=== PATIENT | male | born 1960 | race Asian ===

== ENCOUNTER 2024-03-01 19:02 | Inpatient (IN) | payer MEDICAID, SELFPAY ==
[2024-03-01] VITALS (10 sets, daily range): BP systolic 155–224; BP diastolic 81–106; PULSE 59–74; RESP 14–19; TEMP 37.1; O2SAT 95–99; BMI 27.6
--- NOTE | 2024-03-01 19:03 | PD.EDNEURO ---
Neuro Symptoms Deficit-RME/HPI General Chief Complaint: Neuro Symptoms/Deficit Stated Complaint: STROKE ALERT Time Seen by Provider: 03/01/24 19:04 Arrival date/time: 03/01/24 19:02 Limitations: language barrier (speaks [place]) RME / HPI RME / HPI Narrative: Dr. Davis?s Main ED Evaluation: 63yo male with a history of HTN, HLD BIBA from home presents to the ED for neurological symptoms since Saturday. Per EMS, family endorsed the patient has been confused since Saturday. Patient does not have any medical complaints, but EMS noted the patient having slurred speech. Patient denies any dizziness, lightheadedness, nausea, vomiting or any other associated symptoms. NKDA. Related Data Home Medications ?Medication ?Instructions ?Recorded ?Confirmed bupropion HCl 75 mg tablet 75 mg PO TID 04/12/22 03/01/24 hydrochlorothiazide 50 mg tablet 50 mg PO QDAY 04/12/22 03/01/24 amlodipine 5 mg tablet 5 mg PO DAILY 03/01/24 03/01/24 atorvastatin 40 mg tablet 40 mg PO DAILY 03/01/24 03/01/24 benazepril 40 mg tablet 40 mg PO DAILY 03/01/24 03/01/24 diphenhydramine HCl 25 mg capsule 25 mg PO HS 03/01/24 03/01/24 (Banophen) metoprolol succinate 100 mg 100 mg PO HS 03/01/24 03/01/24 tablet,extended release 24 hr tamsulosin 0.4 mg capsule 4 mg PO DAILY 03/01/24 03/01/24 vortioxetine 20 mg tablet 20 mg PO DAILY 03/01/24 03/01/24 (Trintellix) Allergies Allergy/AdvReac Type Severity Reaction Status Date / Time No Known Drug Allergies Allergy Unknown Verified 02/05/23 13:28 Review of Systems Review of Systems Systems Reviewed: All systems reviewed, normal except as documented Past Medical History Past Medical History CARDIAC: Positive Hypertension ENT: Negative Glaucoma ED Exam Narrative Physical exam: GENERAL APPEARANCE: alert and oriented x person and place, well-developed, well-nourished, no acute distress VITALS: All vitals were reviewed and the pulse ox is 97% on room air, which is normal according to my interpretation. HEENT: Normocephalic, atraumatic; pupils equal, round, reactive to light; EOMI, no nystagmus; mucous membranes pink, moist; oropharynx clear NECK: Supple LUNGS: CTABL; no wheezes, no rales, no rhonchi HEART: Regular rate, regular rhythm; normal S1, S2; no murmurs ABDOMEN: non distended; normal BS; soft, no tenderness, no guarding, no rebound; no masses, no organomegaly, no hernia BACK: no CVA tenderness EXTREMITIES: atraumatic; no edema; has 5/5 strength to all four extremities NEUROLOGIC: awake; alert and oriented to person and place; has a minimal right facial droop; no sensory deficits; no intention tremor, staccato speech, dysmetria or dysdiadochokinesia PSYCHIATRIC: appropriate mood and affect SKIN: warm, dry, normal color; no rashes General Limitations: Present language barrier (speaks [place]) Course Quality Measures Suspected type of Stroke: Acute Ischemic Tenecteplase given: Reason(s) TPA not given: Outside the time window not given stroke Orders Category Date Time Status Bedside Blood Glucose NOW Care 03/01/24 19:11 Completed Service Attendant Cafeteria NOW Care 03/01/24 19:11 Completed Continuous Pulse Oximetry NOW Care 03/01/24 19:11 Completed EKG (ED ONLY) *Do not use* NOW Care 03/01/24 19:11 Completed Fingerstick [Bedside Blood Glucose] NOW Care 03/01/24 19:12 Completed In and Out Catheter NEEDED Care 03/01/24 19:11 Completed Insert IV NOW Care 03/01/24 19:11 Completed Miscellaneous Nursing Order NOW Care 03/01/24 20:02 Completed NIH Stroke Scale now Care 03/01/24 19:11 Completed NPO NOW Care 03/01/24 19:11 Completed Neuro Check Q30MIN Care 03/01/24 19:12 Completed Nurse Swallow Screen x1 Care 03/01/24 19:11 Completed Consult to Neurology / Tele-Neurology Routine Cons 03/01/24 19:[address] angio stroke protocol Stat Exams 03/01/24 19:[address] head/brain wo con Stat Exams 03/01/24 19:11 Completed EKG (ED Only) Stat Exams 03/01/24 19:11 Draft Alcohol, Blood Medical Stat Lab 03/01/24 19:06 Completed Ammonia Stat Lab 03/01/24 20:20 Completed CBC Stat Lab 03/01/24 19:06 Completed Comprehensive Metabolic Panel Stat Lab 03/01/24 19:06 Completed Drug Screen,Urine Stat Lab 03/01/24 20:00 Completed Magnesium Stat Lab 03/01/24 19:06 Completed Partial Thromboplastin Time Stat Lab 03/01/24 19:06 Completed Prothrombin Time with INR Stat Lab 03/01/24 19:06 Completed Troponin I Stat Lab 03/01/24 19:06 Completed Urinalysis Stat Lab 03/01/24 20:00 Completed Urine Culture Stat Lab 03/01/24 20:00 Received Aspirin Med 03/01/24 20:03 Discontinued 325 mg PO X1 ONE Labetalol IV [Trandate IV] Med 03/01/24 20:03 Discontinued 10 mg IVP X1 ONE Oxygen Delivery NOW RT 03/01/24 19:11 Completed Vital Signs Vital signs: Vital Signs Pulse Rate 68 03/01/24 19:19 Neuro Symptoms / Deficit MDM Narrative MDM Narrative:: Scribe Attestation: 03/01/24 Julia Dickson am scribing for and in the presence of Dr. Davis. Patient data External records reviewed:: [facility] previous records (Per chart review, patient has no previous ED visits or admissions to this facility.) Clinical information provided by:: patient and EMS Social determinants that could affect healthcare access:: alcohol use (history of) Patient has the following chronic illnesses:: HTN, HLD How is presenting disease/condition affected by chronic disease/condition?: exacerbated by Evaluation data The following diagnostics were reviewed and interpreted by me:: lab results, radiology exam(s) and EKG tracing(s) Lab and/or radiology exams considered but not ordered:: none Interpretation Summary: WBC count is slightly elevated at 10.8, AST and ALT are slightly elevated, troponin is normal, PT and INR are normal, PTT is normal, UA is unremarkable, UDS is negative, Blood alcohol is negative, according to my interpretation. EKG done at 1935, NSR, rate of 72, left axis deviation, no ectopy, no acute ischemia, according to my interpretation. ------- [facility] Report Signed Patient: GABBY STEWART. Record#: [id number] Birthdate: 1960 Age/Sex: 63 / M Location: [facility] Attending Dr: Ordering Physician: Girish Davis MD Date of Service: 03/01/24 Procedure(s): CT head/brain wo con Accession Number(s): [id number] cc: Rickey Vasquez MD; Girish Davis MD~ Examination: CT brain head without contrast. 2-D sagittal coronal reconstructions Date and time of exam:March 01, 2024 1912 hrs. Indications: Stroke alert, onset right-sided body weakness today CTDI: vol (mGy):48 DLP: (mGycm):951 Technique: Multiple CT axial sections of the brain have been obtained, 5 mm slice thickness. Contrast has not been administered. 2-D sagittal, coronal reconstructions have been obtained Low dose protocols were performed. One or more of the following dose reduction techniques were used; automated exposure control, adjustment of the mA and/or KV according to patient size, use of iterative reconstruction technique. Findings: No significant ventricular enlargement. Intra-axial or extra-axial hemorrhage density is not seen. No mass effect or midline shift Basal cisterns are not remarkable. Fourth ventricle is midline. Cranial vault intact. Impression: Negative for acute hemorrhage, mass effect or midline shift Dictated By: Rickey Vasquez MD Signed By: <Electronically signed by Rickey Vasquez MD in > 03/01/241922 [facility] Report Signed Patient: GABBY STEWART Record#: [id number] Birthdate: 1960 Age/Sex: 63 / M Location: [facility] Attending Dr: Ordering Physician: Girish Davis MD Date of Service: 03/01/24 Procedure(s): CT angio stroke protocol Accession Number(s): [id number] cc: Rickey Vasquez MD; Girish Davis MD; Lana Little PA-C~ Examination: CTA carotids with intravenous contrast CTA brain, head with intravenous contrast. 2-D sagittal, coronal reconstructions. 3-D reconstructions. Exam date and time: March 01, 2024 1912 hrs. Indications: Stroke alert, onset focal neurologic deficit today CTDI: vol (mGy) 10.8 DLP: (mGycm) 414 Technique: Multiple CTA axial brain, head carotid images post intravenous contrast injection 75 cc [id number] 2-D sagittal coronal reconstructions 3-D reconstructions 3-D post processing including vascular maximum intensity projection images No dose protocols Adjustment automated exposure control, adjustment MA KV according to patient size Findings: No significant common carotid carotid bifurcation or internal carotid artery stenoses Codominant vertebral arteries with no critical stenoses 50% stenosis midportion right M1 segment middle cerebral artery Multiple significant stenoses proximal right middle cerebral artery trifurcation vessels Moderate irregularity M1 segment left middle cerebral artery and posterior cerebral branches No thrombus or large vessel occlusion Impression: No significant neck arterial stenoses 50% stenosis midportion M1 segment right middle cerebral artery Multiple significant stenoses origins right middle cerebral artery trifurcation vessels No thrombus or large vessel occlusions Dictated By: Rickey Vasquez MD Signed By: <Electronically signed by Rickey Vasquez MD in [facility]> 03/01/241955 Medications / Prescriptions Medications or Prescriptions considered but not ordered:: none Medication administrations:: Medication Administration History Discontinued Medications Acetaminophen (Acetaminophen 325 Mg Tablet) 650 mg PO Q6H PRN PRN Reason: Pain 1-3 and/or Fever >100.1 Stop: 03/31/24 23:33 Aspirin (Aspirin 325 Mg Tablet) 325 mg PO X1 ONE Stop: 03/01/24 20:04 Last Admin: 03/01/24 20:09 Dose: 325 mg Documented By: CVL Aspirin (Aspirin Ec 81 Mg Tabec) 81 mg PO QDAY ON LICENSE OF [facility] Stop: 04/01/24 08:59 Last Admin: 03/03/24 09:11 Dose: 81 mg Documented By: Admin: 03/02/24 08:33 Dose: 81 mg Documented By: VL Atorvastatin Calcium (Atorvastatin Calcium 20 Mg Tablet) 40 mg PO HS ON LICENSE OF [facility] Stop: 04/01/24 20:59 Last Admin: 03/03/24 20:10 Dose: 40 mg Documented By: Admin: 03/02/24 20:29 Dose: 40 mg Documented By: SS Clopidogrel Bisulfate (Clopidogrel Bisulfate 75 Mg Tablet) 75 mg PO X1 ONE Stop: 03/03/24 16:48 Last Admin: 03/03/24 16:58 Dose: 75 mg Documented By: MGD Clopidogrel Bisulfate (Clopidogrel Bisulfate 75 Mg Tablet) 75 mg PO QDAY ON LICENSE OF [facility] Stop: 04/03/24 08:59 Folic Acid (Folic Acid 1 Mg Tablet) 1 mg PO BID RAFAEL Stop: 03/07/24 08:59 Last Admin: 03/03/24 20:10 Dose: 1 mg Documented By: Admin: 03/03/24 09:12 Dose: 1 mg Documented By: Admin: 03/02/24 20:29 Dose: 1 mg Documented By: Admin: 03/02/24 08:33 Dose: 1 mg Documented By: VL Hydralazine HCl (Hydralazine Inj 20 Mg/Ml Vial) 10 mg IV X1 ONE Stop: 03/03/24 16:29 Last Admin: 03/03/24 16:36 Dose: 10 mg Documented By: MGD Labetalol HCl (Labetalol Inj 5 Mg/Ml Vial 20 Ml) 10 mg IVP X1 ONE Stop: 03/01/24 20:04 Last Admin: 03/01/24 20:09 Dose: 10 mg Documented By: CVL Labetalol HCl (Labetalol Inj 5 Mg/Ml Vial 20 Ml) 10 mg IVP X1 ONE Stop: 03/03/24 16:28 Lorazepam (Lorazepam 0.5 Mg Tablet) 0.5 mg PO Q4HR PRN PRN Reason: CIWA Score 2-6 Stop: 03/06/24 23:37 Lorazepam (Lorazepam 0.5 Mg Tablet) 1 mg PO Q4HR PRN PRN Reason: CIWA SCORE 7-11 Stop: 03/06/24 23:37 Lorazepam (Lorazepam 0.5 Mg Tablet) 2 mg PO Q4HR PRN PRN Reason: CIWA SCORE 12-15 Stop: 03/06/24 23:37 Lorazepam (Lorazepam 2 Mg/Ml Vial) 1 mg IV Q2HR PRN PRN Reason: CIWA SCORE 16-19 Stop: 03/06/24 23:37 Lorazepam (Lorazepam 2 Mg/Ml Vial) 2 mg IV Q2HR PRN PRN Reason: CIWA SCORE 20-25 Stop: 03/06/24 23:37 Lorazepam (Lorazepam 2 Mg/Ml Vial) 1 mg IV Q2HR PRN PRN Reason: CIWA SCORE 16-19 Stop: 03/06/24 23:37 Nicotine (Nicotine Patch 14 Mg/24 Hr Patch.Td24) 14 mg TOP X1 PRN PRN Reason: Tobacco Withdrawal Stop: 03/31/24 23:39 Ondansetron HCl (Ondansetron Inj 2 Mg/Ml Inj 2 Ml) 4 mg IV Q6H PRN; Protocol PRN Reason: NAUSEA OR VOMITING Stop: 03/31/24 23:33 Pantoprazole Sodium (Pantoprazole Inj 40 Mg Vial) 40 mg IVP QDAY ON LICENSE OF [facility] Stop: 04/01/24 08:59 Last Admin: 03/03/24 09:11 Dose: 40 mg Documented By: Admin: 03/02/24 08:39 Dose: 40 mg Documented By: JIMMY Sennosides (Senna Tablet) 1 tab PO QDAY RAFAEL; Protocol Stop: 04/01/24 08:59 Last Admin: 03/03/24 09:11 Dose: 1 tab Documented By: Admin: 03/02/24 08:33 Dose: 1 tab Documented By: JIMMY Thiamine HCl (Thiamine 100 Mg Tablet) 100 mg PO BID RAFAEL Stop: 03/07/24 08:59 Last Admin: 03/03/24 20:10 Dose: 100 mg Documented By: Admin: 03/03/24 09:11 Dose: 100 mg Documented By: Admin: 03/02/24 20:30 Dose: 100 mg Documented By: Admin: 03/02/24 08:33 Dose: 100 mg Documented By: JIMMY see above Consultations Consultation(s) initiated? (list below): Yes Consultation #1 (Physician, Specialty, Details): Discussed case with [Dr. Lassiter] from [teleneurology] regarding [consultation]. Discussed patients ED course, exam findings, labs, and radiology results. States the patient is not a tPA candidate due to the patient's symptoms starting on Saturday. She states the patient has mild aphasia and dysarthria, but there is no evidence of LVO at this time. Recommends to lower the patient's blood pressure by no more than 25%, getting a MRI in the morning, giving aspirin if he passes his swallow study, and admitting the patient for further stroke work-up. Consultation #2 (Physician, Specialty, Details): Discussed case with [the resident physician, attending Dr. Reddy] from Hospitalist service regarding admission. Discussed patients ED course, exam findings, labs, and radiology results. The Hospitalist [agrees] to accept the patient for admission. Time: 23:01 Diagnosis Neuro Differential Diagnosis: other (hypertensive urgency vs emergency, encephalopathy, CVA, TIA) Most likely diagnosis given after review of the tests above:: see below Admission Indicated Admission indicated?: indicated Admission Request Was there a request for admission?: Yes Admission Attestation Admission request attestation: Discussed case with [] from Hospitalist service regarding admission. Discussed patients ED course, exam findings, labs, and radiology results. The Hospitalist [agrees,declines] to accept the patient for admission. Disposition Plan Disposition Plan: Admit Critical Care Time Critical Care Time Critical Care Time: Yes Total Critical Care Time (min.): 45 Attestation: The high probability of sudden, clinically significant deterioration in the patient?s condition required the highest level of my preparedness to intervene urgently. The services I provided to this patient were to treat and/or prevent clinically significant deterioration. Services included the following: chart data review, reviewing nursing notes and/or old charts, documentation time, csm consultant collaboration regarding findings and treatment options, medication orders and management, direct patient care, vital sign assessments and ordering, interpreting and reviewing diagnostic studies and lab tests. Aggregate critical care time includes only time during which I was engaged in work directly related to the patient?s care, as described above, whether at bedside or elsewhere in the Emergency Department. It did not include time spent performing other reported procedures or the services of residents, students, nurses or physician assistants. Discharge Plan Plan Patient Disposition: Admit Acute Care w/in Hospital Disposition Comment: [facility] Patient condition on transfer: Stable Problem List Clinical Impression: Hypertensive encephalopathy Patient/Caregiver Discharge Instructions Discharge Activity: as per physical therapy
--- NOTE | 2024-03-01 19:04 | PC.NURSE ---
stroke consult Case # [id number]
--- NOTE | 2024-03-01 19:11 | XR_ITS ---
Examination: CTA carotids with intravenous contrast CTA brain, head with intravenous contrast. 2-D sagittal, coronal reconstructions. 3-D reconstructions. Exam date and time: March 01, 2024 1912 hrs. Indications: Stroke alert, onset focal neurologic deficit today CTDI: vol (mGy) 10.8 DLP: (mGycm) 414 Technique: Multiple CTA axial brain, head carotid images post intravenous contrast injection 75 cc [id number] 2-D sagittal coronal reconstructions 3-D reconstructions 3-D post processing including vascular maximum intensity projection images No dose protocols Adjustment automated exposure control, adjustment MA KV according to patient size Findings: No significant common carotid carotid bifurcation or internal carotid artery stenoses Codominant vertebral arteries with no critical stenoses 50% stenosis midportion right M1 segment middle cerebral artery Multiple significant stenoses proximal right middle cerebral artery trifurcation vessels Moderate irregularity M1 segment left middle cerebral artery and posterior cerebral branches No thrombus or large vessel occlusion Impression: No significant neck arterial stenoses 50% stenosis midportion M1 segment right middle cerebral artery Multiple significant stenoses origins right middle cerebral artery trifurcation vessels No thrombus or large vessel occlusions
--- NOTE | 2024-03-01 19:11 | XR_ITS ---
Examination: CT brain head without contrast. 2-D sagittal coronal reconstructions Date and time of exam:March 01, 2024 1912 hrs. Indications: Stroke alert, onset right-sided body weakness today CTDI: vol (mGy):48 DLP: (mGycm):951 Technique: Multiple CT axial sections of the brain have been obtained, 5 mm slice thickness. Contrast has not been administered. 2-D sagittal, coronal reconstructions have been obtained Low dose protocols were performed. One or more of the following dose reduction techniques were used; automated exposure control, adjustment of the mA and/or KV according to patient size, use of iterative reconstruction technique. Findings: No significant ventricular enlargement. Intra-axial or extra-axial hemorrhage density is not seen. No mass effect or midline shift Basal cisterns are not remarkable. Fourth ventricle is midline. Cranial vault intact. Impression: Negative for acute hemorrhage, mass effect or midline shift
--- NOTE | 2024-03-01 19:11 | EKG_ITS ---
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
[2024-03-01 19:20] LABS: Basophils # (Auto) 0.1 Thou/mm3 (0.0-0.2); Basophils % (Auto) 1 % (0-2.5); Eosinophils # (Auto) 0.2 Thou/mm3 (0.0-0.5); Eosinophils % (Auto) 2 % (0-10); Hematocrit 43.2 % (41.0-53.0); Hemoglobin 14.6 g/dL (13.5-16.0); Immature Granulocytes % (Auto) 0 % (0-0); Immature Granulocytes Auto 0.03 Thou/mm3 (0.00-0.00); Lymphocytes # (Auto) 4.7 Thou/mm3 (1.0-4.8); Lymphocytes % (Auto) 44 % (10-50); Mean Corpuscular HGB Conc 33.8 g/dl (31.0-37.0); Mean Corpuscular Volume 83 fL (80-100); Monocytes # (Auto) 0.6 Thou/mm3 (0.0-0.8); Monocytes % (Auto) 6 % (0-12); Neutrophils # (Auto) 5.1 Thou/mm3 (1.8-7.7); Neutrophils % (Auto) 47 % (37-80); Nucleated Red Blood Cell % 0 /100 WBC (0); Platelet Count 239 Thou/mm3 (140-440); RDW Standard Deviation 41.1 fL (35.1-43.9); Red Blood Count 5.21 Miln/mm3 (4.50-5.90); White Blood Count 10.8 Thou/mm3 (3.8-10.6)
--- NOTE | 2024-03-01 19:20 | PC.NURSE ---
Pt biba with c/o stroke like-symptoms with a lask known well of saturday02/28/2024 evening, when family noted some confusion. Per ems today family called ems when they noted slurred speech and a right facial droop on pt, 1 hr prior to arrival to the er. pt taken to ct upon arrival with RN via isaac poole. Teleneuro taken. MD assessed pt in ambulance bay. stroke alert called. pt care ongoing
[2024-03-01 19:44] LABS: Partial Thromboplastin Time 22.2 Seconds (22.0-36.0); Prothrombin Time 10.8 Seconds (9.0-12.2)
--- NOTE | 2024-03-01 19:56 | ESCONSULT_ITS ---
Tele Neuro Consultation Consultation Date 03/01/24 Most Recent Vital Signs Last Vital Signs Pulse 74 03/01/24 19:32 Resp 14 03/01/24 19:32 BP 224/106 H 03/01/24 19:32 Pulse Ox 98 03/01/24 19:37 O2 Del Method Room Air 03/01/24 19:32 Laboratory-Coagulation Panel PT 10.8 Seconds (9.0-12.2) 03/01/24 19:06 INR 1.0 (0.9-1.3) 03/01/24 19:06 APTT 22.2 Seconds (22.0-36.0) 03/01/24 19:06 Consultation Narrative [facility] Tele[facility]urology Consult Services Patient Name:???cecilia craig Date of :???1960 Identification Number:??? Date of Service:???03/01/2024 19:03:48 Diagnosis:?R47.01 - Aphasia Impression: ?63M with PMHx HTN, HLD, kidney stones, speaks Malay only, brought in for confusion since Saturday and slurred speech today. Reportedly family told EMS patient has been confused since Saturday. Patient states he feels completely normal. Patient knows e is in hospital but not oriented to date or current president. Denies spinning sensation to ER doc. No nystagmus for ER doc. Patient denies that he has any symptoms. No family at bedside. ?On exam best I can ascertain, patient is aphasic. Difficulty following commands with dinkey dispatcher, and when asked to name items he makes words she cannot interpret. Concerning for acute ischemic stroke vs hypertensive urgency. Our recommendations are outlined below. Recommendations: ? Stroke/Telemetry Floor ? Neuro Checks ? Bedside Swallow Eval ? DVT Prophylaxis ? IV Fluids, Normal Saline ? Head of Bed 30 Degrees ? Euglycemia and Avoid Hyperthermia (PRN Acetaminophen) ?ASA 325 mg PO after passing bedside swallow study; if does not pass then ASA 300mg HI; ?Reduce BP by 25% in first 24 hours. ?MR brain w/o; ?ST, PT, OT Sign Out: ? Discussed with Emergency Department Provider Advanced Imaging:CTA Head and Neck Completed. LVO:No Patient in not a candidate for JIMMY Metrics: Last Known Well: Unknown Dispatch Time: 03/01/2024 19:03:48 Arrival Time: 03/01/2024 19:02:00 Initial Response Time: 03/01/2024 19:23:06Symptoms: confusion, slurred speech . Initial patient interaction: 03/01/2024 19:42:13 NIHSS Assessment Completed: 03/01/2024 19:49:52Patient is not a candidate for Thrombolytic. Thrombolytic Medical Decision: 03/01/2024 19:49:55Patient was not deemed candidate for Thrombolytic because of following reasons: LKW outside 4.[address] head showed no acute hemorrhage or acute core infarct. Primary Provider Notified of Diagnostic Impression and Management Plan on: 03/01/2024 19:51:30 History of Present Illness:Patient is a 63 year old Male. Patient was brought by EMS for symptoms of confusion, slurred speech . 63M with PMHx HTN, HLD, kidney stones, speaks Malay only, brought in for confusion since Saturday and slurred speech today. Reportedly family told EMS patient has been confused since Saturday. Patient states he feels completely normal. Patient knows e is in hospital but not oriented to date or current president. Denies spinning sensation to ER doc. No nystagmus for ER doc. Patient denies that he has any symptoms. No family at bedside. ? Past Medical History: ?Hypertension ?Hyperlipidemia Other PMH:? hypothyroid ?BPH Medications: No Anticoagulant use? No Antiplatelet use Reviewed EMR for current medications Allergies:? Reviewed Social History: Unable To Obtain Due To Patient Status :?Patient Cannot Speak Family History: There is no family history of premature cerebrovascular disease pertinent to this consultation ROS : 14 Points Review of Systems was performed and was negative except mentioned in HPI. Past Surgical History: There Is No Surgical History Contributory To Today?s Visit ? Examination: BP(224/106),?Pulse(61),?Blood Glucose(106) 1A: Level of Consciousness - Alert; keenly responsive?+ 0 1B: Ask Month and Age - Both Questions Right?+ 0 1C: Blink Eyes & Squeeze Hands - Performs Both Tasks?+ 0 2: Test Horizontal Extraocular Movements - Normal?+ 0 3: Test Visual Hammonds - No Visual Loss?+ 0 4: Test Facial Palsy (Use Grimace if Obtunded) - Normal symmetry?+ 0 5A: Test Left Arm Motor Drift - No Drift for 10 Seconds?+ 0 5B: Test Right Arm Motor Drift - No Drift for 10 Seconds?+ 0 6A: Test Left Leg Motor Drift - No Drift for 5 Seconds?+ 0 6B: Test Right Leg Motor Drift - No Drift for 5 Seconds?+ 0 7: Test Limb Ataxia (FNF/Heel-Dalton) - No Ataxia?+ 0 8: Test Sensation - Normal; No sensory loss?+ 0 9: Test Language/Aphasia - Normal; No aphasia?+ 0 10: Test Dysarthria - Mild-Moderate Dysarthria: Slurring but can be understood?+ 1 11: Test Extinction/Inattention - No abnormality?+ 0 NIHSS Score:?1 Pre-Morbid Modified Roberta Scale:Unable to assess Spoke with :?ED physician over camera This consult was conducted in real time using interactive audio and video technology. Patient was informed of the technology being used for this visit and agreed to proceed. Patient located in hospital and provider located at home/office setting. Patient is being evaluated for possible acute neurologic impairment and high probability of imminent or life-threatening deterioration. I spent total of 35 minutes providing care to this patient, including time for face to face visit via telemedicine, review of medical records, imaging studies and discussion of findings with providers, the patient and/or family. Dr Rebeka Lassiter [facility] For Inpatient follow-up with [facility] physician please call [facility] at . As we are not an outpatient service for any post hospital discharge needs please contact the hospital for assistance. If you have any questions for the [facility] physicians or need to reconsult for clinical or diagnostic changes please contact us via [facility] at .
[2024-03-01 20:04] LABS: Alanine Aminotransferase 52 U/L (10-49); Albumin, Serum 4.6 gm/dL (3.4-4.8); Albumin/Globulin Ratio 1.7 (1.2-2.2); Alcohol, Blood Medical < 3.0 mg/dL (0-10.0); Alkaline Phosphatase 110 U/L (46-116); Anion Gap 7 (7-16); Aspartate Amino Transferase 40 U/L (0-34); BUN/Creatinine Ratio 15 Ratio (12-20); Bilirubin,Total 0.5 mg/dL (0.3-1.2); Blood Urea Nitrogen 18 mg/dL (9-23); Calcium 10.5 mg/dL (8.3-10.6); Calcium (Corrected) 10.5 mg/dL (8.5-10.1); Carbon Dioxide 28.8 mMol/L (20.0-31.0); Chloride 107 mMol/L (98-107); Creatinine (Component) 1.2 mg/dL (0.6-1.3); Estimated Creatinine Clearance 43.2 mL/min (>60); Globulin 2.7 gm/dL (2.3-3.5); Glucose 91 mg/dL (74-106); Osmolality,Calculated 286 (275-295); Potassium 3.8 mMol/L (3.4-5.1); Sodium 143 mMol/L (136-145); Total Protein 7.3 gm/dL (5.7-8.2); Troponin I 0.021 ng/mL (0.0-0.045); eGFR > 60 See Note
[2024-03-01] MEDS: Aspirin 325 MG TABLET PO (20:09)
[2024-03-01] MEDS: LABETALOL INJ 5 MG/ML VIAL 20 ML 10 MG IVP (20:09)
[2024-03-01 20:14] LABS: Collection Type, Urine Catheter; Squamous Epithelial Cell,Urine 0 /hpf (0-5)
[2024-03-01 20:18] LABS: Bilirubin,Urine Negative (Negative); Blood,Urine Negative (Negative); Clarity,Urine Clear (Clear/Hazy); Color,Urine Colorless (Lt Yel-Yel); Glucose, Urine Negative (Negative); Ketones,Urine Negative (Negative); Leukocyte Esterase,Urine Negative (Negative); Nitrite,Urine Negative (Negative); PH,Urine 6.5 (5.0-7.0); Protein,Urine Negative (Neg - Trace); RBC,Urine 1 /hpf (0-3); Specific Gravity,Urine 1.032 (1.001-1.035); Urobilinogen,Urine Negative mg/dL (0.0-1.0); WBC,Urine 1 /hpf (0-5)
[2024-03-01 20:25] LABS: Amphetamine/Methamp Scrn,U Negative (Negative); Barbiturate Screen,Urine Negative (Negative); Benzodiazepines Screen,Urine Negative (Negative); Benzoylecgonine Screen, Ur Negative (Negative); Fentanyl Screen,Urine Negative (Negative); Opiate Screen,Urine Negative (Negative); THC Screen,Urine Negative (Negative)
[2024-03-01 20:53] LABS: Ammonia < 10 uMol/L (11-32)
--- NOTE | 2024-03-01 23:36 | ECHO_ITS ---
Transthoracic Echo Report Ht (in): 57 Wt (lb): 128 Exam Location: Portable Status: Emergency Cabbage Salter: Tierra Torres Indications: Procedure Performed: BP: 142 / 80 HR: 71 Rhythm: Sinus Technical Quality: Fair Contrast: Agitated Saline Total Dose (mL): MEASUREMENTS (Male / Female) Normal Values 2D ECHO LV Diastolic Diameter PLAX 4.4 cm 4.2 - 5.9 / 3.9 - 5.3 cm LV Systolic Diameter PLAX 3.2 cm IVS Diastolic Thickness 0.9 cm 0.6 - 1.0 / 0.6 - 0.9 cm LVPW Diastolic Thickness 1.0 cm 0.6 - 1.0 / 0.6 - 0.9 cm LV Relative Wall Thickness 0.4 LVOT Diameter 1.7 cm LA Volume Index 21.5 cm?/m? 16 - 28 cm?/m? Ascending Aorta Diameter 3.1 cm M-MODE Aortic Root Diameter MM 2.8 cm LA Systolic Diameter MM 3.3 cm LA Ao Ratio MM 1.2 AV Cusp Separation MM 1.9 cm DOPPLER AV Peak Velocity 164.0 cm/s AV Peak Gradient 10.8 mmHg AV Mean Gradient 5.0 mmHg AV Velocity Time Integral 33.5 cm AI Peak Velocity 495.3 cm/s AI Peak Gradient 98.1 mmHg AI Pressure Half Time 563.3 ms LVOT Peak Velocity 115.0 cm/s LVOT Peak Gradient 5.3 mmHg LVOT Velocity Time Integral 24.4 cm LVOT Cardiac Index 2538.3 cm?/min?m? AV Area Cont Eq vti 1.7 cm? AV Area Cont Eq pk 1.6 cm? MV Peak Velocity 109.0 cm/s MV Peak Gradient 4.8 mmHg MV Mean Velocity 57.5 cm/s MV Mean Gradient 2.0 mmHg MV Area PHT 3.5 cm? Mitral E Point Velocity 85.4 cm/s Mitral A Point Velocity 109.0 cm/s Mitral E to A Ratio 0.8 LV E' Lateral Velocity 9.7 cm/s Mitral E to LV E' Lateral Ratio 8.8 LV E' Septal Velocity 6.5 cm/s Mitral E to LV E' Septal Ratio 13.1 TR Peak Velocity 192.5 cm/s TR Peak Gradient 14.8 mmHg FINDINGS Left Ventricle Normal left ventricular size, wall thickness, systolic function with no obvious regional wall motion abnormalities. The ejection fraction is visually estimated at 55%. Right Ventricle The right ventricle is normal in size and systolic function. The estimated right ventricular systoli c pressure, 26mmHg. RAP 5. Left Atrium The left atrium is normal by two-dimensional, color flow and Doppler imaging with no structural abnormalities, no thrombus formation present. Right Atrium The right atrium is normal by two-dimensional imaging, color flow and Doppler imaging with no struct ural abnormalities, no thrombus formation present. Atrial Septum The interatrial septum appears normal with no evidence of a shunt. Aorta The aorta is normal by two-dimensional, color flow and Doppler interrogation. Mitral Valve The mitral valve is normal by two-dimensional, color flow and Doppler interrogation. There is trace mitral valve regurgitation. Aortic Valve The aortic valve is trileaflet. Mild sclerosis without stenosis. There is mild to moderate aortic v alve regurgitation. Tricuspid Valve The tricuspid valve is normal by two-dimensional, color flow and Doppler interrogation. There is mil d tricuspid valve regurgitation. Pulmonic Valve There is no significant pulmonic valve regurgitation. Vessels The pulmonary artery appears normal. The inferior vena cava pulmonary and hepatic veins appear suzie l. Pericardium The pericardium is normal by two-dimensional imaging. There is no significant pericardial effusion. CONCLUSIONS Negative bubble study. No evidence of PFO or ASD. Normal LV size and function. Estimated EF 60% Normal RV size and function. Moderate 2+aotic regurgitation Mild TR. Mild AV sclerosis without stenosis. Whit Wang (Electronically Signed) Final Date: 03 March 2024 15:05
--- NOTE | 2024-03-01 23:41 | PD.RESHP ---
Documentation for date of: 03/01/24 HPI History of Present Illness Chief complaint: Acute encephalopathy History of present illness: 63-year-old male with past medical history of hypertension, hyperlipidemia, nephrolithiasis/staghorn calculi, BPH on tamsulosin, active tobacco smoker, history of alcohol use disorder presented to the ED on 03/01 with change in mental status along with slurring speech. History taken mostly from ED physician along with family. Per family, the patient has been having confusion since Saturday night and has progressively become more confused throughout the weekend; moreover, on the afternoon of 03/01 he started slurring his speech which is not normal for him. Patient was brought into the ambulance confused with elevated systolic blood pressure in the 220s; however, patient states that he has been taking his medications as prescribed on a daily basis. Per family, this has never happened to the patient before and he apparently follows with a PCP on a regular basis. Patient denies having any concerning symptoms such as headache, dizziness, chest pain/tightness, palpitations or shortness of breath. Per family, the patient has not had any sick contacts or any recent travels out of the [facility]. Remaining history was attempted to take with the batter depositor (Evaristo); however, the patient focus/mentation waxes and wanes and he does not follow commands when doing physical exam. Medical history: As stated above Surgical history: Denies any surgeries at this time Allergies: NKDA Medications: Amlodipine, atorvastatin, benazepril, bupropion, Banophen, hydrochlorothiazide, metoprolol succinate, tamsulosin, vortioxetine Family history: Noncontributory Social history: Patient is an active smoker unsure exactly how much as the patient is not providing great history (at least [id number]), alcohol use disorder (unsure how much at this time), denies alcohol use, patient lives with his and son ROS: All 12 systems assessed and the patient denies unless otherwise stated in HPI in the ED, patient presented Hypertensive systolic 208/91, heart rate 68, respiratory 18, afebrile satting 96 on room air. Pertinent lab findings included WBC of 10.8, BUN 18, creatinine 1.2, corrected calcium 10.5, magnesium 2.0, troponin 0.021. Urinalysis did not show any signs of urinary tract infection and U tox is negative. Stroke protocol was initiated, teleneurologist was consulted and their assessment resulted NIHSS score of 1. Head CT and head and neck CTA were negative for any acute process and EKG showed normal sinus rhythm. In the ED, patient was given x 1 order of 10 mg labetalol IV due to systolic blood pressure going up to 220s; however, after some time blood pressure did drop to around 110 systolic. Patient will be admitted for acute encephalopathy likely secondary to hypertensive emergency versus possible left-sided stroke. Exam Vital Signs Temp Pulse Resp BP Pulse Ox O2 Del Method 98.8 F 59 L 16 155/81 H 97 Room Air 03/01/24 20:23 03/01/24 22:30 03/01/24 22:30 03/01/24 22:30 03/01/24 22:30 03/01/24 22:30 Narrative Exam Physical Exam: GENERAL: Awake, answering questions but waxes/wanes in mentation, appears stated age HEENT: NC/AT. Moist mucosa. PERRLA/EOMI. CARDIO: Heart RRR, no obvious murmurs, no JVD. PULM: No coughing or visible SOB. Lungs CTA B/L. GI: Abdomen soft, NT/ND, +BS. SKIN/MSK/EXT: No wounds/discoloration/rashes/edema/amputations. +Pedal pulses present B/L. NEURO: Oriented x2 (person, place, not purpose), CN 3,4,6 EOMI, CN 2,5,7-12 unable to assess as patient does not follow commands, Moves extremities x4, unable to ascertain if patient responds to stimuli for sensation assessment. Modified pronator drift test negative. Results: Labs 03/01/24 19:06 03/01/24 19:06 Labs: Short CBC 03/01/24 Range/Units 19:06 WBC 10.8 H (3.8-10.6) Thou/mm3 Hgb 14.6 (13.5-16.0) g/dL Hct 43.2 (41.0-53.0) % Plt Count 239 (140-440) Thou/mm3 BMP 03/01/24 19:06 Sodium 143 Potassium 3.8 Chloride 107 Carbon Dioxide 28.8 BUN 18 Creatinine 1.2 Glucose 91 Calcium 10.5 Cardiac Enzymes 03/01/24 Range/Units 19:06 Troponin I 0.021 (0.0-0.045) ng/mL Liver Function 03/01/24 Range/Units 19:06 Total Bilirubin 0.5 (0.3-1.2) mg/dL AST 40 H (0-34) U/L ALT 52 H (10-49) U/L Alkaline Phosphatase 110 (46-116) U/L Albumin 4.6 (3.4-4.8) gm/dL Urine 03/01/24 Range/Units 20:00 Urine Color Colorless A (Lt Yel-Yel) Urine Clarity Clear (Clear/Hazy) Urine pH 6.5 (5.0-7.0) Ur Specific Ketchum 1.032 (1.001-1.035) Urine Protein Negative (Neg - Trace) Urine Glucose (UA) Negative (Negative) Quality Measures Quality Measures stroke Suspected type of Stroke: Unknown at this time Tenecteplase given: Reason(s) Tenecteplase not given: Outside the time window not given Rehab services: PT evaluation ordered VTE Prophylaxis: mechanical Antithrombotic by day 2:: ordered Statin ordered: <75 y/o high intensity dose Anticoagulation ordered for A-fib or flutter (current or hx): not indicated Medications Home Medications and Allergies Home Medications ?Medication ?Instructions ?Recorded ?Confirmed ?Type bupropion HCl 75 mg tablet 75 mg PO TID 04/12/22 03/01/24 History hydrochlorothiazide 50 mg tablet 50 mg PO QDAY 04/12/22 03/01/24 History amlodipine 5 mg tablet 5 mg PO DAILY 03/01/24 03/01/24 History atorvastatin 40 mg tablet 40 mg PO DAILY 03/01/24 03/01/24 History benazepril 40 mg tablet 40 mg PO DAILY 03/01/24 03/01/24 History diphenhydramine HCl 25 mg capsule 25 mg PO HS 03/01/24 03/01/24 History (Banophen) metoprolol succinate 100 mg 100 mg PO HS 03/01/24 03/01/24 History tablet,extended release 24 hr tamsulosin 0.4 mg capsule 4 mg PO DAILY 03/01/24 03/01/24 History vortioxetine 20 mg tablet 20 mg PO DAILY 03/01/24 03/01/24 History (Trintellix) Allergies Allergy/AdvReac Type Severity Reaction Status Date / Time No Known Drug Allergies Allergy Unknown Verified 02/05/23 13:28 Visit Medications Acetaminophen (Acetaminophen 325 Mg Tablet) 650 mg PO Q6H PRN PRN Reason: Pain 1-3 and/or Fever >100.1 Stop: 03/31/24 23:33 Aspirin (Aspirin Ec 81 Mg Tabec) 81 mg PO QDAY [facility] Stop: 04/01/24 08:59 Folic Acid (Folic Acid 1 Mg Tablet) 1 mg PO BID [facility] Stop: 03/07/24 08:59 Lorazepam (Lorazepam 0.5 Mg Tablet) 0.5 mg PO Q4HR PRN PRN Reason: CIWA Score 2-6 Stop: 03/06/24 23:37 Lorazepam (Lorazepam 0.5 Mg Tablet) 1 mg PO Q4HR PRN PRN Reason: CIWA SCORE 7-11 Stop: 03/06/24 23:37 Lorazepam (Lorazepam 0.5 Mg Tablet) 2 mg PO Q4HR PRN PRN Reason: CIWA SCORE 12-15 Stop: 03/06/24 23:37 Lorazepam (Lorazepam 2 Mg/Ml Vial) 1 mg IV Q2HR PRN PRN Reason: CIWA SCORE 16-19 Stop: 03/06/24 23:37 Lorazepam (Lorazepam 2 Mg/Ml Vial) 2 mg IV Q2HR PRN PRN Reason: CIWA SCORE 20-25 Stop: 03/06/24 23:37 Ondansetron HCl (Ondansetron Inj 2 Mg/Ml Inj 2 Ml) 4 mg IV Q6H PRN; Protocol PRN Reason: NAUSEA OR VOMITING Stop: 03/31/24 23:33 Pantoprazole Sodium (Pantoprazole Inj 40 Mg Vial) 40 mg IVP QDAY [facility] Stop: 04/01/24 08:59 Sennosides (Senna Tablet) 1 tab PO QDAY [facility]; Protocol Stop: 04/01/24 08:59 Thiamine HCl (Thiamine 100 Mg Tablet) 100 mg PO BID [facility] Stop: 03/07/24 08:59 Discontinued Medications Aspirin (Aspirin 325 Mg Tablet) 325 mg PO X1 ONE Stop: 03/01/24 20:04 Last Admin: 03/01/24 20:09 Dose: 325 mg Labetalol HCl (Labetalol Inj 5 Mg/Ml Vial 20 Ml) 10 mg IVP X1 ONE Stop: 03/01/24 20:04 Last Admin: 03/01/24 20:09 Dose: 10 mg Assessment & Plan Plan 63-year-old male with past medical history of hypertension, hyperlipidemia, nephrolithiasis/staghorn calculi, BPH on tamsulosin, active tobacco smoker, history of alcohol use disorder presented with change in mental status along with slurring speech will be admitted for acute encephalopathy likely secondary to hypertensive emergency versus possible left-sided stroke. #Acute encephalopathy #CVA #Hypertensive emergency #Leukocytosis Patient presenting from home with change in mental status since Tuesday 02/27 Per family, the patient started having some confusion along with slurring of speech which progressively worsened on 03/01 Patient did present to the ED with hypertensive emergency with systolic blood pressure in the 220s In the ED, differentials for acute encephalopathy such as infectious/metabolic were analyzed: UA was negative, ammonia within normal limits Stroke alert was initiated and teleneurology was consulted; and states the score was 1 CT head and neck along with CT head were negative for any acute process CT of the neck did show 50% stenosis midportion M1 segment right middle cerebral artery and multiple significant stenoses origins right middle cerebral artery trifurcation vessels In the ED, patient was given aspirin 325 and labetalol 10 mg IV x 1 - patient's blood pressure did drop from 220s to 110 while in the ED Plan: MR stroke protocol TTE with bubble study Aspirin 81 daily Euglycemic Head of bed above 30 degrees Temperature control High-intensity statin N.p.o., speech and physical therapy evaluation Avoid anti-hypertensives at this time, permissive hypertension Neurochecks every 4 hours Lipid panel, A1c and TSH ordered Teleneurology consulted, appreciate recommendations #Tobacco dependence Patient is an active tobacco smoker, unsure exactly how much she smoked secondary to mental status Patient has been smoking since a very young age; at least 70-nfov-stng history Plan: As needed nicotine #Hypertension Patient has extensive history of hypertension controlled with benazepril, metoprolol succinate, hydrochlorothiazide and amlodipine Plan: Will hold all antihypertensives secondary to permissive hypertension due to possible stroke #Alcohol use disorder #Elevated liver enzymes Unsure exactly how much alcohol the patient drinks at this time secondary to change in mental status Patient presenting with elevated liver enzymes, AST 40, ALT 52 T. bili 0.5 and alk phos 110 Likely secondary to atorvastatin, NAFLD, alcohol induced liver injury Plan: Monitor with morning labs Outpatient follow-up Alcohol cessation CIWA protocol Folate and thiamine supplementation #Hypercalcemia Patient presenting with elevated calcium, 10.5 Likely secondary to dehydration versus PTH dependent/independent process Plan: Followed outpatient #Hyperlipidemia #BPH #History of nephrolithiasis Chronic medical conditions Lipid panel ordered Patient follows Dr. Baer outpatient for history of nephrolithiasis Plan: Restart tamsulosin, atorvastatin when appropriate Follow-up outpatient for nephrolithiasis, nonobstructing Hospital Management: Lines: PIV Diet: N.p.o., pending swallow eval Bowel: Senna as needed GI prophylaxis: Protonix DVT prophylaxis: SCDs Dispo: MRI stroke workup pending, teleneurology is consulted appreciate recommendations Code: Full Patient seen and assessed with attending Dr. James and senior resident Dr. Vijay Camp, PGY-1 Attending Provider Attestation/Addendum 63-year-old male patient was brought in to the ER because of altered mentation and elevated blood pressure. Past medical history significant for hypertension, hyperlipidemia, nephrolithiasis, cigarette and alcohol use. Patient has normal white count, normal BUN and creatinine. He has elevated transaminases. CT of the brain without contrast showed no stroke no infarct, no bleed. No midline shift no mass. Calcium is slightly elevated. Ammonia level is low. Patient was admitted for further workup. Discussed with housestaff
[2024-03-02] VITALS (12 sets, daily range): BP systolic 154–168; BP diastolic 82–91; PULSE 52–84; RESP 14–98; TEMP 36.1–37.1; O2SAT 95–98; BMI 27.0
--- NOTE | 2024-03-02 | XR_ITS ---
Examinations: MRI Brain without intravenous contrast. MRA brain without intravenous contrast. MRA carotids without intravenous contrast 3-D vascular reconstructions Date and time of exam: March 02, 2024 at 1618 hrs. Indications: Stroke alert March 01, 2024, onset focal neurologic deficit, right-sided body weakness, slurred speech Technique: Multiple axial and sagittal images of the brain have been obtained MRA brain carotid images without contrast obtained, including 3-D postprocessing, vascular maximum intensity projection images Findings: Sellaturcica is not enlarged. The optic chiasm and infundibular stalk are not remarkable. Prepontine and interpeduncular cisterns are not enlarged. No localized enlargement of the medulla or mt. Fourth ventricle and cerebellar tonsils normal in position. Subacute hemorrhage is not seen. Fourth ventricle is midline. Mass in the cerebellopontine angle region is not evident. 7th and 8th nerve complexes exhibits symmetry. Globes are symmetrical with no retro-orbital mass. Increased white matter signal prominent Diffusion-weighted images demonstrate numerous embolic type foci restricted diffusion up to to 15 mm in the left temporal lobe, frontal lobe, left basal ganglia, left parietal lobe Mass-effect upon the ventricular system is not identified. MRA carotid images no gross stenoses. 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
--- NOTE | 2024-03-02 00:51 | PC.NURSE ---
REPORT GIVEN TO OMER PICHARDO AT TELE.
[2024-03-02 05:44] LABS: Basophils # (Auto) 0.1 Thou/mm3 (0.0-0.2); Basophils % (Auto) 1 % (0-2.5); Eosinophils # (Auto) 0.2 Thou/mm3 (0.0-0.5); Eosinophils % (Auto) 2 % (0-10); Hematocrit 43.4 % (41.0-53.0); Hemoglobin 14.4 g/dL (13.5-16.0); Immature Granulocytes % (Auto) 0 % (0-0); Immature Granulocytes Auto 0.03 Thou/mm3 (0.00-0.00); Lymphocytes # (Auto) 3.8 Thou/mm3 (1.0-4.8); Lymphocytes % (Auto) 38 % (10-50); Mean Corpuscular HGB Conc 33.2 g/dl (31.0-37.0); Mean Corpuscular Volume 84 fL (80-100); Monocytes # (Auto) 0.6 Thou/mm3 (0.0-0.8); Monocytes % (Auto) 6 % (0-12); Neutrophils # (Auto) 5.3 Thou/mm3 (1.8-7.7); Neutrophils % (Auto) 53 % (37-80); Nucleated Red Blood Cell % 0 /100 WBC (0); Platelet Count 216 Thou/mm3 (140-440); Red Blood Count 5.15 Miln/mm3 (4.50-5.90)
[2024-03-02 06:12] LABS: Prothrombin Time 11.1 Seconds (9.0-12.2)
[2024-03-02 06:17] LABS: Alanine Aminotransferase 51 U/L (10-49); Albumin, Serum 4.7 gm/dL (3.4-4.8); Albumin/Globulin Ratio 1.7 (1.2-2.2); Alkaline Phosphatase 101 U/L (46-116); Anion Gap 9 (7-16); Aspartate Amino Transferase 22 U/L (0-34); BUN/Creatinine Ratio 16 Ratio (12-20); Bilirubin,Total 0.8 mg/dL (0.3-1.2); Blood Urea Nitrogen 16 mg/dL (9-23); Calcium 9.9 mg/dL (8.3-10.6); Calcium (Corrected) 9.9 mg/dL (8.5-10.1); Carbon Dioxide 27.6 mMol/L (20.0-31.0); Cardiac Risk Estimate 3.7 RATIO (4.0-6.7); Chloride 106 mMol/L (98-107); Cholesterol 202 mg/dL (132-200); Estimated Creatinine Clearance 51.2 mL/min (>60); Globulin 2.7 gm/dL (2.3-3.5); Glucose 97 mg/dL (74-106); HDL Cholesterol 54 mg/dL (40-60); LDL Cholesterol,Calculated 120 mg/dL (0-130); Magnesium 2.1 mg/dL (1.6-2.6); Osmolality,Calculated 286 (275-295); Phosphorous 3.8 mg/dL (2.4-5.1); Potassium 3.4 mMol/L (3.4-5.1); Sodium 143 mMol/L (136-145); Thyroid Stimulating Hormone 2.45 uIU/mL (0.55-4.78); Total Protein 7.4 gm/dL (5.7-8.2); Triglycerides 141 mg/dL (30-150); eGFR > 60 See Note
[2024-03-02 06:42] LABS: Glucose Estimated Average 100 mg/dL (80-131); Hemoglobin A1C 5.1 % Hgb (4.8-6.0)
--- NOTE | 2024-03-02 07:31 | ESPR_ITS ---
Documentation for date of: 03/02/24 Subjective Subjective Interval history: History of present illness: 63-year-old male with past medical history of hypertension, hyperlipidemia, nephrolithiasis/staghorn calculi, BPH on tamsulosin, active tobacco smoker, history of alcohol use disorder presented to the ED on 03/01 with change in mental status along with slurring speech. History taken mostly from ED physician along with family. Per family, the patient has been having confusion since Saturday night and has progressively become more confused throughout the weekend; moreover, on the afternoon of 03/01 he started slurring his speech which is not normal for him. Patient was brought into the ambulance confused with elevated systolic blood pressure in the 220s; however, patient states that he has been taking his medications as prescribed on a daily basis. Per family, this has never happened to the patient before and he apparently follows with a PCP on a regular basis. Patient denies having any concerning symptoms such as headache, dizziness, chest pain/tightness, palpitations or shortness of breath. Per family, the patient has not had any sick contacts or any recent travels out of the [facility]. Remaining history was attempted to take with the service desk specialist (Evaristo); however, the patient focus/mentation waxes and wanes and he does not follow commands when doing physical exam. Hypertensive systolic 208/91, heart rate 68, respiratory 18, afebrile satting 96 on room air. Pertinent lab findings included WBC of 10.8, BUN 18, creatinine 1.2, corrected calcium 10.5, magnesium 2.0, troponin 0.021. Urinalysis did not show any signs of urinary tract infection and U tox is negative. Stroke protocol was initiated, teleneurologist was consulted and their assessment resulted NIHSS score of 1. Head CT and head and neck CTA were negative for any acute process and EKG showed normal sinus rhythm. In the ED, patient was given x 1 order of 10 mg labetalol IV due to systolic blood pressure going up to 220s; however, after some time blood pressure did drop to around 110 systolic. Patient will be admitted for acute encephalopathy likely secondary to hypertensive emergency versus possible left-sided stroke. 03/02/24: Patient interviewed and examined at bedside this a.m. no overnight events reported as per the patient's nurse. Patient's labs vitals and chart thoroughly reviewed prior to evaluation. Patient's stroke workup thus far has been negative. Although CTA did show 50% stenosis of the right MCA trifurcation vessels. Patient on exam noted to have right-sided facial droop of the angle of the mouth. Although both upper and lower extremity strength intact. Patient pending MRI. Patient also evaluated by speech therapy who recommended dysphagia 3 diet. Exam Vital Signs Temp Pulse Resp BP Pulse Ox O2 Del Method 97.8 F 76 20 156/84 H 98 Room Air 03/02/24 04:00 03/02/24 07:08 03/02/24 07:08 03/02/24 04:00 03/02/24 04:00 03/02/24 04:00 Narrative Exam General: Not in any visible or apparent acute distress, well appearing, alert, pleasant and interactive HEENT: NC/AT, PERRL, EOMI, good conjugate gaze, moist mucous membranes, tongue midline on protrusion, right angle of the mouth drooping noted CVS: S1S2 Regular rate and rhythm, No murmurs, rubs or gallops Lungs: Normal respiratory effort, no wheezing rhonchi or rales, CTAB Abd: Soft, no tenderness to palpation, no guarding, Ext: No edema, warm well perfused, normal tone and ROM, strength and sensation equal in all 4 extremities, although poor effort Skin: Intact, no rashes, no lesions, no erythema Neuro: AOx3 no gross focal neurological deficits noted besides Psych: Appropriate mood and affect Objective Labs 03/02/24 05:13 03/02/24 05:13 Labs: Laboratory Results - last 24 hr 03/01/24 03/01/24 03/01/24 19:06 20:00 20:20 WBC 10.8 H RBC 5.21 Hgb 14.6 Hct 43.2 MCV 83 MCH 28.0 MCHC 33.8 RDW Std Deviation 41.1 Plt Count 239 Neut % (Auto) 47 Lymph % (Auto) 44 [place] % (Auto) 6 Eos % (Auto) 2 Baso % (Auto) 1 Neut # (Auto) 5.1 Lymph # (Auto) 4.7 [place] # (Auto) 0.6 Eos # (Auto) 0.2 Baso # (Auto) 0.1 Immature Gran # (Auto) 0.03 H Absolute Nucleated RBC 0.00 Immature Gran % 0 Nucleated RBC % 0 PT 10.8 INR 1.0 APTT 22.2 Sodium 143 Potassium 3.8 Chloride 107 Carbon Dioxide 28.8 Anion Gap 7 BUN 18 Creatinine 1.2 Estim Creat Clear Calc 43.2 L eGFR > 60 BUN/Creatinine Ratio [address] Glu mg/dL Hemoglobin A1c Calculated Osmolality 286 Calcium 10.5 Corrected Calcium 10.5 H Phosphorus Magnesium 2.0 Total Bilirubin 0.5 AST 40 H ALT 52 H Alkaline Phosphatase 110 Ammonia < 10 L Troponin I 0.021 Total Protein 7.3 Albumin 4.6 Globulin 2.7 Albumin/Globulin Ratio 1.7 Triglycerides Cholesterol LDL Cholesterol, Calc HDL Cholesterol Cholesterol/HDL Ratio TSH Ur Collection Type Catheter Urine Color Colorless A Urine Clarity Clear Urine pH 6.5 Ur Specific [place] 1.032 Urine Protein Negative Urine Glucose (UA) Negative Urine Ketones Negative Urine Blood Negative Urine Nitrite Negative Urine Bilirubin Negative Urine Urobilinogen (Auto) Negative Ur Leukocyte Esterase Negative Urine RBC 1 Urine WBC 1 Ur Squamous Epith Cells 0 Urine Bacteria None Urine Opiates Screen Negative Urine Fentanyl Screen Negative Ur Barbiturates Screen Negative U Amphetamin/Meth Scrn Negative U Benzodiazepines Scrn Negative U Cocaine Metab Screen Negative U Marijuana (THC) Screen Negative Ethyl Alcohol < 3.0 03/02/24 05:13 WBC 10.0 RBC 5.15 Hgb 14.4 Hct 43.4 MCV 84 MCH 28.0 MCHC 33.2 RDW Std Deviation 42.0 Plt Count 216 Neut % (Auto) 53 Lymph % (Auto) 38 [place] % (Auto) 6 Eos % (Auto) 2 Baso % (Auto) 1 Neut # (Auto) 5.3 Lymph # (Auto) 3.8 [place] # (Auto) 0.6 Eos # (Auto) 0.2 Baso # (Auto) 0.1 Immature Gran # (Auto) 0.03 H Absolute Nucleated RBC 0.00 Immature Gran % 0 Nucleated RBC % 0 PT 11.1 INR 1.0 APTT Sodium 143 Potassium 3.4 Chloride 106 Carbon Dioxide 27.6 Anion Gap 9 BUN 16 Creatinine 1.0 Estim Creat Clear Calc 51.2 L eGFR > 60 BUN/Creatinine Ratio [address] Glu mg/dL 100 Hemoglobin A1c 5.1 Calculated Osmolality 286 Calcium 9.9 Corrected Calcium 9.9 Phosphorus 3.8 Magnesium 2.1 Total Bilirubin 0.8 AST 22 ALT 51 H Alkaline Phosphatase 101 Ammonia Troponin I Total Protein 7.4 Albumin 4.7 Globulin 2.7 Albumin/Globulin Ratio 1.7 Triglycerides 141 Cholesterol 202 H LDL Cholesterol, Calc 120 HDL Cholesterol 54 Cholesterol/HDL Ratio 3.7 L TSH 2.45 Ur Collection Type Urine Color Urine Clarity Urine pH Ur Specific [place] Urine Protein Urine Glucose (UA) Urine Ketones Urine Blood Urine Nitrite Urine Bilirubin Urine Urobilinogen (Auto) Ur Leukocyte Esterase Urine RBC Urine WBC Ur Squamous Epith Cells Urine Bacteria Urine Opiates Screen Urine Fentanyl Screen Ur Barbiturates Screen U Amphetamin/Meth Scrn U Benzodiazepines Scrn U Cocaine Metab Screen U Marijuana (THC) Screen Ethyl Alcohol Quality Measures Quality Measures stroke Suspected type of Stroke: Unknown at this time Tenecteplase given: Reason(s) Tenecteplase not given: Outside the time window not given Rehab services: PT evaluation ordered and Speech Language Pathology eval ordered VTE Prophylaxis: pharmaceutical Antithrombotic by day 2:: contraindicated (describe) Statin ordered: >75 y/o moderate or high intensity dose Anticoagulation ordered for A-fib or flutter (current or hx): not indicated Assessment & Plan Assessment Current Active Medications: Generic Name Dose Route Start Last Admin Trade Name Freq PRN Reason Stop Dose Admin Acetaminophen 650 mg 03/01/24 23:34 Acetaminophen 325 Mg Tablet PO 03/31/24 23:33 Q6H PRN Pain 1-3 and/or Fever >100.1 Aspirin 81 mg 03/02/24 09:00 Aspirin Ec 81 Mg Tabec PO 04/01/24 08:59 QDAY RAFAEL Atorvastatin Calcium 40 mg 03/02/24 21:00 Atorvastatin Calcium 20 Mg Tablet PO 04/01/24 20:59 HS RAFAEL Folic Acid 1 mg 03/02/24 09:00 Folic Acid 1 Mg Tablet PO 03/07/24 08:59 BID RAFAEL Lorazepam 0.5 mg 03/01/24 23:38 Lorazepam 0.5 Mg Tablet PO 03/06/24 23:37 Q4HR PRN CIWA Score 2-6 Lorazepam 1 mg 03/01/24 23:38 Lorazepam 0.5 Mg Tablet PO 03/06/24 23:37 Q4HR PRN CIWA SCORE 7-11 Lorazepam 2 mg 03/01/24 23:38 Lorazepam 0.5 Mg Tablet PO 03/06/24 23:37 Q4HR PRN CIWA SCORE 12-15 Lorazepam 1 mg 03/01/24 23:38 Lorazepam 2 Mg/Ml Vial IV 03/06/24 23:37 Q2HR PRN CIWA SCORE 16-19 Lorazepam 2 mg 03/01/24 23:38 Lorazepam 2 Mg/Ml Vial IV 03/06/24 23:37 Q2HR PRN CIWA SCORE 20-25 Nicotine 14 mg 03/01/24 23:40 Nicotine Patch 14 Mg/24 Hr Patch.Td24 TOP 03/31/24 23:39 X1 PRN Tobacco Withdrawal Ondansetron HCl 4 mg 03/01/24 23:34 Ondansetron Inj 2 Mg/Ml Inj 2 Ml IV 03/31/24 23:33 Q6H PRN NAUSEA OR VOMITING Protocol Pantoprazole Sodium 40 mg 03/02/24 09:00 Pantoprazole Inj 40 Mg Vial IVP 04/01/24 08:59 QDAY RAFAEL Sennosides 1 tab 03/02/24 09:00 Senna Tablet PO 04/01/24 08:59 QDAY RAFAEL Protocol Thiamine HCl 100 mg 03/02/24 09:00 Thiamine 100 Mg Tablet PO 03/07/24 08:59 BID RAFAEL Plan Assessment: 63-year-old male with past medical history of hypertension, hyperlipidemia, nephrolithiasis/staghorn calculi, BPH on tamsulosin, active tobacco smoker, history of alcohol use disorder presented with change in mental status along with slurring speech will be admitted for acute encephalopathy likely secondary to hypertensive emergency versus possible left-sided stroke. #Acute encephalopathy #Left sided weakness #Rule out stroke #Hypertensive emergency Patient presenting from home with change in mental status since Tuesday 02/27. Per family, the patient started having some confusion along with slurring of speech which progressively worsened on 03/01. Patient did present to the ED with hypertensive emergency with systolic blood pressure in the 220's. Patient has physical exam findings of decreased sensation and decreased strength on Left face and left arm respectively. Lower extremity strength was intact. Stroke alert was initiated and teleneurology was consulted; and states the score was 1. Patient not within time constraints for thrombolytic therapy. Head CT: Negative for acute hemorrhage, mass-effect or midline shift Head/neck CTA: 50% stenosis midportion M1 segment right middle cerebral artery and multiple significant stenoses origins right middle cerebral artery trifurcation vessels In the ED, patient was given aspirin 325 and labetalol 10 mg IV x 1 - patient's blood pressure did drop from 220s to 110 while in the ED Plan: Admission to telemetry MRI stroke protocol: PENDING TTE with bubble study: Pending Aspirin 81 daily Euglycemic Head of bed above 30 degrees Temperature control High-intensity statin N.p.o., speech and physical therapy evaluation Avoid anti-hypertensives at this time, permissive hypertension Neurochecks every 4 hours Teleneurology consulted, appreciate recommendations Q4hr neurochecks Speech therapy/physical therapy: Dysphagia 3 diet #Tobacco dependence Patient is an active tobacco smoker, unsure exactly how much she smoked secondary to mental status Patient has been smoking since a very young age; at least 30-[id number]-[id number] history Plan: As needed nicotine #Hypertension Patient has extensive history of hypertension controlled with benazepril, metoprolol succinate, hydrochlorothiazide and amlodipine Plan: Will hold all antihypertensives secondary to permissive hypertension due to possible stroke #Alcohol use disorder #Elevated liver enzymes Unsure exactly how much alcohol the patient drinks at this time secondary to change in mental status Patient presenting with elevated liver enzymes, AST 40, ALT 52 T. bili 0.5 and alk phos 110 Likely secondary to atorvastatin, NAFLD, alcohol induced liver injury Plan: Monitor with morning labs Outpatient follow-up Alcohol cessation CIWA protocol Folate and thiamine supplementation #Hypercalcemia Patient presenting with elevated calcium, 10.5 Likely secondary to dehydration versus PTH dependent/independent process Plan: Followed outpatient #Hyperlipidemia #BPH #History of nephrolithiasis Chronic medical conditions Lipid panel ordered Patient follows Dr. Baer outpatient for history of nephrolithiasis Plan: Restart tamsulosin, atorvastatin when appropriate Follow-up outpatient for nephrolithiasis, nonobstructing Hospital Management: Lines: PIV Diet: Dysphagia 3 diet Bowel: Senna as needed GI prophylaxis: Protonix DVT prophylaxis: SCDs Dispo: MRI stroke workup pending, teleneurology is consulted appreciate recommendations Code: Full LPatient's case was discussed with supervising attending physician Dr. Walter Ibarra M.D. Internal Medicine PGY-3 Attending Provider Attestation/Addendum I have discussed and was present for the essential components of the history, physical examination, diagnosis, and treatment plan with the resident. I agree with the patient's care as documented by the resident and amended herein by me. Torito Watson DO. Although this document has been carefully reviewed, there may still be some phonetic and other typographical errors. These errors are purely grammatical due to imperfections in the software program and should not be construed in any way to compromise the substance of the patient's medical care during this visit.
[2024-03-02] MEDS: FOLIC ACID 1 MG TABLET PO ×2 (08:33→20:29)
[2024-03-02] MEDS: SENNA TABLET 1 TAB PO (08:33)
[2024-03-02] MEDS: THIAMINE 100 MG TABLET PO ×2 (08:33→20:30)
[2024-03-02] MEDS: ASPIRIN EC 81 MG TABEC PO (08:33)
[2024-03-02] MEDS: PANTOPRAZOLE INJ 40 MG VIAL IVP (08:39)
--- NOTE | 2024-03-02 09:46 | PCS.ST ---
Swallow Evaluation completed. See report for details. Recommend Dysphagia 3/Reg liquids. Speech/Language Eval pending with s/s of aphasia.
--- NOTE | 2024-03-02 10:59 | PC.SS ---
Patient is alert/oriented. Patient's daughter, Gail, was at bedside and provided a brief background on patient. Patient resides with and son. Independent with ADL's. Patient was altered upon admission. Patient plans on returning home with family. Patient drives and does not use any DME. MRI pending. Patient pcp: [facility] and last visit was 30 days ago. Patient's alt medical decision maker: daughterOllie, D/c plan: return home with family. transportation: family
[2024-03-02] MEDS: ATORVASTATIN CALCIUM 20 MG TABLET 40 MG PO (20:29)
[2024-03-03] VITALS (9 sets, daily range): BP systolic 127–183; BP diastolic 73–88; PULSE 56–82; RESP 12–20; TEMP 36.1–36.2; O2SAT 94–96; BMI 27.0
--- NOTE | 2024-03-03 | XR_ITS ---
Examinations: MRI Brain without intravenous contrast. MRA brain without intravenous contrast. MRA carotids without intravenous contrast 3-D vascular reconstructions Date and time of exam: March 03, 2024 1401 hrs. 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 The optic chiasm and infundibular stalk are not remarkable. Prepontine and interpeduncular cisterns are not enlarged. No localized enlargement of the medulla or mt. Fourth ventricle and cerebellar tonsils normal in position. Subacute hemorrhage is not seen. Fourth ventricle is midline. Mass in the cerebellopontine angle region is not evident. 7th and 8th nerve complexes exhibits symmetry. Globes are symmetrical with no retro-orbital mass. Increased white matter signal prominent Diffusion-weighted images demonstrate again with no significant change in multiple embolic infarcts in the left cerebral hemisphere Mass-effect upon the ventricular system is not identified. 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
[2024-03-03 05:40] LABS: Basophils # (Auto) 0.1 Thou/mm3 (0.0-0.2); Basophils % (Auto) 1 % (0-2.5); Eosinophils # (Auto) 0.2 Thou/mm3 (0.0-0.5); Eosinophils % (Auto) 2 % (0-10); Hematocrit 41.4 % (41.0-53.0); Hemoglobin 13.8 g/dL (13.5-16.0); Immature Granulocytes % (Auto) 0 % (0-0); Immature Granulocytes Auto 0.01 Thou/mm3 (0.00-0.00); Lymphocytes # (Auto) 2.7 Thou/mm3 (1.0-4.8); Lymphocytes % (Auto) 32 % (10-50); Mean Corpuscular HGB Conc 33.3 g/dl (31.0-37.0); Mean Corpuscular Volume 84 fL (80-100); Monocytes # (Auto) 0.5 Thou/mm3 (0.0-0.8); Monocytes % (Auto) 6 % (0-12); Neutrophils # (Auto) 4.8 Thou/mm3 (1.8-7.7); Neutrophils % (Auto) 58 % (37-80); Nucleated Red Blood Cell % 0 /100 WBC (0); Platelet Count 226 Thou/mm3 (140-440); RDW Standard Deviation 42.2 fL (35.1-43.9); Red Blood Count 4.93 Miln/mm3 (4.50-5.90); White Blood Count 8.2 Thou/mm3 (3.8-10.6)
[2024-03-03 06:38] LABS: Alanine Aminotransferase 41 U/L (10-49); Albumin, Serum 4.4 gm/dL (3.4-4.8); Albumin/Globulin Ratio 1.6 (1.2-2.2); Alkaline Phosphatase 95 U/L (46-116); Anion Gap 7 (7-16); Aspartate Amino Transferase 28 U/L (0-34); BUN/Creatinine Ratio 16 Ratio (12-20); Blood Urea Nitrogen 14 mg/dL (9-23); Calcium 9.6 mg/dL (8.3-10.6); Calcium (Corrected) 9.6 mg/dL (8.5-10.1); Carbon Dioxide 26.5 mMol/L (20.0-31.0); Chloride 107 mMol/L (98-107); Creatinine (Component) 0.9 mg/dL (0.6-1.3); Estimated Creatinine Clearance 56.9 mL/min (>60); Globulin 2.7 gm/dL (2.3-3.5); Glucose 109 mg/dL (74-106); Osmolality,Calculated 280 (275-295); Potassium 3.7 mMol/L (3.4-5.1); Sodium 140 mMol/L (136-145); Total Protein 7.1 gm/dL (5.7-8.2); eGFR > 60 See Note
[2024-03-03] MEDS: SENNA TABLET 1 TAB PO (09:11)
[2024-03-03] MEDS: THIAMINE 100 MG TABLET PO ×2 (09:11→20:10)
[2024-03-03] MEDS: PANTOPRAZOLE INJ 40 MG VIAL IVP (09:11)
[2024-03-03] MEDS: ASPIRIN EC 81 MG TABEC PO (09:11)
[2024-03-03] MEDS: FOLIC ACID 1 MG TABLET PO ×2 (09:12→20:10)
--- NOTE | 2024-03-03 10:24 | PCS.ST ---
Speech and Language Evaluation completed. See report for details. Pt needs extensive speech therapy at time of d/c. ST will see for communication skills until d/c.
--- NOTE | 2024-03-03 11:16 | PD.RESPRO ---
Documentation for date of: 03/03/24 Subjective Subjective Interval history: History of present illness: 63-year-old male with past medical history of hypertension, hyperlipidemia, nephrolithiasis/staghorn calculi, BPH on tamsulosin, active tobacco smoker, history of alcohol use disorder presented to the ED on 03/01 with change in mental status along with slurring speech. History taken mostly from ED physician along with family. Per family, the patient has been having confusion since Saturday night and has progressively become more confused throughout the weekend; moreover, on the afternoon of 03/01 he started slurring his speech which is not normal for him. Patient was brought into the ambulance confused with elevated systolic blood pressure in the 220s; however, patient states that he has been taking his medications as prescribed on a daily basis. Per family, this has never happened to the patient before and he apparently follows with a PCP on a regular basis. Patient denies having any concerning symptoms such as headache, dizziness, chest pain/tightness, palpitations or shortness of breath. Per family, the patient has not had any sick contacts or any recent travels out of the [facility]. Remaining history was attempted to take with the customer service attendant (Evaristo); however, the patient focus/mentation waxes and wanes and he does not follow commands when doing physical exam. Hypertensive systolic 208/91, heart rate 68, respiratory 18, afebrile satting 96 on room air. Pertinent lab findings included WBC of 10.8, BUN 18, creatinine 1.2, corrected calcium 10.5, magnesium 2.0, troponin 0.021. Urinalysis did not show any signs of urinary tract infection and U tox is negative. Stroke protocol was initiated, teleneurologist was consulted and their assessment resulted NIHSS score of 1. Head CT and head and neck CTA were negative for any acute process and EKG showed normal sinus rhythm. In the ED, patient was given x 1 order of 10 mg labetalol IV due to systolic blood pressure going up to 220s; however, after some time blood pressure did drop to around 110 systolic. Patient will be admitted for acute encephalopathy likely secondary to hypertensive emergency versus possible left-sided stroke. 03/02/24: Patient interviewed and examined at bedside this a.m. no overnight events reported as per the patient's nurse. Patient's labs vitals and chart thoroughly reviewed prior to evaluation. Patient's stroke workup thus far has been negative. Although CTA did show 50% stenosis of the right MCA trifurcation vessels. Patient on exam noted to have right-sided facial droop of the angle of the mouth. Although both upper and lower extremity strength intact. Patient pending MRI. Patient also evaluated by speech therapy who recommended dysphagia 3 diet. 03/03/2024: Patient interviewed and examined at bedside this a.m. accompanied by his family members including his , daughter and son. Patient underwent an MRI of the brain stroke protocol which was positive for multiple embolic type infarcts in the left cerebellar region including the parietal lobe, temporal lobe, frontal lobe and basal ganglia consistent with the patient's finding of right sided facial droop and aphasia. During the day patient was working with PT and it was noted that the patient had increased right-sided weakness. On previous evaluation on 03/02 patient had no right upper or right lower extremity weakness however on evaluation today the patient was noted to have considerable worse right-sided Alessandro paresis and worsening aphasia. Due to these findings, a stroke alert was initiated due to concern for hemorrhagic conversion or stroke evolution. Initial head CT was negative. CTA did show 90% stenosis worrisome for occlusion of the internal carotid artery in progress. Of note, CTA on admission was negative for any neck arterial stenosis. Transfer nurse was notified of need for additional services. Neuro-interventional radiology in [place] recommended to obtain diffusion weighted MRI for additional imaging and will comment on if any intervention can be done. Exam Vital Signs Temp Pulse Resp BP Pulse Ox O2 Del Method 97.1 F 69 18 127/76 94 L Room Air 03/03/24 08:00 03/03/24 08:00 03/03/24 08:00 03/03/24 08:00 03/03/24 08:00 03/03/24 08:00 Narrative Exam General: Not in any visible or apparent acute distress, well appearing, alert with poor effort in completing commands HEENT: NC/AT, PERRL, EOMI, moist mucous membranes, right angle of the mouth drooping noted CVS: S1S2 Regular rate and rhythm, No murmurs appreciated Lungs: Normal respiratory effort, no wheezing rhonchi or rales, CTAB, saturating appropriately in ambient air Abd: Soft, non-distended Ext: No edema, warm well perfused, normal tone and ROM, decreased RUE and RLE from prior evaluation, although poor effort Skin: Intact, no rashes, no lesions, no erythema Neuro: Alert, oriented to person only Objective Labs 03/03/24 05:09 03/03/24 12:08 Labs: Laboratory Results - last 24 hr 03/03/24 05:09 WBC 8.2 RBC 4.93 Hgb 13.8 Hct 41.4 MCV 84 MCH 28.0 MCHC 33.3 RDW Std Deviation 42.2 Plt Count 226 Neut % (Auto) 58 Lymph % (Auto) 32 Dickens % (Auto) 6 Eos % (Auto) 2 Baso % (Auto) 1 Neut # (Auto) 4.8 Lymph # (Auto) 2.7 Dickens # (Auto) 0.5 Eos # (Auto) 0.2 Baso # (Auto) 0.1 Immature Gran # (Auto) 0.01 H Absolute Nucleated RBC 0.00 Immature Gran % 0 Nucleated RBC % 0 Sodium 140 Potassium 3.7 Chloride 107 Carbon Dioxide 26.5 Anion Gap 7 BUN 14 Creatinine 0.9 Estim Creat Clear Calc 56.9 L eGFR > 60 BUN/Creatinine Ratio 16 Glucose 109 H Calculated Osmolality 280 Calcium 9.6 Corrected Calcium 9.6 Total Bilirubin 1.0 AST 28 ALT 41 Alkaline Phosphatase 95 Total Protein 7.1 Albumin 4.4 Globulin 2.7 Albumin/Globulin Ratio 1.6 Quality Measures Quality Measures stroke Suspected type of Stroke: Unknown at this time Tenecteplase given: Reason(s) Tenecteplase not given: Outside the time window not given Rehab services: PT evaluation ordered and Speech Language Pathology eval ordered VTE Prophylaxis: pharmaceutical Antithrombotic by day 2:: not indicated (describe) Statin ordered: >75 y/o moderate or high intensity dose Anticoagulation ordered for A-fib or flutter (current or hx): not indicated Assessment & Plan Assessment Current Active Medications: Generic Name Dose Route Start Last Admin Trade Name Freq PRN Reason Stop Dose Admin Acetaminophen 650 mg 03/01/24 23:34 Acetaminophen 325 Mg Tablet PO 03/31/24 23:33 Q6H PRN Pain 1-3 and/or Fever >100.1 Aspirin 81 mg 03/02/24 09:00 03/03/24 09:11 Aspirin Ec 81 Mg Tabec PO 04/01/24 08:59 81 mg QDAY RAFAEL Administration Atorvastatin Calcium 40 mg 03/02/24 21:00 03/02/24 20:29 Atorvastatin Calcium 20 Mg Tablet PO 04/01/24 20:59 40 mg HS RAFAEL Administration Folic Acid 1 mg 03/02/24 09:00 03/03/24 09:12 Folic Acid 1 Mg Tablet PO 03/07/24 08:59 1 mg BID RAFAEL Administration Lorazepam 0.5 mg 03/01/24 23:38 Lorazepam 0.5 Mg Tablet PO 03/06/24 23:37 Q4HR PRN CIWA Score 2-6 Lorazepam 1 mg 03/01/24 23:38 Lorazepam 0.5 Mg Tablet PO 03/06/24 23:37 Q4HR PRN CIWA SCORE 7-11 Lorazepam 2 mg 03/01/24 23:38 Lorazepam 0.5 Mg Tablet PO 03/06/24 23:37 Q4HR PRN CIWA SCORE 12-15 Lorazepam 2 mg 03/01/24 23:38 Lorazepam 2 Mg/Ml Vial IV 03/06/24 23:37 Q2HR PRN CIWA SCORE 20-25 Lorazepam 1 mg 03/02/24 09:17 Lorazepam 2 Mg/Ml Vial IV 03/06/24 23:37 Q2HR PRN CIWA SCORE 16-19 Nicotine 14 mg 03/01/24 23:40 Nicotine Patch 14 Mg/24 Hr Patch.Td24 TOP 03/31/24 23:39 X1 PRN Tobacco Withdrawal Ondansetron HCl 4 mg 03/01/24 23:34 Ondansetron Inj 2 Mg/Ml Inj 2 Ml IV 03/31/24 23:33 Q6H PRN NAUSEA OR VOMITING Protocol Pantoprazole Sodium 40 mg 03/02/24 09:00 03/03/24 09:11 Pantoprazole Inj 40 Mg Vial IVP 04/01/24 08:59 40 mg QDAY RAFAEL Administration Sennosides 1 tab 03/02/24 09:00 03/03/24 09:11 Senna Tablet PO 04/01/24 08:59 1 tab QDAY RAFAEL Administration Protocol Thiamine HCl 100 mg 03/02/24 09:00 03/03/24 09:11 Thiamine 100 Mg Tablet PO 03/07/24 08:59 100 mg BID RAFAEL Administration Plan Assessment: 63-year-old male with past medical history of hypertension, hyperlipidemia, nephrolithiasis/staghorn calculi, BPH on tamsulosin, active tobacco smoker, history of alcohol use disorder presented with change in mental status along with slurring speech will be admitted for acute encephalopathy likely secondary to hypertensive emergency versus possible left-sided stroke. #Embolic Stroke #Acute encephalopathy #Left sided weakness #Hypertensive emergency Patient presenting from home with change in mental status since Tuesday 02/27. Per family, the patient started having some confusion along with slurring of speech which progressively worsened on 03/01. Patient did present to the ED with hypertensive emergency with systolic blood pressure in the 220's. Patient has physical exam findings of decreased sensation and decreased strength on Left face and left arm respectively. Lower extremity strength was intact. Stroke alert was initiated and teleneurology was consulted; and states the score was 1. Patient not within time constraints for thrombolytic therapy. Head CT: Negative for acute hemorrhage, mass-effect or midline shift Head/neck CTA: 50% stenosis midportion M1 segment right middle cerebral artery and multiple significant stenoses origins right middle cerebral artery trifurcation vessels MRI stroke protocol: Numerous acute embolic type infarcts in the left cerebral hemisphere TTE with bubble study: Aortic regurg, negative bubble study Due to worsening of aphasia and right sided hemiparesis, a repeat stroke alert was initiated. Patient was found to have Left ICA 90% thrombosis which was not present on prior CTA. Transfer was initiated and Neuro-interventional radiology at [facility] accepted patient for transfer. Plan: Admission to telemetry Aspirin 81 daily High-intensity statin N.p.o., speech and physical therapy evaluation Avoid anti-hypertensives at this time, permissive hypertension Neurochecks every 4 hours Teleneurology consulted, appreciate recommendations Q4hr neurochecks Speech therapy/physical therapy: Dysphagia 3 diet Transfer for Neurointerventinal Serivces Pending #Tobacco dependence Patient is an active tobacco smoker, unsure exactly how much she smoked secondary to mental status Patient has been smoking since a very young age; at least 50-mhcm-jvna history Plan: As needed nicotine #Hypertension Patient has extensive history of hypertension controlled with benazepril, metoprolol succinate, hydrochlorothiazide and amlodipine Plan: Will hold all antihypertensives secondary to permissive hypertension due to possible stroke #Alcohol use disorder #Elevated liver enzymes Unsure exactly how much alcohol the patient drinks at this time secondary to change in mental status Patient presenting with elevated liver enzymes, AST 40, ALT 52 T. bili 0.5 and alk phos 110 Likely secondary to atorvastatin, NAFLD, alcohol induced liver injury Plan: Monitor with morning labs Outpatient follow-up Alcohol cessation CIWA protocol Folate and thiamine supplementation #Hypercalcemia Patient presenting with elevated calcium, 10.5 Likely secondary to dehydration versus PTH dependent/independent process Plan: Followed outpatient #Hyperlipidemia #BPH #History of nephrolithiasis Chronic medical conditions Lipid panel ordered Patient follows Dr. Baer outpatient for history of nephrolithiasis Plan: Restart tamsulosin, atorvastatin when appropriate Follow-up outpatient for nephrolithiasis, nonobstructing Hospital Management: Lines: PIV Diet: Dysphagia 3 diet Bowel: Senna as needed GI prophylaxis: Protonix DVT prophylaxis: SCDs Dispo: Pending transfer for neurointerventional radiology Code: Full Patient's case was discussed with supervising attending physician Dr. Walter Ibarra M.D. Internal Medicine PGY-3 Attending Provider Attestation/Addendum I have discussed and was present for the essential components of the history, physical examination, diagnosis, and treatment plan with the resident. I agree with the patient's care as documented by the resident and amended herein by me. Torito Watson DO. Although this document has been carefully reviewed, there may still be some phonetic and other typographical errors. These errors are purely grammatical due to imperfections in the software program and should not be construed in any way to compromise the substance of the patient's medical care during this visit.
--- NOTE | 2024-03-03 11:33 | XR_ITS ---
Examination: CT brain head without contrast. 2-D sagittal coronal reconstructions Date and time of exam:March 03, 2024 1143 hrs. Indications: Stroke alert, worsening focal neurologic deficit right-sided body weakness compared with March 01, 2024, stroke alert also March 01, 2024, brain MRI March 02, 2024 numerous acute embolic type infarcts in the left cerebral hemisphere CTDI: vol (mGy):49.9 DLP: (mGycm):976 Technique: Multiple CT axial sections of the brain have been obtained, 5 mm slice thickness. Contrast has not been administered. 2-D sagittal, coronal reconstructions have been obtained Low dose protocols were performed. One or more of the following dose reduction techniques were used; automated exposure control, adjustment of the mA and/or KV according to patient size, use of iterative reconstruction technique. Findings: No significant ventricular enlargement. Intra-axial or extra-axial hemorrhage density is not seen. No mass effect or midline shift Basal cisterns are not remarkable. Fourth ventricle is midline. Cranial vault intact. Impression: No interval acute hemorrhage mass effect or midline shift Consider repeat brain MRI to assess progression of acute embolic infarcts left cerebral hemisphere
--- NOTE | 2024-03-03 11:45 | XR_ITS ---
Examination: CTA carotids with intravenous contrast CTA brain, head with intravenous contrast. 2-D sagittal, coronal reconstructions. 3-D reconstructions. Exam date and time: March 03, 2024 1148 hrs. Comparison May 31, 2023 Indications: Worsening stroke symptoms beginning this morning, focal neurologic deficit, brain MRI March 02, 2024 multiple embolic infarcts in the left cerebral hemisphere CTDI: vol (mGy) 21.0 DLP: (mGycm) 428 Technique: Multiple CTA axial brain, head carotid images post intravenous contrast injection 75 cc, [id number]. 2-D sagittal, coronal reconstructions. 3-D reconstructions, 3-D post processing including vascular maximum intensity projection images. Low dose protocols were performed. One or more of the following dose reduction techniques were used; automated exposure control, adjustment of the mA and/or KV according to patient size, use of iterative reconstruction technique. Findings: No common carotid carotid bifurcation stenoses Left neck internal carotid artery is diffusely reduced in caliber, at least 50% compared to the right neck internal carotid artery, including in the juxtasellar portions and supraclinoid portions of the left internal carotid artery The supraclinoid left internal carotid artery axial image 34 now shows minimal filling consistent with 90% stenosis Again noted 50% plus stenosis proximal M1 segment left middle cerebral artery and stenoses at the origins of left middle cerebral artery branches Impression: Interval worsening appearance compared to the CTA study March 01, 2024 The left internal carotid artery neck as now diffusely significantly smaller The juxtasellar portion of the left internal carotid artery now shows markedly reduced in caliber, estimated 90% stenosis worrisome for occlusion of the internal carotid artery in progress There remains 50% plus stenosis M1 segment left middle cerebral artery and stenoses at the origins of the left middle cerebral artery branches
--- NOTE | 2024-03-03 11:49 | PC.SS ---
Addendum entered by Maria Eugenia Cedillo 03/03/24 14:25: Follow up note: SS was updated that patient is now being looked at for a transfer to higher level of care. Transfer nurse already working on this. Original Note: Follow up note: SS spoke to PT and physician who states patient had an evolving stroke. He will no longer need o/p PT. He will now need an acute rehab. PT spoke to patient/family about the [facility] facility and they are agreeable. SS will send inquiry to facility. Patient not medically stable yet for d/c.
--- NOTE | 2024-03-03 12:10 | PD.TNEURO ---
Tele Neuro Consultation Consultation Date 03/03/24 Most Recent Vital Signs Last Vital Signs Temp 97.1 F 03/03/24 08:00 Pulse 69 03/03/24 08:00 Resp 18 03/03/24 08:00 BP 127/76 03/03/24 08:00 Pulse Ox 94 L 03/03/24 08:00 O2 Del Method Room Air 03/03/24 08:00 Laboratory-Coagulation Panel PT 11.1 Seconds (9.0-12.2) 03/02/24 05:13 INR 1.0 (0.9-1.3) 03/02/24 05:13 APTT 22.2 Seconds (22.0-36.0) 03/01/24 19:06 Consultation Narrative [facility] Tele[facility]urology Consult [facility] Patient Name:???Carlos Barclay Date of :???1960 Identification Number:??? Date of Service:???03/03/2024 11:39:39 Diagnosis:?G93.49 - Encephalopathy Multifactorial Impression: ?63 yr old male, speaks Evaristo, with sig PMHx of HTN, HLD, Tobacco and alcohol use, admitted for AMS, aphasia, and slurred speech, found to have embolic Left hemispheric CVA (temporal, frontal, parietal, BG) a CTA did not show LVO, 70% M1 stenosis, , , he has had right facial droop and speech difficulty since admission. He was started on ASA. PT was working with him when he became more altered and was unable to walk. ? ?NIHSS = 13 ? ?CT head non acute ? ?No IV Tenecteplase - recent CVA ? ?CTA head and neck no LVO, but supraclinoid LICA 90% stenosis ? ?DDX include evolution of CVA, extension vs new ischemic event, also consider post stroke seizure vs encephalopathy Our recommendations are outlined below: ? Stroke/Telemetry Floor ? Neuro Checks ? Bedside Swallow Eval ? DVT Prophylaxis ? IV Fluids, Normal Saline ? Head of Bed 30 Degrees ? Euglycemia and Avoid Hyperthermia (PRN Acetaminophen) ? Initiate or continue Aspirin 81 MG daily ?Bolus with Clopidogrel 300 mg bolus x1 and initiate dual antiplatelet therapy with Aspirin 81 mg daily and Clopidogrel 75 mg daily ?Continue statin with goal LDL < 70 ?2d-echo pending ?Repeat MRI brain ?If MRI brain nonacute and his symptoms persist would suggest EEG to r/o electrographic seizures Sign Out: ? Discussed with Primary Attending Advanced Imaging: CTA Head and Neck Completed. CTP Completed. LVO:No Patient in not a candidate for JIMMY Metrics: Last Known Well: 03/03/2024 10:00:00 Dispatch Time: 03/03/2024 11:39:39 Initial Response Time: 03/03/2024 11:48:39Symptoms: right facial droop, unsteady gait. Initial patient interaction: 03/03/2024 12:22:20 NIHSS Assessment Completed: 03/03/2024 12:33:21Patient is not a candidate for Thrombolytic. Thrombolytic Medical Decision: 03/03/2024 12:07:32Patient was not deemed candidate for Thrombolytic because of following reasons: Significant head trauma or stroke in previous [address] head showed no acute hemorrhage or acute core infarct. Primary Provider Notified of Diagnostic Impression and Management Plan on: 03/03/2024 13:04:27 Spoke With: Dr Hodges Able to Reach 03/03/2024 13:04:27 History of Present Illness:Patient is a 63 year old Male. Inpatient stroke alert was called for symptoms of right facial droop, unsteady gait. 63 yr old male, speaks Evaristo, with sig PMHx of HTN, HLD, Tobacco and alcohol use, admitted for AMS, aphasia, and slurred speech, found to have embolic Left hemispheric CVA (temporal, frontal, parietal, BG) a CTA did not show LVO, 70% M1 stenosis, , , he has had right facial droop and speech difficulty since admission. He was started on ASA. PT was working with him when he became more altered and was unable to walk. His daughter was translating Past Medical History: ?Hypertension ?Hyperlipidemia ?Stroke ?There is no history of Diabetes Mellitus ?There is no history of Atrial Fibrillation ?There is no history of Seizures ?There is no history of Dementia/MCI Medications: No Anticoagulant use? Antiplatelet use:?Yes?ASA Reviewed EMR for current medications Allergies:? Reviewed Social History: Drug Use: No Family History: There is no family history of premature cerebrovascular disease pertinent to this consultation ROS : 14 Points Review of Systems was performed and was negative except mentioned in HPI. Past Surgical History: There Is No Surgical History Contributory To Today?s Visit Examination: BP(207/90),?Pulse(100),?Blood Glucose(104) 1A: Level of Consciousness - Alert; keenly responsive?+ 0 1B: Ask Month and Age - Could Not Answer Either Question Correctly?+ 2 1C: Blink Eyes & Squeeze Hands - Performs Both Tasks?+ 0 2: Test Horizontal Extraocular Movements - Partial Gaze Palsy: Corrects with Oculocephalic Reflex?+ 1 3: Test Visual Hammonds - No Visual Loss?+ 0 4: Test Facial Palsy (Use Grimace if Obtunded) - Partial paralysis (lower face)?+ 2 5A: Test Left Arm Motor Drift - Drift, but doesn't hit bed?+ 1 5B: Test Right Arm Motor Drift - Drift, but doesn't hit bed?+ 1 6A: Test Left Leg Motor Drift - Drift, but doesn't hit bed?+ 1 6B: Test Right Leg Motor Drift - Drift, but doesn't hit bed?+ 1 7: Test Limb Ataxia (FNF/Heel-Dalton) - Does Not Understand?+ 0 8: Test Sensation - Normal; No sensory loss?+ 0 9: Test Language/Aphasia - Mute/Global Aphasia: No Usable Speech/Auditory Comprehension?+ 3 10: Test Dysarthria - Mild-Moderate Dysarthria: Slurring but can be understood?+ 1 11: Test Extinction/Inattention - No abnormality?+ 0 NIHSS Score:?13 Pre-Morbid Modified Roberta Scale:0 Points = No symptoms at all Spoke with :?Dr Hodges This consult was conducted in real time using interactive audio and video technology. Patient was informed of the technology being used for this visit and agreed to proceed. Patient located in hospital and provider located at home/office setting. Patient is being evaluated for possible acute neurologic impairment and high probability of imminent or life-threatening deterioration. I spent total of 61 minutes providing care to this patient, including time for face to face visit via telemedicine, review of medical records, imaging studies and discussion of findings with providers, the patient and/or family. Dr Cait Marcaon [facility] For Inpatient follow-up with [facility] physician please call [facility] at . As we are not an outpatient service for any post hospital discharge needs please contact the hospital for assistance. If you have any questions for the [facility] physicians or need to reconsult for clinical or diagnostic changes please contact us via [facility] at .
[2024-03-03 12:41] LABS: INR 1.1 (0.9-1.3); Partial Thromboplastin Time 26.6 Seconds (22.0-36.0); Prothrombin Time 11.7 Seconds (9.0-12.2)
[2024-03-03 12:45] LABS: Alanine Aminotransferase 39 U/L (10-49); Albumin/Globulin Ratio 1.8 (1.2-2.2); Alkaline Phosphatase 84 U/L (46-116); Anion Gap 6 (7-16); Aspartate Amino Transferase 22 U/L (0-34); BUN/Creatinine Ratio 18 Ratio (12-20); Blood Urea Nitrogen 16 mg/dL (9-23); Calcium 8.9 mg/dL (8.3-10.6); Calcium (Corrected) 8.9 mg/dL (8.5-10.1); Carbon Dioxide 26.5 mMol/L (20.0-31.0); Chloride 105 mMol/L (98-107); Creatinine (Component) 0.9 mg/dL (0.6-1.3); Estimated Creatinine Clearance 56.9 mL/min (>60); Globulin 2.2 gm/dL (2.3-3.5); Glucose 93 mg/dL (74-106); Osmolality,Calculated 275 (275-295); Sodium 137 mMol/L (136-145); Total Protein 6.2 gm/dL (5.7-8.2); eGFR > 60 See Note
--- NOTE | 2024-03-03 13:38 | PC.CM ---
Addendum entered by Marcela Martinez RN 03/03/24 16:06: I received a call back from transfer nurse at [facility]. She states they did speak to Dr. Kendall Lang and verified he willing to accept patient. Oscar states they do not have any beds at this time. She states we can call back at 1900 and see if any beds have opened up. Once they have an open bed then they will have their hospitalist speak to our hospitalist. Packet started and CD in packet. I handed off to greenhouse florist. Addendum entered by Marcela Martinez RN 03/03/24 15:54: I spoke to Dr. Stoddard and to Janny and patient has been accepted by Dr. Lang IR neurologist. I contacted [facility] and I initiated a transfer. I faxed over information. I provided them with the number to Dr. Shayna Stoddard . Addendum entered by Marcela Martinez RN 03/03/24 13:57: I made a packet and CD for transfer. Original Note: 1342 I received a call from Janny Welsh stating she has reached out to Dr. Lang in [place] to discuss patient. She let me know that he asked to get a Stat MRI of the head and neck. Janny states he will review that images once they are done and he will let us know if patient needs to be transferred or not. If patient needs to be transferred Janny states she will let me know what hospital to contact for a transfer. 1310 I received a call and a referral to transfer patient for vascular surgeon for The juxtasellar portion of the left internal carotid artery now shows markedly reduced in caliber, estimated 90% stenosis worrisome for occlusion of the internal carotid artery in progress. [facility] and left a message for them to call me back. I asked Dr. Stoddard to call [facility] and get a consult with them. Dr. Stoddard states he reached out to them.
--- NOTE | 2024-03-03 14:58 | PC.NURSE ---
i have called and left a message for a vascular consult for the pt @ [phone] they gave me another number to call [phone], went to voicemail and i left a message to return the phone call. I informed Dr. Stoddard and Rosalinda
--- NOTE | 2024-03-03 15:04 | XR_ITS ---
Examination: Carotid arterial duplex scan, ultrasound. Date and time of exam: March 03, 2024 1521 hrs. Indications: Stroke alert 6 beginning March 01, 2024, multiple embolic type infarcts in distribution left cerebral hemisphere on brain MRI studies March 02, 2024, March 03, 2004, significant stenosis in the distal left internal carotid artery and juxtasellar portion of the left internal carotid artery on brain MRA study today Technique: Multiple sonographic images have been obtained of the carotid arteries and vertebral arteries, B-mode/grayscale imaging and Doppler spectral analysis and color flow Peak systolic and diastolic velocities have been recorded. Systolic diastolic ratios have been calculated. Findings: Right peak systolic velocities: Distal internal carotid artery peak systolic velocity is 0.7 M/sec Proximal internal carotid artery peak systolic velocity is 0.6 M/sec Carotid bifurcation peak systolic velocity is 0.7 M/sec External carotid artery peak systolic velocity is 0.9 M/sec Vertebral artery flow is antegrade. Left peak systolic velocities: Distal internal carotid artery peak systolic velocity is 0.2 M/sec Proximal internal carotid artery peak systolic velocity is 0.1 M/sec Carotid bifurcation peak systolic velocity is 0.7 M/sec External carotid artery peak systolic velocity is 0.6 M/sec Vertebral artery flow is antegrade Impression: Right internal carotid artery demonstrates 0-10% stenosis. Left internal carotid artery demonstrates decreased peak systolic velocities in the proximal mid and distal internal carotid artery which is consistent with the MRA brain images today
--- NOTE | 2024-03-03 15:23 | PC.NURSE ---
113 patient mentation from alert and responsive to confused unable to verbalized needs right upper extemity from mild weakness to severe weakness, moderate to severe weakness to lower extremeties unable to lift . unable to comprehend , stroke alert was was called . rapid response was also called .
--- NOTE | 2024-03-03 15:40 | ESDS_ITS ---
Planned Discharge Date 03/03/24 DS: Providers Provider Date of admission: 03/01/24 23:34 Primary care physician: Lana Little PA-C Admitting Provider: Cuong James MD Attending Provider on Admission: Cuong James MD Consults: 03/01/24 19:11 Consult to Neurology / Tele-Neurology Routine Comment: Consulting Provider: [facility] 03/01/24 23:37 Referral Physical Therapy Routine Comment: Physician Instructions: Referral Speech Therapy Routine Comment: Attending Provider on DC: Jaciel Ibarra MD Discharging Provider: Jaciel Ibarra MD DS: Diagnosis Problem List Completed Was Problem List Reviewed/Reconciled?: Yes Hospital Course Hospital Course Hospital course: Discharge Diagnoses: #Embolic Stroke #Acute encephalopathy #Left sided weakness #Hypertensive emergency #Tobacco dependence #Hypertension #Alcohol use disorder #Transaminitis #Hypercalcemia #Hyperlipidemia #BPH #History of nephrolithiasis ? ? Service: Internal Medicine ? ? Consults: Tele-neurology ? ? Procedures: None ? ? Hospital Course: 63-year-old male with past medical history of hypertension, hyperlipidemia, nephrolithiasis/staghorn calculi, BPH on tamsulosin, active tobacco smoker, history of alcohol use disorder presented to the ED on 03/01 with change in mental status along with slurring speech. History taken mostly from ED physician along with family. Per family, the patient has been having confusion since Saturday night and has progressively become more confused throughout the weekend; moreover, on the afternoon of 03/01 he started slurring his speech which is not normal for him. Patient was brought into the ambulance confused with elevated systolic blood pressure in the 220s; however, patient states that he has been taking his medications as prescribed on a daily basis. Per family, this has never happened to the patient before and he apparently follows with a PCP on a regular basis. Patient denies having any concerning symptoms such as headache, dizziness, chest pain/tightness, palpitations or shortness of breath. Per family, the patient has not had any sick contacts or any recent travels out of the [facility]. Remaining history was attempted to take with the sieve grader tender (Evaristo); however, the patient focus/mentation waxes and wanes and he does not follow commands when doing physical exam. Hypertensive systolic 208/91, heart rate 68, respiratory 18, afebrile satting 96 on room air. Pertinent lab findings included WBC of 10.8, BUN 18, creatinine 1.2, corrected calcium 10.5, magnesium 2.0, troponin 0.021. Urinalysis did not show any signs of urinary tract infection and U tox is negative. Stroke protocol was initiated, teleneurologist was consulted and their assessment resulted NIHSS score of 1. Head CT and head and neck CTA were negative for any acute process and EKG showed normal sinus rhythm. In the ED, patient was given x 1 order of 10 mg labetalol IV due to systolic blood pressure going up to 220s; however, after some time blood pressure did drop to around 110 systolic. Patient was admitted for acute encephalopathy likely secondary to hypertensive emergency versus possible left-sided stroke. 03/02/24: Patient interviewed and examined at bedside this a.m. no overnight events reported as per the patient's nurse. Patient's labs vitals and chart thoroughly reviewed prior to evaluation. Patient's stroke workup thus far has been negative. Although CTA did show 50% stenosis of the right MCA trifurcation vessels. Patient on exam noted to have right-sided facial droop of the angle of the mouth. Although both upper and lower extremity strength intact. Patient pending MRI. Patient also evaluated by speech therapy who recommended dysphagia 3 diet. 03/03/2024: Patient interviewed and examined at bedside this a.m. accompanied by his family members including his , daughter and son. Patient underwent an MRI of the brain stroke protocol which was positive for multiple embolic type infarcts in the left cerebellar region including the parietal lobe, temporal lobe, frontal lobe and basal ganglia consistent with the patient's finding of right sided facial droop and aphasia. During the day patient was working with PT and it was noted that the patient had increased right-sided weakness. On previous evaluation on 03/02 patient had no right upper or right lower extremity weakness however on evaluation today the patient was noted to have considerable worse right-sided Alessandro paresis and worsening aphasia. Due to these findings, a stroke alert was initiated due to concern for hemorrhagic conversion or stroke evolution. Initial head CT was negative. CTA did show 90% stenosis worrisome for occlusion of the internal carotid artery in progress. Of note, CTA on admission was negative for any neck arterial stenosis. Transfer nurse was notified of need for additional services. Neuro-interventional radiology at [facility] was contacted who recommended patient to be transferred for further surgical interventions if possible. Patient's case was discussed with supervising attending physician Dr. Walter Ibarra M.D. Internal Medicine PGY-2 Time Spent with Patient Time attestation: Total time spent providing and/or coordinating discharge services: Exam Vital Signs Temp Pulse Resp BP Pulse Ox O2 Del Method 97.0 F 60 16 156/88 H 95 Room Air 03/03/24 12:00 03/03/24 12:00 03/03/24 12:00 03/03/24 12:00 03/03/24 12:00 03/03/24 12:00 Narrative Exam General: Not in any visible or apparent acute distress, well appearing, alert with poor effort in completing commands HEENT: NC/AT, PERRL, EOMI, moist mucous membranes, right angle of the mouth drooping noted CVS: S1S2 Regular rate and rhythm, No murmurs appreciated Lungs: Normal respiratory effort, no wheezing rhonchi or rales, CTAB, saturating appropriately in ambient air Abd: Soft, non-distended Ext: No edema, warm well perfused, normal tone and ROM, decreased RUE and RLE from prior evaluation, although poor effort Skin: Intact, no rashes, no lesions, no erythema Neuro: Alert, oriented to person only Discharge Plan Plan Patient Disposition: Xfer Other Facility Pt Being Transferred to: Other-Specify in comment Service Needed for Transfer: Interventional Radiology Disposition Comment: [facility] Patient condition on transfer: Stable Prescriptions/Referrals Prescriptions/Med Rec: No Action bupropion HCl 75 mg tablet 75 mg PO TID Rx Instructions: administer 6 hours apart hydrochlorothiazide 50 mg tablet 50 mg PO QDAY atorvastatin 40 mg tablet 40 mg PO DAILY Patient Comments: TAKE ONE TABLET BY MOUTH EVERY DAY FOR CHOLESTEROL metoprolol succinate 100 mg tablet extended release 24 hr 100 mg PO HS Patient Comments: TAKE ONE TABLET BY MOUTH EVERY DAY in THE afternoon FOR BLOOD PRESSURE amlodipine 5 mg tablet 5 mg PO DAILY Patient Comments: TAKE ONE TABLET BY MOUTH EVERY DAY HIGH BLOOD PRESSURE tamsulosin 0.4 mg capsule 4 mg PO DAILY diphenhydramine HCl [Banophen] 25 mg capsule 25 mg PO HS Patient Comments: TAKE ONE CAPSULE BY MOUTH AT BEDTIME NEEDED benazepril 40 mg tablet 40 mg PO DAILY Patient Comments: TAKE ONE TABLET BY MOUTH EVERY night FOR HIGH BLOOD PRESSURE Trintellix 20 mg tablet 20 mg PO DAILY Patient Comments: TAKE ONE TABLET BY MOUTH EVERY DAY Referrals: Lana Little PA-C [Primary Care Provider] - Patient/Caregiver Discharge Instructions Meds to Beds: Yes Discharge Activity: as per physical therapy Print Language: Divehi Stand Alone Forms: Cynthia Award Info., Patient Portal Info Letter Discharge Order Discharge Orders: Discharge (Routine); Ordered 03/03/24 Ordered By: Jaciel Ibarra Quality Discharge Quality Measures VTE prophylaxis and stroke Statin ordered >75 y/o:moderate or high intensity dose on DC: n/a Statin ordered <75 y/o: high intensity dose on DC: yes Statin not ordered due to:: not indicated Anticoagulation ordered for A-fib or flutter (current or hx): contraindicated and not indicated Antithrombotic ordered on DC: ordered MD Attestestation MD Attestation I have discussed and was present for the essential components of the discharge history, physical examination, diagnosis, and discharge treatment plan with the resident. I agree with the patient's discharge care as documented by the resident and amended herein by me. Torito Watson DO. The patient will be transferred to tertiary center for higher level of care with interventional neurology and/or vascular surgery.
[2024-03-03] MEDS: hydrALAZINE INJ 20 MG/ML VIAL 10 MG IV (16:36)
--- NOTE | 2024-03-03 16:42 | PC.NURSE ---
[facility] .
[2024-03-03] MEDS: CLOPIDOGREL BISULFATE 75 MG TABLET PO (16:58)
--- NOTE | 2024-03-03 17:31 | PC.CC ---
Addendum entered by Rosalinda Garrido RN 03/03/24 18:50: Victor M from [facility] called at this time and said pt was accepted to [facility] room 565 report to [phone] Andrade Addendum entered by Rosalinda Garrido RN 03/03/24 18:36: Tranfer back agreement signed and faxed back to [facility] Addendum entered by Rosalinda Garrido RN 03/03/24 17:49: [facility] called back and stated they now have a bed for patient at [facility] and they are going to talk to there Hospitalist and will call back. Addendum entered by Rosalinda Garrido RN 03/03/24 17:45: Rigoberto from the transfer center called back and states that he spoke with his neuro interventional radiologist is the same at [facility] and is ok with patient being transferred to [facility] in [place]. Rigoberto states he is going to call his hospitalist to speak to our hospitalist. He states he will call us back. Original Note: Spoke to Rigoberto at [facility] for possible transfer to [facility], He states he will talk to the doctors and call back, Dr. Stoddard phone number made available
[2024-03-03] MEDS: ATORVASTATIN CALCIUM 20 MG TABLET 40 MG PO (20:10)
--- NOTE | 2024-03-03 20:16 | PC.NURSE ---
CALLED REPORT TO NURSE JOELLEN FOR TRANSFER TO [facility].
== END 2024-03-03 20:51 | disposition other institution (70) | DRG 45 ==
LOC: SERX 23:03 → SERHOLD 23:58 → S2NX 03-02 01:01
PROVIDERS: Student in an Organized Health Care Education/Training Program; Admitting Provider Internal Medicine; Emergency Provider Emergency Medicine; PCP Physician Assistant; Visit Provider Internal Medicine
DX: I63.442 Cerebral infarction due to embolism of left cerebellar artery (principal); I16.1 Hypertensive emergency; E78.5 Hyperlipidemia, unspecified; I10 Essential (primary) hypertension; N40.0 Benign prostatic hyperplasia without lower urinary tract symptoms; I67.4 Hypertensive encephalopathy; D72.829 Elevated white blood cell count, unspecified; F10.10 Alcohol abuse, uncomplicated; K76.0 Fatty (change of) liver, not elsewhere classified; R29.810 Facial weakness; E83.52 Hypercalcemia; G81.91 Hemiplegia, unspecified affecting right dominant side; R47.01 Aphasia; N20.0 Calculus of kidney; R29.701 NIHSS score 1; F17.210 Nicotine dependence, cigarettes, uncomplicated; Z87.442 Personal history of urinary calculi; Z79.899 Other long term (current) drug therapy
CPT/HCPCS: 36415; 70450; 70496; 70498; 70544; 80053; 80061; 80307; 80320; 81001; 82140; 83036; 83735; 84100; 84443; 84484; 85025; 85610; 85730; 87086; 92523; 92610; 93005; 93306; 93880; 96374; 97162; 99291; A4649; J0360; J2470; J3490; Q9967; A9270; G0480; J1920

== ENCOUNTER 2024-05-19 14:31 | Emergency (ER) | payer MEDICAID, SELFPAY ==
[2024-05-19 14:47] VITALS: PULSE 97; O2SAT 99; BMI 22.8
[2024-05-19 15:02] VITALS: BP 109/71; PULSE 107; RESP 20; TEMP 36.4; O2SAT 100
--- NOTE | 2024-05-19 15:25 | XR_ITS ---
Examination: CT brain head without contrast. 2-D sagittal coronal reconstructions Date and time of exam:May 19, 2024 1626 hours INDICATIONS: Seizure today with altered mental status CTDI: vol (mGy):47.2 DLP: (mGycm):909 Technique: Multiple CT axial sections of the brain have been obtained, 5 mm slice thickness. Contrast has not been administered. 2-D sagittal, coronal reconstructions have been obtained Low dose protocols were performed. One or more of the following dose reduction techniques were used; automated exposure control, adjustment of the mA and/or KV according to patient size, use of iterative reconstruction technique. Findings: Left craniotomy defect frontal parietal bone Hyperdensity medial to the craniotomy defect which may represent surgical packing material although mild hemorrhage cannot be excluded Interval very large area of edema, at least 10 x 4 cm in the left mid and posterior parietal lobe most consistent with infarction Findings are suspicious for mild hemorrhagic transformation in this infarction, axial image 16 There is mild ventricular enlargement The frontal horns are not shifted There is a chronic left frontal subdural hygroma which is mildly displacing the left frontal horn posteriorly axial image 21 No cerebellar tonsillar herniation IMPRESSION: Large area of edema in the left mid and posterior parietal lobe most consistent with infarction Suspicious for mild hemorrhagic transformation in this infarction Left frontal parietal craniotomy defect, minimal hyperdensity medial to the craniotomy defect which may represent surgical material although mild hemorrhage cannot be excluded Recommend brain MRI MRA follow-up pre and postcontrast
--- NOTE | 2024-05-19 15:25 | EKG_ITS ---
[facility] Test Date: 2024-05-19 Pat Name: GABBY STEWART Department: Room: - Gender: Male Grade Teacher: : 1960 Requested By: Jamal Lowe Order Number: [id number] Reading MD: Jamal Lowe Measurements Intervals [place] Rate: 102 P: 66 IN: 141 QRS: 43 QRSD: 88 T: 23 QT: 351 QTc: 459 Interpretive Statements SINUS TACHYCARDIA NONSPECIFIC ST & T-WAVE ABNORMALITY ABNORMAL RHYTHM ECG Compared to ECG 03/01/2024 19:35:52 T-wave abnormality now present Sinus rhythm no longer present /store/S0/[id number].pdf
--- NOTE | 2024-05-19 15:28 | PD.EDADULT ---
ED General RME/HPI General Chief complaint: Seizure Stated complaint: SEIZURE Time Seen by Provider: 05/19/24 15:24 Arrival date/time: 05/19/24 14:31 CC: Seizure HPI first time HPI present to the ER via EMS with seizure lasting approximately 45 seconds today. Patient at [facility] care facility so at [facility] patient is recent stroke, has a history of encephalopathy myalgias EMS report initial hypotension of 70 over palp, patient is given 800 cc of normal saline on report pressures are now stable at 130s over 70s. Baseline patient is reported is nonverbal. This was not witnessed by EMS so the report is whether the patient's actually had a seizure versus syncope. Patient's son at bedside states the patient is a full code. Patient's family member at bedside at 1615 states the patient is baseline nonverbal, state he was sitting for a long time in the doctor's office and then his eyes got real wide and he shook real hard. Nursing reports to me that cloudy sediment filled urine in the Love catheter. Related Data Home Medications ?Medication ?Instructions ?Recorded ?Confirmed bupropion HCl 75 mg tablet 75 mg PO TID 04/12/22 03/01/24 hydrochlorothiazide 50 mg tablet 50 mg PO QDAY 04/12/22 03/01/24 amlodipine 5 mg tablet 5 mg PO DAILY 03/01/24 03/01/24 atorvastatin 40 mg tablet 40 mg PO DAILY 03/01/24 03/01/24 benazepril 40 mg tablet 40 mg PO DAILY 03/01/24 03/01/24 diphenhydramine HCl 25 mg capsule 25 mg PO HS 03/01/24 03/01/24 (Banophen) metoprolol succinate 100 mg 100 mg PO HS 03/01/24 03/01/24 tablet,extended release 24 hr tamsulosin 0.4 mg capsule 4 mg PO DAILY 03/01/24 03/01/24 vortioxetine 20 mg tablet 20 mg PO DAILY 03/01/24 03/01/24 (Trintellix) Allergies Allergy/AdvReac Type Severity Reaction Status Date / Time No Known Drug Allergies Allergy Unknown Verified 02/05/23 13:28 Review of Systems Review of Systems ROS Unobtainable: unobtainable due to mental status Past Medical History Past Medical History CARDIAC: Positive Hypertension; Negative Congestive Heart Failure RESPIRATORY: Negative Chronic Obstructive Pulmonary Disease (COPD) GENITOURINARY: Negative Renal Disease ENT: Negative Glaucoma ENDOCRINE: Negative Diabetes Mellitus Type 1 Social History SMOKING STATUS: Never smoker ED Exam Narrative Physical exam: [General: Thin borderline emaciated appears not in any acute distress Head normocephalic HEENT: Eyes pupils are PERRLA EOMs are intact tracking. Nose no rhinorrhea. Mouth pink dry membranes uvula is midline swallow symmetrical. Nonverbal. All the subsystems HEENT are within acceptable limits Neck is supple nontender Chest equal chest rise nontender to palpation Respiratory: Clear to auscultation no wheezes crackles or rubs CV: Rate rhythm is regular no murmurs rubs or clicks Abdomen is soft nontender no masses positive bowel sounds all 4 quadrants Love catheter in place Back: No CVA tenderness no spinous process tenderness from cervical spine thoracic and lumbar spine Skin: Intact no petechiae rash induration ulceration or crepitus Extremities: Moving all extremity against resistance cap refill less than 2 seconds neurosensory intact Neuro: Awake alert nonverbal, spontaneous movement in the direction and assisting with moving etc.] Course Quality Measures none Orders Category Date Time Status EKG (ED ONLY) *Do not use* NOW Care 05/19/24 15:25 Completed Saline [Insert IV] NOW Care 05/19/24 15:25 Completed Transfer to another facility [Transfer/Discharge] Stat Discharge 05/19/24 17:[address] head/brain wo con Stat Exams 05/19/24 15:25 Completed EKG (ED Only) Stat Exams 05/19/24 15:25 Draft B-Type Natriuretic Peptide Stat Lab 05/19/24 17:14 Completed CBC Stat Lab 05/19/24 17:14 Completed Comprehensive Metabolic Panel Stat Lab 05/19/24 17:14 Completed Drug Screen,Urine Stat Lab 05/19/24 16:10 Completed LDH (Lactate Dehydrogenase) Stat Lab 05/19/24 17:14 Completed Magnesium Stat Lab 05/19/24 17:14 Completed Partial Thromboplastin Time Stat Lab 05/19/24 17:14 Completed Prothrombin Time with INR Stat Lab 05/19/24 17:14 Completed Troponin I Stat Lab 05/19/24 17:14 Completed Urinalysis Stat Lab 05/19/24 16:10 Completed Sodium Chloride 0.9% 1000 ml [Ns] 1,000 ml Med 05/19/24 16:15 Discontinued IV 999 mls/hr levETIRAcetam INJ [Keppra Inj] Med 05/19/24 15:25 Discontinued 1,000 mg IVP X1 ONE Vital Signs Vital signs: Vital Signs Temperature 97.6 F 05/19/24 15:02 Pulse Rate 107 H 05/19/24 15:02 Respiratory Rate 20 05/19/24 15:02 Blood Pressure 109/71 05/19/24 15:02 Pulse Oximetry (%) 100 05/19/24 15:02 Oxygen Delivery Method Nasal Cannula 05/19/24 15:02 Oxygen Flow Rate 6 05/19/24 15:02 [facility] Patient data External records reviewed:: [facility] previous records and EMS form Clinical information provided by:: patient and EMS Social determinants that could affect healthcare access:: none Patient has the following chronic illnesses:: CVA encephalopathy How is presenting disease/condition affected by chronic disease/condition?: exacerbated by Evaluation data The following diagnostics were reviewed and interpreted by me:: lab results and radiology exam(s) Lab and/or radiology exams considered but not ordered:: EKG performed at 1550 shows a ventricular of 102 NC interval 141 QRS of 88 QTc of 410 this is sinus tachycardia nonspecific ST segment abnormality. Protocol from radiology the patient has in the large area of edema in the left mid and and posterior parietal lobe most consistent with infarction is suspicious for mild hemorrhagic transformation in this infarction left frontal parietal craniotomy defect minimal hyperdensity medial to the craniotomy defect which may represent surgical material although mild hemorrhage cannot be excluded. CBC shows a mild leukocytosis of 12.5 and H&H of 9.5 and 29.7 respectively with platelets of 281. Interpretation Summary: Patient is nonverbal but tracking this is baseline with the son at bedside who states the patient is a full code will now attempt to transfer the patient for. Large infarction with suspicious hemorrhagic transformation. Patient's case initially discussed with Dr. Ventura in the ER at [facility] and then with Dr. Dickerson, neurosurgeon who agrees to accept the patient for admission to the ER. At the time of this dictation the patient's labs had not been completely returned Dr. Stroud once call back if the patient is on blood thinners or if the coags are abnormal. Medications Medications considered but not ordered:: None Medication administrations:: Medication Administration History Discontinued Medications Sodium Chloride (Ns) 1,000 mls @ 999 mls/hr IV .Q1H1M ONE Stop: 05/19/24 17:15 Last Infusion: 05/19/24 18:34 Dose: Infused Documented By: Admin: 05/19/24 16:38 Dose: 999 mls/hr Documented By: FILIPE Levetiracetam (Levetiracetam Inj 100 Mg/Ml Vial 5ml) 1,000 mg IVP X1 ONE Stop: 05/19/24 15:26 Last Admin: 05/19/24 15:44 Dose: 1,000 mg Documented By: FILIPE None Consultations Consultation(s) initiated? 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 Admission Indicated Admission indicated?: indicated Explain why admission is indicated or not indicated:: Transfer Admission Request Was there a request for admission?: No Disposition Plan Disposition Plan: Transfer Medical Decision Making Differential Diagnosis Differential Diagnosis: Left mid and posterior parietal infarction with hemorrhagic transformation Lab Data 05/19/24 17:14 05/19/24 17:14 Labs: Lab Results 05/19/24 05/19/24 Range/Units 16:10 17:14 WBC 12.7 H (3.8-10.6) Thou/mm3 RBC 3.59 L (4.50-5.90) Miln/mm3 Hgb 9.5 L (13.5-16.0) g/dL Hct 29.7 L (41.0-53.0) % MCV 83 (80-100) fL MCH 26.5 (25.0-35.0) pg MCHC 32.0 (31.0-37.0) g/dl RDW Std Deviation 46.4 H (35.1-43.9) fL Plt Count 281 (140-440) Thou/mm3 Neut % (Auto) 89 H (37-80) % Lymph % (Auto) 7 L (10-50) % [place] % (Auto) 4 (0-12) % Eos % (Auto) 0 (0-10) % Baso % (Auto) 0 (0-2.5) % Neut # (Auto) 11.2 H (1.8-7.7) Thou/mm3 Lymph # (Auto) 0.9 L (1.0-4.8) Thou/mm3 [place] # (Auto) 0.5 (0.0-0.8) Thou/mm3 Eos # (Auto) 0.0 (0.0-0.5) Thou/mm3 Baso # (Auto) 0.0 (0.0-0.2) Thou/mm3 Immature Gran # (Auto) 0.04 H (0.00-0.00) Thou/mm3 Absolute Nucleated RBC 0.00 (0.00-0.00) Thou/mm3 Immature Gran % 0 (0-0) % Nucleated RBC % 0 (0) /100 WBC PT 11.5 (9.0-12.2) Seconds INR 1.1 (0.9-1.3) APTT 21.7 L (22.0-36.0) Seconds Sodium 137 (136-145) mMol/L Potassium 3.8 (3.4-5.1) mMol/L Chloride 101 (98-107) mMol/L Carbon Dioxide 25.6 (20.0-31.0) mMol/L Anion Gap 10 (7-16) BUN 15 (9-23) mg/dL Creatinine 0.7 (0.6-1.3) mg/dL Estim Creat Clear Calc 82.3 (>60) mL/min eGFR > 60 (60 - ) See Note BUN/Creatinine Ratio 21 H (12-20) Ratio Glucose 115 H (74-106) mg/dL Calculated Osmolality 275 (275-295) Calcium 9.1 (8.3-10.6) mg/dL Corrected Calcium 9.6 (8.5-10.1) mg/dL Magnesium 1.7 (1.6-2.6) mg/dL Total Bilirubin 0.4 (0.3-1.2) mg/dL AST 29 (0-34) U/L ALT 21 (10-49) U/L Alkaline Phosphatase 93 (46-116) U/L Lactate Dehydrogenase 178 (120-246) U/L Troponin I < 0.020 (0.0-0.045) ng/mL B-Natriuretic Peptide < 20 (0-100) pg/mL Total Protein 6.5 (5.7-8.2) gm/dL Albumin 3.4 (3.4-4.8) gm/dL Globulin 3.1 (2.3-3.5) gm/dL Albumin/Globulin Ratio 1.1 L (1.2-2.2) Ur Collection Type Clean Catch Urine Color Yellow (Lt Yel-Yel) Urine Clarity Turbid A (Clear/Hazy) Urine pH 6.5 (5.0-7.0) Ur Specific [place] 1.010 (1.001-1.035) Urine Protein 1+ A (Neg - Trace) Urine Glucose (UA) Negative (Negative) Urine Ketones Negative (Negative) Urine Blood 2+ A (Negative) Urine Nitrite Negative (Negative) Urine Bilirubin Negative (Negative) Urine Urobilinogen (Auto) Negative (0.0-1.0) mg/dL Ur Leukocyte Esterase Positive (Negative) Urine RBC 59 H (0-3) /hpf Urine WBC 1581 H (0-5) /hpf Ur Squamous Epith Cells 1 (0-5) /hpf Urine Bacteria 4+ A (None) Urine Opiates Screen Negative (Negative) Urine Fentanyl Screen Negative (Negative) Ur Barbiturates Screen Negative (Negative) U Amphetamin/Meth Scrn Negative (Negative) U Benzodiazepines Scrn Negative (Negative) U Cocaine Metab Screen Negative (Negative) U Marijuana (THC) Screen Positive A (Negative) Discharge Plan Plan Patient Disposition: [facility] Care [facility] Facility Pt Being Transferred to: [facility] Service Needed for Transfer: Neurosurgery Patient condition on transfer: Stable Prescriptions/Referrals Prescriptions/Med Rec: No Action bupropion HCl 75 mg tablet 75 mg PO TID Rx Instructions: administer 6 hours apart hydrochlorothiazide 50 mg tablet 50 mg PO QDAY atorvastatin 40 mg tablet 40 mg PO DAILY Patient Comments: TAKE ONE TABLET BY MOUTH EVERY DAY FOR CHOLESTEROL metoprolol succinate 100 mg tablet extended release 24 hr 100 mg PO HS Patient Comments: TAKE ONE TABLET BY MOUTH EVERY DAY in THE afternoon FOR BLOOD PRESSURE amlodipine 5 mg tablet 5 mg PO DAILY Patient Comments: TAKE ONE TABLET BY MOUTH EVERY DAY HIGH BLOOD PRESSURE tamsulosin 0.4 mg capsule 4 mg PO DAILY diphenhydramine HCl [Banophen] 25 mg capsule 25 mg PO HS Patient Comments: TAKE ONE CAPSULE BY MOUTH AT BEDTIME NEEDED benazepril 40 mg tablet 40 mg PO DAILY Patient Comments: TAKE ONE TABLET BY MOUTH EVERY night FOR HIGH BLOOD PRESSURE Trintellix 20 mg tablet 20 mg PO DAILY Patient Comments: TAKE ONE TABLET BY MOUTH EVERY DAY Referrals: Lana Little PA-C [Primary Care Provider] - In 1 week Problem List Clinical Impression: Parietal lobe infarction Patient/Caregiver Discharge Instructions Print Language: Georgian Stand Alone Forms: Cynthia Award Info., Patient Portal Info Letter PA/JENNIFER Supervising Physician PA/WASH CREW PERSON Supervising Physician: Jamal Monroy ENP
[2024-05-19] MEDS: levETIRAcetam INJ 100 MG/ML VIAL 5ML 1000 MG IVP (15:44)
[2024-05-19] MEDS: SODIUM CHLORIDE 0.9% 1000 ML 1,000 ML 999 ML IV (16:38)
--- NOTE | 2024-05-19 17:15 | PC.CC ---
Addendum entered by Darryl Stafford RN 05/19/24 19:35: 1932 sent paperwork to [facility] through [employer]. Called [facility], spoke to Ammon and she confirmed that she received the paperwork. Original Note: 1829 transfer packet is complete with CD inside including all signatures. Gave transfer packet to bedside nurse and number to call for report. 1821 called and informed Jamal Monroy. 1817 I called [facility], spoke to Victor M and asked for confirmation. He checked with Mirian and confirmed pt is accepted at [facility] for ED to ED transfer. Accepting Dr. is Dr. Sanchez, accepting consulting is Dr. Leroy. Call report at [phone]. 1815 received call from Jamal Monroy that the ambulance is here to picker feeder the pt but bedside nurse informed him when she was giving clinicals she told the nurse pt had craniotomy done at [facility] and the transfer nurse and receiving nurse told her then the pt needs to be transferred there. She needs to double check with the accepting 's. I informed pt is accepted but I will call transfer center to confirm. 1807 called [facility] and spoke to Ayleen and setup the stat transport. 1805 received call from Rosa M with [facility] stated [facility] will be at bedside at 1902. Informed her that pt will be going by stat ground transport. 1804 called [facility], spoke to Noé for ETA, he stated they are checking the flight status and call me back with ETA. 1758 spoke to Jamal Monroy and informed [facility] was contacted and ETA might be 68 min. Jamal Monroy stated pt is stable and if [facility] takes long time, stat ground transport is Okay. 1750 spoke to Mirian at [facility] regarding accepting information. She stated pt is accepted at [facility] for ED to ED transfer. She stated she will give me accepting dr. talavera and call for report later. But she wants me to transfer the call to bedside nurse for clinicals. Call transferred. 1747 called [facility], spoke to Rosa M to setup the transport. She stated she will call me back with flight check. ETA might be 68 min. 1741 received call from Lesley at [facility]. She wants to speak with Jamal Monroy. Conference call connected. She then connected neuro ICU Dr. Macias on the line for peer to peer. Total call time is 8 min. 171 called [facility], spoke to Duy and initiated the transfer request. He wants me to get Jamal Monroy on the line while he connected the ER provider Dr. Sanchez on the line as well. Conference call connected. Duy then tried to connect their neuro ICU on the line but unable to connect. ER provider stated he will accept if neuro ICU accept the pt. Duy stated he will try to contact and call us back. Total call time is 20min. I also faxed clinicals to [facility]. 1714 received call from Jamal Monroy that pt needs to be transferred for intracranial hemorrhage needs neurosurgery services. Per Jamal Monroy pt had stroke in feb last year and was transferred to [facility], from there pt was transferred to [facility] for craniotomy. Orders to start transfer process with [facility].
[2024-05-19 17:28] VITALS: BP 106/88; PULSE 92; RESP 16; O2SAT 98
[2024-05-19 17:36] LABS: Collection Type, Urine Clean Catch
[2024-05-19 17:38] LABS: Basophils % (Auto) 0 % (0-2.5); Eosinophils % (Auto) 0 % (0-10); Hematocrit 29.7 % (41.0-53.0); Hemoglobin 9.5 g/dL (13.5-16.0); Immature Granulocytes % (Auto) 0 % (0-0); Immature Granulocytes Auto 0.04 Thou/mm3 (0.00-0.00); Lymphocytes # (Auto) 0.9 Thou/mm3 (1.0-4.8); Lymphocytes % (Auto) 7 % (10-50); Mean Corpuscular Hemoglobin 26.5 pg (25.0-35.0); Mean Corpuscular Volume 83 fL (80-100); Monocytes # (Auto) 0.5 Thou/mm3 (0.0-0.8); Monocytes % (Auto) 4 % (0-12); Neutrophils # (Auto) 11.2 Thou/mm3 (1.8-7.7); Neutrophils % (Auto) 89 % (37-80); Nucleated Red Blood Cell % 0 /100 WBC (0); Platelet Count 281 Thou/mm3 (140-440); RDW Standard Deviation 46.4 fL (35.1-43.9); Red Blood Count 3.59 Miln/mm3 (4.50-5.90); White Blood Count 12.7 Thou/mm3 (3.8-10.6)
[2024-05-19 17:50] LABS: Bacteria,Urine 4+; Bilirubin,Urine Negative (Negative); Blood,Urine 2+ (Negative); Glucose, Urine Negative (Negative); Ketones,Urine Negative (Negative); Leukocyte Esterase,Urine Positive (Negative); Nitrite,Urine Negative (Negative); PH,Urine 6.5 (5.0-7.0); Protein,Urine 1+ (Neg - Trace); RBC,Urine 59 /hpf (0-3); Squamous Epithelial Cell,Urine 1 /hpf (0-5); Urobilinogen,Urine Negative mg/dL (0.0-1.0); WBC,Urine 1581 /hpf (0-5)
[2024-05-19 17:53] LABS: INR 1.1 (0.9-1.3); Partial Thromboplastin Time 21.7 Seconds (22.0-36.0); Prothrombin Time 11.5 Seconds (9.0-12.2)
[2024-05-19 17:57] LABS: Alanine Aminotransferase 21 U/L (10-49); Albumin, Serum 3.4 gm/dL (3.4-4.8); Albumin/Globulin Ratio 1.1 (1.2-2.2); Alkaline Phosphatase 93 U/L (46-116); Anion Gap 10 (7-16); Aspartate Amino Transferase 29 U/L (0-34); BUN/Creatinine Ratio 21 Ratio (12-20); Bilirubin,Total 0.4 mg/dL (0.3-1.2); Blood Urea Nitrogen 15 mg/dL (9-23); Calcium 9.1 mg/dL (8.3-10.6); Calcium (Corrected) 9.6 mg/dL (8.5-10.1); Carbon Dioxide 25.6 mMol/L (20.0-31.0); Chloride 101 mMol/L (98-107); Creatinine (Component) 0.7 mg/dL (0.6-1.3); Estimated Creatinine Clearance 82.3 mL/min (>60); Globulin 3.1 gm/dL (2.3-3.5); Glucose 115 mg/dL (74-106); LDH (Lactate Dehydrogenase) 178 U/L (120-246); Magnesium 1.7 mg/dL (1.6-2.6); Osmolality,Calculated 275 (275-295); Potassium 3.8 mMol/L (3.4-5.1); Sodium 137 mMol/L (136-145); Total Protein 6.5 gm/dL (5.7-8.2); Troponin I < 0.020 ng/mL (0.0-0.045); eGFR > 60 See Note
[2024-05-19 17:57] LABS: Amphetamine/Methamp Scrn,U Negative (Negative); Barbiturate Screen,Urine Negative (Negative); Benzodiazepines Screen,Urine Negative (Negative); Benzoylecgonine Screen, Ur Negative (Negative); Fentanyl Screen,Urine Negative (Negative); Opiate Screen,Urine Negative (Negative); THC Screen,Urine Positive (Negative)
[2024-05-19 18:10] VITALS: BP 119/69; PULSE 95; RESP 15; TEMP 37.2; O2SAT 100
[2024-05-19 18:16] LABS: B-Type Natriuretic Peptide < 20 pg/mL (0-100)
[2024-05-19 18:18] LABS: Clarity,Urine Turbid (Clear/Hazy); Color,Urine Yellow (Lt Yel-Yel)
--- NOTE | 2024-05-19 18:44 | PC.NURSE ---
REPORT CALLED TO ER CHARGE NURSE. PATIENT FAMILY AWARE OF TRANSFER. EMS AT BEDSIDE TO TRANSFER PATIENT.
== END 2024-05-19 18:52 | disposition short-term general hospital (02) ==
PROVIDERS: Registered Nurse General Practice; Emergency Provider Emergency Medicine; PCP Physician Assistant
DX: R56.9 Unspecified convulsions (principal); Z86.73 Personal history of transient ischemic attack (TIA), and cerebral infarction without residual deficits
CPT/HCPCS: 36415; 70450; 80053; 80307; 81001; 83615; 83735; 83880; 84484; 85025; 85610; 85730; 93005; 96374; 99285; J1953; J7030

== ENCOUNTER 2024-06-12 19:58 | Emergency (ER) | payer MEDICAID, SELFPAY ==
[2024-06-12 20:00] VITALS: BP 104/64; PULSE 74; RESP 18; TEMP 36.9; O2SAT 95
--- NOTE | 2024-06-12 20:25 | PD.EDMALE ---
ED Male Genitalurinary RME/HPI General Chief complaint: Urogenital-Male Stated complaint: CATHETER PROBLEMS Time Seen by Provider: 06/12/24 20:23 Arrival date/time: 06/12/24 19:58 RME / HPI RME / HPI Narrative: 63-year-old male patient was brought in by EMS for evaluation regarding possible catheter issues. Patient is nonverbal secondary to CVA last year, keep pointing on his catheter area. Patient is normally GCS 11. No other pertinent information can be extracted at this time. Patient's mental status is normal. No fever no vomiting. Related Data Home Medications ?Medication ?Instructions ?Recorded ?Confirmed bupropion HCl 75 mg tablet 75 mg PO TID 04/12/22 03/01/24 hydrochlorothiazide 50 mg tablet 50 mg PO QDAY 04/12/22 03/01/24 amlodipine 5 mg tablet 5 mg PO DAILY 03/01/24 03/01/24 atorvastatin 40 mg tablet 40 mg PO DAILY 03/01/24 03/01/24 benazepril 40 mg tablet 40 mg PO DAILY 03/01/24 03/01/24 diphenhydramine HCl 25 mg capsule 25 mg PO HS 03/01/24 03/01/24 (Banophen) metoprolol succinate 100 mg 100 mg PO HS 03/01/24 03/01/24 tablet,extended release 24 hr tamsulosin 0.4 mg capsule 4 mg PO DAILY 03/01/24 03/01/24 vortioxetine 20 mg tablet 20 mg PO DAILY 03/01/24 03/01/24 (Trintellix) Allergies Allergy/AdvReac Type Severity Reaction Status Date / Time No Known Drug Allergies Allergy Unknown Verified 02/05/23 13:28 Review of Systems Review of Systems Narrative Review of Systems: Review of system reviewed and within normal limits except mentioned in HPI ED Exam Narrative Physical exam: VITAL SIGNS: Reviewed. GENERAL APPEARANCE: Alert and good eye contact does not follows commands, no acute distress, HEAD AND FACE: Non-traumatic. ENT: PERRL, pink conjunctivitis, eyelid no trauma, Mucous membrane moist. NECK: Supple, nontender, no nuchal rigidity. CHEST: No tenderness, no crepitus, no paradoxical movement, no retractions. LUNGS: Clear, well ventilated, symmetric, no rales, no wheezing, no ronchi, no stridor, good breath sounds bilaterally. HEART: Regular rate, regular rhythm, no murmur, no gallops. ABDOMEN: Soft, positive bowel sounds, nondistended, no guarding, nontender, no rebound, no masses, RECTAL: Deferred. GENITAL: Love catheter intact no redness no swelling on the penis NEUROLOGICAL: Gross motor function intact sensory function intact, Appropriate for age. MUSCULOSKELETAL: low back nontender, full range of motion. EXTREMITIES: Nontender, full range of motion. SKIN: Color pink, dry, no rash, no lacerations, no abrasions, no contusions. LYMPHATICS: Deferred. Course Quality Measures none Orders Category Date Time Status Fleet [Enema Administration] ONCE Care 06/12/24 20:25 Active Love [Urinary Catheter] QS Care 06/12/24 20:25 Active Vital Signs Vital signs: Vital Signs Temperature 98.4 F 06/12/24 20:00 Pulse Rate 74 06/12/24 20:00 Respiratory Rate 18 06/12/24 20:00 Blood Pressure 104/64 06/12/24 20:00 Pulse Oximetry (%) 95 06/12/24 20:00 Oxygen Delivery Method Room Air 06/12/24 20:00 Urogenital - Male MDM Narrative MDM Narrative:: 63-year-old male patient was brought in by EMS for evaluation regarding possible catheter issues. Patient is nonverbal secondary to CVA last year, keep pointing on his catheter area. Patient is normally GCS 11. No other pertinent information can be extracted at this time. Patient's mental status is normal. No fever no vomiting. Love catheter was replaced without any difficulty. Patient is now comfortable with no more complaints. Patient was also given Fleet enema. Spoke with patient's son who told me that patient is no back to baseline. Patient data External records reviewed:: None Clinical information provided by:: family Social determinants that could affect healthcare access:: none Patient has the following chronic illnesses:: CVA How is presenting disease/condition affected by chronic disease/condition?: exacerbated by Evaluation data The following diagnostics were reviewed and interpreted by me:: other (specify) Lab and/or radiology exams considered but not ordered:: None Interpretation Summary: None none Medications / Prescriptions Medications or Prescriptions considered but not ordered:: None Medication administrations:: None Consultations Consultation(s) initiated? (list below): No Diagnosis Urogenital Male Differential Diagnosis: acute retention of urine and other (Constipation, Love catheter malfunction) Most likely diagnosis given after review of the tests above:: Love catheter malfunction Admission Indicated Admission indicated?: not indicated Admission Request Was there a request for admission?: No Disposition Plan Disposition Plan: Discharge Discharge Attestation Discharge Attestation: The patient and all family members were given an opportunity to ask questions and understood the discharge instructions. Discharge instructions specifically effects, indications for sooner follow up or return to the emergency department, and the expected course of current diagnosis. Patient condition: Stable Discharge Plan Plan Patient Disposition: HOME (Self Care) Disposition Comment: Stable Prescriptions/Referrals Prescriptions/Med Rec: No Action bupropion HCl 75 mg tablet 75 mg PO TID Rx Instructions: administer 6 hours apart hydrochlorothiazide 50 mg tablet 50 mg PO QDAY atorvastatin 40 mg tablet 40 mg PO DAILY Patient Comments: TAKE ONE TABLET BY MOUTH EVERY DAY FOR CHOLESTEROL metoprolol succinate 100 mg tablet extended release 24 hr 100 mg PO HS Patient Comments: TAKE ONE TABLET BY MOUTH EVERY DAY in THE afternoon FOR BLOOD PRESSURE amlodipine 5 mg tablet 5 mg PO DAILY Patient Comments: TAKE ONE TABLET BY MOUTH EVERY DAY HIGH BLOOD PRESSURE tamsulosin 0.4 mg capsule 4 mg PO DAILY diphenhydramine HCl [Banophen] 25 mg capsule 25 mg PO HS Patient Comments: TAKE ONE CAPSULE BY MOUTH AT BEDTIME NEEDED benazepril 40 mg tablet 40 mg PO DAILY Patient Comments: TAKE ONE TABLET BY MOUTH EVERY night FOR HIGH BLOOD PRESSURE Trintellix 20 mg tablet 20 mg PO DAILY Patient Comments: TAKE ONE TABLET BY MOUTH EVERY DAY Referrals: Lana Little PA-C [Primary Care Provider] - In 1 week Problem List Clinical Impression: Malfunction of Love catheter Patient/Caregiver Discharge Instructions Discharge Activity: activity as tolerated Education Materials: ED Love Catheter, Care Additional Instructions: Thank you for the opportunity for serving you today. You are stable for discharged . You are advised to: Follow-up with your PCP in 1 to 2 days Return to ED for worsening of symptoms Increase oral fluids Print Language: [place]inean Stand Alone Forms: Cynthia Award Info., Patient Portal Info Letter PA/JENNIFER Supervising Physician JOJO/JENNIFER Supervising Physician: MD Kari
[2024-06-12 21:00] VITALS: BP 126/72; PULSE 70; RESP 18; O2SAT 100; BMI 21.9
--- NOTE | 2024-06-12 21:10 | PC.NURSE ---
Initial contact with pt. Awake, pt unable to communicate or follow verbal command. Awaiting for family.
[2024-06-12 21:15] VITALS: BP 126/72; PULSE 74; RESP 18; O2SAT 100
[2024-06-12 22:00] VITALS: BP 128/74; PULSE 67; RESP 18; O2SAT 100
--- NOTE | 2024-06-12 22:30 | PC.NURSE ---
Resting quietly, no distress noted. Love to gravity intact and patent, returned clear yellow urine. Love secured to rt leg.
[2024-06-13 00:14] VITALS: BP 150/80; PULSE 80; RESP 18; TEMP 36.6; O2SAT 99
== END 2024-06-13 00:17 | disposition home or self-care (01) ==
PROVIDERS: Emergency Provider Emergency Medicine; PCP Physician Assistant
DX: T83.018A Breakdown (mechanical) of other urinary catheter, initial encounter (principal); Y84.6 Urinary catheterization as the cause of abnormal reaction of the patient, or of later complication, without mention of misadventure at the time of the procedure; Z86.73 Personal history of transient ischemic attack (TIA), and cerebral infarction without residual deficits
CPT/HCPCS: 51702; 99283

== ENCOUNTER 2024-07-07 08:33 | Emergency (ER) | payer MEDICAID, SELFPAY ==
[2024-07-07 08:50] VITALS: BP 135/77; PULSE 66; RESP 18; TEMP 36.6; O2SAT 99
[2024-07-07 08:51] VITALS: BMI 21.7
--- NOTE | 2024-07-07 08:53 | PD.EDRME ---
Rapid Medical Screening Exam RME Arrival date/time: 07/07/24 08:33 63-year-old male presents to the Emergency Department today with son reports he would like the patient's catheter to be replaced also reports that urine has foul smell and quite a bit of sediment Chief Complaint: Urogenital-Male Time Seen by Provider: 07/07/24 08:41 Vital signs: Vital Signs Temperature 97.9 F 07/07/24 08:50 Pulse Rate 66 07/07/24 08:50 Respiratory Rate 18 07/07/24 08:50 Blood Pressure 135/77 H 07/07/24 08:50 Pulse Oximetry (%) 99 07/07/24 08:50 Oxygen Delivery Method Room Air 07/07/24 08:50
[2024-07-07 09:32] LABS: Basophils # (Auto) 0.1 Thou/mm3 (0.0-0.2); Basophils % (Auto) 1 % (0-2.5); Eosinophils # (Auto) 0.3 Thou/mm3 (0.0-0.5); Eosinophils % (Auto) 4 % (0-10); Hematocrit 38.1 % (41.0-53.0); Hemoglobin 12.6 g/dL (13.5-16.0); Immature Granulocytes % (Auto) 0 % (0-0); Immature Granulocytes Auto 0.02 Thou/mm3 (0.00-0.00); Lymphocytes # (Auto) 2.5 Thou/mm3 (1.0-4.8); Lymphocytes % (Auto) 26 % (10-50); Mean Corpuscular HGB Conc 33.1 g/dl (31.0-37.0); Mean Corpuscular Hemoglobin 26.9 pg (25.0-35.0); Mean Corpuscular Volume 81 fL (80-100); Monocytes # (Auto) 0.4 Thou/mm3 (0.0-0.8); Monocytes % (Auto) 4 % (0-12); Neutrophils # (Auto) 6.1 Thou/mm3 (1.8-7.7); Neutrophils % (Auto) 64 % (37-80); Nucleated Red Blood Cell % 0 /100 WBC (0); Platelet Count 302 Thou/mm3 (140-440); RDW Standard Deviation 43.6 fL (35.1-43.9); Red Blood Count 4.68 Miln/mm3 (4.50-5.90); White Blood Count 9.5 Thou/mm3 (3.8-10.6)
[2024-07-07 09:54] LABS: Alanine Aminotransferase 410 U/L (10-49); Albumin, Serum 4.6 gm/dL (3.4-4.8); Albumin/Globulin Ratio 1.2 (1.2-2.2); Alkaline Phosphatase 421 U/L (46-116); Anion Gap 11 (7-16); Aspartate Amino Transferase 187 U/L (0-34); BUN/Creatinine Ratio 23 Ratio (12-20); Bilirubin,Total 0.6 mg/dL (0.3-1.2); Blood Urea Nitrogen 16 mg/dL (9-23); Calcium 9.9 mg/dL (8.3-10.6); Calcium (Corrected) 9.9 mg/dL (8.5-10.1); Carbon Dioxide 27.8 mMol/L (20.0-31.0); Chloride 104 mMol/L (98-107); Creatinine (Component) 0.7 mg/dL (0.6-1.3); Estimated Creatinine Clearance 78.7 mL/min (>60); Globulin 3.7 gm/dL (2.3-3.5); Glucose 100 mg/dL (74-106); Osmolality,Calculated 286 (275-295); Potassium 3.8 mMol/L (3.4-5.1); Sodium 143 mMol/L (136-145); Total Protein 8.3 gm/dL (5.7-8.2); eGFR > 60 See Note
--- NOTE | 2024-07-07 14:38 | PD.EDMALE ---
ED Male Genitalurinary RME/HPI General Chief complaint: Urogenital-Male Stated complaint: CHANGE CATHETER Time Seen by Provider: 07/07/24 08:41 Arrival date/time: 07/07/24 08:33 Limitations: no limitations RME / HPI RME / HPI Narrative: 07/07/24 08:33 63-year-old male presents to the Emergency Department today with son reports he would like the patient's catheter to be replaced also reports that urine has foul smell and quite a bit of sediment DR. AGUAYO MAIN ED EVALUATION: 63 year old male presents to the Emergency Department to change his Love catheter. Last time they put a new one was in March 2024. No other complaints reported. Related Data Home Medications ?Medication ?Instructions ?Recorded ?Confirmed bupropion HCl 75 mg tablet 75 mg PO TID 04/12/22 03/01/24 hydrochlorothiazide 50 mg tablet 50 mg PO QDAY 04/12/22 03/01/24 amlodipine 5 mg tablet 5 mg PO DAILY 03/01/24 03/01/24 atorvastatin 40 mg tablet 40 mg PO DAILY 03/01/24 03/01/24 benazepril 40 mg tablet 40 mg PO DAILY 03/01/24 03/01/24 diphenhydramine HCl 25 mg capsule 25 mg PO HS 03/01/24 03/01/24 (Banophen) metoprolol succinate 100 mg 100 mg PO HS 03/01/24 03/01/24 tablet,extended release 24 hr tamsulosin 0.4 mg capsule 4 mg PO DAILY 03/01/24 03/01/24 vortioxetine 20 mg tablet 20 mg PO DAILY 03/01/24 03/01/24 (Trintellix) Allergies Allergy/AdvReac Type Severity Reaction Status Date / Time No Known Drug Allergies Allergy Unknown Verified 02/05/23 13:28 Review of Systems Review of Systems Systems Reviewed: All systems reviewed, normal except as documented Narrative Review of Systems: GEN: No fever, no chills, no weight loss EYES: No discharge, no visual changes, no pain HEENT: No ear pain, no congestion, no sore throat PULM: No shortness of breath, no cough, no congestion CV: No chest pain, no dyspnea on exertion, no palpitations GI: No nausea, no vomiting, no diarrhea, no pain, no constipation : No frequency, no urgency and no dysuria MUSC/SKEL: No joint pain, no back pain SKIN: No rash PSYCH: No hallucinations, no depression HEME/LYMPH: No easy bleeding or bruising tendencies NEURO: No weakness, no headache Past Medical History Past Medical History CARDIAC: Positive Hypertension Social History SMOKING STATUS: Former smoker SUBSTANCE USE: does not use ALCOHOL: Never ED Exam General Limitations: Present no limitations General appearance: Present alert and in no apparent distress Head Head exam: Present atraumatic, normocephalic and normal inspection Eye Eye exam: Present normal appearance, PERRL and EOMI ENT ENT exam: Present normal exam, normal oropharynx and mucous membranes moist Neck Neck exam: Present normal inspection, full ROM and trachea midline Chest Chest inspection: Present normal inspection and symmetric chest wall rise Respiratory Respiratory exam: Present normal lung sounds bilaterally Cardiovascular Cardiovascular exam: Present regular rate, normal rhythm and normal heart sounds Abdominal Exam Abdominal exam: Present soft and normal bowel sounds exam: Present other (Love catheter in place) Extremities Exam Extremities exam: Present normal inspection and full ROM Back Exam Back exam: Present normal inspection and full ROM Neurological Exam Neurological exam: Present alert, oriented X3 and CN II-XII intact Psychiatric Psychiatric exam: Present normal affect and normal mood Skin Skin exam: Present warm, dry, intact and normal color Course Quality Measures none Orders Category Date Time Status Love [Urinary Catheter] NOW Care 07/07/24 08:53 Active Love [Urinary Catheter] QS Care 07/07/24 14:37 Active Love to Leg Bag NOW Care 07/07/24 08:53 Ordered Discharge Routine Discharge 07/07/24 14:37 Active CBC Stat Lab 07/07/24 09:18 Completed Comprehensive Metabolic Panel Stat Lab 07/07/24 09:18 Completed UA, C/S IF [Urinalysis, C/S if Indicated] Stat Lab 07/07/24 08:53 Ordered Vital Signs Vital signs: Vital Signs Temperature 97.9 F 07/07/24 08:50 Pulse Rate 66 07/07/24 08:50 Respiratory Rate 18 07/07/24 08:50 Blood Pressure 135/77 H 07/07/24 08:50 Pulse Oximetry (%) 99 07/07/24 08:50 Oxygen Delivery Method Room Air 07/07/24 08:50 Urogenital - Male MDM Narrative MDM Narrative:: I, Jaylene Rdz, am scribing for and in the presence of Dr. Aguayo. Liver enzymes were elevated. Plan to discharge with BPH associated with nocturia. Patient data External records reviewed:: [facility] previous records (Reviewed last ED visit dated 06/12/24, discharged with the following: Malfunction of Love catheter) Clinical information provided by:: patient Social determinants that could affect healthcare access:: none Patient has the following chronic illnesses:: Hypertension How is presenting disease/condition affected by chronic disease/condition?: uneffected by Evaluation data The following diagnostics were reviewed and interpreted by me:: lab results Lab and/or radiology exams considered but not ordered:: none Interpretation Summary: Liver enzymes were elevated. Medications / Prescriptions Medications or Prescriptions considered but not ordered:: none Medication administrations:: none Consultations Consultation(s) initiated? (list below): No Diagnosis Urogenital Male Differential Diagnosis: urinary tract infection, acute retention of urine and other Most likely diagnosis given after review of the tests above:: BPH associated with nocturia Admission Indicated Admission indicated?: not indicated Admission Request Was there a request for admission?: No Disposition Plan Disposition Plan: Discharge Discharge Attestation Discharge Attestation: The patient and all family members were given an opportunity to ask questions and understood the discharge instructions. Discharge instructions specifically effects, indications for sooner follow up or return to the emergency department, and the expected course of current diagnosis. Patient condition: Stable Critical Care Time Critical Care Time Critical Care Time: No Discharge Plan Plan Patient Disposition: HOME (Self Care) Patient condition on transfer: Stable Prescriptions/Referrals Prescriptions/Med Rec: No Action bupropion HCl 75 mg tablet 75 mg PO TID Rx Instructions: administer 6 hours apart hydrochlorothiazide 50 mg tablet 50 mg PO QDAY atorvastatin 40 mg tablet 40 mg PO DAILY Patient Comments: TAKE ONE TABLET BY MOUTH EVERY DAY FOR CHOLESTEROL metoprolol succinate 100 mg tablet extended release 24 hr 100 mg PO HS Patient Comments: TAKE ONE TABLET BY MOUTH EVERY DAY in THE afternoon FOR BLOOD PRESSURE amlodipine 5 mg tablet 5 mg PO DAILY Patient Comments: TAKE ONE TABLET BY MOUTH EVERY DAY HIGH BLOOD PRESSURE tamsulosin 0.4 mg capsule 4 mg PO DAILY diphenhydramine HCl [Banophen] 25 mg capsule 25 mg PO HS Patient Comments: TAKE ONE CAPSULE BY MOUTH AT BEDTIME NEEDED benazepril 40 mg tablet 40 mg PO DAILY Patient Comments: TAKE ONE TABLET BY MOUTH EVERY night FOR HIGH BLOOD PRESSURE Trintellix 20 mg tablet 20 mg PO DAILY Patient Comments: TAKE ONE TABLET BY MOUTH EVERY DAY Referrals: Lana Little PA-C [Primary Care Provider] - In 1 week Problem List Clinical Impression: BPH associated with nocturia Patient/Caregiver Discharge Instructions Discharge Activity: activity as tolerated Education Materials: Prostate Anatomy, Benign Prostatic Hyperplasia, ED BPH (Enlarged Prostate) Print Language: [place] Stand Alone Forms: Cynthia Award Info., Patient Portal Info Letter
--- NOTE | 2024-07-07 16:13 | PC.NURSE ---
50cc of urine actively emptying into urine catherter. PT transferred to the w/c.pt stable upon exit home
[2024-07-07 16:14] VITALS: BP 113/73; PULSE 62; RESP 18; TEMP 36.6; O2SAT 98
== END 2024-07-07 17:16 | disposition home or self-care (01) ==
PROVIDERS: Nurse Practitioner Primary Care; Emergency Provider Emergency Medicine; PCP Physician Assistant
DX: N40.1 Benign prostatic hyperplasia with lower urinary tract symptoms (principal); R35.1 Nocturia
CPT/HCPCS: 51702; 36415; 80053; 81001; 85025; 99283

== ENCOUNTER 2024-07-11 19:00 | Inpatient (IN) | payer MEDICAID, SELFPAY ==
[2024-07-11] VITALS (8 sets, daily range): BP systolic 128–131; BP diastolic 84–85; PULSE 89–111; RESP 18–26; TEMP 36.6–38.4; O2SAT 94–98; BMI 23.4
--- NOTE | 2024-07-11 19:58 | PD.EDABDPN ---
ED Abdominal Pain RME/HPI General Chief Complaint: Abdominal Pain Stated complaint: ABD PAIN Time seen by provider: 07/11/24 19:52 Arrival date/time: 07/11/24 19:00 RME / HPI RME / HPI narrative: This section includes all my notes and documentations, including HPI, PE, and ED course. Yayo Wesley MD HPI: 63 y/o nonverbal male with Hx of HTN and Stroke presents to ED BIBA from home with c/o right sided abdominal pain x approximately 12 hours. Patient is bed-bound and has poon catheter in place s/p stroke on 02/29/24. Denies vomiting. Per , patient usually eats a lot throughout the day, but has only had 1 Ensure today. Denies any abdominal surgeries. No other complaints. ROS: All negative except as documented in HPI. Physical Exam: General: Alert and oriented. Moaning in pain. Fever noted. Eyes: Conjunctivae and lids clear. ENT: No nasal congestion. Neck: Supple. Heart: RRR. Lungs: No respiratory distress. Good air movement. No rhonchi, wheezing, rales. Abdomen: Normal bowel sounds. No distension. Diffused tenderness (R > L) with equivocal rebound and guarding. Back: No CVA tenderness. Skin: Warm and dry. Neuro: Alert and oriented X 3. I reviewed EMS notes. I reviewed all diagnostic test results. My interpretation of the EKG is: Sinus rhythm (107 bpm) with nonspecific ST-T changes. Yayo Wesley MD My interpretation of the chest x-ray is NAD. My review of the Abdomen/Pelvis CT report is primary hepatocellular disease versus cirrhosis. Recommend hepatobiliary sonography to exclude cholecystitis. Mild ascites. Bilateral renal calculi, no hydronephrosis or ureteral calculi. Mild colonic ileus. Mild small bowel ileus. Cystitis pattern. My review of the Gallbladder US reports is no acute findings. Blood tests and urine tests remarkable for WBC 27.4, ESR 118, elevated LFT, CRP 19.2, procalcitonin 1.22, lactic acid 3.1, and UTI. At this point, diagnoses include: Sepsis UTI Right-sided abdominal pain LFT elevation Treatment from me here included IV fluid, Tylenol, Zosyn, Toradol, Zofran, Dilaudid. I discussed the case with our hospitalist, Dr. Garcia, about the presentation and exam and diagnostics and treatments here. And need of further care in the hospital. Will accept the patient. Yayo Wesley MD Related Data Home Medications ?Medication ?Instructions ?Recorded ?Confirmed bupropion HCl 75 mg tablet 75 mg PO TID 04/12/22 03/01/24 hydrochlorothiazide 50 mg tablet 50 mg PO QDAY 04/12/22 03/01/24 amlodipine 5 mg tablet 5 mg PO DAILY 03/01/24 03/01/24 atorvastatin 40 mg tablet 40 mg PO DAILY 03/01/24 03/01/24 benazepril 40 mg tablet 40 mg PO DAILY 03/01/24 03/01/24 diphenhydramine HCl 25 mg capsule 25 mg PO HS 03/01/24 03/01/24 (Banophen) metoprolol succinate 100 mg 100 mg PO HS 03/01/24 03/01/24 tablet,extended release 24 hr tamsulosin 0.4 mg capsule 4 mg PO DAILY 03/01/24 03/01/24 vortioxetine 20 mg tablet 20 mg PO DAILY 03/01/24 03/01/24 (Trintellix) Allergies Allergy/AdvReac Type Severity Reaction Status Date / Time No Known Drug Allergies Allergy Unknown Verified 02/05/23 13:28 Review of Systems Review of Systems Systems Reviewed: All systems reviewed, normal except as documented Past Medical History Past Medical History CARDIAC: Positive Hypertension ED Exam Narrative Physical exam: Refer to HPI above Course Course Course Narrative: CXR is ordered for determining the etiology of shortness of breath. Quality Measures none Orders Category Date Time Status Bedside COVID-19 Antigen Test NOW Care 07/11/24 19:59 Active Bedside Influenza A&B Antigen Test NOW Care 07/11/24 19:59 Active Saline [Insert IV] NOW Care 07/11/24 19:[address] abdomen pelvis wo con Stat Exams 07/11/24 20:03 Completed US gall bladder Stat Exams 07/11/24 20:11 Completed XR chest 1V portable Stat Exams 07/11/24 20:03 Completed Amylase Stat Lab 07/11/24 21:10 Completed Bilirubin,Direct Stat Lab 07/11/24 21:10 Completed Blood Culture (Lab) Stat Lab 07/11/24 21:10 Received CBC Stat Lab 07/11/24 21:10 Completed CMP [Comprehensive Metabolic Panel] Stat Lab 07/11/24 21:10 Completed CRP [C-Reactive Protein] Stat Lab 07/11/24 21:10 Completed ESR [Sed Rate (ESR)] Stat Lab 07/11/24 21:10 Completed Hepatitis Acute Panel Stat Lab 07/12/24 01:24 Received Lactate (Lactic Acid) Stat Lab 07/11/24 21:10 Completed Lactic Acid, 3 HR Stat Lab 07/12/24 01:24 Ordered Lipase Stat Lab 07/11/24 21:10 Completed Magnesium Stat Lab 07/11/24 21:10 Completed PT [Prothrombin Time with INR] Stat Lab 07/11/24 21:10 Completed PTT [Partial Thromboplastin Time] Stat Lab 07/11/24 21:10 Completed Procalcitonin Stat Lab 07/11/24 21:10 Completed UA, C/S IF [Urinalysis, C/S if Indicated] Stat Lab 07/11/24 22:30 Completed Urine Culture Stat Lab 07/11/24 22:30 Received Acetaminophen Ivpb [Ofirmev Inj] Med 07/11/24 20:01 Discontinued 1,000 mg in 100 ml IV X1 HYDROmorphone INJ [Dilaudid Inj] Med 07/11/24 21:39 Discontinued 1 mg IVP X1 ONE HYDROmorphone INJ [Dilaudid Inj] Med 07/11/24 20:03 Discontinued 2 mg IVP X1 ONE Ketorolac Inj [Toradol Inj] Med 07/11/24 20:01 Discontinued 30 mg IVP X1 ONE Ondansetron Inj [Zofran Inj] Med 07/11/24 20:01 Discontinued 4 mg IV X1 ONE Piper/Tazo 3.375 gm Premix [Zosyn] Med 07/11/24 20:01 Discontinued 3.375 gm in 50 ml IV X1 Sodium Chloride 0.9% 1000 ml [Ns] 1,000 ml Med 07/11/24 20:01 Discontinued IV 999 mls/hr Sodium Chloride 0.9% 1000 ml [Ns] 1,000 ml Med 07/11/24 20:02 Discontinued IV 999 mls/hr Vital Signs Vital signs: Vital Signs Temperature 101.1 F H 07/11/24 20:11 Pulse Rate 108 H 07/11/24 20:11 Respiratory Rate 22 H 07/11/24 20:11 Blood Pressure 128/85 H 07/11/24 20:11 Pulse Oximetry (%) 94 L 07/11/24 20:11 Oxygen Delivery Method Room Air 07/11/24 20:11 Abdominal Pain MDM MDM Narrative MDM Narrative:: Scribe Attestation: I, Rahel Conti, am scribing for and in the presence of Dr. Wesley. Provider Notation: Although this document has been carefully reviewed, there may still be some phonetic and other typographical errors.? These errors are purely grammatical due to imperfections in the software program and should not be construed in any way to? compromise the substance of the patient's medical care during this visit. 63 y/o nonverbal male with Hx of HTN and Stroke presents to ED BIBA from home with c/o RLQ abdominal pain x approximately 12 hours. Patient data External records reviewed:: [facility] previous records and EMS form Clinical information provided by:: spouse () Social determinants that could affect healthcare access:: other (specify) (Hx stroke; Nonverbal) Patient has the following chronic illnesses:: CVA, HTN How is presenting disease/condition affected by chronic disease/condition?: exacerbated by Evaluation data The following diagnostics were reviewed and interpreted by me:: EKG tracing(s) (My interpretation of the EKG is: Sinus rhythm (107 bpm) with nonspecific ST-T changes. Yayo Wesley MD) Lab and/or radiology exams considered but not ordered:: None Interpretation Summary: I reviewed all diagnostic test results. My interpretation of the EKG is: Sinus rhythm (107 bpm) with nonspecific ST-T changes. Yayo Wesley MD My interpretation of the chest x-ray is NAD. My review of the Abdomen/Pelvis CT report is primary hepatocellular disease versus cirrhosis. Recommend hepatobiliary sonography to exclude cholecystitis. Mild ascites. Bilateral renal calculi, no hydronephrosis or ureteral calculi. Mild colonic ileus. Mild small bowel ileus. Cystitis pattern. My review of the Gallbladder US reports is no acute findings. Blood tests and urine tests remarkable for WBC 27.4, ESR 118, elevated LFT, CRP 19.2, procalcitonin 1.22, lactic acid 3.1, and UTI. Medications / Prescriptions Medications or Prescriptions considered but not ordered:: None Medication administrations:: Medication Administration History Discontinued Medications Hydromorphone HCl (Hydromorphone Inj 2 Mg/Ml Vial) 2 mg IVP X1 ONE Stop: 07/11/24 20:04 Last Admin: 07/11/24 21:38 Dose: Not Given Documented By: JAYDON Non-Admin Reason: Discontinued Hydromorphone HCl (Hydromorphone Inj 2 Mg/Ml Vial) 1 mg IVP X1 ONE Stop: 07/11/24 21:40 Last Admin: 07/12/24 00:15 Dose: Not Given Documented By: JAYDON Non-Admin Reason: Other, see note Comments: pt had very little pain. after toradol pt denies pain. dilaudid held. Acetaminophen (Ofirmev Inj) 1,000 mg in 100 mls @ 250 mls/hr IV X1 ONE Stop: 07/11/24 20:24 Last Infusion: 07/11/24 21:50 Dose: Infused Documented By: Admin: 07/11/24 21:26 Dose: 250 mls/hr Documented By: JAYDON Sodium Chloride (Ns) 1,000 mls @ 999 mls/hr IV .Q1H1M ONE Stop: 07/11/24 21:01 Last Infusion: 07/11/24 22:50 Dose: Infused Documented By: Admin: 07/11/24 21:20 Dose: 999 mls/hr Documented By: JAYDON Piperacillin/Tazobactam/Dextrose (Zosyn) 3.375 gm in 50 mls @ 100 mls/hr IV X1 ONE Stop: 07/11/24 20:30 Last Infusion: 07/11/24 21:35 Dose: Infused Documented By: Admin: 07/11/24 21:00 Dose: 100 mls/hr Documented By: JAYDON Sodium Chloride (Ns) 1,000 mls @ 999 mls/hr IV .Q1H1M ONE Stop: 07/11/24 21:02 Last Infusion: 07/11/24 22:50 Dose: Infused Documented By: Admin: 07/11/24 21:23 Dose: 999 mls/hr Documented By: JAYDON Ketorolac Tromethamine (Ketorolac Inj 30 Mg/Ml Vial) 30 mg IVP X1 ONE Stop: 07/11/24 20:02 Last Admin: 07/11/24 21:24 Dose: 30 mg Documented By: JAYDON Ondansetron HCl (Ondansetron Inj 2 Mg/Ml Inj 2 Ml) 4 mg IV X1 ONE; Protocol Stop: 07/11/24 20:02 Last Admin: 07/11/24 21:00 Dose: 4 mg Documented By: JAYDON Treatment from me here included IV fluid, Tylenol, Zosyn, Toradol, Zofran, Dilaudid. Consultations Consultation(s) initiated? (list below): Yes Consultation #1 (Physician, Specialty, Details): I discussed the case with our hospitalist, Dr. Garcia, about the presentation and exam and diagnostics and treatments here. And need of further care in the hospital. Will accept the patient. Time: 00:36 Diagnosis Differential diagnosis abdominal pain: abdominal pain, acute appendicitis, calculus of kidney, constipation, diverticulitis, small bowel obstruction and other (Sepsis, UTI, pneumonia, pyelonephritis) Most likely diagnosis given after review of the tests above:: UTI Admission Indicated Admission indicated?: indicated Explain why admission is indicated or not indicated:: Sepsis Admission Request Was there a request for admission?: Yes Admission Attestation Admission request attestation: Discussed case with Hospitalist service regarding admission. Discussed patients ED course, exam findings, labs, and radiology results. The Hospitalist [agrees] to accept the patient for admission. Disposition Plan Disposition Plan: Admit Discharge Plan Plan Patient Disposition: Admit Acute Care w/in Hospital Problem List Clinical Impression: Sepsis, Acute UTI, Right sided abdominal pain, LFT elevation
--- NOTE | 2024-07-11 20:03 | XR_ITS ---
Examination: AP chest single view TECHNIQUE: AP portable upright chest single view INDICATIONS: Coughing and fever today. Exam date time: July 11, 2024 2016 hours FINDINGS: Normal heart size. No pneumonia or pulmonary edema. The osseous structures are intact IMPRESSION: No pneumonia identified
--- NOTE | 2024-07-11 20:03 | XR_ITS ---
Examination: CT abdomen and pelvis without contrast. Coronal 3-D reconstructions. Sagittal 2-D reconstructions. Date and time of exam:July 11, 2024 2152 hours Comparison May 29, 2022 INDICATIONS: Abdominal distention today, history kidney stones CTDI: vol (mGy): 8.83 DLP: (mGycm): 464 Technique: Axial images of the abdomen have been obtained, 3 mm slice thickness Intravenous contrast material has not been administered. Low dose protocols were performed. One or more of the following dose reduction techniques were used; automated exposure control, adjustment of the mA and/or KV according to patient size, use of iterative reconstruction technique. Findings: Atelectasis right base with minimal bilateral pleural fluid Liver is irregular in contour with mild ascites Spleen is not enlarged Distended gallbladder with gallbladder wall edema No pancreatic mass Bilateral renal calculi including prominent staghorn calculi lower pole both kidneys No hydronephrosis or ureteral calculi Air distended colon, appendix is not diagnostically visualized Fluid distended small bowel loops Urinary bladder Love catheter mild urinary bladder wall thickening Normal seminal vesicles No prostatomegaly IMPRESSION: Primary hepatocellular disease versus cirrhosis Recommend hepatobiliary sonography to exclude cholecystitis Mild ascites Bilateral renal calculi, no hydronephrosis or ureteral calculi. Mild colonic ileus Mild small bowel ileus Cystitis pattern
--- NOTE | 2024-07-11 20:11 | XR_ITS ---
Examination: Abdomen sonogram, Limited Date and time of exam: July 11, 2024 at 2331 hours INDICATIONS: Right upper abdominal pain and tenderness several days Technique: Real-time thibodeaux scale transabdominal sonographic images of the upper abdomen obtained. Findings: Normal gallbladder Normal common bile duct 0.52 cm Pancreas obscured by bowel gas Liver 13.1 cm no focal liver lesions Normal hepatopedal portal venous flow Patent IVC IMPRESSION: Normal gallbladder Normal common bile duct Liver normal size no focal liver lesions
[2024-07-11] MEDS: ONDANSETRON INJ 2 MG/ML INJ 2 ML 4 MG IV (21:00)
[2024-07-11] MEDS: PIPER/TAZO 3.375 GM PREMIX 3.375 GM/50 ML BAG IV (21:00)
[2024-07-11] MEDS: SODIUM CHLORIDE 0.9% 1000 ML 1,000 ML 999 ML IV ×2 (21:20→21:23)
[2024-07-11] MEDS: KETOROLAC INJ 30 MG/ML VIAL IVP (21:24)
[2024-07-11] MEDS: ACETAMINOPHEN IVPB 1,000 MG/100 ML VIAL 250 MG IV (21:26)
[2024-07-11 21:46] LABS: Lactate (Lactic Acid) 3.1 mMol/L (0.4-2.0)
[2024-07-11 21:48] LABS: Basophils # (Auto) 0.1 Thou/mm3 (0.0-0.2); Basophils % (Auto) 0 % (0-2.5); Eosinophils % (Auto) 0 % (0-10); Hematocrit 39.3 % (41.0-53.0); Hemoglobin 13.1 g/dL (13.5-16.0); Immature Granulocytes % (Auto) 1 % (0-0); Immature Granulocytes Auto 0.18 Thou/mm3 (0.00-0.00); Lymphocytes # (Auto) 2.7 Thou/mm3 (1.0-4.8); Lymphocytes % (Auto) 10 % (10-50); Mean Corpuscular HGB Conc 33.3 g/dl (31.0-37.0); Mean Corpuscular Volume 81 fL (80-100); Monocytes # (Auto) 1.2 Thou/mm3 (0.0-0.8); Monocytes % (Auto) 4 % (0-12); Neutrophils # (Auto) 23.3 Thou/mm3 (1.8-7.7); Neutrophils % (Auto) 85 % (37-80); Nucleated Red Blood Cell % 0 /100 WBC (0); Platelet Count 309 Thou/mm3 (140-440); RDW Standard Deviation 44.8 fL (35.1-43.9); Red Blood Count 4.85 Miln/mm3 (4.50-5.90); White Blood Count 27.4 Thou/mm3 (3.8-10.6)
[2024-07-11 22:01] LABS: Partial Thromboplastin Time 30.8 Seconds (22.0-36.0); Prothrombin Time 11.4 Seconds (9.0-12.2)
[2024-07-11 22:11] LABS: Sed Rate (ESR) 118 mm/hr (0-20)
[2024-07-11 22:12] LABS: Alanine Aminotransferase 489 U/L (10-49); Albumin, Serum 4.4 gm/dL (3.4-4.8); Albumin/Globulin Ratio 1.2 (1.2-2.2); Alkaline Phosphatase 328 U/L (46-116); Amylase 155 U/L (30-118); Anion Gap 10 (7-16); Aspartate Amino Transferase 323 U/L (0-34); BUN/Creatinine Ratio 21 Ratio (12-20); Bilirubin,Direct 0.4 mg/dL (0.0-0.3); Bilirubin,Total 1.1 mg/dL (0.3-1.2); Blood Urea Nitrogen 17 mg/dL (9-23); Calcium 10.2 mg/dL (8.3-10.6); Calcium (Corrected) 10.2 mg/dL (8.5-10.1); Carbon Dioxide 26.4 mMol/L (20.0-31.0); Chloride 103 mMol/L (98-107); Creatinine (Component) 0.8 mg/dL (0.6-1.3); Globulin 3.8 gm/dL (2.3-3.5); Glucose 152 mg/dL (74-106); Lipase 53 U/L (12-53); Magnesium 1.9 mg/dL (1.6-2.6); Osmolality,Calculated 282 (275-295); Potassium 3.7 mMol/L (3.4-5.1); Procalcitonin 1.22 ng/ml (0.0-0.49); Sodium 139 mMol/L (136-145); Total Protein 8.2 gm/dL (5.7-8.2); eGFR > 60 See Note
[2024-07-11 22:27] LABS: C-Reactive Protein 19.2 mg/dL (0.0-0.9)
[2024-07-11 22:41] LABS: Collection Type, Urine Clean Catch; Squamous Epithelial Cell,Urine 0 /hpf (0-5)
[2024-07-11 22:49] LABS: Bacteria,Urine 3+; Bilirubin,Urine Negative (Negative); Blood,Urine 2+ (Negative); Clarity,Urine Turbid (Clear/Hazy); Color,Urine Yellow (Lt Yel-Yel); Culture Indicated,Urine Yes; Glucose, Urine Negative (Negative); Ketones,Urine Negative (Negative); Leukocyte Esterase,Urine Positive (Negative); Nitrite,Urine Negative (Negative); Protein,Urine 2+ (Neg - Trace); RBC,Urine 44 /hpf (0-3); Specific Gravity,Urine 1.022 (1.001-1.035); Urobilinogen,Urine Negative mg/dL (0.0-1.0); WBC,Urine 2167 /hpf (0-5)
[2024-07-12] VITALS (13 sets, daily range): BP systolic 111–148; BP diastolic 65–89; PULSE 76–130; RESP 15–22; TEMP 36.3–38.3; O2SAT 92–96; BMI 19.3
[2024-07-12 00:41] LABS: Reflex Lactate? Y
--- NOTE | 2024-07-12 00:50 | PD.EVENT ---
Documentation for date of: 07/12/24 Event Note Event Note: A 63-year-old male presented to the ER with the chief complaint of abdominal pain. The patient described approximately 12 hours of abdominal pain, primarily in the right lower quadrant. He is nonverbal due to a prior stroke and expresses discomfort through moaning. The pain began last night and has persisted since. He also complained of heavy breathing at home (possibly pain-related). He had a normal bowel movement last night and has only consumed one Ensure today despite typically eating well. Family denied vomiting, cough, and diarrhea. Per family, he had a fever upon arrival, though it is unclear if it was present at home. The patient was brought to the ER due to above mention. The patient has a history of HTN, CVA with resulting right-sided hemiplegia, and seizures. Surgical history includes neck bypass with leg vein harvest. Current medications include Aspirin, Lidoderm, Benazepril, Ascorbic Acid, Amlodipine, Vitamin B1, Multivitamin/Minerals, Melatonin, Atorvastatin, Tamsulosin, NovoLOG FlexPen, Dronabinol, Artificial Tears, Tylenol, Milk of Magnesia, Dulcolax, and Fleet Enema. Social history includes former heavy smoking (>= 1 pack/day for many years, quit after stroke) and occasional alcohol use. Functional status: non-ambulatory, non-verbal, dependent for all ADLs, partially responsive to commands, uses left side only, and attempts to feed himself with a spoon. He lives at home and is primarily cared for by his . Code status is full. The patient has a chronic Love catheter in place. Notably, he was hospitalized in February for mental status changes and slurred speech; MRI revealed multiple embolic infarcts in the left cerebellar region, parietal lobe, temporal lobe, frontal lobe, and basal ganglia. In the ER, vital signs were recorded as: temp 101.1 ?F, HR 108 bpm, RR 22, BP 128/85 mmHg. Labs revealed: WBC 27.4, HB 13.1, PLT 309, Na 139, K 3.7, BUN 17, creatinine 0.8, glucose 152, lactic acid 3.1, AST 323, ALT 489, alkaline phosphatase 328, CRP 19.2, procalcitonin 1.22. UA showed turbid appearance with WBC 2167 and RBC 44. Imaging: CXR showed no pneumonia; abdominal CT demonstrated hepatocellular disease versus cirrhosis, mild ascites, bilateral renal calculi, mild colonic and small bowel ileus, and cystitis. Gallbladder ultrasound was normal. The patient was admitted for sepsis for further evaluation and treatment. #Sepsis Assessment: Fever (101.1?F), tachycardia (HR 108), tachypnea (RR 22), leukocytosis (WBC 27.4), elevated lactate (3.1), elevated CRP/procalcitonin, suspected source: urinary tract infection (turbid UA, WBC 2167, RBC 44), qSOFA 2 (RR >22, altered mentation), meets SIRS criteria (temp, HR, WBC, RR) Plan: - Initiate empiric IV antibiotics (Zosyn) - IV fluid resuscitation - Monitor vital signs, urine output, and lactate clearance - Daily labs - Love catheter care, assess need for replacement #Urinary Tract Infection (complicated, Love-associated) Assessment: Chronic indwelling Love, positive UA (WBC 2167), imaging evidence of cystitis, fever, leukocytosis Plan: - Continue antibiotics as above, adjust based on culture/sensitivity #Hepatitis Assessment: Elevated transaminases (AST 323, ALT 489), elevated alk phos (328), CT with hepatocellular disease vs cirrhosis, mild ascites Plan: - Hepatitis panel - Monitor LFTs daily #Acute Abdominal Pain Assessment: Ileus on imaging, no obstructive bowel pattern Plan: - Supportive care for ileus #Chronic Stroke with Right Hemiplegia and Nonverbal Status Assessment: History of CVA with dense right-sided hemiplegia, nonverbal, dependent for ADLs Plan: - Continue supportive care - Aspiration precaution #Seizure Disorder Assessment: History of seizures Plan: - Continue Keppra #HTN Assessment: BP 128/85 mmHg Plan: - Continue home meds
[2024-07-12 01:39] LABS: Lactic Acid, 3 HR 1.4 mMol/L (0.4-2.0)
--- NOTE | 2024-07-12 01:44 | PD.RESHP ---
Documentation for date of: 07/12/24 HPI History of Present Illness History of present illness: The patient is a 63-year-old male with a past medical history of CVA with resultant aphasia and right-sided hemiplegia, hypertension, seizure disorder, history of nephrolithiasis/staghorn calculi, BPH, history of alcohol abuse disorder who is accompanied by his son brought into the emergency room due to complaint of abdominal pain. Per son, stated that patient is nonverbal at baseline, ambulatory only with help wheelchair, but is able to express pain by facial expressions and pointing, was complaining of lower abdominal pain. Denying any nausea or vomiting or diarrhea. Denied fever at home but did have a fever on arrival to the emergency room. Denied cough, seizures, syncope or chest pain. The patient has a chronic indwelling Love's catheter which was changed last week. In the ER, vital signs were recorded as: temp 101.1 ?F, HR 108 bpm, RR 22, BP 128/85 mmHg. Labs revealed: WBC 27.4, HB 13.1, PLT 309, Na 139, K 3.7, BUN 17, creatinine 0.8, glucose 152, lactic acid 3.1, AST 323, ALT 489, alkaline phosphatase 328, CRP 19.2, procalcitonin 1.22. UA showed turbid appearance with WBC 2167 and RBC 44. Imaging: CXR showed no pneumonia; abdominal CT demonstrated hepatocellular disease versus cirrhosis, mild ascites, bilateral renal calculi, mild colonic and small bowel ileus, and cystitis. Gallbladder ultrasound was normal. The patient is admitted for sepsis for further evaluation and treatment. Past medical history: CVA with resultant aphasia and right-sided hemiplegia in 2023 of note, hypertension, seizure disorder, history of nephrolithiasis/staghorn calculi, BPH, history of alcohol abuse disorder Surgical history: History of carotid bypass surgery. Review of Systems Review of Systems Systems Reviewed: All systems reviewed, normal except as documented Past Medical History Past Medical History CARDIAC: Positive Hypertension; Negative Congestive Heart Failure RESPIRATORY: Negative Chronic Obstructive Pulmonary Disease (COPD) GENITOURINARY: Negative Renal Disease ENT: Negative Glaucoma ENDOCRINE: Negative Diabetes Mellitus Type 1 or Diabetes Mellitus Type 2 Social History SMOKING STATUS: Never smoker SUBSTANCE USE: does not use Exam Vital Signs Temp Pulse Resp BP Pulse Ox O2 Del Method 98.9 F 82 22 H 111/65 96 Room Air 07/12/24 01:11 07/12/24 01:11 07/12/24 01:11 07/12/24 01:11 07/12/24 01:11 07/12/24 01:11 Narrative Exam General: AOx1, cooperative but nonverbal status Skin: Intact, no cyanosis or edema noted. HEENT: Atraumatic/normocephalic, CLAUDE, neck supple Heart: RRR, S1 and S2 without clicks or murmurs Lungs: Clear on auscultation bilaterally, no difficulty breathing Abdomen: Soft, nontender. Bowel sounds present . Vascular: Peripheral pulses palpable Neuro: Aphasic, rt sided hemiplegia Results: Labs 07/11/24 21:10 07/11/24 21:10 Labs: Short CBC 07/11/24 Range/Units 21:10 WBC 27.4 H D (3.8-10.6) Thou/mm3 Hgb 13.1 L (13.5-16.0) g/dL Hct 39.3 L (41.0-53.0) % Plt Count 309 (140-440) Thou/mm3 BMP 07/11/24 21:10 Sodium 139 Potassium 3.7 Chloride 103 Carbon Dioxide 26.4 BUN 17 Creatinine 0.8 Glucose 152 H Calcium 10.2 Liver Function 07/11/24 Range/Units 21:10 Total Bilirubin 1.1 (0.3-1.2) mg/dL Direct Bilirubin 0.4 H (0.0-0.3) mg/dL AST 323 H (0-34) U/L ALT 489 H (10-49) U/L Alkaline Phosphatase 328 H (46-116) U/L Albumin 4.4 (3.4-4.8) gm/dL Urine 07/11/24 Range/Units 22:30 Urine Color Yellow (Lt Yel-Yel) Urine Clarity Turbid A (Clear/Hazy) Urine pH 6.0 (5.0-7.0) Ur Specific [place] 1.022 (1.001-1.035) Urine Protein 2+ A (Neg - Trace) Urine Glucose (UA) Negative (Negative) Quality Measures Quality Measures none Medications Home Medications and Allergies Home Medications ?Medication ?Instructions ?Recorded ?Confirmed ?Type bupropion HCl 75 mg tablet 75 mg PO TID 04/12/22 03/01/24 History hydrochlorothiazide 50 mg tablet 50 mg PO QDAY 04/12/22 03/01/24 History amlodipine 5 mg tablet 5 mg PO DAILY 03/01/24 03/01/24 History atorvastatin 40 mg tablet 40 mg PO DAILY 03/01/24 03/01/24 History benazepril 40 mg tablet 40 mg PO DAILY 03/01/24 03/01/24 History diphenhydramine HCl 25 mg capsule 25 mg PO HS 03/01/24 03/01/24 History (Banophen) metoprolol succinate 100 mg 100 mg PO HS 03/01/24 03/01/24 History tablet,extended release 24 hr tamsulosin 0.4 mg capsule 4 mg PO DAILY 03/01/24 03/01/24 History vortioxetine 20 mg tablet 20 mg PO DAILY 03/01/24 03/01/24 History (Trintellix) Allergies Allergy/AdvReac Type Severity Reaction Status Date / Time No Known Drug Allergies Allergy Unknown Verified 02/05/23 13:28 Visit Medications Discontinued Medications Hydromorphone HCl (Hydromorphone Inj 2 Mg/Ml Vial) 2 mg IVP X1 ONE Stop: 07/11/24 20:04 Last Admin: 07/11/24 21:38 Dose: Not Given Hydromorphone HCl (Hydromorphone Inj 2 Mg/Ml Vial) 1 mg IVP X1 ONE Stop: 07/11/24 21:40 Last Admin: 07/12/24 00:15 Dose: Not Given Acetaminophen (Ofirmev Inj) 1,000 mg in 100 mls @ 250 mls/hr IV X1 ONE Stop: 07/11/24 20:24 Last Infusion: 07/11/24 21:50 Dose: Infused Sodium Chloride (Ns) 1,000 mls @ 999 mls/hr IV .Q1H1M ONE Stop: 07/11/24 21:01 Last Infusion: 07/11/24 22:50 Dose: Infused Piperacillin/Tazobactam/Dextrose (Zosyn) 3.375 gm in 50 mls @ 100 mls/hr IV X1 ONE Stop: 07/11/24 20:30 Last Infusion: 07/11/24 21:35 Dose: Infused Sodium Chloride (Ns) 1,000 mls @ 999 mls/hr IV .Q1H1M ONE Stop: 07/11/24 21:02 Last Infusion: 07/11/24 22:50 Dose: Infused Ketorolac Tromethamine (Ketorolac Inj 30 Mg/Ml Vial) 30 mg IVP X1 ONE Stop: 07/11/24 20:02 Last Admin: 07/11/24 21:24 Dose: 30 mg Ondansetron HCl (Ondansetron Inj 2 Mg/Ml Inj 2 Ml) 4 mg IV X1 ONE; Protocol Stop: 07/11/24 20:02 Last Admin: 07/11/24 21:00 Dose: 4 mg Assessment & Plan Plan #Sepsis #Complicated UTI Assessment: Fever (101.1?F), tachycardia (HR 108), tachypnea (RR 22), leukocytosis (WBC 27.4), elevated lactate (3.1), elevated CRP/procalcitonin, suspected source: urinary tract infection (turbid UA, WBC 2167, RBC 44), qSOFA 2 (RR >22, altered mentation), meets SIRS criteria (temp, HR, WBC, RR), Chronic indwelling Love, positive UA (WBC 2167), imaging evidence of cystitis, fever, leukocytosis Plan: - Zosyn for complicated UTI, may de-escalate based on microbiology . - IV fluid resuscitation - Monitor vital signs, urine output, and lactate clearance - Daily labs - Love catheter care, assess need for replacement - follow repeat lactic acid #Transaminitis - likley drug induced Assessment: Elevated transaminases (AST 323, ALT 489), elevated alk phos (328), CT with hepatocellular disease vs cirrhosis, mild ascites, likley drug associated, Pt was recently started on Keppra, Hepatotoxicity is an adverse reaction associated with Keppra. US GB negative for cholecystits. Plan: - Hepatitis panel - Monitor LFTs daily - continue keppra for now, if no other casues of transaminitis are found can consider switching to different seizure medication. #Abdominal pain Assessment: Ileus on imaging, no obstructive bowel pattern, pain lilkely seondary to hepatitis vs renal colic Plan: - Supportive care for ileus - Morphine for pain #Hx of CVA with Right Hemiplegia and Aphasia #Hx of seizures Assessment: History of CVA in february 2024 with dense right-sided hemiplegia, nonverbal, dependent for ADLs, able to eat regular food per his son, Pt was transferred to [facility] for IR intervention and had vascular sugery done at [facility]. also developed seizures following stroke. Plan: - Continue aspirin, statins, keppra - Aspiration precaution, seizure precautions in place #HTN Assessment: BP 128/85 mmHg Plan: - Continue amlodipine The plan of care was discussed with my attending physician Dr. Jose Navarro MD PGY2 This document was completed utilizing speech recognition software. Grammatical errors, random word insertions, pronoun errors, and incomplete sentences are an occasional consequence of this system due to software limitations, ambient noise, and hardware issues. Any formal questions or concerns about the content, text or information contained within the body of this dictation should be directly addressed to the provider for clarification. . Attending Provider Attestation/Addendum Pt was evaluated and plan formulated together with the housestaff team. I have reviewed the residents note above and agree with most of its content. Please refer to the residents note for additional details.
[2024-07-12] MEDS: PIPER/TAZO 3.375 GM PREMIX 3.375 GM/50 ML BAG IV ×3 (03:21→21:09)
[2024-07-12] MEDS: RINGERS LACTATED 1000 ML 1,000 ML 125 ML IV (03:21)
[2024-07-12 05:03] LABS: Basophils # (Auto) 0.1 Thou/mm3 (0.0-0.2); Basophils % (Auto) 0 % (0-2.5); Eosinophils # (Auto) 0.1 Thou/mm3 (0.0-0.5); Eosinophils % (Auto) 0 % (0-10); Hematocrit 30.9 % (41.0-53.0); Hemoglobin 10.1 g/dL (13.5-16.0); Immature Granulocytes % (Auto) 1 % (0-0); Immature Granulocytes Auto 0.11 Thou/mm3 (0.00-0.00); Lymphocytes # (Auto) 2.3 Thou/mm3 (1.0-4.8); Lymphocytes % (Auto) 11 % (10-50); Mean Corpuscular HGB Conc 32.7 g/dl (31.0-37.0); Mean Corpuscular Hemoglobin 27.4 pg (25.0-35.0); Mean Corpuscular Volume 84 fL (80-100); Monocytes # (Auto) 0.9 Thou/mm3 (0.0-0.8); Monocytes % (Auto) 4 % (0-12); Neutrophils # (Auto) 18.5 Thou/mm3 (1.8-7.7); Neutrophils % (Auto) 84 % (37-80); Nucleated Red Blood Cell % 0 /100 WBC (0); Platelet Count 226 Thou/mm3 (140-440); RDW Standard Deviation 46.5 fL (35.1-43.9); Red Blood Count 3.69 Miln/mm3 (4.50-5.90)
[2024-07-12 05:28] LABS: Alanine Aminotransferase 499 U/L (10-49); Albumin, Serum 3.4 gm/dL (3.4-4.8); Albumin/Globulin Ratio 1.2 (1.2-2.2); Alkaline Phosphatase 260 U/L (46-116); Anion Gap 11 (7-16); Aspartate Amino Transferase 450 U/L (0-34); BUN/Creatinine Ratio 25 Ratio (12-20); Blood Urea Nitrogen 15 mg/dL (9-23); Calcium 8.9 mg/dL (8.3-10.6); Calcium (Corrected) 9.4 mg/dL (8.5-10.1); Carbon Dioxide 21.5 mMol/L (20.0-31.0); Chloride 110 mMol/L (98-107); Creatinine (Component) 0.6 mg/dL (0.6-1.3); Estimated Creatinine Clearance 79.2 mL/min (>60); Globulin 2.9 gm/dL (2.3-3.5); Glucose 99 mg/dL (74-106); Osmolality,Calculated 283 (275-295); Potassium 3.8 mMol/L (3.4-5.1); Sodium 142 mMol/L (136-145); Total Protein 6.3 gm/dL (5.7-8.2); eGFR > 60 See Note
--- NOTE | 2024-07-12 06:30 | PC.NURSE ---
Spoke to Ahmet (pt's son), get information regarding pts, asked him to bring the whole list of pts home medication for reconciliation.
[2024-07-12] MEDS: TAMSULOSIN HCL 0.4 MG CAPSULE PO (09:31)
[2024-07-12] MEDS: levETIRAcetam LIQD 500 MG/5 ML UDC PO ×2 (09:31→20:21)
[2024-07-12] MEDS: amLODIPine BESYLATE 5 MG TABLET PO (09:31)
[2024-07-12] MEDS: ASPIRIN EC 81 MG TABEC PO (09:31)
[2024-07-12] MEDS: ENOXAPARIN SOD INJ 40 MG/0.4 ML SYRINGE SC (09:31)
--- NOTE | 2024-07-12 09:59 | PCS.ST ---
Swallow evaluation complete. Recommend D3/thin at this time. See swallow evaluation for additional details.
[2024-07-12] MEDS: MORPHINE SULF INJ 10 MG/ML VIAL 2 MG IVP (12:54)
--- NOTE | 2024-07-12 13:42 | PD.RESPRO ---
Documentation for date of: 07/12/24 Subjective Subjective Interval history: At bedside today, patient per is at baseline for mental status. Patient able to understand [place] and able to follow some commands. However, when asking to move his left leg, patient refused despite stating that he is able to move the left side of his body. Per niece at bedside, patient's Love was changed on Saturday and only had change in signs and symptoms yesterday when he was complaining of abdominal pain and right lower quadrant. Love appears to have light to dark luzma color but no cloudy sediments noted. Vital signs are stable. Labs significant for slight decrease in WBC, 22, hemoglobin dropped to 10, ESR 118, potassium 3.8 lactic acid down trended to 1.4, AST, ALT increased from 300 to 450s, 499, alk phos decreased 260 Home Meds: Patient takes benazepril 20 mg daily, thiamine, tamsulosin, quetiapine, metoprolol succinate 100 mg, levothyroxine 100 mcg, Keppra 500 mg twice daily, NovoLog, hydrochlorothiazide, folic acid, Banophen, atorvastatin 40 mg, aspirin 325?, Amlodipine 5 mg per external med chart review. Pending final medication reconciliation. Exam Vital Signs Temp Pulse Resp BP Pulse Ox O2 Del Method 97.8 F 96 18 136/74 H 93 L Room Air 07/12/24 08:00 07/12/24 09:31 07/12/24 08:00 07/12/24 09:31 07/12/24 08:00 07/12/24 08:00 Narrative Exam General: AOx1, cooperative but nonverbal status Skin: Intact, no cyanosis or edema noted. HEENT: Atraumatic/normocephalic, CLAUDE, neck supple Heart: RRR, S1 and S2 without clicks or murmurs Lungs: Clear on auscultation bilaterally, no difficulty breathing Abdomen: Soft, nontender. Bowel sounds present . Vascular: Peripheral pulses palpable Neuro: Aphasic, rt sided hemiplegia General Appearance: Patient in no apparent distress, cooperative at times but nonverbal mostly. Alert and awake. Cachectic, disheveled, appears older than stated age. HEENT: NC/AT, no scleral icterus, no conjunctival pallor Lungs: CTAB, no wheezes or crackles appreciated CVS: RRR, S1/S2 heard, no murmurs or rubs appreciated ABD: Tender to palpation in right lower quadrant EXT: Peripheral pulses felt bilaterally SKIN: Skin exam normal without any rashes. Neuro: Alert and awake. Left facial droop noted. Aphasic, right-sided hemiplegia. Unable to cooperate with left lower extremity motor strength. 5 out of 5 motor strength appreciated in left upper extremity. Psych: Unable to assess due to patient's mental condition Objective Labs 07/12/24 04:30 07/12/24 04:30 Labs: Laboratory Results - last 24 hr 07/11/24 07/11/24 07/12/24 21:10 22:30 01:36 WBC 27.4 H D RBC 4.85 Hgb 13.1 L Hct 39.3 L MCV 81 MCH 27.0 MCHC 33.3 RDW Std Deviation 44.8 H Plt Count 309 Neut % (Auto) 85 H Lymph % (Auto) 10 [place] % (Auto) 4 Eos % (Auto) 0 Baso % (Auto) 0 Neut # (Auto) 23.3 H Lymph # (Auto) 2.7 [place] # (Auto) 1.2 H Eos # (Auto) 0.0 Baso # (Auto) 0.1 Immature Gran # (Auto) 0.18 H Absolute Nucleated RBC 0.00 Immature Gran % 1 H Nucleated RBC % 0 ESR 118 H PT 11.4 INR 1.0 APTT 30.8 Sodium 139 Potassium 3.7 Chloride 103 Carbon Dioxide 26.4 Anion Gap 10 BUN 17 Creatinine 0.8 Estim Creat Clear Calc 66.0 eGFR > 60 BUN/Creatinine Ratio 21 H Glucose 152 H Calculated Osmolality 282 Lactic Acid 3.1 H 1.4 Calcium 10.2 Corrected Calcium 10.2 H Magnesium 1.9 Total Bilirubin 1.1 Direct Bilirubin 0.4 H AST 323 H ALT 489 H Alkaline Phosphatase 328 H C-Reactive Prot, Quant 19.2 H Total Protein 8.2 Albumin 4.4 Globulin 3.8 H Albumin/Globulin Ratio 1.2 Amylase 155 H Lipase 53 Procalcitonin 1.22 H Ur Collection Type Clean Catch Urine Color Yellow Urine Clarity Turbid A Urine pH 6.0 Ur Specific [place] 1.022 Urine Protein 2+ A Urine Glucose (UA) Negative Urine Ketones Negative Urine Blood 2+ A Urine Nitrite Negative Urine Bilirubin Negative Urine Urobilinogen (Auto) Negative Ur Leukocyte Esterase Positive Urine RBC 44 H Urine WBC 2167 H Ur Squamous Epith Cells 0 Urine Bacteria 3+ A Ur Culture Indicated? Yes 07/12/24 04:30 WBC 22.0 H D RBC 3.69 L Hgb 10.1 L D Hct 30.9 L MCV 84 MCH 27.4 MCHC 32.7 RDW Std Deviation 46.5 H Plt Count 226 D Neut % (Auto) 84 H Lymph % (Auto) 11 [place] % (Auto) 4 Eos % (Auto) 0 Baso % (Auto) 0 Neut # (Auto) 18.5 H Lymph # (Auto) 2.3 [place] # (Auto) 0.9 H Eos # (Auto) 0.1 Baso # (Auto) 0.1 Immature Gran # (Auto) 0.11 H Absolute Nucleated RBC 0.00 Immature Gran % 1 H Nucleated RBC % 0 ESR PT INR APTT Sodium 142 Potassium 3.8 Chloride 110 H Carbon Dioxide 21.5 Anion Gap 11 BUN 15 Creatinine 0.6 Estim Creat Clear Calc 79.2 eGFR > 60 BUN/Creatinine Ratio 25 H Glucose 99 D Calculated Osmolality 283 Lactic Acid Calcium 8.9 Corrected Calcium 9.4 Magnesium Total Bilirubin 1.0 Direct Bilirubin AST 450 H ALT 499 H Alkaline Phosphatase 260 H D C-Reactive Prot, Quant Total Protein 6.3 Albumin 3.4 D Globulin 2.9 Albumin/Globulin Ratio 1.2 Amylase Lipase Procalcitonin Ur Collection Type Urine Color Urine Clarity Urine pH Ur Specific [place] Urine Protein Urine Glucose (UA) Urine Ketones Urine Blood Urine Nitrite Urine Bilirubin Urine Urobilinogen (Auto) Ur Leukocyte Esterase Urine RBC Urine WBC Ur Squamous Epith Cells Urine Bacteria Ur Culture Indicated? Quality Measures Quality Measures none Assessment & Plan Assessment Current Active Medications: Generic Name Dose Route Start Last Admin Trade Name Freq PRN Reason Stop Dose Admin Amlodipine Besylate 5 mg 07/12/24 09:00 07/12/24 09:31 Amlodipine Besylate 5 Mg Tablet PO 08/11/24 08:59 5 mg QDAY RAFAEL Administration Aspirin 81 mg 07/12/24 09:00 07/12/24 09:31 Aspirin Ec 81 Mg Tabec PO 08/11/24 08:59 81 mg QDAY RAFAEL Administration Dextrose 25 ml 07/12/24 01:53 Dextrose 50%-Water Inj 50 Ml Syringe IV 08/11/24 01:52 Q15MIN PRN BG 50-70 responsive npo pt Enoxaparin Sodium 40 mg 05/11/25 09:00 07/12/24 09:31 Enoxaparin Sod Inj 40 Mg/0.4 Ml Syringe SC 07/26/24 08:59 40 mg QDAY RAFAEL Administration Glucagon 1 mg 07/12/24 01:53 Glucagon Inj 1 Mg Vial IM Q15MIN PRN BG <70, and no IV access Piperacillin/Tazobactam/Dextrose 3.375 gm in 50 mls @ 12.5 mls/hr 07/12/24 01:55 07/12/24 05:09 Zosyn IV 07/19/24 01:54 Not Given Q8HR RAFAEL Insulin Human Lispro 0 unit 07/12/24 07:30 07/12/24 11:55 Insulin Lispro (Admelog) 1 Unit/0.01 Ml Unit SC 08/11/24 07:29 Not Given AC RAFAEL Protocol Levetiracetam 500 mg 07/12/24 09:00 07/12/24 09:31 Levetiracetam Liqd 500 Mg/5 Ml Udc PO 08/11/24 08:59 500 mg BID RAFAEL Administration Magnesium Hydroxide 30 ml 07/12/24 01:53 Milk Of Magnesia Susp 30 Ml Udc PO 08/11/24 01:52 QDAY PRN CONSTIPATION Protocol Melatonin 6 mg 07/12/24 21:00 Melatonin 3 Mg Tablet PO 08/11/24 20:59 HS RAFAEL Morphine Sulfate 2 mg 07/12/24 02:00 07/12/24 12:54 Morphine Sulf Inj 10 Mg/Ml Vial IVP 07/17/24 01:59 2 mg Q6HR PRN Administration PAIN SCALE 4-10(Mod-Sev Tamsulosin HCl 0.4 mg 07/12/24 09:00 07/12/24 09:31 Tamsulosin Hcl 0.4 Mg Capsule PO 08/11/24 08:59 0.4 mg QDAY RAFAEL Administration Plan Mr. 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 #Sepsis secondary to urinary tract infection with gram-negative organisms. Sofa score greater than 2. #Complicated UTI #Abdominal pain Assessment: Fever (101.1?F), tachycardia (HR 108), tachypnea (RR 22), leukocytosis (WBC 27.4), elevated lactate (3.1), elevated CRP/procalcitonin, suspected source: urinary tract infection (turbid UA, WBC 2167, RBC 44), qSOFA 2 (RR >22, altered mentation), meets SIRS criteria (temp, HR, WBC, RR), Chronic indwelling Love, positive UA (WBC 2167), imaging evidence of cystitis, fever, leukocytosis Ileus on imaging, no obstructive bowel pattern, pain likely secondary to hepatitis vs renal colic versus cystitis from UTI Lactic acid down trended - Supportive care for ileus - Morphine for pain as needed - Zosyn for complicated UTI, may de-escalate based on microbiology - Pending cultures - IV fluid resuscitation, received 2 L in the ED, will give additional 500mL today - Monitor vital signs, urine output, and lactate clearance - Daily labs - Love catheter care, assess need for replacement #Transaminitis - likley drug induced Assessment: Elevated transaminases (AST 323, ALT 489), elevated alk phos (328), CT with hepatocellular disease vs cirrhosis, mild ascites, likley drug associated, Pt was recently started on Keppra, Hepatotoxicity is an adverse reaction associated with Keppra. US GB negative for cholecystits. Plan: - Hepatitis panel - Monitor LFTs daily - continue keppra for now, if no other casues of transaminitis are found can consider switching to different seizure medication. - Will hold statin for now #Hx of CVA with Right Hemiplegia and Aphasia #Hx of seizures Assessment: History of CVA in february 2024 with dense right-sided hemiplegia, nonverbal, dependent for ADLs, able to eat regular food per his son Pt was transferred to [facility] for IR intervention and had vascular sugery done at [facility]. Also developed seizures following stroke. - Continue aspirin and keppra - Will hold statin for now - Aspiration precaution, seizure precautions in place #HTN?stable - Continue home amlodipine Health Maintenance: DVT prophylaxis: Enoxaparin 40 mg Diet: Dysphagia 3 diet Love: Yes, recently changed on Saturday in ER Lines: PIV Supplemental O2: None CODE STATUS: Full code Disposition: Patient admitted to [facility] for further management of sepsis in the setting of complicated UTI Patient's plan and care discussed with my attending, Dr. Walter Linares MD PGY-2 Attending Provider Attestation/Addendum I have discussed and was present for the essential components of the history, physical examination, diagnosis, and treatment plan with the resident. I agree with the patient's care as documented by the resident and amended herein by me. Torito Watson, DO. Patient seen and evaluated this AM. No acute events overnight, vital signs stable, Tmax overnight 101.1. Significant labs today include a WBC of 22 which is down trended from 27, down trended to 10.1 likely from fluids, chloride 110, elevated liver enzymes with an AST of 450, ALT 499 alk phos 260 and normal T. bili. Pro-Loki 1.22 and positive UA on arrival. Hepatitis panel was ordered and is pending. Initial gallbladder ultrasound unremarkable initial chest x-ray unremarkable, initial CTAP demonstrating primary hepatocellular disease, mild ascites, mild colonic ileus, mild small bowel ileus and a cystitis pattern. Will continue the patient on Zosyn as well as the patient's home medications. Will continue follow-up with blood and urine cultures, I am going to hold the patient's statin for now, his hepatocellular disease may be secondary to medication use namely the statin. However as of February 2024, his LDL was still not at goal and was 120. Will monitor for improvement and continue to monitor closely while he is here, likely discharge home in 1 to 2 days. Of note, his Love catheter was changed in the ED. Although this document has been carefully reviewed, there may still be some phonetic and other typographical errors. These errors are purely grammatical due to imperfections in the software program and should not be construed in any way to compromise the substance of the patient's medical care during this visit.
[2024-07-12] MEDS: RINGERS LACTATED 1000 ML 500 ML 999 ML IV (14:14)
[2024-07-12 19:45] LABS: Cholesterol 94 mg/dL (132-200); HDL Cholesterol 48 mg/dL (40-60); LDL Cholesterol,Calculated 35 mg/dL (0-130); Triglycerides 57 mg/dL (30-150)
[2024-07-12] MEDS: MELATONIN 3 MG TABLET 6 MG PO (20:15)
[2024-07-12] MEDS: ACETAMINOPHEN 325 MG TABLET 650 MG PO (21:09)
[2024-07-12 21:10] LABS: Hepatitis A Antibody IgM Non Reactive (Non React); Hepatitis B Core Antibody IgM Non Reactive (Non React); Hepatitis B Surface Antigen Non Reactive (Non React); Hepatitis C Antibody Non Reactive (Non React)
[2024-07-13] VITALS (9 sets, daily range): BP systolic 98–138; BP diastolic 65–88; PULSE 75–114; RESP 16–92; TEMP 36.4–37.5; O2SAT 92–99
[2024-07-13] MEDS: PIPER/TAZO 3.375 GM PREMIX 3.375 GM/50 ML BAG IV ×3 (05:16→21:25)
[2024-07-13 08:10] LABS: Basophils # (Auto) 0.1 Thou/mm3 (0.0-0.2); Basophils % (Auto) 0 % (0-2.5); Eosinophils # (Auto) 0.3 Thou/mm3 (0.0-0.5); Eosinophils % (Auto) 1 % (0-10); Hematocrit 32.8 % (41.0-53.0); Immature Granulocytes % (Auto) 1 % (0-0); Lymphocytes # (Auto) 2.2 Thou/mm3 (1.0-4.8); Lymphocytes % (Auto) 9 % (10-50); Mean Corpuscular HGB Conc 33.5 g/dl (31.0-37.0); Mean Corpuscular Volume 80 fL (80-100); Monocytes # (Auto) 0.8 Thou/mm3 (0.0-0.8); Monocytes % (Auto) 3 % (0-12); Neutrophils # (Auto) 20.3 Thou/mm3 (1.8-7.7); Neutrophils % (Auto) 85 % (37-80); Nucleated Red Blood Cell % 0 /100 WBC (0); Platelet Count 230 Thou/mm3 (140-440); Red Blood Count 4.08 Miln/mm3 (4.50-5.90); White Blood Count 23.8 Thou/mm3 (3.8-10.6)
[2024-07-13 08:27] LABS: Alanine Aminotransferase 593 U/L (10-49); Albumin, Serum 3.8 gm/dL (3.4-4.8); Albumin/Globulin Ratio 1.1 (1.2-2.2); Alkaline Phosphatase 429 U/L (46-116); Anion Gap 13 (7-16); Aspartate Amino Transferase 327 U/L (0-34); BUN/Creatinine Ratio 17 Ratio (12-20); Blood Urea Nitrogen 12 mg/dL (9-23); Calcium (Corrected) 9.2 mg/dL (8.5-10.1); Carbon Dioxide 25.5 mMol/L (20.0-31.0); Chloride 102 mMol/L (98-107); Creatinine (Component) 0.7 mg/dL (0.6-1.3); Estimated Creatinine Clearance 67.9 mL/min (>60); Globulin 3.6 gm/dL (2.3-3.5); Glucose 129 mg/dL (74-106); Osmolality,Calculated 281 (275-295); Potassium 3.6 mMol/L (3.4-5.1); Sodium 140 mMol/L (136-145); Total Protein 7.4 gm/dL (5.7-8.2); eGFR > 60 See Note
[2024-07-13] MEDS: amLODIPine BESYLATE 5 MG TABLET PO (08:56)
[2024-07-13] MEDS: levETIRAcetam LIQD 500 MG/5 ML UDC PO ×2 (08:56→21:24)
[2024-07-13] MEDS: TAMSULOSIN HCL 0.4 MG CAPSULE PO (08:56)
[2024-07-13] MEDS: ASPIRIN EC 81 MG TABEC PO (08:57)
[2024-07-13] MEDS: ENOXAPARIN SOD INJ 40 MG/0.4 ML SYRINGE SC (08:57)
[2024-07-13] MEDS: MORPHINE SULF INJ 10 MG/ML VIAL 2 MG IVP ×2 (09:08→15:32)
--- NOTE | 2024-07-13 09:31 | CHAP ---
Responded to Rapid Response (09:31). Family was present, but was not in need of a marker shipments.
--- NOTE | 2024-07-13 09:32 | XR_ITS ---
Examination: Abdomen AP single view Technique: AP portable supine abdomen, single view Exam date and time: July 13, 2024 0954 hours INDICATIONS: Abdominal pain and distention beginning 2 days ago. FINDINGS: Abundant stool in the right colon No obstruction Rectal tube. No free air IMPRESSION: Abundant stool in the right colon
--- NOTE | 2024-07-13 09:39 | EKG_ITS ---
[facility] Test Date: 2024-07-13 Pat Name: GABBY STEWART [facility] Director Ehs: AUDREY : 1960 Requested By: Tami Linares Order Number: [id number] Reading MD: Tami Linares Measurements Intervals [place] Rate: 107 P: 40 [place]: 137 QRS: 3 QRSD: 80 T: 59 QT: 318 QTc: 424 Interpretive Statements SINUS TACHYCARDIA NONSPECIFIC ST & T-WAVE ABNORMALITY ABNORMAL RHYTHM ECG Compared to ECG 05/19/2024 15:50:35 No significant changes /store/S0/[id number]
--- NOTE | 2024-07-13 09:48 | PC.SS ---
Patient Tony Goldsmith a 63 Year old male admitted for Occlusion and stenosis of left carotid. SS met with patient and patient's , Willy Wen at bedside to discuss discharge plan and verify demographic information. Patient reports patient lives at home with her and his son, Ahmet Irvin who she reports is his surrogate decision maker [phone]. She reports patient does not utilize any source of DME to assist with ambulation. Patient is able to complete all ADL's independently. Patient's PCP is Lana Little . Choice of pharmacy is [facility]. At time of discharge patient reports he will return back home. patient's son will provide transportation. Next of kin: Son, Ahmet Irvin [phone] Discharge plan: Home
[2024-07-13 10:05] LABS: Lactate (Lactic Acid) 2.6 mMol/L (0.4-2.0)
[2024-07-13] MEDS: RINGERS LACTATED 500 ML 500 ML 999 ML IV ×2 (10:34→14:52)
[2024-07-13 11:07] LABS: Troponin I < 0.020 ng/mL (0.0-0.045)
--- NOTE | 2024-07-13 11:08 | PC.SS ---
SS follow up note; Patient is pending urine cultures, on IV ABX. Patient will return back home when medically cleared.
[2024-07-13] MEDS: RINGERS LACTATED 1000 ML 1,000 ML 999 ML IV (11:44)
[2024-07-13 13:03] LABS: Reflex Lactate? Y
[2024-07-13] MEDS: LACTULOSE SYRUP 20 GM/30 ML UDC PO ×2 (13:42→21:24)
[2024-07-13 14:04] LABS: Lactic Acid, 3 HR 4.9 mMol/L (0.4-2.0)
[2024-07-13] MEDS: RINGERS LACTATED 1000 ML 1,000 ML 75 ML IV (14:55)
--- NOTE | 2024-07-13 15:49 | PC.NURSE ---
Dr. Silva was made aware pt is tachy HR 118, oral temp 98.8, auxiliary temp 101.5, temporal 98.9, coldness bilateral lower extremities and upper extremities and head is hot to touch . Patient having adverse effects to morphine. orders received, read back and carried out. Family at bedside.
--- NOTE | 2024-07-13 16:50 | PD.RESPRO ---
Documentation for date of: 07/13/24 Subjective Subjective Interval history: Overnight, patient was groaning all last night. Per bedside nurse, patient was still groaning in pain status post morphine 2 mg. Patient's abdomen also seemed more distended in nature, lower extremity mottling were noted, and patient appeared to be less interactive. Rapid response was shortly called around 9:30 AM with vital signs remarkably stable except for tachycardia in the 104-110 range. Decision was made to get a KUB, LR 500 bolus lactic acid. KUB showed abundant stool but no free air. Lactic acid was 2.6. However, repeat lactic 3 hours later was 4.9. Last lactic acid around 5 PM was 1.2. Patient thus far has received a total of 1.5 L LR bolus cumulatively, and was started on vancomycin in addition to Zosyn. Will also request for [facility] old records for urine culture resistance antibiogram. Bedside ultrasound per ICU team showed patient's IVC was not collapsible and plethoric, and will stop with IV fluids for now. Continue to monitor patient's neurosymptoms and signs. Patient also appears to be agitated after giving morphine, and will change to Dilaudid and equivalent dose and frequency. Exam Vital Signs Temp Pulse Resp BP Pulse Ox O2 Del Method O2 Flow Rate 99 F 110 H 26 H 134/88 H 92 L Room Air 2 07/13/24 13:20 07/13/24 13:20 07/13/24 13:20 07/13/24 13:20 07/13/24 13:20 07/13/24 12:00 07/13/24 00:00 Narrative Exam General Appearance: Patient in moderate distress, cooperative at times but nonverbal mostly. Alert and awake. Cachectic, disheveled, appears older than stated age. Patient at times was grimacing, and squinting his eyes. HEENT: NC/AT, no scleral icterus, no conjunctival pallor Lungs: CTAB, no wheezes or crackles appreciated CVS: RRR, S1/S2 heard, no murmurs or rubs appreciated ABD: More tender to palpation in right lower quadrant EXT: Lower extremity mottling noted from feet to knees SKIN: Skin exam normal without any rashes. Neuro: Alert and awake. Left facial droop noted. Aphasic, right-sided hemiplegia. Unable to cooperate with left lower extremity motor strength. 5 out of 5 motor strength appreciated in left upper extremity. Psych: Unable to assess due to patient's mental condition Objective Labs 07/13/24 07:44 07/13/24 07:44 Labs: Laboratory Results - last 24 hr 07/12/24 07/12/24 07/13/24 01:24 19:11 07:44 WBC 23.8 H RBC 4.08 L Hgb 11.0 L Hct 32.8 L MCV 80 MCH 27.0 MCHC 33.5 RDW Std Deviation 44.0 H Plt Count 230 Neut % (Auto) 85 H Lymph % (Auto) 9 L [place] % (Auto) 3 Eos % (Auto) 1 Baso % (Auto) 0 Neut # (Auto) 20.3 H Lymph # (Auto) 2.2 [place] # (Auto) 0.8 Eos # (Auto) 0.3 Baso # (Auto) 0.1 Immature Gran # (Auto) 0.20 H Absolute Nucleated RBC 0.00 Immature Gran % 1 H Nucleated RBC % 0 Sodium 140 Potassium 3.6 Chloride 102 Carbon Dioxide 25.5 Anion Gap 13 BUN 12 Creatinine 0.7 Estim Creat Clear Calc 67.9 eGFR > 60 BUN/Creatinine Ratio 17 Glucose 129 H Calculated Osmolality 281 Lactic Acid Calcium 9.0 Corrected Calcium 9.2 Total Bilirubin 2.0 H D AST 327 H ALT 593 H* Alkaline Phosphatase 429 H D Troponin I Total Protein 7.4 Albumin 3.8 Globulin 3.6 H Albumin/Globulin Ratio 1.1 L Triglycerides 57 Cholesterol 94 L LDL Cholesterol, Calc 35 HDL Cholesterol 48 Cholesterol/HDL Ratio 2.0 L Hepatitis A IgM Ab Non Reactive Hep Bs Antigen Non Reactive Hep B Core IgM Ab Non Reactive Hepatitis C Antibody Non Reactive 07/13/24 07/13/24 09:56 13:36 WBC RBC Hgb Hct MCV MCH MCHC RDW Std Deviation Plt Count Neut % (Auto) Lymph % (Auto) [place] % (Auto) Eos % (Auto) Baso % (Auto) Neut # (Auto) Lymph # (Auto) [place] # (Auto) Eos # (Auto) Baso # (Auto) Immature Gran # (Auto) Absolute Nucleated RBC Immature Gran % Nucleated RBC % Sodium Potassium Chloride Carbon Dioxide Anion Gap BUN Creatinine Estim Creat Clear Calc eGFR BUN/Creatinine Ratio Glucose Calculated Osmolality Lactic Acid 2.6 H 4.9 H* Calcium Corrected Calcium Total Bilirubin AST ALT Alkaline Phosphatase Troponin I < 0.020 Total Protein Albumin Globulin Albumin/Globulin Ratio Triglycerides Cholesterol LDL Cholesterol, Calc HDL Cholesterol Cholesterol/HDL Ratio Hepatitis A IgM Ab Hep Bs Antigen Hep B Core IgM Ab Hepatitis C Antibody Quality Measures Quality Measures none Assessment & Plan Assessment Current Active Medications: Generic Name Dose Route Start Last Admin Trade Name Freq PRN Reason Stop Dose Admin Acetaminophen 650 mg 07/12/24 20:50 07/12/24 21:09 Acetaminophen 325 Mg Tablet PO 08/11/24 20:49 650 mg Q6HR PRN Administration FEVER >101 Amlodipine Besylate 5 mg 07/12/24 09:00 07/13/24 08:56 Amlodipine Besylate 5 Mg Tablet PO 08/11/24 08:59 5 mg QDAY RAFAEL Administration Aspirin 81 mg 07/12/24 09:00 07/13/24 08:57 Aspirin Ec 81 Mg Tabec PO 08/11/24 08:59 81 mg QDAY RAFAEL Administration Dextrose 25 ml 07/12/24 01:53 Dextrose 50%-Water Inj 50 Ml Syringe IV 08/11/24 01:52 Q15MIN PRN BG 50-70 responsive npo pt Enoxaparin Sodium 40 mg 07/12/24 09:00 07/13/24 08:57 Enoxaparin Sod Inj 40 Mg/0.4 Ml Syringe SC 07/26/24 08:59 40 mg QDAY RAFAEL Administration Glucagon 1 mg 07/12/24 01:53 Glucagon Inj 1 Mg Vial IM Q15MIN PRN BG <70, and no IV access Hydromorphone HCl 0.5 mg 07/13/24 16:45 Hydromorphone Inj 2 Mg/Ml Vial IVP 07/18/24 16:44 Q4HR PRN PAIN Piperacillin/Tazobactam/Dextrose 3.375 gm in 50 mls @ 12.5 mls/hr 07/12/24 01:55 07/13/24 13:42 Zosyn IV 07/19/24 01:54 12.5 mls/hr Q8HR RAFAEL Administration Vancomycin HCl/Dextrose 250 mls @ 120 mls/hr 07/13/24 16:30 Vancomycin/D5w 1,250 Mg Ivpb IV 07/13/24 18:34 X1 ONE Vancomycin/Sodium Chloride 200 mls @ 120 mls/hr 07/14/24 10:00 Vancomycin/Ns 1 Gm Ivpb IV 07/21/24 09:59 Q12H [facility] Insulin Human Lispro 0 unit 07/12/24 07:30 07/13/24 11:44 Insulin Lispro (Admelog) 1 Unit/0.01 Ml Unit SC 08/11/24 07:29 Not Given AC RAFAEL Protocol Lactulose 20 gm 07/13/24 14:00 07/13/24 13:42 Lactulose Syrup 20 Gm/30 Ml Udc PO 08/12/24 13:59 20 gm TID RAFAEL Administration Protocol Levetiracetam 500 mg 07/12/24 09:00 07/13/24 08:56 Levetiracetam Liqd 500 Mg/5 Ml Udc PO 08/11/24 08:59 500 mg BID RAFAEL Administration Magnesium Hydroxide 30 ml 07/12/24 01:53 Milk Of Magnesia Susp 30 Ml Udc PO 08/11/24 01:52 QDAY PRN CONSTIPATION Protocol Melatonin 6 mg 07/12/24 21:00 07/12/24 20:15 Melatonin 3 Mg Tablet PO 08/11/24 20:59 6 mg HS RAFAEL Administration Pharmacy Consult 1 each 07/13/24 16:15 Vancomycin Pharmacy To Dose 1 Each Each IV 08/12/24 16:14 QDAY PRN consult Tamsulosin HCl 0.4 mg 07/12/24 09:00 07/13/24 08:56 Tamsulosin Hcl 0.4 Mg Capsule PO 08/11/24 08:59 0.4 mg QDAY RAFAEL Administration Plan Mr. 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 #Sepsis secondary to urinary tract infection with gram-negative organisms. Sofa score greater than 2. #Complicated UTI #Abdominal pain #Lactic acidosis?improving Assessment: Fever (101.1?F), tachycardia (HR 108), tachypnea (RR 22), leukocytosis (WBC 27.4), elevated lactate (3.1), elevated CRP/procalcitonin, suspected source: urinary tract infection (turbid UA, WBC 2167, RBC 44), qSOFA 2 (RR >22, altered mentation), meets SIRS criteria (temp, HR, WBC, RR), Chronic indwelling Love, positive UA (WBC 2167), imaging evidence of cystitis, fever, leukocytosis Ileus on imaging, no obstructive bowel pattern, pain likely secondary to hepatitis vs renal colic versus cystitis from UTI Lactic acid elevated as high as 4.9 today KUB showed abundant stool in colon but no free air - Supportive care for ileus - Started lactulose 20 g p.o. 3 times daily to help with abundant stool seen in KUB - Dilaudid and [place] for pain as needed - Zosyn for complicated UTI - Will start vancomycin for broader-spectrum coverage - Pending cultures - Patient received a total of 2 L in the ED, and 1.5 L LR today - Monitor vital signs, urine output, and lactate clearance - Daily labs - Love catheter care, assess need for replacement - Will request for [facility] records for antibiogram resistance #Transaminitis-worsening Assessment: Elevated transaminases (AST 323, ALT 489), elevated alk phos (328), CT with hepatocellular disease vs cirrhosis, mild ascites, likley drug associated, Pt was recently started on Keppra, Hepatotoxicity is an adverse reaction associated with Keppra. US GB negative for cholecystits. Plan: - GI consulted - Hepatitis panel - Monitor LFTs daily - continue keppra for now, if no other casues of transaminitis are found can consider switching to different seizure medication. - Will hold statin for now #Hx of CVA with Right Hemiplegia and Aphasia #Hx of seizures Assessment: History of CVA in february 2024 with dense right-sided hemiplegia, nonverbal, dependent for ADLs, able to eat regular food per his son Pt was transferred to [facility] for IR intervention and had vascular sugery done at [facility]. Also developed seizures following stroke. - Continue aspirin and keppra - Will hold statin for now - Aspiration precaution, seizure precautions in place #HTN?stable - Continue home amlodipine Health Maintenance: DVT prophylaxis: Enoxaparin 40 mg Diet: Dysphagia 3 diet Love: Yes, recently changed on last Saturday in ER Lines: PIV Supplemental O2: None CODE STATUS: Full code Disposition: Patient admitted to [facility] for further management of sepsis in the setting of complicated UTI Patient's plan and care discussed with my attending, Dr. Walter Linares MD PGY-2 Attending Provider Attestation/Addendum I have discussed and was present for the essential components of the history, physical examination, diagnosis, and treatment plan with the resident. I agree with the patient's care as documented by the resident and amended herein by me. Torito Watson, DO. Although this document has been carefully reviewed, there may still be some phonetic and other typographical errors. These errors are purely grammatical due to imperfections in the software program and should not be construed in any way to compromise the substance of the patient's medical care during this visit.
[2024-07-13] MEDS: VANCOMYCIN/D5W 1,250 MG IVPB 250 ML 120 MG IV (17:02)
[2024-07-13 17:19] LABS: Lactate (Lactic Acid) 1.2 mMol/L (0.4-2.0)
[2024-07-13 17:50] LABS: Lipase 21 U/L (12-53)
--- NOTE | 2024-07-13 17:50 | PD.IMCONS ---
HPI Data of Consult Requesting Physician: Leroy Watson DO Primary Care Provider: Lana Little PA-C Consult Narrative Reason for consult: Abdominal distention, abnormal LFTs History of present illness: 63 years old male who was brought in by the family to the emergency room on 07/11/2024 and subsequently got admitted Although patient is noncommunicative but history obtained in the ER from the son was because of lower abdominal pain he was found to have a fever of 101 ?F Urinalysis showed it to be a dirty urine with WBC greater than 2300 Patient was admitted subsequently for sepsis due to UTI CT scan of the abdomen pelvis done without contrast at that time showed hepatocellular disease mild ascites and cystitis Bactrim Gallbladder ultrasound shows no cholelithiasis And this morning patient had a rapid response was septic given Ringer's lactate and added vancomycin to the Zosyn protocol KUB does not show any bowel obstruction but stool impaction which I reviewed Patient has a history of essential hypertension CVA with aphasia and right motor weakness seizure disorder nephrolithiasis with staghorn calculi both kidneys BPH and alcohol use disorder cc:: cc: Leroy Watson DO Review of Systems Review of Systems ROS Unobtainable: unobtainable due to medical condition Past Medical History Surgical History OTHER SURGICAL HX: As in the history of present illness Meds Home Medications and Allergies Home Medications ?Medication ?Instructions ?Recorded ?Confirmed ?Type bupropion HCl 75 mg tablet 75 mg PO TID 04/12/22 03/01/24 History hydrochlorothiazide 50 mg tablet 50 mg PO QDAY 04/12/22 03/01/24 History amlodipine 5 mg tablet 5 mg PO DAILY 03/01/24 07/12/24 History atorvastatin 40 mg tablet 40 mg PO DAILY 03/01/24 07/12/24 History benazepril 40 mg tablet 20 mg PO HS 03/01/24 07/12/24 History diphenhydramine HCl 25 mg capsule 25 mg PO HS 03/01/24 03/01/24 History (Banophen) metoprolol succinate 100 mg 100 mg PO HS 03/01/24 03/01/24 History tablet,extended release 24 hr tamsulosin 0.4 mg capsule 4 mg PO DAILY 03/01/24 07/12/24 History vortioxetine 20 mg tablet 20 mg PO DAILY 03/01/24 03/01/24 History (Trintellix) ascorbic acid (vitamin C) 500 mg 500 mg PO QDAY 07/12/24 07/12/24 History capsule aspirin 325 mg tablet,delayed 325 mg PO QDAY 07/12/24 07/12/24 History release dronabinol 2.5 mg capsule 2.5 mg PO BID 07/12/24 07/12/24 History folic acid 1 mg tablet 1 mg PO QDAY 07/12/24 07/12/24 History insulin aspart U-100 100 unit/mL 1 sliding scale dose subcut 07/12/24 07/12/24 History (3 mL) subcutaneous pen (Novolog USEASDIRECTD FlexPen U-100 Insulin aspart) levetiracetam 500 mg tablet 500 mg PO Q12H 07/12/24 07/12/24 History levothyroxine 100 mcg tablet 100 mcg PO QDAY 07/12/24 07/12/24 History lidocaine 5 % topical patch 1 patch topical Q24H 07/12/24 07/12/24 History (Lidoderm) melatonin 5 mg capsule 6 mg PO HS 07/12/24 07/12/24 History quetiapine 25 mg tablet 25 mg PO QDAY 07/12/24 07/12/24 History thiamine HCl (vitamin B1) 100 mg 100 mg PO QDAY 07/12/24 07/12/24 History tablet Allergies Allergy/AdvReac Type Severity Reaction Status Date / Time No Known Drug Allergies Allergy Unknown Verified 02/05/23 13:28 Exam Vital Signs Temp Pulse Resp BP Pulse Ox O2 Del Method O2 Flow Rate 99 F 110 H 26 H 134/88 H 92 L Room Air 2 07/13/24 13:20 07/13/24 13:20 07/13/24 13:20 07/13/24 13:20 07/13/24 13:20 07/13/24 12:00 07/13/24 00:00 Constitutional Comments: Chronically ill-appearing Routine Respiratory Exam Comments: scattered rhonchi Routine Abdominal Exam Comments: Distended abdomen positive bowel sounds no rebound tenderness Results Labs 07/13/24 07:44 07/13/24 07:44 Labs: Short CBC 07/13/24 Range/Units 07:44 WBC 23.8 H (3.8-10.6) Thou/mm3 Hgb 11.0 L (13.5-16.0) g/dL Hct 32.8 L (41.0-53.0) % Plt Count 230 (140-440) Thou/mm3 BMP 07/13/24 07:44 Sodium 140 Potassium 3.6 Chloride 102 Carbon Dioxide 25.5 BUN 12 Creatinine 0.7 Glucose 129 H Calcium 9.0 Cardiac Enzymes 07/13/24 Range/Units 09:56 Troponin I < 0.020 (0.0-0.045) ng/mL Liver Function 07/13/24 Range/Units 07:44 Total Bilirubin 2.0 H D (0.3-1.2) mg/dL AST 327 H (0-34) U/L ALT 593 H* (10-49) U/L Alkaline Phosphatase 429 H D (46-116) U/L Albumin 3.8 (3.4-4.8) gm/dL Assessment and Plan Additional Assessment & Plan Additional Plan: # Abnormal liver function test most likely secondary to hypoxic hepatitis could also be drug-induced as patient has multiple pharmaceuticals However other causes of chronic active hepatitis needs to be ruled out Patient also has history of alcohol use and it may affect the liver function test as well I have ordered repeat blood work # Abdominal distention due to underlying sepsis and possibly stool impaction Lactic acidosis is improving I do not suspect mesenteric ischemia at this point and I will continue to monitor KUB reviewed shows stool impaction all the way up to the cecum Patient needs to be flushed with GoLytely Spoke with the family with the niece and the in the room I know the very well Change the diet to clear liquid GoLytely flush Spoke with the attending RN If patient does not drink the GoLytely Small NGT 12 [place] and given GoLytely following cc an hour Other medical problems include Sepsis due to UTI Left CVA with right-sided motor weakness and aphasia Seizure disorder Essential hypertension Nephrolithiasis Alcohol use disorder Thank you very much for the opportunity to participate in the care of this patient
[2024-07-13 18:19] LABS: Iron 6 mcg/dL (65-175); Percent Iron Saturation 3 % (20-55); Total Iron Binding Capacity 200 mcg/dL (250-425); Unsaturated Iron Binding 194 (225-295)
[2024-07-13] MEDS: HYDROmorphone INJ 2 MG/ML VIAL 0.5 MG IVP (18:44)
[2024-07-13] MEDS: NA SU/NAHCO3/KC/PEG (Golytely) 4,000 ML BTL 4000 ML PO (19:15)
[2024-07-13] MEDS: MELATONIN 3 MG TABLET 6 MG PO (21:24)
[2024-07-14] VITALS (10 sets, daily range): BP systolic 112–144; BP diastolic 69–84; PULSE 96–116; RESP 2–24; TEMP 36.2–37.7; O2SAT 93–95; BMI 19.5
[2024-07-14] MEDS: LACTULOSE SYRUP 20 GM/30 ML UDC PO ×3 (05:17→20:46)
[2024-07-14] MEDS: PIPER/TAZO 3.375 GM PREMIX 3.375 GM/50 ML BAG IV ×2 (05:17→13:17)
[2024-07-14 05:59] LABS: Basophils # (Auto) 0.1 Thou/mm3 (0.0-0.2); Basophils % (Auto) 0 % (0-2.5); Eosinophils # (Auto) 0.3 Thou/mm3 (0.0-0.5); Eosinophils % (Auto) 2 % (0-10); Hematocrit 28.8 % (41.0-53.0); Hemoglobin 9.4 g/dL (13.5-16.0); Immature Granulocytes % (Auto) 1 % (0-0); Immature Granulocytes Auto 0.08 Thou/mm3 (0.00-0.00); Lymphocytes # (Auto) 1.9 Thou/mm3 (1.0-4.8); Lymphocytes % (Auto) 10 % (10-50); Mean Corpuscular HGB Conc 32.6 g/dl (31.0-37.0); Mean Corpuscular Hemoglobin 26.7 pg (25.0-35.0); Mean Corpuscular Volume 82 fL (80-100); Monocytes # (Auto) 0.8 Thou/mm3 (0.0-0.8); Monocytes % (Auto) 5 % (0-12); Neutrophils # (Auto) 14.7 Thou/mm3 (1.8-7.7); Neutrophils % (Auto) 82 % (37-80); Nucleated Red Blood Cell % 0 /100 WBC (0); Platelet Count 224 Thou/mm3 (140-440); RDW Standard Deviation 43.8 fL (35.1-43.9); Red Blood Count 3.52 Miln/mm3 (4.50-5.90); White Blood Count 17.8 Thou/mm3 (3.8-10.6)
[2024-07-14 07:10] LABS: Alanine Aminotransferase 379 U/L (10-49); Albumin, Serum 3.3 gm/dL (3.4-4.8); Albumin/Globulin Ratio 1.1 (1.2-2.2); Alkaline Phosphatase 471 U/L (46-116); Anion Gap 10 (7-16); Aspartate Amino Transferase 189 U/L (0-34); BUN/Creatinine Ratio 10 Ratio (12-20); Blood Urea Nitrogen 6 mg/dL (9-23); Calcium 8.7 mg/dL (8.3-10.6); Calcium (Corrected) 9.3 mg/dL (8.5-10.1); Chloride 104 mMol/L (98-107); Creatinine (Component) 0.6 mg/dL (0.6-1.3); Estimated Creatinine Clearance 79.2 mL/min (>60); Globulin 2.9 gm/dL (2.3-3.5); Glucose 104 mg/dL (74-106); Osmolality,Calculated 277 (275-295); Sodium 140 mMol/L (136-145); Total Protein 6.2 gm/dL (5.7-8.2); eGFR > 60 See Note
[2024-07-14] MEDS: TAMSULOSIN HCL 0.4 MG CAPSULE PO (09:04)
[2024-07-14] MEDS: levETIRAcetam LIQD 500 MG/5 ML UDC PO ×2 (09:04→20:46)
[2024-07-14] MEDS: ASPIRIN EC 81 MG TABEC PO (09:04)
[2024-07-14] MEDS: ENOXAPARIN SOD INJ 40 MG/0.4 ML SYRINGE SC (09:04)
[2024-07-14] MEDS: POTASSIUM CHLORIDE 10% 20 MEQ/15 ML UDC 40 MEQ PO (09:04)
[2024-07-14] MEDS: amLODIPine BESYLATE 5 MG TABLET PO (09:05)
[2024-07-14] MEDS: VANCOMYCIN/NS 1 GM IVPB 200 ML IV (09:54)
--- NOTE | 2024-07-14 10:43 | CHAP ---
Patient was visited by a Spiritual Care Volunteer on 07/14/2024 between 0900 and 0920 and received comfort, encouragement and/or prayer.
--- NOTE | 2024-07-14 11:22 | ESPR_ITS ---
<Statement entered by Tami Linares MD - 07/14/24 17:35> Patient seen and examined at bedside. No acute overnight events reported. Patient has been afebrile and less tachycardic over the last 24 hours. Lactic acid is downtrending, and continues to be on vancomycin and Zosyn. Urine culture grew Enterobacter clocae, which is sensitive to most antibiotics except for ampicillin and cefazolin. LFTs are downtrending, but T. bili is stable at 2. Patient appears more calm at bedside. And no mottling seen in lower extremities. GI recommended patient to be on GoLytely to help clear his stool. [facility] records are still pending, and will follow-up. I discussed with and supervised the recording studio intern physician who took care of this patient. I personally saw and examined the patient and discussed the assessment and plan with the entire medicine team, including my attending Dr. Watson, I agree with most of the assessment and plan as documented below Tami Linares M.D. PGY-2 Disclaimer: Despite multiple revisions, due to the dictation software being used, the document bellow may not be free of grammatical errors including phonetic/typographic errors. However, this does not deter from our commitment to providing health care in the patient's best interest in mind. Documentation for date of: 07/14/24 Subjective Subjective Interval history: No acute overnight events noted. Seen and examined at bedside in patient appears to be overall improved compared to yesterday, his abdomen was nontender nondistended. Additionally, had a bowel movement this morning. Heart rate remains stable between 100-110, afebrile overnight, and on room air BP 127/79. Will continue on vancomycin, Zosyn, and urine cultures resulted Enterobacter cloacae, only resistant to ampicillin and cefazolin. Leukocytosis improving, hemoglobin dropped from 11 to 9.4, K 2.0 on repeated, LFTs downtrending, T. bili stable at 2.0. Exam Vital Signs Temp Pulse Resp BP Pulse Ox O2 Del Method O2 Flow Rate 97.6 F 107 H 2 L 112/69 93 L Room Air 2 07/14/24 07:46 07/14/24 09:05 07/14/24 07:46 07/14/24 09:05 07/14/24 07:46 07/14/24 07:46 07/13/24 00:00 Narrative Exam General: awake and alert, no acute distress, laying in bed HEENT: NC/AT, mucous membranes moist, bilateral sclera anicteric Cardiovascular: regular rate and rhythm, S1/S2 present, no murmurs appreciated Pulmonary: clear to auscultation bilaterally, no rales/rhonchi/wheezes Abdominal: soft, non-tender, non-distended, no rebound/guarding, normal bowel sounds present Musculoskeletal: normal ROM, no peripheral edema Skin: no mottlig noted, warm and dry, intact, no rashes Neuro: aphasic, right-sided hemiplegia Objective Labs 07/14/24 05:00 07/14/24 05:00 Labs: Laboratory Results - last 24 hr 07/13/24 07/13/24 07/14/24 13:36 17:10 05:00 WBC 17.8 H D RBC 3.52 L Hgb 9.4 L Hct 28.8 L MCV 82 MCH 26.7 MCHC 32.6 RDW Std Deviation 43.8 Plt Count 224 Neut % (Auto) 82 H Lymph % (Auto) 10 [place] % (Auto) 5 Eos % (Auto) 2 Baso % (Auto) 0 Neut # (Auto) 14.7 H Lymph # (Auto) 1.9 [place] # (Auto) 0.8 Eos # (Auto) 0.3 Baso # (Auto) 0.1 Immature Gran # (Auto) 0.08 H Absolute Nucleated RBC 0.00 Immature Gran % 1 H Nucleated RBC % 0 Sodium 140 Potassium 3.0 L D Chloride 104 Carbon Dioxide 26.0 Anion Gap 10 BUN 6 L Creatinine 0.6 Estim Creat Clear Calc 79.2 eGFR > 60 BUN/Creatinine Ratio 10 L Glucose 104 Calculated Osmolality 277 Lactic Acid 4.9 H* 1.2 Calcium 8.7 Corrected Calcium 9.3 Iron 6 L TIBC 200 L Iron Saturation 3 L Unsat Iron Binding 194 L Total Bilirubin 2.0 H AST 189 H ALT 379 H Alkaline Phosphatase 471 H D Total Protein 6.2 Albumin 3.3 L D Globulin 2.9 Albumin/Globulin Ratio 1.1 L Lipase 21 D Quality Measures Quality Measures none Assessment & Plan Assessment Current Active Medications: Generic Name Dose Route Start Last Admin Trade Name Freq PRN Reason Stop Dose Admin Acetaminophen 650 mg 07/12/24 20:50 07/12/24 21:09 Acetaminophen 325 Mg Tablet PO 08/11/24 20:49 650 mg Q6HR PRN Administration FEVER >101 Hydrocodone Bitart/Acetaminophen 1 tab 07/13/24 17:41 Hydrocodone/Apap 5/325 Tablet PO 07/18/24 17:40 Q6HR PRN Moderate Pain 4-6 Amlodipine Besylate 5 mg 07/12/24 09:00 07/14/24 09:05 Amlodipine Besylate 5 Mg Tablet PO 08/11/24 08:59 5 mg QDAY RAFAEL Administration Aspirin 81 mg 07/12/24 09:00 07/14/24 09:04 Aspirin Ec 81 Mg Tabec PO 08/11/24 08:59 81 mg QDAY RAFAEL Administration Dextrose 25 ml 07/12/24 01:53 Dextrose 50%-Water Inj 50 Ml Syringe IV 08/11/24 01:52 Q15MIN PRN BG 50-70 responsive npo pt Enoxaparin Sodium 40 mg 07/12/24 09:00 07/14/24 09:04 Enoxaparin Sod Inj 40 Mg/0.4 Ml Syringe SC 07/26/24 08:59 40 mg QDAY RAFAEL Administration Glucagon 1 mg 07/12/24 01:53 Glucagon Inj 1 Mg Vial IM Q15MIN PRN BG <70, and no IV access Hydromorphone HCl 0.5 mg 07/13/24 16:45 07/13/24 18:44 Hydromorphone Inj 2 Mg/Ml Vial IVP 07/18/24 16:44 0.5 mg Q4HR PRN Administration PAIN Protocol Piperacillin/Tazobactam/Dextrose 3.375 gm in 50 mls @ 12.5 mls/hr 07/12/24 01:55 07/14/24 05:17 Zosyn IV 07/19/24 01:54 12.5 mls/hr Q8HR RAFAEL Administration Vancomycin/Sodium Chloride 200 mls @ 120 mls/hr 07/14/24 10:00 07/14/24 09:54 Vancomycin/Ns 1 Gm Ivpb IV 07/21/24 09:59 120 mls/hr Q12H RAFAEL Administration Insulin Human Lispro 0 unit 07/12/24 07:30 07/14/24 07:57 Insulin Lispro (Admelog) 1 Unit/0.01 Ml Unit SC 08/11/24 07:29 Not Given AC RAFAEL Protocol Lactulose 20 gm 07/13/24 14:00 07/14/24 05:17 Lactulose Syrup 20 Gm/30 Ml Udc PO 08/12/24 13:59 20 gm TID RAFAEL Administration Protocol Levetiracetam 500 mg 07/12/24 09:00 07/14/24 09:04 Levetiracetam Liqd 500 Mg/5 Ml Udc PO 08/11/24 08:59 500 mg BID RAFAEL Administration Melatonin 6 mg 07/12/24 21:00 07/13/24 21:24 Melatonin 3 Mg Tablet PO 08/11/24 20:59 6 mg HS RAFAEL Administration Pharmacy Consult 1 each 07/13/24 16:15 Vancomycin Pharmacy To Dose 1 Each Each IV 08/12/24 16:14 QDAY PRN consult Tamsulosin HCl 0.4 mg 07/12/24 09:00 07/14/24 09:04 Tamsulosin Hcl 0.4 Mg Capsule PO 08/11/24 08:59 0.4 mg QDAY RAFAEL Administration Plan Carlos Barclay is a 63-year-old male with past medical history significant for 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 #Sepsis secondary to urinary tract infection with gram-negative organisms (SOFA score > 2) #Complicated UTI secondary to Enterobacter cloacae Fever (101.1?F), tachycardia (HR 108), tachypnea (RR 22), leukocytosis (WBC 27.4), elevated lactate (3.1), elevated CRP/procalcitonin, suspected source: urinary tract infection (turbid UA, WBC 2167, RBC 44), qSOFA 2 (RR >22, altered mentation), meets SIRS criteria (temp, HR, WBC, RR), Chronic indwelling Love, positive UA (WBC 2167), imaging evidence of cystitis, fever, leukocytosis. Zosyn and () and vancomycin (07/14-) ? Ceftriaxone starting tomorrow 07/15 ? Urine culture grew Enterobacter cloacae, only resistant to ampicillin and cefazolin ? Follow-up [facility] records for antibiogram resistance #Ileus #Abdominal pain #Lactic acidosis, resolved Ileus on imaging, no obstructive bowel pattern, pain likely secondary to hepatitis vs renal colic versus cystitis from UTI Lactic acid elevated as high as 4.9 but downtrended to 1.2 KUB showed abundant stool in colon but no free air ? GI consulted, appreciate recommendations ? GoLytely ? Clear liquid diet ? Lactulose 20 g p.o. twice daily #Transaminitis, improving AST downtrending from 327 to 189, ALT downtrending from 593 to 379, ALP increased from [address] with hepatocellular disease vs cirrhosis, mild ascites, likley drug associated Could be due to hepatotoxicity as adverse reaction associated with Keppra, US gallbladder negative for cholecystits Hepatitis panel negative ? GI consulted, appreciate recommendations ? Follow-up send outs (alpha 1 AT, ceruloplasmin, ELROY, antimitochondrial antibody) ? Continue keppra for now, if no other causes of transaminitis are found can consider switching to different seizure medication ? Hold statin for now #History of CVA with right hemiplegia and aphasia #History of seizures History of CVA in 02/2024 with right-sided hemiplegia, nonverbal, dependent for ADLs, able to eat regular food per son Transferred to [facility] for IR intervention and had vascular sugery done at [facility], developed seizures following stroke ? Continue aspirin and keppra ? Will hold statin for now ? Aspiration precaution, seizure precautions in place #Hypertension, stable ? Continue home amlodipine Health maintenance: Disposition: Patient admitted to [facility] for further management of sepsis in the setting of complicated UTI DVT prophylaxis: Enoxaparin 40 mg Diet: Dysphagia 3 diet Love: Yes, recently changed on last Saturday in ER Lines: PIV CODE STATUS: Full code ----- Plan discussed with attending physician Dr. Watson and senior resident physician Dr. Vijay Pickens MD PGY-1 Internal Medicine Attending Provider Attestation/Addendum Creatinine has been totally normal I have discussed and was present for the essential components of the history, physical examination, diagnosis, and treatment plan with the resident. I agree with the patient's care as documented by the resident and amended herein by me. Torito Watson DO. Patient seen and evaluated this AM. Patient much improved today, normotensive, pulse 107, patient much more awake and alert, on room air, SpO2 93%. Afebrile overnight. Significant labs included downtrending WBC at 17, hemoglobin low but stable at 7.4, potassium 3 which has been repleted. Iron panel also ordered demonstrating likely anemia of chronic disease and iron deficiency anemia. Liver enzymes also improved today. Patient did have bowel movement with GoLytely prep for severe right colonic constipation. For today, will continue vancomycin and Zosyn for complicated UTI, records from [facility] are still pending in regards to possible resistance urinary tract organisms from his recent hospital stay in the April timeframe. Gastrology was consulted for elevated liver enzymes however they are improving, appreciate any recommendations. Will continue to monitor closely. Although this document has been carefully reviewed, there may still be some phonetic and other typographical errors. These errors are purely grammatical due to imperfections in the software program and should not be construed in any way to compromise the substance of the patient's medical care during this visit.
--- NOTE | 2024-07-14 14:27 | PC.NURSE ---
SPOKE WITH AUGUSTO AT [facility] SHE CONFIRMED SHE RECEIVED MY REQUEST FOR MEDICAL RECORDS.. SAYS SHES PUTTING A TEJADA ON IT .
[2024-07-14] MEDS: ACETAMINOPHEN 325 MG TABLET 650 MG PO (20:46)
[2024-07-14] MEDS: MELATONIN 3 MG TABLET 6 MG PO (20:46)
--- NOTE | 2024-07-14 21:44 | PD.IMPROG ---
Documentation for date of: 07/14/24 Subjective Subjective Interval history: Abdominal distention much less good bowel sounds patient drank almost half of GoLytely and has good results Exam Vital Signs Temp Pulse Resp BP Pulse Ox O2 Del Method O2 Flow Rate 99.8 F 116 H 24 H 144/84 H 93 L Room Air 2 07/14/24 20:00 07/14/24 20:00 07/14/24 20:00 07/14/24 20:00 07/14/24 20:00 07/14/24 20:00 07/13/24 00:00 Objective Labs 07/14/24 05:00 07/14/24 05:00 Labs: Laboratory Results - last 24 hr 07/14/24 05:00 WBC 17.8 H D RBC 3.52 L Hgb 9.4 L Hct 28.8 L MCV 82 MCH 26.7 MCHC 32.6 RDW Std Deviation 43.8 Plt Count 224 Neut % (Auto) 82 H Lymph % (Auto) 10 [place] % (Auto) 5 Eos % (Auto) 2 Baso % (Auto) 0 Neut # (Auto) 14.7 H Lymph # (Auto) 1.9 [place] # (Auto) 0.8 Eos # (Auto) 0.3 Baso # (Auto) 0.1 Immature Gran # (Auto) 0.08 H Absolute Nucleated RBC 0.00 Immature Gran % 1 H Nucleated RBC % 0 Sodium 140 Potassium 3.0 L D Chloride 104 Carbon Dioxide 26.0 Anion Gap 10 BUN 6 L Creatinine 0.6 Estim Creat Clear Calc 79.2 eGFR > 60 BUN/Creatinine Ratio 10 L Glucose 104 Calculated Osmolality 277 Calcium 8.7 Corrected Calcium 9.3 Total Bilirubin 2.0 H AST 189 H ALT 379 H Alkaline Phosphatase 471 H D Total Protein 6.2 Albumin 3.3 L D Globulin 2.9 Albumin/Globulin Ratio 1.1 L Impressions Impression: Abdominal distention due to stool impaction Had a bowel movement It appears he drank only half of GoLytely but good results Will continue to monitor Assessment & Plan A&P Narrative # Abnormal liver function test most likely secondary to hypoxic hepatitis could also be drug-induced as patient has multiple pharmaceuticals However other causes of chronic active hepatitis needs to be ruled out Patient also has history of alcohol use and it may affect the liver function test as well I have ordered repeat blood work # Abdominal distention due to underlying sepsis and possibly stool impaction Lactic acidosis is improving I do not suspect mesenteric ischemia at this point and I will continue to monitor KUB reviewed shows stool impaction all the way up to the cecum Patient needs to be flushed with GoLytely Spoke with the family with the niece and the in the room I know the very well Change the diet to clear liquid GoLytely flush Spoke with the attending RN If patient does not drink the GoLytely Small NGT 12 [place] and given GoLytely following cc an hour Other medical problems include Sepsis due to UTI 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
[2024-07-15] VITALS (11 sets, daily range): BP systolic 111–142; BP diastolic 71–90; PULSE 73–107; RESP 14–22; TEMP 36.3–36.8; O2SAT 94–97; BMI 12.0
[2024-07-15] MEDS: LACTULOSE SYRUP 20 GM/30 ML UDC PO ×3 (05:23→21:29)
[2024-07-15 05:41] LABS: Basophils # (Auto) 0.1 Thou/mm3 (0.0-0.2); Basophils % (Auto) 0 % (0-2.5); Eosinophils # (Auto) 0.3 Thou/mm3 (0.0-0.5); Eosinophils % (Auto) 2 % (0-10); Hematocrit 28.1 % (41.0-53.0); Hemoglobin 9.6 g/dL (13.5-16.0); Immature Granulocytes % (Auto) 0 % (0-0); Immature Granulocytes Auto 0.05 Thou/mm3 (0.00-0.00); Lymphocytes # (Auto) 1.7 Thou/mm3 (1.0-4.8); Lymphocytes % (Auto) 11 % (10-50); Mean Corpuscular HGB Conc 34.2 g/dl (31.0-37.0); Mean Corpuscular Volume 79 fL (80-100); Monocytes # (Auto) 0.8 Thou/mm3 (0.0-0.8); Monocytes % (Auto) 5 % (0-12); Neutrophils # (Auto) 12.4 Thou/mm3 (1.8-7.7); Neutrophils % (Auto) 81 % (37-80); Nucleated Red Blood Cell % 0 /100 WBC (0); Platelet Count 184 Thou/mm3 (140-440); RDW Standard Deviation 41.8 fL (35.1-43.9); Red Blood Count 3.56 Miln/mm3 (4.50-5.90); White Blood Count 15.3 Thou/mm3 (3.8-10.6)
[2024-07-15 06:15] LABS: Alanine Aminotransferase 337 U/L (10-49); Albumin, Serum 3.2 gm/dL (3.4-4.8); Alkaline Phosphatase 555 U/L (46-116); Anion Gap 10 (7-16); Aspartate Amino Transferase 193 U/L (0-34); BUN/Creatinine Ratio 10 Ratio (12-20); Bilirubin,Total 2.3 mg/dL (0.3-1.2); Blood Urea Nitrogen < 5 mg/dL (9-23); Calcium 8.5 mg/dL (8.3-10.6); Calcium (Corrected) 9.1 mg/dL (8.5-10.1); Carbon Dioxide 25.6 mMol/L (20.0-31.0); Chloride 105 mMol/L (98-107); Creatinine (Component) 0.5 mg/dL (0.6-1.3); Globulin 3.1 gm/dL (2.3-3.5); Glucose 110 mg/dL (74-106); Magnesium 1.6 mg/dL (1.6-2.6); Osmolality,Calculated 279 (275-295); Sodium 141 mMol/L (136-145); Total Protein 6.3 gm/dL (5.7-8.2); eGFR > 60 See Note
[2024-07-15] MEDS: POTASSIUM CHLORIDE 10% 20 MEQ/15 ML UDC 40 MEQ PO (09:07)
[2024-07-15] MEDS: levETIRAcetam LIQD 500 MG/5 ML UDC PO ×2 (09:08→20:48)
[2024-07-15] MEDS: ASPIRIN EC 81 MG TABEC PO (09:08)
[2024-07-15] MEDS: TAMSULOSIN HCL 0.4 MG CAPSULE PO (09:08)
[2024-07-15] MEDS: NAPH,KPH MBDB 1 PACKET (1.5 GM) PO (09:08)
[2024-07-15] MEDS: amLODIPine BESYLATE 5 MG TABLET PO (09:08)
[2024-07-15] MEDS: ENOXAPARIN SOD INJ 40 MG/0.4 ML SYRINGE SC (09:08)
[2024-07-15 10:17] LABS: Vancomycin,Trough 3.7 mcg/mL (5.0-10.0)
--- NOTE | 2024-07-15 10:19 | ESPR_ITS ---
<Statement entered by Tami Linares MD - 07/15/24 13:48> I discussed with and supervised the media relations intern physician who took care of this patient. I personally saw and examined the patient and discussed the assessment and plan with the entire medicine team, including my attending Dr. Johnson, I agree with most of the assessment and plan as documented below Tami Linares M.D. PGY-2 Documentation for date of: 07/15/24 Subjective Subjective Interval history: No acute overnight events noted. Seen and examined at bedside with present who helped translate. Patient did not appear to be in acute distress and had just had another bowel movement. Abdomen did not appear distended or tender, vital signs stable, leukocytosis improving. K again noted to be low and repleted, phosphorus low and repleted, and LFTs/ALP remain elevated but stable. Suspect to be due to antibiotics but will continue to monitor after de- escalating from vancomycin and zosyn to ceftriaxone following culture speciation and sensitivities. Exam Vital Signs Temp Pulse Resp BP Pulse Ox O2 Del Method O2 Flow Rate 97.9 F 93 22 H 136/86 H 97 Room Air 2 07/15/24 08:00 07/15/24 09:08 07/15/24 08:00 07/15/24 09:08 07/15/24 04:00 07/15/24 08:00 07/13/24 00:00 Narrative Exam General: awake and alert, no acute distress, laying in bed HEENT: NC/AT, mucous membranes moist, bilateral sclera anicteric Cardiovascular: regular rate and rhythm, S1/S2 present, no murmurs appreciated Pulmonary: clear to auscultation bilaterally, no rales/rhonchi/wheezes Abdominal: soft, non-tender, non-distended, no rebound/guarding, normal bowel sounds present Musculoskeletal: normal ROM, no peripheral edema Skin: no mottlig noted, warm and dry, intact, no rashes Neuro: aphasic, right-sided hemiplegia Objective Labs 07/16/24 05:21 07/16/24 05:21 Labs: Laboratory Results - last 24 hr 07/15/24 07/15/24 05:30 09:31 WBC 15.3 H RBC 3.56 L Hgb 9.6 L Hct 28.1 L MCV 79 L MCH 27.0 MCHC 34.2 RDW Std Deviation 41.8 Plt Count 184 D Neut % (Auto) 81 H Lymph % (Auto) 11 [place] % (Auto) 5 Eos % (Auto) 2 Baso % (Auto) 0 Neut # (Auto) 12.4 H Lymph # (Auto) 1.7 [place] # (Auto) 0.8 Eos # (Auto) 0.3 Baso # (Auto) 0.1 Immature Gran # (Auto) 0.05 H Absolute Nucleated RBC 0.00 Immature Gran % 0 Nucleated RBC % 0 Sodium 141 Potassium 3.0 L Chloride 105 Carbon Dioxide 25.6 Anion Gap 10 BUN < 5 L Creatinine 0.5 L Estim Creat Clear Calc 95.0 eGFR > 60 BUN/Creatinine Ratio 10 L Glucose 110 H Calculated Osmolality 279 Calcium 8.5 Corrected Calcium 9.1 Phosphorus 2.0 L Magnesium 1.6 Total Bilirubin 2.3 H AST 193 H ALT 337 H Alkaline Phosphatase 555 H D Total Protein 6.3 Albumin 3.2 L Globulin 3.1 Albumin/Globulin Ratio 1.0 L Vancomycin Trough 3.7 L Quality Measures Quality Measures none Assessment & Plan Assessment Current Active Medications: Generic Name Dose Route Start Last Admin Trade Name Freq PRN Reason Stop Dose Admin Acetaminophen 650 mg 07/12/24 20:50 07/14/24 20:46 Acetaminophen 325 Mg Tablet PO 08/11/24 20:49 650 mg Q6HR PRN Administration FEVER >101 Hydrocodone Bitart/Acetaminophen 1 tab 07/13/24 17:41 Hydrocodone/Apap 5/325 Tablet PO 07/18/24 17:40 Q6HR PRN Moderate Pain 4-6 Amlodipine Besylate 5 mg 07/12/24 09:00 07/15/24 09:08 Amlodipine Besylate 5 Mg Tablet PO 08/11/24 08:59 5 mg QDAY RAFAEL Administration Aspirin 81 mg 07/12/24 09:00 07/15/24 09:08 Aspirin Ec 81 Mg Tabec PO 08/11/24 08:59 81 mg QDAY RAFAEL Administration Dextrose 25 ml 07/12/24 01:53 Dextrose 50%-Water Inj 50 Ml Syringe IV 08/11/24 01:52 Q15MIN PRN BG 50-70 responsive npo pt Enoxaparin Sodium 40 mg 07/12/24 09:00 07/15/24 09:08 Enoxaparin Sod Inj 40 Mg/0.4 Ml Syringe SC 07/26/24 08:59 40 mg QDAY RAFAEL Administration Glucagon 1 mg 07/12/24 01:53 Glucagon Inj 1 Mg Vial IM Q15MIN PRN BG <70, and no IV access Hydromorphone HCl 0.5 mg 07/13/24 16:45 07/13/24 18:44 Hydromorphone Inj 2 Mg/Ml Vial IVP 07/18/24 16:44 0.5 mg Q4HR PRN Administration PAIN Protocol Ceftriaxone Sodium/Dextrose 1 gm in 50 mls @ 100 mls/hr 07/15/24 10:20 Rocephin/D5w 1gm Iv Premix IV 07/22/24 10:19 QDAY RAFAEL Insulin Human Lispro 0 unit 07/12/24 07:30 07/15/24 09:04 Insulin Lispro (Admelog) 1 Unit/0.01 Ml Unit SC 08/11/24 07:29 Not Given AC RAFAEL Protocol Lactulose 20 gm 07/13/24 14:00 07/15/24 05:23 Lactulose Syrup 20 Gm/30 Ml Udc PO 08/12/24 13:59 20 gm TID RAFAEL Administration Protocol Levetiracetam 500 mg 07/12/24 09:00 07/15/24 09:08 Levetiracetam Liqd 500 Mg/5 Ml Udc PO 08/11/24 08:59 500 mg BID RAFAEL Administration Melatonin 6 mg 07/12/24 21:00 07/14/24 20:46 Melatonin 3 Mg Tablet PO 08/11/24 20:59 6 mg HS RAFAEL Administration Potassium Chloride 20 meq 07/15/24 12:00 Potassium Chloride 10% 20 Meq/15 Ml Udc PO 07/15/24 12:01 X1 ONE Tamsulosin HCl 0.4 mg 07/12/24 09:00 07/15/24 09:08 Tamsulosin Hcl 0.4 Mg Capsule PO 08/11/24 08:59 0.4 mg QDAY RAFAEL Administration Plan Carlos Barclay is a 63-year-old male with past medical history significant for 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 #Sepsis secondary to urinary tract infection with gram-negative organisms (SOFA score > 2), resolved #Complicated UTI secondary to Enterobacter cloacae Fever (101.1?F), tachycardia (HR 108), tachypnea (RR 22), leukocytosis (WBC 27.4), elevated lactate (3.1), elevated CRP/procalcitonin, suspected source: urinary tract infection (turbid UA, WBC 2167, RBC 44), qSOFA 2 (RR >22, altered mentation), meets SIRS criteria (temp, HR, WBC, RR), Chronic indwelling Love, positive UA (WBC 2167), imaging evidence of cystitis, fever, leukocytosis. Zosyn and (07/12-) and vancomycin (07/14-) ? Ceftriaxone starting tomorrow 07/15 ? Urine culture grew Enterobacter cloacae, only resistant to ampicillin and cefazolin ? Follow-up [facility] records for antibiogram resistance #Ileus, resolved #Abdominal pain #Lactic acidosis, resolved Ileus on imaging, no obstructive bowel pattern, pain likely secondary to hepatitis vs renal colic versus cystitis from UTI Lactic acid elevated as high as 4.9 but downtrended to 1.2 KUB showed abundant stool in colon but no free air ? GI consulted, appreciate recommendations ? Clear liquid diet ? Lactulose 20 g p.o. twice daily #Transaminitis, improving AST downtrending from 327 to 189, ALT downtrending from 593 to 379, ALP increased from [address] with hepatocellular disease vs cirrhosis, mild ascites, likley drug associated Could be due to hepatotoxicity as adverse reaction associated with Keppra, US gallbladder negative for cholecystits Hepatitis panel negative ? GI consulted, appreciate recommendations ? Follow-up send outs (alpha 1 AT, ceruloplasmin, ELRYO, antimitochondrial antibody) ? Continue keppra for now, if no other causes of transaminitis are found can consider switching to different seizure medication ? Hold statin for now #History of CVA with right hemiplegia and aphasia #History of seizures History of CVA in 02/2024 with right-sided hemiplegia, nonverbal, dependent for ADLs, able to eat regular food per son Transferred to [facility] for IR intervention and had vascular sugery done at [facility], developed seizures following stroke ? Continue aspirin and hold statin ? Continue Keppra ? Aspiration precaution, seizure precautions in place #Hypertension, stable ? Continue home amlodipine Health maintenance: Disposition: admitted for further management of sepsis in the setting of complicated UTI DVT prophylaxis: Enoxaparin 40 mg Diet: Dysphagia 3 diet Love: Yes, recently changed on last Saturday in ER Lines: PIV CODE STATUS: Full code ----- Plan discussed with attending physician Dr. Johnson and senior resident physician Dr. Vijay Pickens MD PGY-1 Internal Medicine Attending Provider Attestation/Addendum I reviewed labs, imaging, EKG, home medications and prior available records. Face to face evaluation was performed by me. I have personally examined the patient and discussed assessment and plan with the IM team. I reviewed the resident note and agree with the plan with exceptions as below. History of CVA with aphasia Acute UTI, Enterobacter Leukocytosis Small bowel ileus Constipation Transaminitis Switched antibiotics to IV ceftriaxone Trend WBC: Downtrending Give GoLytely for the constipation Trend LFTs Continue aspirin Ordered PT evaluation
--- NOTE | 2024-07-15 11:14 | PC.SS ---
SS follow up note; Discharge within 1-2 days, on IV ABX. Patient will discharge home when medically cleared.
--- NOTE | 2024-07-15 11:38 | PD.IMPROG ---
Documentation for date of: 07/15/24 Subjective Subjective Interval history: Had a bowel movement improving LFTs Exam Vital Signs Temp Pulse Resp BP Pulse Ox O2 Del Method O2 Flow Rate 97.9 F 97 22 H 136/86 H 97 Room Air 2 07/15/24 08:00 07/15/24 10:22 07/15/24 08:00 07/15/24 09:08 07/15/24 04:00 07/15/24 08:00 07/13/24 00:00 Objective Labs 07/15/24 05:30 07/15/24 05:30 Labs: Laboratory Results - last 24 hr 07/15/24 07/15/24 05:30 09:31 WBC 15.3 H RBC 3.56 L Hgb 9.6 L Hct 28.1 L MCV 79 L MCH 27.0 MCHC 34.2 RDW Std Deviation 41.8 Plt Count 184 D Neut % (Auto) 81 H Lymph % (Auto) 11 [place] % (Auto) 5 Eos % (Auto) 2 Baso % (Auto) 0 Neut # (Auto) 12.4 H Lymph # (Auto) 1.7 [place] # (Auto) 0.8 Eos # (Auto) 0.3 Baso # (Auto) 0.1 Immature Gran # (Auto) 0.05 H Absolute Nucleated RBC 0.00 Immature Gran % 0 Nucleated RBC % 0 Sodium 141 Potassium 3.0 L Chloride 105 Carbon Dioxide 25.6 Anion Gap 10 BUN < 5 L Creatinine 0.5 L Estim Creat Clear Calc 95.0 eGFR > 60 BUN/Creatinine Ratio 10 L Glucose 110 H Calculated Osmolality 279 Calcium 8.5 Corrected Calcium 9.1 Phosphorus 2.0 L Magnesium 1.6 Total Bilirubin 2.3 H AST 193 H ALT 337 H Alkaline Phosphatase 555 H D Total Protein 6.3 Albumin 3.2 L Globulin 3.1 Albumin/Globulin Ratio 1.0 L Vancomycin Trough 3.7 L Impressions Impression: Stool impaction requiring GoLytely having bowel movements and abdomen soft nontender with positive bowel sounds Abnormal LFTs due to hypoxic hepatitis improving Assessment & Plan A&P Narrative # Abnormal liver function test most likely secondary to hypoxic hepatitis could also be drug-induced as patient has multiple pharmaceuticals However other causes of chronic active hepatitis needs to be ruled out Patient also has history of alcohol use and it may affect the liver function test as well I have ordered repeat blood work # Abdominal distention due to underlying sepsis and possibly stool impaction Lactic acidosis is improving I do not suspect mesenteric ischemia at this point and I will continue to monitor KUB reviewed shows stool impaction all the way up to the cecum Patient needs to be flushed with GoLytely Spoke with the family with the niece and the in the room I know the very well Change the diet to clear liquid GoLytely flush Spoke with the attending RN If patient does not drink the GoLytely Small NGT 12 Georgian and given GoLytely following cc an hour Other medical problems include Sepsis due to UTI 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
[2024-07-15] MEDS: cefTRIAXone/D5w 1gm IV premix 1 GM/50 ML BAG IV (11:50)
[2024-07-15] MEDS: POTASSIUM CHLORIDE 10% 20 MEQ/15 ML UDC PO (12:28)
[2024-07-15] MEDS: MELATONIN 3 MG TABLET 6 MG PO (20:48)
[2024-07-16] VITALS: PULSE 85
[2024-07-16 04:00] VITALS: BP 130/80; PULSE 76; PULSE 85; RESP 20; TEMP 36.2; O2SAT 98
[2024-07-16] MEDS: LACTULOSE SYRUP 20 GM/30 ML UDC PO ×2 (05:26→13:25)
[2024-07-16 05:52] LABS: Basophils # (Auto) 0.1 Thou/mm3 (0.0-0.2); Basophils % (Auto) 1 % (0-2.5); Eosinophils # (Auto) 0.3 Thou/mm3 (0.0-0.5); Eosinophils % (Auto) 3 % (0-10); Hematocrit 26.3 % (41.0-53.0); Immature Granulocytes % (Auto) 0 % (0-0); Immature Granulocytes Auto 0.05 Thou/mm3 (0.00-0.00); Lymphocytes # (Auto) 1.9 Thou/mm3 (1.0-4.8); Lymphocytes % (Auto) 14 % (10-50); Mean Corpuscular HGB Conc 32.7 g/dl (31.0-37.0); Mean Corpuscular Hemoglobin 26.4 pg (25.0-35.0); Mean Corpuscular Volume 81 fL (80-100); Monocytes # (Auto) 0.7 Thou/mm3 (0.0-0.8); Monocytes % (Auto) 5 % (0-12); Neutrophils # (Auto) 10.1 Thou/mm3 (1.8-7.7); Neutrophils % (Auto) 77 % (37-80); Nucleated Red Blood Cell % 0 /100 WBC (0); Platelet Count 174 Thou/mm3 (140-440); RDW Standard Deviation 43.5 fL (35.1-43.9); Red Blood Count 3.26 Miln/mm3 (4.50-5.90); White Blood Count 13.1 Thou/mm3 (3.8-10.6)
[2024-07-16 06:04] LABS: Hemoglobin 8.6 g/dL (13.5-16.0)
[2024-07-16 06:18] LABS: Alanine Aminotransferase 285 U/L (10-49); Alkaline Phosphatase 525 U/L (46-116); Anion Gap 12 (7-16); Aspartate Amino Transferase 178 U/L (0-34); BUN/Creatinine Ratio 13 Ratio (12-20); Bilirubin,Total 1.5 mg/dL (0.3-1.2); Blood Urea Nitrogen < 5 mg/dL (9-23); Calcium 8.1 mg/dL (8.3-10.6); Calcium (Corrected) 8.9 mg/dL (8.5-10.1); Carbon Dioxide 22.3 mMol/L (20.0-31.0); Chloride 108 mMol/L (98-107); Creatinine (Component) 0.4 mg/dL (0.6-1.3); Estimated Creatinine Clearance 118.8 mL/min (>60); Globulin 2.9 gm/dL (2.3-3.5); Glucose 98 mg/dL (74-106); Magnesium 1.7 mg/dL (1.6-2.6); Osmolality,Calculated 280 (275-295); Phosphorous 2.7 mg/dL (2.4-5.1); Potassium 3.4 mMol/L (3.4-5.1); Sodium 142 mMol/L (136-145); Total Protein 5.9 gm/dL (5.7-8.2); eGFR > 60 See Note
[2024-07-16 08:00] VITALS: BP 127/77; PULSE 83; PULSE 84; RESP 23; TEMP 36.7; O2SAT 95
--- NOTE | 2024-07-16 08:48 | PC.PT ---
PT eval only. Patient is at his PLOF.
[2024-07-16] MEDS: POTASSIUM CHLORIDE 10% 20 MEQ/15 ML UDC PO (08:59)
[2024-07-16 09:00] VITALS: BP 127/77; PULSE 83
[2024-07-16] MEDS: ENOXAPARIN SOD INJ 40 MG/0.4 ML SYRINGE SC (09:00)
[2024-07-16] MEDS: cefTRIAXone/D5w 1gm IV premix 1 GM/50 ML BAG IV (09:00)
[2024-07-16] MEDS: amLODIPine BESYLATE 5 MG TABLET PO (09:00)
[2024-07-16] MEDS: levETIRAcetam LIQD 500 MG/5 ML UDC PO (09:00)
[2024-07-16] MEDS: TAMSULOSIN HCL 0.4 MG CAPSULE PO (09:00)
[2024-07-16] MEDS: ASPIRIN 81 MG CHEW PO (09:07)
--- NOTE | 2024-07-16 10:20 | ESDS_ITS ---
Planned Discharge Date 07/16/24 DS: Providers Provider Date of admission: 07/12/24 00:47 Primary care physician: Lana Little PA-C Admitting Provider: Scooter Garcia MD Attending Provider on Admission: Amrit Johnson MD Consults: 07/12/24 08:00 Referral Speech Therapy Urgent Comment: 07/13/24 09:40 Consult to Gastroenterology Routine Comment: Consulting Provider: Francy Bronson 07/15/24 10:18 Referral Physical Therapy Routine Comment: Evaluate for home health Physician Instructions: Attending Provider on DC: Jose Pickens MD Discharging Provider: Jose Pickens MD DS: Diagnosis Problem List Completed Was Problem List Reviewed/Reconciled?: Yes Hospital Course Hospital Course Hospital course: Carlos Barclay 63-year-old male with a past medical history of CVA with residual aphasia and right-sided hemiplegia, hypertension, seizure disorder, history of nephrolithiasis/staghorn calculi, BPH, history of alcohol abuse disorder who presented with abdominal pain. Per son, stated that patient is nonverbal at baseline, ambulatory only with help wheelchair, but is able to express pain by facial expressions and pointing, was complaining of lower abdominal pain. No nausea, vomiting, or diarrhea. Denied fever at home but did have a fever on arrival to the emergency room. Denied cough, seizures, syncope or chest pain. Patient has a chronic indwelling Love's catheter which was changed last week. Initially came in febrile, tachycardic, tachypneic, with leukocytosis, lactic acidosis, and transaminitis. UA showed turbid urine, 2000 WBC, 44 WBC. CP A/P showed hepatocellular disease vs cirrhosis, mild ascites, bilateral renal calculi, ileus, and cystitis. Gallbladder US within normal limits. Admitted for complicated UTI, started on zosyn initially. During hospital course, abdomen became distended with lower extremity mottling noted and patient was less interactive and RR called. KUB obtained showed abundant stool but no free air, lactate 2.6, repeat uptrended to 4.9 but downtrended to 1.2. Vancomycin was added and started on bowel regimen (golytely, lactulose) per GI recommendations. Afterward, patient had multiple bowel movements throughout the day and following day abdomen was not distended and no mottling on exam and patient was more calm. Urine culture speciated to Enterobacter cloacae and antibiotics were de-escalated to ceftriaxone. Patient was monitored for another day to monitor LFTs, which downtrended, and eventually discharged on oral TMP- SMX. Diagnoses during admission: #Sepsis secondary to urinary tract infection with gram-negative organisms (SOFA score > 2), resolved #Complicated UTI secondary to Enterobacter cloacae #Ileus, resolved #Abdominal pain #Lactic acidosis, resolved #Transaminitis, improving #History of CVA with right hemiplegia and aphasia #History of seizures #Hypertension, stable Discharge instructions: ? Take TMP-SMX 1 tablet twice per day for three more days for your UTI ? Take lactulose 20 g twice daily with a goal of 2-3 bowel movements per day ? Recommend to obtain a basic metabolic panel outpatient with your PCP ? Hold benazepril and atorvastatin until you follow-up with your PCP ? Continue taking all other home medications as prescribed ? Follow-up with PCP within 1-2 weeks of discharge ? If you do not have a PCP, you can follow-up at the [facility] (you can call [phone] to make an appointment) ? If you wish to follow-up with Dr. Pickens, schedule appointment on Saturday afternoons ? Return to ED if symptoms worsen or recur ----- Plan discussed with attending physician Dr. Alex Pickens MD PGY-1 Internal Medicine Time Spent with Patient Time attestation: Total time spent providing and/or coordinating discharge services: Time spent: Less than 30 minutes Home Health Home Health Referral Orders: 07/16/24 10:13 Home Health Referral Routine Reason For Exam: Home PT Home-Bound The patient must either because of illness or injury, need the aid of supportive devices such as crutches, canes, wheelchairs, and walkers; the use of special transportation; or the assistance of another person in order to leave their place of residence; OR have a condition such that leaving his or her home is medically contraindicated. In addition, the patient also meets the following criteria: patient is normally unable to leave the home and leaving home requires considerable taxing effort. Addendum to Home Health Certification Practitioner's Certification: I certify that the patient has been under my care in the hospital and the care of attending physician (see below). We had a [id number] encounter on (see date below). My clinical findings indicate that the patient is home bound per the above criteria and the Home Health Services noted in these orders are medically necessary. The primary reason for the [id number]-ci-[id number] encounter is related to the fact that the patient requires home health services. Date Certifying Fowk-fy-Zgki Physician Encounter: 07/12/24 Physician's Name who will Assume Oversight for HH Services: Lana Little Physician's Phone No.who will Assume Oversight for Service: SUPPLY CHAIN COORDINATOR - Community Resources: Yes PT to Evaluate: Yes PT to evaluate and provide a treatmnet plan to increase patient's mobility and strength. Wound Care: No IV Therapy: No RN Safety Evaluation: Yes RN to evaluate and create a plan of care that will produce positive outcomes. Palliative Treatment: No Palliative treatment and evaluate the need for hospice. Home Health Aide - Personal Care: Yes Home Health Aide to assist with any ADL's. Exam Vital Signs Temp Pulse Resp BP Pulse Ox O2 Del Method O2 Flow Rate 98.0 F 83 23 H 127/77 95 Room Air 2 07/16/24 08:00 07/16/24 09:00 07/16/24 08:00 07/16/24 09:00 07/16/24 08:00 07/16/24 08:00 07/13/24 00:00 Narrative Exam General: awake and alert, no acute distress, laying in bed HEENT: NC/AT, mucous membranes moist, bilateral sclera anicteric Cardiovascular: regular rate and rhythm, S1/S2 present, no murmurs appreciated Pulmonary: clear to auscultation bilaterally, no rales/rhonchi/wheezes Abdominal: soft, non-tender, non-distended, no rebound/guarding, normal bowel sounds present Musculoskeletal: normal ROM, no peripheral edema Skin: no mottlig noted, warm and dry, intact, no rashes Neuro: aphasic, right-sided hemiplegia Discharge Plan Plan Patient Disposition: Home w/HOME HEALTH Care Plan Goals: ? Take TMP-SMX 1 tablet twice per day for three more days for your UTI ? Take lactulose 20 g twice daily with a goal of 2-3 bowel movements per day ? Recommend to obtain a basic metabolic panel outpatient with your PCP ? Hold benazepril and atorvastatin until you follow-up with your PCP ? Continue taking all other home medications as prescribed ? Follow-up with PCP within 1-2 weeks of discharge ? If you do not have a PCP, you can follow-up at the [facility] (you can call [phone] to make an appointment) ? If you wish to follow-up with Dr. Pickens, schedule appointment on Saturday afternoons ? Return to ED if symptoms worsen or recur Prescriptions/Referrals Prescriptions/Med Rec: New aspirin 81 mg tablet,chewable 81 mg PO QDAY Qty: 30 0RF lactulose 10 gram/15 mL solution 20 g PO BID Qty: 1500 0RF sulfamethoxazole-trimethoprim 200-40 mg/5 mL suspension 20 ml PO BID 3 Days Qty: 120 0RF levetiracetam [Keppra] 100 mg/mL solution 500 mg PO BID 30 Days Qty: 300 0RF Continued amlodipine 5 mg tablet 5 mg PO DAILY Patient Comments: TAKE ONE TABLET BY MOUTH EVERY DAY HIGH BLOOD PRESSURE tamsulosin 0.4 mg capsule 4 mg PO DAILY folic acid 1 mg tablet 1 mg PO QDAY levothyroxine 100 mcg tablet 100 mcg PO QDAY quetiapine 25 mg tablet 25 mg PO QDAY thiamine HCl (vitamin B1) 100 mg tablet 100 mg PO QDAY lidocaine [Lidoderm] 5 % adhesive patch,medicated 1 patch topical Q24H Rx Instructions: leave on most painful area for up to 12 hrs ascorbic acid (vitamin C) 500 mg capsule 500 mg PO QDAY melatonin 5 mg capsule 6 mg PO HS insulin aspart U-100 [Novolog FlexPen U-100 Insulin] 100 unit/mL (3 mL) insulin pen 1 sliding scale dose subcut USEASDIRECTD dronabinol 2.5 mg capsule 2.5 mg PO BID Rx Instructions: administer before lunch and evening meal/dinner Changed metoprolol succinate 100 mg tablet extended release 24 hr 50 mg PO 1200 Qty: 30 0RF Patient Comments: TAKE ONE TABLET BY MOUTH EVERY DAY in THE afternoon FOR BLOOD PRESSURE Held atorvastatin 40 mg tablet 40 mg PO DAILY Hold Instructions: Resume on 07/23/24. Hold until you get a CMP in one week. Patient Comments: TAKE ONE TABLET BY MOUTH EVERY DAY FOR CHOLESTEROL benazepril 40 mg tablet 20 mg PO HS Hold Instructions: Resume on 07/23/24. Follow up with your PCP regarding your BP. Will hold for now as your BP is well controlled with Amlodipine only. Patient Comments: TAKE ONE TABLET BY MOUTH EVERY night FOR HIGH BLOOD PRESSURE Discontinued aspirin 325 mg tablet,delayed release (DR/EC) 325 mg PO QDAY levetiracetam 500 mg tablet 500 mg PO Q12H Referrals: Lana Little PA-C [Primary Care Provider] - Patient/Caregiver Discharge Instructions Education Materials: Abdominal Pain, Discharge Instructions for Stroke, Arm Care After a Stroke, ED Bladder Infection, Male (Adult) Print Language: Slovak Stand Alone Forms: [employer] Award Info., Patient Portal Info Letter Discharge Order Discharge Orders: Discharge (Routine); Ordered 07/16/24 Ordered By: Jose Pickens Quality Discharge Quality Measures VTE prophylaxis Attestestation Attestation I reviewed labs, imaging, EKG, home medications and prior available records. Face to face evaluation was performed by me. I have personally examined the patient and discussed assessment and plan with the IM team. I reviewed the resident note and agree with the plan with exceptions as below. History of CVA with aphasia Acute UTI, Enterobacter Leukocytosis Small bowel ileus Constipation Transaminitis Will discharge on p.o. Bactrim Trend WBC: Downtrending Trend LFTs: Downtrending Continue aspirin Ordered PT evaluation: Ordered home health Continue amlodipine 5 mg and metoprolol 50 mg for the hypertension Time spent is 40 minutes. More than 50% of the time was spent on patient education and coordination of care.
--- NOTE | 2024-07-16 10:59 | PC.SS ---
Addendum entered by Khalida Soto 07/16/24 12:59: SS follow up note; SS set up transportation with [facility] for 1:30. SS notified patient and patient as well as patient's nurse, David. Original Note: SS follow up note; set up transportation with [employer] [facility], Reference # [id number]. Patient will be discharging back home.
[2024-07-16 12:00] VITALS: BP 114/83; PULSE 64; PULSE 80; RESP 22; TEMP 36.6; O2SAT 96
[2024-07-16 14:45] VITALS: BP 145/90; PULSE 94; RESP 16; TEMP 36.9; O2SAT 97
--- NOTE | 2024-07-16 15:36 | PC.NURSE ---
Pt nonverbal at baseline, discharge instructions given to primary physician assistant primary care niece at bedside. Family at bedside verbalized feel safe and ready to discharge. Family verbalized understanding of new medications and follow up appts. Notified Dr. Pickens of poon catheter, ok to discharge with catheter as pt has had chronic poon, family given education on rosa maria care. Family verbalized have materials at home for care and will be having home health follow up. Pt has history of stroke, education on stroke with signs and symptoms given to family. Pt crushing meds at hospital due to difficulty swallowing, notified Dr. Pickens and meds changed to crushable medications.
--- NOTE | 2024-07-20 16:35 | PC.CC ---
Spoke to Pt son Ahmet, informed son that all HH agencies have declined patient and that patient needs to follow up with PCP for other resources
[2024-07-22 06:39] LABS: ANA Screen, IFA NEGATIVE (NEGATIVE); Alpha-1-Antitrypsin* 264 mg/dL (83-199); Ceruloplasmin* 29 mg/dL (14-30); Copper* 133 mcg/dL (70-175); Mitochondrial Ab NEGATIVE (NEGATIVE)
== END 2024-07-16 15:04 | disposition home health service (06) | DRG 720 ==
LOC: SERX 20:55 → SERHOLD 07-12 01:06 → S3SX 07-12 04:07 → S2NX 07-15 05:17
PROVIDERS: Specialist; Student in an Organized Health Care Education/Training Program; Admitting Provider Internal Medicine; Emergency Provider Emergency Medicine; PCP Physician Assistant; Visit Provider Student in an Organized Health Care Education/Training Program
DX: A41.50 Gram-negative sepsis, unspecified (principal); I10 Essential (primary) hypertension; G40.909 Epilepsy, unspecified, not intractable, without status epilepticus; N40.0 Benign prostatic hyperplasia without lower urinary tract symptoms; R18.8 Other ascites; K56.7 Ileus, unspecified; K75.9 Inflammatory liver disease, unspecified; I69.320 Aphasia following cerebral infarction; I69.351 Hemiplegia and hemiparesis following cerebral infarction affecting right dominant side; F10.10 Alcohol abuse, uncomplicated; E87.20 Acidosis, unspecified; N20.0 Calculus of kidney; K56.41 Fecal impaction; N30.90 Cystitis, unspecified without hematuria; Z16.11 Resistance to penicillins; Z16.19 Resistance to other specified beta lactam antibiotics; Z87.891 Personal history of nicotine dependence; Z79.82 Long term (current) use of aspirin; Z79.899 Other long term (current) drug therapy; Z87.442 Personal history of urinary calculi
CPT/HCPCS: 36415; 71045; 74018; 74176; 76705; 80053; 80061; 80074; 80202; 81001; 82103; 82150; 82248; 82390; 82525; 83540; 83550; 83605; 83690; 83735; 84100; 84145; 84484; 85025; 85610; 85652; 85730; 86038; 86140; 86255; 87040; 87077; 87081; 87086; 87186; 87400; 87811; 92610; 93005; 96365; 96367; 96375; 97162; 99285; J0131; J0696; J1171; J1650; J1885; J2270; J2405; J2543; J3370; J7030; J7120; A9270

== ENCOUNTER 2024-08-01 13:49 | Emergency (ER) | payer MEDICAID, SELFPAY ==
[2024-08-01 13:50] VITALS: BMI 20.1
[2024-08-01 14:28] VITALS: BP 124/70; PULSE 64; RESP 20; TEMP 36.6; O2SAT 96; BMI 21.9
--- NOTE | 2024-08-01 14:48 | EDNOTE_ITS ---
<Statement entered by Suzy Aiken MD - 08/11/24 00:57> As co-signing physician, I was present and available for consult prn. I concur with the plan and care as documented by the midlevel provider. ED Male Genitalurinary RME/HPI General Chief complaint: Urogenital-Male Stated complaint: NEEDING LANE CHANGE Time Seen by Provider: 08/01/24 13:54 Arrival date/time: 08/01/24 13:49 This is a 63 year old male that comes into the emergency room needing his Lane catheter change. Patient's family member states that the Lane catheter has been in place for the last month. Patient was told by primary provider to get Lane catheter changed in the emergency room. Patient has a history of high blood pressure, CVA, seizures, BPH. Related Data Home Medications ?Medication ?Instructions ?Recorded ?Confirmed amlodipine 5 mg tablet 5 mg PO DAILY 03/01/2407/12 atorvastatin 40 mg tablet 40 mg PO DAILY 03/01/2407/02 Held on 07/16/24. Instructions: Resume on 07/23/24. Hold until you get a CMP in one week. benazepril 40 mg tablet 20 mg PO HS 03/01/24 5 Held on 07/16/24. Instructions: Resume on 07/23/24. Follow up with your PCP regarding your BP. Will hold for now as your BP is well controlled with Amlodipine only. tamsulosin 0.4 mg capsule 4 mg PO DAILY 03/01/2407/12 ascorbic acid (vitamin C) 500 mg 500 mg PO QDAY 07/12/24 capsule dronabinol 2.5 mg capsule 2.5 mg PO BID 07/12/2407/12 folic acid 1 mg tablet 1 mg PO QDAY 07/12/24 insulin aspart U-100 100 unit/mL 1 sliding scale dose subcut 07/12/24 07/12/24 (3 mL) subcutaneous pen (Novolog USEASDIRECTD FlexPen U-100 Insulin aspart) levothyroxine 100 mcg tablet 100 mcg PO QDAY 07/12/24 07/12/24 lidocaine 5 % topical patch 1 patch topical Q24H 07/1207/12/24 (Lidoderm) melatonin 5 mg capsule 6 mg PO HS 07/12/24 07/12/24 quetiapine 25 mg tablet 25 mg PO QDAY 07/12/2407/12 thiamine HCl (vitamin B1) 100 mg 100 mg PO QDAY 07/12/24 tablet Previous Rx's ?Medication ?Instructions ?Recorded aspirin 81 mg chewable tablet 81 mg PO QDAY #30 tabs 0 07/16/24 lactulose 10 gram/15 mL oral 20 g (30 mL) PO BID #1,50 0 mL 07/16/24 solution levetiracetam 100 mg/mL oral 500 mg (5 mL) PO BID 30 d ays #300 07/16/24 solution (Keppra) mL metoprolol succinate 100 mg 50 mg (1/2 x 100 mg) PO 12 00 #30 07/16/24 tablet,extended release 24 hr tabs cephalexin 500 mg capsule 500 mg PO TID 7 days #21 cap s 08/01/24 Allergies Allergy/AdvReac Type Severity Reaction Status Date / Time No Known Drug Allergies Allergy Unknown Verified 08/01/24 13:53 Review of Systems Review of Systems Systems Reviewed: All systems reviewed, normal except as documented Past Medical History Surgical History OTHER SURGICAL HX: As in the history of present illness ED Exam Narrative Physical exam: VITAL SIGNS: Reviewed. GENERAL APPEARANCE: Alert and interactive, follows commands, no acute distress HEAD AND FACE: Non-traumatic. ENT: PERRL, pink conjunctivitis, eyelid no trauma, Mucous membrane moist. NECK: Supple, nontender, no nuchal rigidity. CHEST: No tenderness, no crepitus, no paradoxical movement, no retractions. LUNGS: breathing even and unlabored HEART: Regular rate, cap refill less than 2 seconds ABDOMEN: Soft, nondistended, no guarding, nontender, no rebound, no masses, NEUROLOGICAL: Gross motor function intact sensory function intact, Appropriate for age. MUSCULOSKELETAL: low back nontender, full range of motion. EXTREMITIES: No redness no swelling no skin breakdown on bilateral foot and leg. Distal neurovascular status intact bilateral foot SKIN: Color pink, dry, no rash, no lacerations, no abrasions, no contusions. Course Quality Measures none Orders Category Date Time Status Lane [Urinary Catheter, Remove] ONCE Care 08/01/24 14:[address] [Urinary Catheter] QS Care 08/01/24 14:41 Completed Urinalysis, C/S if Indicated Stat Lab 08/01/24 16:15 Completed Urine Culture Stat Lab 08/01/24 16:15 Completed cefTRIAXone [Rocephin] 1,000 mg Med 08/01/24 17:05 Discontinued Lidocaine 1% 20 ml [Xylocaine 1% 20 ML] 2.1 ml IM X1 Vital Signs Vital signs: Vital Signs Temperature 97.9 F 08/01/24 14:28 Pulse Rate 64 08/01/24 14:28 Respiratory Rate 20 08/01/24 14:28 Blood Pressure 124/70 08/01/24 14:28 Pulse Oximetry (%) 96 08/01/24 14:28 Oxygen Delivery Method Room Air 08/01/24 14:28 Urogenital - Male MDM Narrative MDM Narrative:: Patient had a Lane catheter change. We checked his urine again to make sure he does not have an infection and it does appear that it patient has an acute infection. Will treat with a dose of Rocephin and will send patient home with antibiotics. Patient told to follow-up with urine culture with primary provider. Patient and patient family comfortable plan of care. Patient data External records reviewed:: [facility] previous records Clinical information provided by:: patient and none (son with patient ) Social determinants that could affect healthcare access:: none Patient has the following chronic illnesses:: see hpi How is presenting disease/condition affected by chronic disease/condition?: uneffected by Evaluation data The following diagnostics were reviewed and interpreted by me:: lab results Lab and/or radiology exams considered but not ordered:: none Interpretation Summary: see note Medications / Prescriptions Medications or Prescriptions considered but not ordered:: none Medication administrations:: Medication Administration History Discontinued Medications Ceftriaxone Sodium 1,000 mg/ (Lidocaine HCl 2.1 ml) 0 mg IM X1 ONE Stop: 08/01/24 17:06 Last Admin: 08/01/24 17:17 Dose: 1,000 mg Documented By: see mar Consultations Consultation(s) initiated? (list below): No Diagnosis Urogenital Male Differential Diagnosis: urinary tract infection, prostatitis and other (kidney stones ) Most likely diagnosis given after review of the tests above:: uti Admission Indicated Admission indicated?: not indicated Admission Request Was there a request for admission?: No Disposition Plan Disposition Plan: Discharge Discharge Attestation Discharge Attestation: The patient and all family members were given an opportunity to ask questions and understood the discharge instructions. Discharge instructions specifically effects, indications for sooner follow up or return to the emergency department, and the expected course of current diagnosis. Patient condition: Stable Discharge Plan Plan Patient Disposition: HOME (Self Care) Patient condition on transfer: Stable Prescriptions/Referrals Prescriptions/Med Rec: New cephalexin 500 mg capsule 500 mg PO TID 7 Days Qty: 21 0RF No Action atorvastatin 40 mg tablet 40 mg PO DAILY Patient Comments: TAKE ONE TABLET BY MOUTH EVERY DAY FOR CHOLESTEROL amlodipine 5 mg tablet 5 mg PO DAILY Patient Comments: TAKE ONE TABLET BY MOUTH EVERY DAY HIGH BLOOD PRESSURE tamsulosin 0.4 mg capsule 4 mg PO DAILY benazepril 40 mg tablet 20 mg PO HS Patient Comments: TAKE ONE TABLET BY MOUTH EVERY night FOR HIGH BLOOD PRESSURE folic acid 1 mg tablet 1 mg PO QDAY levothyroxine 100 mcg tablet 100 mcg PO QDAY quetiapine 25 mg tablet 25 mg PO QDAY thiamine HCl (vitamin B1) 100 mg tablet 100 mg PO QDAY lidocaine [Lidoderm] 5 % adhesive patch,medicated 1 patch topical Q24H Rx Instructions: leave on most painful area for up to 12 hrs ascorbic acid (vitamin C) 500 mg capsule 500 mg PO QDAY melatonin 5 mg capsule 6 mg PO HS insulin aspart U-100 [Novolog FlexPen U-100 Insulin] 100 unit/mL (3 mL) insulin pen 1 sliding scale dose subcut USEASDIRECTD dronabinol 2.5 mg capsule 2.5 mg PO BID Rx Instructions: administer before lunch and evening meal/dinner metoprolol succinate 100 mg tablet extended release 24 hr 50 mg PO 1200 Qty: 30 0RF Patient Comments: TAKE ONE TABLET BY MOUTH EVERY DAY in THE afternoon FOR BLOOD PRESSURE aspirin 81 mg tablet,chewable 81 mg PO QDAY Qty: 30 0RF lactulose 10 gram/15 mL solution 20 g PO BID Qty: 1500 0RF levetiracetam [Keppra] 100 mg/mL solution 500 mg PO BID 30 Days Qty: 300 0RF Problem List Clinical Impression: Encounter for Lane catheter replacement, Encounter for Lane catheter removal Patient/Caregiver Discharge Instructions Discharge Activity: activity as tolerated Education Materials: ED Lane Catheter, Care Additional Instructions: Follow up with primary provider in 1-2 days. Come back to ED if symptoms change or worsen. Follow-up with urine culture with primary provider. Print Language: Citizen Of [place] Stand Alone Forms: Cynthia Award Info., Patient Portal Info Letter PA/COPY CUTTER Supervising Physician JOJO/JENNIFER Supervising Physician: bruce
[2024-08-01 16:28] LABS: Collection Type, Urine Voided; Squamous Epithelial Cell,Urine 0 /hpf (0-5)
[2024-08-01 16:43] LABS: Bacteria,Urine 2+; Bilirubin,Urine Negative (Negative); Blood,Urine 2+ (Negative); Clarity,Urine Turbid (Clear/Hazy); Color,Urine Yellow (Lt Yel-Yel); Glucose, Urine Negative (Negative); Ketones,Urine Negative (Negative); Leukocyte Esterase,Urine Positive (Negative); Nitrite,Urine Negative (Negative); PH,Urine 6.5 (5.0-7.0); Protein,Urine 2+ (Neg - Trace); RBC,Urine 289 /hpf (0-3); Urobilinogen,Urine Negative mg/dL (0.0-1.0); WBC,Urine 382 /hpf (0-5)
[2024-08-01 16:44] LABS: Culture Indicated,Urine Yes
[2024-08-01] MEDS: cefTRIAXone 1,000 MG, LIDOCAINE 1% 20 ML 2.1 ML IM (17:17)
== END 2024-08-01 17:33 | disposition home or self-care (01) ==
LOC: SERX 17:05
PROVIDERS: Nurse Practitioner Family; Emergency Provider Emergency Medicine; PCP Physician Assistant
DX: Z46.6 Encounter for fitting and adjustment of urinary device (principal); N40.0 Benign prostatic hyperplasia without lower urinary tract symptoms; Z86.73 Personal history of transient ischemic attack (TIA), and cerebral infarction without residual deficits
CPT/HCPCS: 51702; 81001; 87077; 87086; 87186; 96372; 99283; J0696; J3490

== ENCOUNTER → 2024-08-17 | Outpatient (CLI) | payer MEDICAID, SELFPAY ==
--- NOTE | 2024-07-16 20:24 | PD.IMPROG ---
Documentation for date of: 07/16/24 Subjective Subjective Interval history: Late entry for the note patient being discharged No need for GI follow-up he can be followed by the PCP Objective Impressions Impression: Abdominal distention secondary to stool impaction resolved with GoLytely Plan As under HPI Assessment & Plan Time Spent With Patient Time: Total time spent is greater than 50% in coordination of care (as documented) at patient's floor/unit and/or counseling patient:
== END | disposition home or self-care (01) ==
PROVIDERS: Referring Provider Neurological Surgery; Visit Provider Neurological Surgery
DX: Z53.8 Procedure and treatment not carried out for other reasons (principal)

== ENCOUNTER 2024-08-30 12:52 | Emergency (ER) | payer MEDICAID, SELFPAY ==
[2024-08-30 12:52] VITALS: BMI 21.2
[2024-08-30 13:10] VITALS: BP 126/83; PULSE 67; RESP 20; TEMP 36.4; O2SAT 95
--- NOTE | 2024-08-30 13:44 | PD.EDMALE ---
ED Male Genitalurinary RME/HPI General Chief complaint: Urogenital-Male Stated complaint: NEEDS LANE CATHETAR CHANGED Time Seen by Provider: 08/30/24 13:41 Source: family Arrival date/time: 08/30/24 12:52 This is a 63 year old male that comes into the emergency room needing his Lane catheter change. Patient's family member states that the Lane catheter has been in place for the last month. Patient was told by primary provider to get Lane catheter changed in the emergency room. Patient has a history of high blood pressure, CVA, seizures, BPH. Limitations: no limitations Related Data Home Medications ?Medication ?Instructions ?Recorded ?Confirmed amlodipine 5 mg tablet 5 mg PO DAILY 03/01/24 07/12/24 atorvastatin 40 mg tablet 40 mg PO DAILY 03/01/24 07/12/24 Held on 07/16/24. Instructions: Resume on 07/23/24. Hold until you get a CMP in one week. benazepril 40 mg tablet 20 mg PO HS 03/01/24 07/12/24 Held on 07/16/24. Instructions: Resume on 07/23/24. Follow up with your PCP regarding your BP. Will hold for now as your BP is well controlled with Amlodipine only. tamsulosin 0.4 mg capsule 4 mg PO DAILY 03/01/24 07/12/24 ascorbic acid (vitamin C) 500 mg 500 mg PO QDAY 07/12/24 07/12/24 capsule dronabinol 2.5 mg capsule 2.5 mg PO BID 07/12/24 07/12/24 folic acid 1 mg tablet 1 mg PO QDAY 07/12/24 07/12/24 insulin aspart U-100 100 unit/mL 1 sliding scale dose subcut 07/12/24 07/12/24 (3 mL) subcutaneous pen (Novolog USEASDIRECTD FlexPen U-100 Insulin aspart) levothyroxine 100 mcg tablet 100 mcg PO QDAY 07/12/24 07/12/24 lidocaine 5 % topical patch 1 patch topical Q24H 07/12/24 07/12/24 (Lidoderm) melatonin 5 mg capsule 6 mg PO HS 07/12/24 07/12/24 quetiapine 25 mg tablet 25 mg PO QDAY 07/12/24 07/12/24 thiamine HCl (vitamin B1) 100 mg 100 mg PO QDAY 07/12/24 07/12/24 tablet Previous Rx's ?Medication ?Instructions ?Recorded aspirin 81 mg chewable tablet 81 mg PO QDAY #30 tabs 07/16/24 lactulose 10 gram/15 mL oral 20 g (30 mL) PO BID #1,500 mL 07/16/24 solution metoprolol succinate 100 mg 50 mg (1/2 x 100 mg) PO 1200 #30 07/16/24 tablet,extended release 24 hr tabs Allergies Allergy/AdvReac Type Severity Reaction Status Date / Time No Known Drug Allergies Allergy Unknown Verified 08/30/24 12:55 Review of Systems Review of Systems Systems Reviewed: All systems reviewed, normal except as documented Constitutional Constitutional: Reports system reviewed and no additional complaints, except as documented and Reports as per HPI Cardiovascular Cardiovascular: Reports system reviewed and no additional complaints, except as documented and Reports as per HPI Respiratory Respiratory: Reports system reviewed and no additional complaints, except as documented and Reports as per HPI Gastrointestinal Gastrointestinal: Reports system reviewed and no additional complaints, except as documented and Reports as per HPI Genitourinary Genitourinary: Reports system reviewed and no additional complaints, except as documented and Reports as per HPI Musculoskeletal Musculoskeletal: Reports system reviewed and no additional complaints, except as documented and Reports as per HPI Neurologic Neurologic: Reports system reviewed and no additional complaints, except as documented and Reports as per HPI Past Medical History Past Medical History NEUROLOGIC: Positive Cerebrovascular Accident, Seizures and Paralysis CARDIAC: Positive Hypertension; Negative Congestive Heart Failure RESPIRATORY: Negative Chronic Obstructive Pulmonary Disease (COPD) GENITOURINARY: Positive Benign Prostatic Hyperplasia; Negative Renal Disease ENT: Negative Glaucoma ENDOCRINE: Negative Diabetes Mellitus Type 1 or Diabetes Mellitus Type 2 Social History SMOKING STATUS: Former smoker SUBSTANCE USE: does not use ED Exam General Limitations: Present no limitations General appearance: Present alert and in no apparent distress Head Head exam: Present atraumatic Eye Eye exam: Present normal appearance, PERRL and EOMI ENT ENT exam: Present normal exam, normal oropharynx and mucous membranes moist Neck Neck exam: Present normal inspection, full ROM and trachea midline Chest Chest inspection: Present normal inspection and symmetric chest wall rise Respiratory Respiratory exam: Present normal lung sounds bilaterally Cardiovascular Cardiovascular exam: Present regular rate, normal rhythm and normal heart sounds Abdominal Exam Abdominal exam: Present soft and other (No CVA tenderness); Absent distention, tenderness, guarding, rebound, normal bowel sounds, diminished bowel sounds, hyperactive bowel sounds, hypoactive bowel sounds, organomegaly, psoas sign, obturator sign, Peter's sign, Rovsing's sign or tenderness at McBurney's Point Extremities Exam Extremities exam: Present normal inspection and full ROM Back Exam Back exam: Present normal inspection and full ROM Neurological Exam Neurological exam: Present alert, oriented X3 and CN II-XII intact Psychiatric Psychiatric exam: Present normal affect and normal mood Skin Skin exam: Present warm, dry, intact and normal color Course Quality Measures none Vital Signs Vital signs: Vital Signs Temperature 97.6 F 08/30/24 13:10 Pulse Rate 67 08/30/24 13:10 Respiratory Rate 20 08/30/24 13:10 Blood Pressure 126/83 08/30/24 13:10 Pulse Oximetry (%) 95 08/30/24 13:10 Oxygen Delivery Method Room Air 08/30/24 13:10 Oxygen saturation is 95% in room air Urogenital - Male MDM Narrative MDM Narrative:: This is a 63 year old male that comes into the emergency room needing his Lane catheter change. Patient's family member states that the Lane catheter has been in place for the last month. Patient was told by primary provider to get Lane catheter changed in the emergency room. Patient has a history of high blood pressure, CVA, seizures, BPH. Physical examination patient is awake alert not in distress nontoxic looking abdominal exam is benign nonsurgical no guarding no rebound no rigidity Lane catheter was changed and noted urine output of 400 cc of yellow-colored urine at this point there is no signs and symptoms of infection thus I will not test that the urinalysis they are advised to follow-up with the urologist for urinary retention Patient was discharged with comfortable condition walking with stable gait. Patient verbalized no further complains explained diagnosis and answered patient question. Patient is comfortable with the proposed management plan including the need to follow up with his/her primary care physician and any specialist if applicable Discussed patient for any urgent condition or worsening sx, He/She needed to go to emergency room immediately or call 911. Patient acknowledge the responsibility to follow up as instructed and to monitor her/his symptoms. For any persistence of the symptoms for more than 3-5 days return precaution advised. Discussed the result of the test and was given printed discharge instruction Patient data External records reviewed:: [facility] previous records Clinical information provided by:: patient Social determinants that could affect healthcare access:: none Patient has the following chronic illnesses:: Urinary retention How is presenting disease/condition affected by chronic disease/condition?: no chronic disease (Urinary retention) Evaluation data The following diagnostics were reviewed and interpreted by me:: other (specify) (None) Lab and/or radiology exams considered but not ordered:: None Interpretation Summary: None Medications / Prescriptions Medications or Prescriptions considered but not ordered:: None Medication administrations:: None Consultations Consultation(s) initiated? (list below): No Diagnosis Urogenital Male Differential Diagnosis: other (Urinary retention) Most likely diagnosis given after review of the tests above:: Urinary retention Lane catheter malfunction Admission Indicated Admission indicated?: not indicated Admission Request Was there a request for admission?: No Disposition Plan Disposition Plan: Discharge Discharge Attestation Discharge Attestation: The patient and all family members were given an opportunity to ask questions and understood the discharge instructions. Discharge instructions specifically effects, indications for sooner follow up or return to the emergency department, and the expected course of current diagnosis. Patient condition: Stable Discharge Plan Plan Patient Disposition: HOME (Self Care) Prescriptions/Referrals Prescriptions/Med Rec: No Action atorvastatin 40 mg tablet 40 mg PO DAILY Patient Comments: TAKE ONE TABLET BY MOUTH EVERY DAY FOR CHOLESTEROL amlodipine 5 mg tablet 5 mg PO DAILY Patient Comments: TAKE ONE TABLET BY MOUTH EVERY DAY HIGH BLOOD PRESSURE tamsulosin 0.4 mg capsule 4 mg PO DAILY benazepril 40 mg tablet 20 mg PO HS Patient Comments: TAKE ONE TABLET BY MOUTH EVERY night FOR HIGH BLOOD PRESSURE folic acid 1 mg tablet 1 mg PO QDAY levothyroxine 100 mcg tablet 100 mcg PO QDAY quetiapine 25 mg tablet 25 mg PO QDAY thiamine HCl (vitamin B1) 100 mg tablet 100 mg PO QDAY lidocaine [Lidoderm] 5 % adhesive patch,medicated 1 patch topical Q24H Rx Instructions: leave on most painful area for up to 12 hrs ascorbic acid (vitamin C) 500 mg capsule 500 mg PO QDAY melatonin 5 mg capsule 6 mg PO HS insulin aspart U-100 [Novolog FlexPen U-100 Insulin] 100 unit/mL (3 mL) insulin pen 1 sliding scale dose subcut USEASDIRECTD dronabinol 2.5 mg capsule 2.5 mg PO BID Rx Instructions: administer before lunch and evening meal/dinner metoprolol succinate 100 mg tablet extended release 24 hr 50 mg PO 1200 Qty: 30 0RF Patient Comments: TAKE ONE TABLET BY MOUTH EVERY DAY in THE afternoon FOR BLOOD PRESSURE aspirin 81 mg tablet,chewable 81 mg PO QDAY Qty: 30 0RF lactulose 10 gram/15 mL solution 20 g PO BID Qty: 1500 0RF Problem List Clinical Impression: Acute urinary retention, Malfunction of Lane catheter Patient/Caregiver Discharge Instructions Education Materials: ED Lane Catheter, Care, ED Urinary Retention, Male Additional Instructions: Follow-up with your primary care physician in 2 days for reevaluation and to be referred to urologist for further evaluation and treatment of urinary retention Lane catheter care was advised for any recurrence worsening symptoms or any emergent concern call 911 or go to the nearest emergency room Print Language: Arabic Stand Alone Forms: Cynthia Award Info., Patient Portal Info Letter PA/NUMERICAL TOOL PROGRAMMER Supervising Physician PA/NUMERICAL TOOL PROGRAMMER Supervising Physician: dr mcdowell
--- NOTE | 2024-08-30 14:59 | PC.NURSE ---
520ml out prior to changing catheter, sediment and mucous threads noted. New FC inserted, 100ml output, patent and draining to gravity, FC flushed with 60ml sterile NS. sediment and mucous threads noted. PAtient currently doing bladder training with FC for removal through his PCP.
== END 2024-08-30 15:01 | disposition home or self-care (01) ==
LOC: SERX 14:38
PROVIDERS: Emergency Provider Emergency Medicine; PCP Physician Assistant
DX: N40.1 Benign prostatic hyperplasia with lower urinary tract symptoms (principal); R33.8 Other retention of urine; Z86.73 Personal history of transient ischemic attack (TIA), and cerebral infarction without residual deficits
CPT/HCPCS: 51702; 99283; A4314

== ENCOUNTER 2024-09-16 16:30 | Outpatient (RCR) | payer MEDICAID, SELFPAY ==
--- NOTE | 2024-09-02 15:12 | PTNOTE_ITS ---
PT OP Initial Eval Patient Information Outpatient Physical Therapy Treatment Date: 09/02/24 Visit Reasons: stroke Medical Diagnosis: Z86.73 G81.91 Treatment Dx #1: CVA with R hemiplegia Start of Care: 09/02/24 Date of Onset: 03/01/24 Smoking Status Smoking Status: Former smoker Tobacco Use: Cigarette Years smoked: 45 Initial Assessment Subjective: Pt is 63 yr old laotian speaking male s/p CVA with R hemiplegia, non-verbal, W/C bound, maxAx2 according to son and dtr in law that are present giving the Hx and interpreting. He doesn't stand or ambulate and the R UE is flaccid. PMH: HTN Pt goal: non-verbal. Son's goal to strengthen the L side to transfer with less assist. Objective: R UE AROM: flaccid R LE AROM: flaccid L LE knee AROM: knee extension -20 deg PROM: full extension L hand nurse practitioner per diem: 20 lbs W/C to car: MaxAx2 Assessment: Pt presents with R hemiplegia and motor control and planning deficits s/p CVA. Pt can stand with L hand on bars and modAx2 but has difficulty standing erect with full knee extension. Pt requires full cues to stand and gait belt. He may benefit from skilled therapy to learn motor planning to stand pivot transfer from W/C to car and has poor/fair rehab potential. Short Term and Care Home Goals 1. Ind with HEP 2. Transfer from sit to stand with minAx1 with L hand pulling up 3. Stand-pivot transfer from W/C to car with modAx1 Treatment Plan ? 1. Manual therapy ? 2. Therex ? 3. Modalities as indicated, moist heat, ice, estim 4. Neuromuscular reeducation 5. Gait training Frequency and Duration: 1-2x a week for 6 visits Certification Dates: 09/02/24 to 12/02/24 Procedure Charges OP PT Eval Mod Complex 30 minutes: Yes
--- NOTE | 2024-09-16 17:03 | PT.ODS1RPT ---
PT OP Progress/Discharge Note Date of Service: 09/16/24 Progress Note/DC Note Progress Note/Discharge Note: DC Note Patient Information Visit Reasons: stroke Service Continue Service or Discharge: Discharge Discharge Date: 09/16/24 Status Subjective: Pt is non-verbal and dtr in law and his are here to interpret. They carry him in a sling hammock to transfer from W/C. Objective: Same as time of evaluation Assessment: Pt attended the eval and 1 Rx session with limited participation. Pt transferred x1 from sit to clinical rehabilitation liaison the parallel bars and then wouldn't follow commands. He was unable to use the recumbent bike. He doesn't WB on R LE and gets confused and unwilling to stand up easily. He is not likely going to benefit from therapy since he doesn't participate. Plan: D/C Procedure Charges Therapeutic Exercise 15 minutes: Yes
== END 2024-10-01 23:59 | disposition home or self-care (01) ==
LOC: CPTX 16:30
PROVIDERS: PCP Physician Assistant; Referring Provider Physician Assistant; Visit Provider Physician Assistant
DX: I69.351 Hemiplegia and hemiparesis following cerebral infarction affecting right dominant side (principal); I10 Essential (primary) hypertension
CPT/HCPCS: 97110; 97162

== ENCOUNTER → 2024-09-23 | Outpatient (CLI) | payer MEDICARE, MEDICAID, SELFPAY ==
--- NOTE | 2024-09-23 07:30 | XR_ITS ---
Examination: MRI brain without intravenous contrast. 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 Siemens high-resolution 1.5 Loni short bore scanners utilized. Sagittal sections, T1-weighted, TR 500, TE 14, are performed. Axial sections proton-density and T2-weighted have been obtained. Inversion recovery axial images, TR 9, 260, TE 111, TI 2500. Diffusion weighted images, axial sections, TR 4800, TE 128, B value 1000 Axial sections, ADC map, TR 4800, TE 128 Findings: Enlargement of the sella turcica is not present. The optic chiasm and infundibular are not remarkable. Prepontine and interpeduncular cisterns are not enlarged. There is no localized enlargement of the medulla or mt. Fourth ventricle and cerebellar tonsils appear normal in position. No subacute area of hemorrhage density is seen. Mass in the cerebellopontine angle region is not evident. Globes symmetrical. Orbital musculature including medial lateral rectus muscles do not exhibit abnormality. Diffusion-weighted images demonstrate 3 mm focus restricted diffusion left parietal lobe without definite signal deficit on the ADC map. Increased white matter signal prominent, including large old infarct left middle cerebral artery distribution with ex lateral ventricular dilatation Mass effect upon the ventricular system is not identified. 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
== END | disposition home or self-care (01) ==
PROVIDERS: PCP Physician Assistant; Referring Provider Psychiatry & Neurology Neurology; Visit Provider Psychiatry & Neurology Neurology
DX: Z86.73 Personal history of transient ischemic attack (TIA), and cerebral infarction without residual deficits (principal)
CPT/HCPCS: 70551

== ENCOUNTER 2024-10-04 08:58 | Emergency (ER) | payer MEDICARE, MEDICAID, SELFPAY ==
[2024-10-04 09:12] VITALS: BP 136/85; PULSE 112; RESP 18; TEMP 37.5; O2SAT 98
--- NOTE | 2024-10-04 09:14 | PD.EDRME ---
Rapid Medical Screening Exam RME Arrival date/time: 10/04/24 08:58 63-year-old male with a history of hyperlipidemia, hypertension, type 2 diabetes, BPH with a chronic Love catheter presents to the emergency room with a chief complaint of wanting a Love catheter changed. I have greeted and performed a focused initial assessment of this patient. A comprehensive ED assessment and evaluation of the patient, analysis of all test results, and completion of the medical decision making process will be conducted by additional ED providers. Chief Complaint: General Adult/Misc Complain Time Seen by Provider: 10/04/24 09:02 Vital signs: Vital Signs Temperature 99.5 F 10/04/24 09:12 Pulse Rate 112 H 10/04/24 09:12 Respiratory Rate 18 10/04/24 09:12 Blood Pressure 136/85 H 10/04/24 09:12 Pulse Oximetry (%) 98 10/04/24 09:12 Oxygen Delivery Method Room Air 10/04/24 09:12 Vital signs reviewed by provider: Yes
[2024-10-04 09:35] VITALS: TEMP 37.7
--- NOTE | 2024-10-04 09:51 | PD.EDADULT ---
ED General RME/HPI General Chief complaint: General Adult/Misc Complain Stated complaint: LANE CATHETER CHANGE Time Seen by Provider: 10/04/24 09:02 Arrival date/time: 10/04/24 08:58 RME / HPI RME / HPI narrative: 10/04/24 08:58 63-year-old male with a history of hyperlipidemia, hypertension, type 2 diabetes, BPH with a chronic Lane catheter presents to the emergency room with a chief complaint of wanting a Lane catheter changed. I have greeted and performed a focused initial assessment of this patient. A comprehensive ED assessment and evaluation of the patient, analysis of all test results, and completion of the medical decision making process will be conducted by additional ED providers. 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 Patient is unable to verbally communicate. Per patient's son patient has not had any fevers, nausea, vomiting, abdominal pain, diarrhea, or any chills. Otherwise has been at his baseline. Related Data Home Medications ?Medication ?Instructions ?Recorded ?Confirmed amlodipine 5 mg tablet 5 mg PO DAILY 03/01/24 07/12/24 atorvastatin 40 mg tablet 40 mg PO DAILY 03/01/24 07/12/24 Held on 07/16/24. Instructions: Resume on 07/23/24. Hold until you get a CMP in one week. benazepril 40 mg tablet 20 mg PO HS 03/01/24 07/12/24 Held on 07/16/24. Instructions: Resume on 07/23/24. Follow up with your PCP regarding your BP. Will hold for now as your BP is well controlled with Amlodipine only. tamsulosin 0.4 mg capsule 4 mg PO DAILY 03/01/24 07/12/24 ascorbic acid (vitamin C) 500 mg 500 mg PO QDAY 07/12/24 07/12/24 capsule dronabinol 2.5 mg capsule 2.5 mg PO BID 07/12/24 07/12/24 folic acid 1 mg tablet 1 mg PO QDAY 07/12/24 07/12/24 insulin aspart U-100 100 unit/mL 1 sliding scale dose subcut 07/12/24 07/12/24 (3 mL) subcutaneous pen (Novolog USEASDIRECTD FlexPen U-100 Insulin aspart) levothyroxine 100 mcg tablet 100 mcg PO QDAY 07/12/24 07/12/24 lidocaine 5 % topical patch 1 patch topical Q24H 07/12/24 07/12/24 (Lidoderm) melatonin 5 mg capsule 6 mg PO HS 07/12/24 07/12/24 quetiapine 25 mg tablet 25 mg PO QDAY 07/12/24 07/12/24 thiamine HCl (vitamin B1) 100 mg 100 mg PO QDAY 07/12/24 07/12/24 tablet Previous Rx's ?Medication ?Instructions ?Recorded aspirin 81 mg chewable tablet 81 mg PO QDAY #30 tabs 07/16/24 lactulose 10 gram/15 mL oral 20 g (30 mL) PO BID #1,500 mL 07/16/24 solution metoprolol succinate 100 mg 50 mg (1/2 x 100 mg) PO 1200 #30 07/16/24 tablet,extended release 24 hr tabs ciprofloxacin 500 mg/5 mL oral 500 mg (5 mL) PO BID 7 days #70 mL 10/04/24 suspension Allergies Allergy/AdvReac Type Severity Reaction Status Date / Time No Known Drug Allergies Allergy Unknown Verified 10/04/24 09:00 Review of Systems Review of Systems ROS Unobtainable: unobtainable due to medical condition Past Medical History Past Medical History NEUROLOGIC: Positive Cerebrovascular Accident, Seizures and Paralysis CARDIAC: Positive Hypertension; Negative Congestive Heart Failure RESPIRATORY: Negative Chronic Obstructive Pulmonary Disease (COPD) GENITOURINARY: Positive Benign Prostatic Hyperplasia; Negative Renal Disease ENT: Negative Glaucoma ENDOCRINE: Negative Diabetes Mellitus Type 1 or Diabetes Mellitus Type 2 Social History SMOKING STATUS: Former smoker SUBSTANCE USE: does not use ED Exam Narrative Physical exam: Gen: Unable to communicte due to CVA HEENT: NCAT, EOMI, Pupils reactive ZULEIKA, not icteric. External ears normal. No rhinorrhea. Moist mucous membranes. Neck: Supple, full range of motion, no observable masses, No meningeal sign. Lungs: No Respiratory distress, clear bilateral. CV: tachycardic, no murmurs. Abdomen: Soft, nondistended, No rebound tenderness. MSK: No joint swelling, no redness, peripheral pulses presents, lumbar with no edema. Skin: No rashes, petechiae, lesions. Neuro: R side paresis, mild R nasolabial fold flattening, able to follow simple commands. Moving L UE and LE. EOMI and pupils equally reactive. Course Quality Measures none Orders Category Date Time Status EKG (ED ONLY) *Do not use* NOW Care 10/04/24 13:[address] [Urinary Catheter] QS Care 10/04/24 09:14 Active EKG (ED Only) Stat Exams 10/04/24 13:43 Draft Blood Culture (Lab) Stat Lab 10/04/24 09:52 Received CBC Stat Lab 10/04/24 09:52 Completed CMP [Comprehensive Metabolic Panel] Stat Lab 10/04/24 09:52 Completed Lactate (Lactic Acid) Stat Lab 10/04/24 09:52 Completed Lactic Acid [Lactate (Lactic Acid)] Routine Lab 10/04/24 13:07 Results PT [Prothrombin Time with INR] Stat Lab 10/04/24 09:52 Completed PTT [Partial Thromboplastin Time] Stat Lab 10/04/24 09:52 Completed Procalcitonin Stat Lab 10/04/24 09:52 Completed UA [Urinalysis] Stat Lab 10/04/24 11:03 Completed Urine Culture Stat Lab 10/04/24 11:03 Received Piper/Tazo Inj [Zosyn Inj] 4.5 gm Med 10/04/24 10:35 Discontinued Sodium Chloride 0.9% (Pop) [NS 0.9% mini bag] 100 ml IV X1 Sodium Chloride 0.9% 1000 ml [Ns] 1,000 ml Med 10/04/24 10:36 Discontinued IV 999 mls/hr Vital Signs Vital signs: Vital Signs Temperature 99.5 F 10/04/24 09:12 Pulse Rate 112 H 10/04/24 09:12 Respiratory Rate 18 10/04/24 09:12 Blood Pressure 136/85 H 10/04/24 09:12 Pulse Oximetry (%) 98 10/04/24 09:12 Oxygen Delivery Method Room Air 10/04/24 09:12 Discharge Plan Plan Patient Disposition: HOME (Self Care) Prescriptions/Referrals Prescriptions/Med Rec: New ciprofloxacin 500 mg/5 mL suspension,microcapsule recon 500 mg PO BID 7 Days Qty: 70 0RF No Action atorvastatin 40 mg tablet 40 mg PO DAILY Patient Comments: TAKE ONE TABLET BY MOUTH EVERY DAY FOR CHOLESTEROL amlodipine 5 mg tablet 5 mg PO DAILY Patient Comments: TAKE ONE TABLET BY MOUTH EVERY DAY HIGH BLOOD PRESSURE tamsulosin 0.4 mg capsule 4 mg PO DAILY benazepril 40 mg tablet 20 mg PO HS Patient Comments: TAKE ONE TABLET BY MOUTH EVERY night FOR HIGH BLOOD PRESSURE folic acid 1 mg tablet 1 mg PO QDAY levothyroxine 100 mcg tablet 100 mcg PO QDAY quetiapine 25 mg tablet 25 mg PO QDAY thiamine HCl (vitamin B1) 100 mg tablet 100 mg PO QDAY lidocaine [Lidoderm] 5 % adhesive patch,medicated 1 patch topical Q24H Rx Instructions: leave on most painful area for up to 12 hrs ascorbic acid (vitamin C) 500 mg capsule 500 mg PO QDAY melatonin 5 mg capsule 6 mg PO HS insulin aspart U-100 [Novolog FlexPen U-100 Insulin] 100 unit/mL (3 mL) insulin pen 1 sliding scale dose subcut USEASDIRECTD dronabinol 2.5 mg capsule 2.5 mg PO BID Rx Instructions: administer before lunch and evening meal/dinner metoprolol succinate 100 mg tablet extended release 24 hr 50 mg PO 1200 Qty: 30 0RF Patient Comments: TAKE ONE TABLET BY MOUTH EVERY DAY in THE afternoon FOR BLOOD PRESSURE aspirin 81 mg tablet,chewable 81 mg PO QDAY Qty: 30 0RF lactulose 10 gram/15 mL solution 20 g PO BID Qty: 1500 0RF Referrals: Lana Little PA-C [Primary Care Provider] - In 1 week Problem List Clinical Impression: Catheter (urine) change required, At risk for urinary tract infection associated with indwelling catheter Patient/Caregiver Discharge Instructions Other Activity Instructions:: Follow-up with primary care physician within 5 days. Follow-up with urology within the next week. Have prescribed ciprofloxacin 500 mg twice daily for total of 7 days. Recommend oral hydration. Please come back to the ER with you develop fevers, abdominal pain, nausea, vomiting, or any urinary symptoms. Print Language: South African Stand Alone Forms: Cynthia Award Info., Patient Portal Info Letter MDM Narrative [facility] hospital course: 10:37: Reviewed patient's lab work which showed mild lactic acidosis and mild leukocytosis. Patient has not spiked any fevers. Ordered IV Zosyn and 1 L bolus. Will repeat lactic acid in 1 hour after IV bolus is done. 1:30: Reassessed patient and looks non toxic. Lactic acid repeat downtrending. As patient has not spiked any fevers, WBC slightly elevated with negative UA for bacteria and negative procalcitonin. Will discharge on PO Antibiotics. Follow-up with PCP and urology. 1:43: Ordered EKG prior to prescribing ciprofloxacin. 1:56: EKG came back did not show any QTc prolongation. 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 Patient will follow-up with urology. Case disclosed with Attending Dr. Lisa Jurado PGY2 Disclaimer: Even though this this note was dictated by speech recognition and even though it was carefully revised there may still be minor errors in boiler technician due to voice recognition software. Medication Administration(s) Medication Administration History Discontinued Medications Piperacillin Sod/Tazobactam (Sod 4.5 gm/ Sodium Chloride) 100 mls @ 200 mls/hr IV X1 ONE Stop: 10/04/24 11:04 Last Infusion: 10/04/24 13:15 Dose: Infused Documented By: Admin: 10/04/24 10:55 Dose: 200 mls/hr Documented By: BECKY Sodium Chloride (Ns) 1,000 mls @ 999 mls/hr IV .Q1H1M ONE Stop: 10/04/24 11:36 Last Infusion: 10/04/24 13:15 Dose: Infused Documented By: Admin: 10/04/24 10:55 Dose: 999 mls/hr Documented By: BECKY
[2024-10-04 10:03] LABS: Lactate (Lactic Acid) 3.2 mMol/L (0.4-2.0)
[2024-10-04 10:07] VITALS: BP 140/89; PULSE 106; RESP 18; O2SAT 97
[2024-10-04 10:07] LABS: Basophils # (Auto) 0.1 Thou/mm3 (0.0-0.2); Basophils % (Auto) 1 % (0-2.5); Eosinophils # (Auto) 0.2 Thou/mm3 (0.0-0.5); Eosinophils % (Auto) 1 % (0-10); Hematocrit 39.3 % (41.0-53.0); Hemoglobin 12.7 g/dL (13.5-16.0); Immature Granulocytes Auto 0.03 Thou/mm3 (0.00-0.00); Lymphocytes # (Auto) 3.1 Thou/mm3 (1.0-4.8); Lymphocytes % (Auto) 28 % (10-50); Mean Corpuscular HGB Conc 32.3 g/dl (31.0-37.0); Mean Corpuscular Hemoglobin 27.2 pg (25.0-35.0); Mean Corpuscular Volume 84 fL (80-100); Monocytes # (Auto) 0.8 Thou/mm3 (0.0-0.8); Monocytes % (Auto) 7 % (0-12); Neutrophils # (Auto) 7.2 Thou/mm3 (1.8-7.7); Neutrophils % (Auto) 63 % (37-80); Nucleated Red Blood Cell # 0.00 Thou/mm3 (0.00-0.00); Nucleated Red Blood Cell % 0 /100 WBC (0); Platelet Count 277 Thou/mm3 (140-440); RDW Standard Deviation 41.1 fL (35.1-43.9); Red Blood Count 4.67 Miln/mm3 (4.50-5.90); White Blood Count 11.4 Thou/mm3 (3.8-10.6)
[2024-10-04 10:22] LABS: INR 1.0 (0.9-1.3); Partial Thromboplastin Time 26.8 Seconds (22.0-36.0); Prothrombin Time 10.9 Seconds (9.0-12.2)
[2024-10-04 10:32] LABS: Alanine Aminotransferase 31 U/L (10-49); Albumin, Serum 4.3 gm/dL (3.4-4.8); Albumin/Globulin Ratio 1.3 (1.2-2.2); Alkaline Phosphatase 134 U/L (46-116); Anion Gap 12 (7-16); Aspartate Amino Transferase 24 U/L (0-34); BUN/Creatinine Ratio 16 Ratio (12-20); Bilirubin,Total 0.5 mg/dL (0.3-1.2); Blood Urea Nitrogen 13 mg/dL (9-23); Calcium 10.0 mg/dL (8.3-10.6); Calcium (Corrected) 10.0 mg/dL (8.5-10.1); Carbon Dioxide 26.8 mMol/L (20.0-31.0); Chloride 102 mMol/L (98-107); Creatinine (Component) 0.8 mg/dL (0.6-1.3); Globulin 3.3 gm/dL (2.3-3.5); Glucose 143 mg/dL (74-106); Osmolality,Calculated 283 (275-295); Potassium 3.9 mMol/L (3.4-5.1); Procalcitonin 0.08 ng/ml (0.0-0.49); Sodium 141 mMol/L (136-145); Total Protein 7.6 gm/dL (5.7-8.2); eGFR > 60 See Note
--- NOTE | 2024-10-04 10:34 | PC.NURSE ---
CHANGED PTS LANE, OLD LANE HAD A LOT OF SEDIMENT, PALE YELLOW. NOW WAITING FOR ENOUGH URINE TO COLLECT A URINE SAMPLE. SON AT BEDSIDE ATTENTIVE TO PT.
[2024-10-04] MEDS: PIPER/TAZO INJ 4.5 GM in SODIUM CHLORIDE 0.9% (POP) 100 ML IV (10:55)
[2024-10-04] MEDS: SODIUM CHLORIDE 0.9% 1000 ML 1,000 ML 999 ML IV (10:55)
[2024-10-04 11:10] LABS: Collection Type, Urine Clean Catch; Squamous Epithelial Cell,Urine 0 /hpf (0-5)
[2024-10-04 11:33] LABS: Amorphous Crystals,Urine Present (Absent); Bilirubin,Urine Negative (Negative); Blood,Urine 3+ (Negative); Clarity,Urine Turbid (Clear/Hazy); Color,Urine Yellow (Lt Yel-Yel); Glucose, Urine Negative (Negative); Ketones,Urine Negative (Negative); Leukocyte Esterase,Urine Positive (Negative); Nitrite,Urine Negative (Negative); PH,Urine 7.0 (5.0-7.0); Protein,Urine 1+ (Neg - Trace); RBC,Urine 417 /hpf (0-3); Specific Gravity,Urine 1.017 (1.001-1.035); Transitional Epi Cells,Urine 1 /hpf (0-5); Urobilinogen,Urine Negative mg/dL (0.0-1.0); WBC,Urine 526 /hpf (0-5)
[2024-10-04 12:32] VITALS: BP 154/91; PULSE 102; RESP 18; TEMP 36.9; O2SAT 96
[2024-10-04 13:02] LABS: Reflex Lactate? Y
[2024-10-04 13:15] LABS: Lactate (Lactic Acid) 2.6 mMol/L (0.4-2.0)
--- NOTE | 2024-10-04 13:43 | EKG_ITS ---
[facility] Test Date: 2024-10-04 Pat Name: GABBY STEWART Department: Room: - Gender: Male Ultrasound Technol: : 1960 Requested By: Yosi Jurado Order Number: [id number] Reading MD: Yosi Jurado Measurements Intervals [place] Rate: 107 P: 47 [place]: 160 QRS: 4 QRSD: 78 T: 32 QT: 351 QTc: 469 Interpretive Statements SINUS TACHYCARDIA ABNORMAL RHYTHM ECG Compared to ECG 07/13/2024 10:25:02 T-wave abnormality no longer present /store/S0/[id number].pdf
[2024-10-04 14:15] VITALS: BP 152/91; PULSE 107; RESP 18; TEMP 37.1; O2SAT 98
[2024-10-04 16:13] LABS: Reflex Lactate? Y
--- NOTE | 2024-10-07 08:40 | PC.NURSE ---
PT CONTACTED DUE TO THE NEED TO CHANGE ABX. SON ANSWERED PHONE, INFORMED THAT THE ABX WE GAVE AT DISCHARGE IS RESISTANT TO THE BACTERIA WE FOUND IN HIS URINE CULTURE THEREFORE THE ABX HAD TO BE CHANGED TO MACROBID AT THIS TIME. SON VERBALIZED UNDERSTANDING. PROVIDER SENT NEW RX IN PRIOR TO CALL
== END 2024-10-04 14:28 | disposition home or self-care (01) ==
PROVIDERS: Nurse Practitioner Family; PCP Physician Assistant
DX: Z46.6 Encounter for fitting and adjustment of urinary device (principal); R00.0 Tachycardia, unspecified; E87.20 Acidosis, unspecified; D72.829 Elevated white blood cell count, unspecified; I10 Essential (primary) hypertension; N40.0 Benign prostatic hyperplasia without lower urinary tract symptoms; E78.5 Hyperlipidemia, unspecified; Z87.891 Personal history of nicotine dependence
CPT/HCPCS: 51702; 36415; 80053; 81001; 83605; 84145; 85025; 85610; 85730; 87040; 87077; 87086; 87186; 93005; 96365; 96366; 99283; J2543; J7030

== ENCOUNTER → 2024-10-15 | Outpatient (BNVA) | payer MEDICARE, MEDICAID, SELFPAY | END | disposition home or self-care (01) | PROVIDERS: PCP Physician Assistant; Referring Provider Physician Assistant; Visit Provider Urology | DX: N40.1 Benign prostatic hyperplasia with lower urinary tract symptoms (principal); N13.8 Other obstructive and reflux uropathy; N31.9 Neuromuscular dysfunction of bladder, unspecified; Z86.73 Personal history of transient ischemic attack (TIA), and cerebral infarction without residual deficits; I10 Essential (primary) hypertension; E78.5 Hyperlipidemia, unspecified; E11.9 Type 2 diabetes mellitus without complications | CPT/HCPCS: 99212; G0463 ==

== ENCOUNTER 2024-10-25 11:04 | Emergency (ER) | payer MEDICARE, MEDICAID, SELFPAY ==
[2024-10-25 11:05] VITALS: BMI 21.9
[2024-10-25 11:37] VITALS: BP 130/86; PULSE 87; RESP 20; TEMP 37.2; O2SAT 95
--- NOTE | 2024-10-25 12:33 | PD.EDMALE ---
ED Male Genitalurinary RME/HPI General Chief complaint: Urogenital-Male Stated complaint: NEEDS CATHETER CHANGED Time Seen by Provider: 10/25/24 12:19 Source: family Arrival date/time: 10/25/24 11:04 Mode of arrival: wheelchair Limitations: language barrier and physical limitation RME / HPI RME / HPI Narrative: Patient is a 64-year-old male with medical history notable for prior strokes with residual deficits including aphasia and now wheelchair-bound at an emergency department brought in by his son for catheter exchange. This is his regular monthly catheter exchange. Patient does not have any fevers chills nausea vomiting abdominal pain, or any other symptom of concern. Patient does not have any allergies to medications. Related Data Home Medications ?Medication ?Instructions ?Recorded ?Confirmed atorvastatin 40 mg tablet 40 mg PO DAILY 03/01/24 10/15/24 Held on 07/16/24. Instructions: Resume on 07/23/24. Hold until you get a CMP in one week. benazepril 40 mg tablet 20 mg PO HS 03/01/24 10/15/24 Held on 07/16/24. Instructions: Resume on 07/23/24. Follow up with your PCP regarding your BP. Will hold for now as your BP is well controlled with Amlodipine only. tamsulosin 0.4 mg capsule 4 mg PO DAILY 03/01/24 10/15/24 folic acid 1 mg tablet 1 mg PO QDAY 07/12/24 10/15/24 levothyroxine 100 mcg tablet 100 mcg PO QDAY 07/12/24 10/15/24 quetiapine 25 mg tablet 25 mg PO QDAY 07/12/24 10/15/24 thiamine HCl (vitamin B1) 100 mg 100 mg PO QDAY 07/12/24 10/15/24 tablet Previous Rx's ?Medication ?Instructions ?Recorded aspirin 81 mg chewable tablet 81 mg PO QDAY #30 tabs 07/16/24 lactulose 10 gram/15 mL oral 20 g (30 mL) PO BID #1,500 mL 07/16/24 solution metoprolol succinate 100 mg 50 mg (1/2 x 100 mg) PO 1200 #30 07/16/24 tablet,extended release 24 hr tabs cephalexin 500 mg capsule 500 mg PO QID 10 days #40 caps 11/20/24 Allergies Allergy/AdvReac Type Severity Reaction Status Date / Time No Known Drug Allergies Allergy Unknown Verified 10/25/24 11:06 ED Exam General Limitations: Present language barrier and physical limitation Head Head exam: Present atraumatic Eye Eye exam: Present normal appearance and PERRL ENT ENT exam: Present normal exam, normal oropharynx and mucous membranes moist Neck Neck exam: Present normal inspection and full ROM Chest Chest inspection: Present normal inspection and symmetric chest wall rise Respiratory Respiratory exam: Present normal lung sounds bilaterally; Absent respiratory distress, wheezes or stridor Cardiovascular Cardiovascular exam: Present regular rate and normal rhythm Abdominal Exam Abdominal exam: Present soft; Absent distention, tenderness, guarding, rebound or rigidity exam: Present normal inspection Extremities Exam Extremities exam: Present normal inspection Back Exam Back exam: Present normal inspection Neurological Exam Neurological exam: Present alert and other (at his baseline per family) Skin Skin exam: Present warm, dry and intact Course Quality Measures none Orders Category Date Time Status Poon [Urinary Catheter, Remove] ONCE Care 10/25/24 12:34 Completed Poon [Urinary Catheter] QS Care 10/25/24 12:34 Completed UA, C/S IF [Urinalysis, C/S if Indicated] Stat Lab 10/25/24 15:00 Completed Urine Culture Stat Lab 10/25/24 15:00 Completed Vital Signs Vital signs: Vital Signs Temperature 98.9 F 10/25/24 11:37 Pulse Rate 87 10/25/24 11:37 Respiratory Rate 20 10/25/24 11:37 Blood Pressure 130/86 H 10/25/24 11:37 Pulse Oximetry (%) 95 10/25/24 11:37 Oxygen Delivery Method Room Air 10/25/24 11:37 Urogenital - Male MDM Narrative MDM Narrative:: patient p/w urinary retention. poon catheter exchanged w./o complication. Not septic. will dc to home with close return precautions and follow up with pcp. requesting dc. will follow up with pcp as outpatient Patient data External records reviewed:: [facility] previous records Clinical information provided by:: family Social determinants that could affect healthcare access:: none (elderly and chronically ill unable to care for self) Patient has the following chronic illnesses:: see hpi How is presenting disease/condition affected by chronic disease/condition?: exacerbated by Evaluation data The following diagnostics were reviewed and interpreted by me:: lab results Lab and/or radiology exams considered but not ordered:: none Interpretation Summary: see above Medications / Prescriptions Medications or Prescriptions considered but not ordered:: none Medication administrations:: see above Consultations Consultation(s) initiated? (list below): No Diagnosis Urogenital Male Differential Diagnosis: urinary tract infection and other (obstructed catheter) Most likely diagnosis given after review of the tests above:: uti Admission Indicated Admission indicated?: not indicated Admission Request Was there a request for admission?: No Disposition Plan Disposition Plan: Discharge Discharge Attestation Discharge Attestation: The patient and all family members were given an opportunity to ask questions and understood the discharge instructions. Discharge instructions specifically effects, indications for sooner follow up or return to the emergency department, and the expected course of current diagnosis. Patient condition: Stable Discharge Plan Plan Patient Disposition: HOME (Self Care) Prescriptions/Referrals Prescriptions/Med Rec: New cephalexin 500 mg capsule 500 mg PO QID 10 Days Qty: 40 0RF No Action atorvastatin 40 mg tablet 40 mg PO DAILY Patient Comments: TAKE ONE TABLET BY MOUTH EVERY DAY FOR CHOLESTEROL tamsulosin 0.4 mg capsule 4 mg PO DAILY benazepril 40 mg tablet 20 mg PO HS Patient Comments: TAKE ONE TABLET BY MOUTH EVERY night FOR HIGH BLOOD PRESSURE folic acid 1 mg tablet 1 mg PO QDAY levothyroxine 100 mcg tablet 100 mcg PO QDAY quetiapine 25 mg tablet 25 mg PO QDAY thiamine HCl (vitamin B1) 100 mg tablet 100 mg PO QDAY metoprolol succinate 100 mg tablet extended release 24 hr 50 mg PO 1200 Qty: 30 0RF Patient Comments: TAKE ONE TABLET BY MOUTH EVERY DAY in THE afternoon FOR BLOOD PRESSURE aspirin 81 mg tablet,chewable 81 mg PO QDAY Qty: 30 0RF lactulose 10 gram/15 mL solution 20 g PO BID Qty: 1500 0RF Problem List Clinical Impression: Acute retention of urine Impression comment: Please follow-up with your primary care doctor within 1 to 2 days return immediately if you have worsening symptoms or new symptoms or concern Patient/Caregiver Discharge Instructions Print Language: Angolan Stand Alone Forms: Cynthia Award Info., Patient Portal Info Letter
[2024-10-25 15:26] LABS: Collection Type, Urine Catheter; Squamous Epithelial Cell,Urine 0 /hpf (0-5)
[2024-10-25 16:04] LABS: Bacteria,Urine 4+; Bilirubin,Urine Negative (Negative); Blood,Urine 2+ (Negative); Clarity,Urine Turbid (Clear/Hazy); Color,Urine Yellow (Lt Yel-Yel); Glucose, Urine Negative (Negative); Ketones,Urine Negative (Negative); Leukocyte Esterase,Urine Positive (Negative); Nitrite,Urine Positive (Negative); PH,Urine 6.0 (5.0-7.0); Protein,Urine Trace (Neg - Trace); RBC,Urine 19 /hpf (0-3); Specific Gravity,Urine 1.022 (1.001-1.035); Urobilinogen,Urine Negative mg/dL (0.0-1.0); WBC,Urine 424 /hpf (0-5)
[2024-10-25 16:06] LABS: Culture Indicated,Urine Yes
--- NOTE | 2024-10-25 17:51 | PC.NURSE ---
CALLED FROM [facility] AND NO ANSWER
--- NOTE | 2024-10-25 17:59 | PC.NURSE ---
CALLED FROM [facility] AND NO ANSWER
--- NOTE | 2024-10-25 18:03 | PC.NURSE ---
CALLED FROM [facility] AND NO ANSWER. PT NOT FOUND INSIDE THE E.D. OR OUTSIDE
== END 2024-10-25 18:03 | disposition home or self-care (01) ==
PROVIDERS: Emergency Provider Emergency Medicine; PCP Physician Assistant
DX: R33.9 Retention of urine, unspecified (principal); I69.320 Aphasia following cerebral infarction; Z99.3 Dependence on wheelchair
CPT/HCPCS: 51702; 81001; 87077; 87086; 87186; 99284; A4314

== ENCOUNTER 2024-12-18 19:21 | Inpatient (IN) | payer MEDICARE, MEDICAID, SELFPAY ==
[2024-12-18 19:23] VITALS: BMI 23.4
[2024-12-18 19:34] VITALS: BP 148/74; PULSE 112; RESP 20; TEMP 38.3; O2SAT 94
--- NOTE | 2024-12-18 19:38 | PD.EDMALE ---
ED Male Genitalurinary RME/HPI General Chief complaint: Urogenital-Male Stated complaint: SWELLING TO SCROTUM Time Seen by Provider: 12/18/24 19:41 Arrival date/time: 12/18/24 19:21 RME / HPI RME / HPI Narrative: See [facility] for Dr. Wesley's HPI Documentation. Related Data Home Medications ?Medication ?Instructions ?Recorded ?Confirmed atorvastatin 40 mg tablet 40 mg PO DAILY 03/01/24 10/15/24 Held on 07/16/24. Instructions: Resume on 07/23/24. Hold until you get a CMP in one week. benazepril 40 mg tablet 20 mg PO HS 03/01/24 10/15/24 Held on 07/16/24. Instructions: Resume on 07/23/24. Follow up with your PCP regarding your BP. Will hold for now as your BP is well controlled with Amlodipine only. tamsulosin 0.4 mg capsule 4 mg PO DAILY 03/01/24 10/15/24 folic acid 1 mg tablet 1 mg PO QDAY 07/12/24 10/15/24 levothyroxine 100 mcg tablet 100 mcg PO QDAY 07/12/24 10/15/24 quetiapine 25 mg tablet 25 mg PO QDAY 07/12/24 10/15/24 thiamine HCl (vitamin B1) 100 mg 100 mg PO QDAY 07/12/24 10/15/24 tablet Previous Rx's ?Medication ?Instructions ?Recorded aspirin 81 mg chewable tablet 81 mg PO QDAY #30 tabs 07/16/24 lactulose 10 gram/15 mL oral 20 g (30 mL) PO BID #1,500 mL 07/16/24 solution metoprolol succinate 100 mg 50 mg (1/2 x 100 mg) PO 1200 #30 07/16/24 tablet,extended release 24 hr tabs phenazopyridine 100 mg tablet 100 mg PO TID PRN pain #10 tabs 11/28/24 (Pyridium) Allergies Allergy/AdvReac Type Severity Reaction Status Date / Time No Known Drug Allergies Allergy Unknown Verified 12/18/24 19:22 Review of Systems Review of Systems Systems Reviewed: All systems reviewed, normal except as documented Past Medical History Past Medical History NEUROLOGIC: Positive Cerebrovascular Accident, Seizures and Paralysis CARDIAC: Positive Hypercholesterolemia and Hypertension GENITOURINARY: Positive Benign Prostatic Hyperplasia Surgical History SURGICAL: Positive Coronary Artery Bypass Graft Social History SMOKING STATUS: Former smoker ED Exam Narrative Physical exam: See MDM for Dr. Wesley's Physical Exam Documentation. Course Quality Measures none Orders Category Date Time Status Bedside COVID-19 Antigen Test NOW Care 12/18/24 19:46 Active COVID-19 Screening Questionnaire NOW Care 12/18/24 23:22 Active Decision to Admit X1 Care 12/18/24 23:22 Completed Love to [place] Routine Care 12/18/24 19:[address] chest abdomen pelvis wo Stat Exams 12/18/24 19:49 Completed US testicular Stat Exams 12/18/24 19:49 Completed XR chest 1V portable Stat Exams 12/18/24 19:49 Completed Amylase Stat Lab 12/18/24 20:35 Completed Bilirubin,Direct Stat Lab 12/18/24 20:35 Completed Blood Culture (Lab) Stat Lab 12/18/24 20:35 Received CBC Stat Lab 12/18/24 20:35 Completed CMP [Comprehensive Metabolic Panel] Stat Lab 12/18/24 20:35 Completed CRP [C-Reactive Protein] Stat Lab 12/18/24 20:35 Completed ESR [Sed Rate (ESR)] Stat Lab 12/18/24 20:35 Completed Influenza A & B Rapid Panel Stat Lab 12/18/24 20:27 Completed Lactate (Lactic Acid) Stat Lab 12/18/24 20:35 Completed Lipase Stat Lab 12/18/24 20:35 Completed Magnesium Stat Lab 12/18/24 20:35 Completed Procalcitonin Stat Lab 12/18/24 20:35 Completed TSH [Thyroid Stimulating Hormone] Stat Lab 12/18/24 20:35 Completed Troponin I Stat Lab 12/18/24 20:35 Completed UA, C/S IF [Urinalysis, C/S if Indicated] Stat Lab 12/18/24 20:17 Completed Urine Culture Stat Lab 12/18/24 20:17 Received Acetaminophen Ivpb [Ofirmev Inj] Med 12/18/24 19:50 Discontinued 1,000 mg in 100 ml IV X1 Ketorolac Inj [Toradol Inj] Med 12/18/24 19:50 Discontinued 15 mg IVP X1 ONE Morphine* Inj Med 12/18/24 19:46 Discontinued 2 mg IV X1 ONE Ondansetron Inj [Zofran Inj] Med 12/18/24 19:46 Discontinued 4 mg IVP X1 ONE Sodium Chloride 0.9% 1000 ml [Ns] 1,000 ml Med 12/18/24 19:46 Discontinued IV 999 mls/hr Sodium Chloride 0.9% 1000 ml [Ns] 1,000 ml Med 12/18/24 22:05 Discontinued IV 999 mls/hr cefTRIAXone/D5w 1gm IV premix [Rocephin/D5w 1gm IV Med 12/18/24 19:46 Discontinued premix] 1 gm in 50 ml IV X1 Vital Signs Vital signs: Vital Signs Temperature 100.9 F H 12/18/24 19:34 Pulse Rate 112 H 12/18/24 19:34 Respiratory Rate 20 12/18/24 19:34 Blood Pressure 148/74 H 12/18/24 19:34 Pulse Oximetry (%) 94 L 12/18/24 19:34 Oxygen Delivery Method Room Air 12/18/24 19:34 Urogenital - Male MDM Narrative MDM Narrative:: This section includes all my notes and documentations, including HPI, PE, and ED course. Yayo Wesley MD HPI: 64 y/o male with left-sided paralysis s/p CVA presents with fever and chills x approximately 24 hours. And swelling of the testicles. No cough. No other complaints. ROS: All negative except as documented in HPI. Physical Exam: General: Alert and oriented. Eyes: Conjunctivae and lids clear. ENT: No nasal congestion. Pharynx normal. Tympanic membrane normal bilaterally. Neck: Supple. Heart: RRR. Lungs: No respiratory distress. Decreased air movement. No severe rhonchi, wheezing, rales. Abdomen: Soft and nontender. Normal bowel sounds. No distension. No rebound or guarding. Legs: No clubbing, cyanosis, edema. Skin: Warm and dry. Neuro: Alert and oriented X 3. Genitalia: Scrotal edema noted. I reviewed all diagnostic test results: My interpretation of the chest x-ray is NAD. My review of the Chest/Abdomen/Pelvis CT report is NAD. My review of the Testicular US report is bilateral hydroceles. Blood tests remarkable for WBC 13.1, ESR > 130, CRP 13.7. UA showed positive nitrite, positive leukocyte esterase, 8 RBC, 247 WBC, and 4+ bacteria. Covid/Influenza: Negative At this point, diagnoses include: Sepsis UTI Hydroceles Treatment here included: IVF Rocephin 1 G IV Tylenol 1 G IV Toradol 15 mg IV Morphine 2 mg IV Zofran 4 mg IV 22:53 - I discussed the case with our hospitalist, Dr. James. About the presentation and exam and diagnostics and treatments here. And need of further care in the hospital. Will accept the patient. Yayo Wesley MD Patient data External records reviewed:: [facility] previous records (Reviewed prior ED records from 11/28/24 . Patient was seen for At risk for UTI related to indwelling catheter.) Clinical information provided by:: patient Social determinants that could affect healthcare access:: none Patient has the following chronic illnesses:: Cerebrovascular Accident, Seizures, Paralysis, Hypercholesterolemia, Hypertension, Benign Prostatic Hyperplasia How is presenting disease/condition affected by chronic disease/condition?: exacerbated by Evaluation data The following diagnostics were reviewed and interpreted by me:: lab results and radiology exam(s) Lab and/or radiology exams considered but not ordered:: None Interpretation Summary: I reviewed all diagnostic test results: My interpretation of the chest x-ray is NAD. My review of the Chest/Abdomen/Pelvis CT report is NAD. My review of the Testicular US report is bilateral hydroceles. Blood tests remarkable for WBC 13.1, ESR > 130, CRP 13.7. UA showed positive nitrite, positive leukocyte esterase, 8 RBC, 247 WBC, and 4+ bacteria. Covid/Influenza: Negative Medications / Prescriptions Medications or Prescriptions considered but not ordered:: None Medication administrations:: Medication Administration History Aspirin (Aspirin 81 Mg Chew) 81 mg PO QDAY RAFAEL Stop: 01/18/25 08:59 Atorvastatin Calcium (Atorvastatin Calcium 20 Mg Tablet) 40 mg PO DAILY RAFAEL Stop: 01/18/25 08:59 Bisacodyl (Bisacodyl 10 Mg Supp) 10 mg [place] QDAY PRN; Protocol PRN Reason: Constipation Stop: 01/17/25 23:36 Enoxaparin Sodium (Enoxaparin Sod Inj 40 Mg/0.4 Ml Syringe) 40 mg SC QDAY RAFAEL Stop: 01/02/25 08:59 Folic Acid (Folic Acid 1 Mg Tablet) 1 mg PO QDAY [facility] Stop: 01/18/25 08:59 Lactated Ringer's (Lactated Ringers) 1,000 mls @ 75 mls/hr IV .[id number] [facility] Stop: 01/17/25 23:44 Last Admin: 12/18/24 23:54 Dose: 75 mls/hr Documented By: ARLEN Meropenem 1,000 mg/ Sodium (Chloride) 50 mls @ 100 mls/hr IV Q12HR [facility] Stop: 12/26/24 08:59 Lactulose (Lactulose Syrup 20 Gm/30 Ml Udc) 20 gm PO BID [facility]; Protocol Stop: 01/18/25 08:59 Levothyroxine Sodium (Levothyroxine Sodium 100 Mcg Tablet) 100 mcg PO QDAY [facility] Stop: 01/18/25 05:59 Metoprolol Succinate (Metoprolol Succinate Xl 25 Mg Tabcr) 50 mg PO 1200 [facility] Stop: 01/18/25 11:59 Mineral Oil (Mineral Oil 30 Ml Udc) 30 ml [place] QDAY PRN PRN Reason: CONSTIPATION Stop: 01/17/25 23:36 Morphine Sulfate (Morphine Sulf Inj 4 Mg/Ml Vial) 2 mg IVP Q2H PRN PRN Reason: PAIN SCALE 7-10 (Severe Stop: 12/23/24 23:36 Non-Formulary Medication (Benazepril) 20 mg PO HS [facility] Stop: 01/18/25 20:59 Non-Formulary Medication (Thiamine Hcl (Vitamin B1)) 100 mg PO QDAY [facility] Stop: 01/18/25 08:59 Ondansetron HCl (Ondansetron Inj 2 Mg/Ml Inj 2 Ml) 4 mg IVP Q6H PRN; Protocol PRN Reason: NAUSEA OR VOMITING Stop: 01/17/25 23:36 Phenazopyridine HCl (Phenazopyridine Hcl 100 Mg Tablet) 100 mg PO TID PRN PRN Reason: PAIN Stop: 12/20/24 23:41 Quetiapine Fumarate (Quetiapine Fumarate 25 Mg Tablet) 25 mg PO QDAY [facility] Stop: 01/18/25 08:59 Tamsulosin HCl (Tamsulosin Hcl 0.4 Mg Capsule) 4 mg PO DAILY [facility] Stop: 01/18/25 08:59 Discontinued Medications Ceftriaxone Sodium/Dextrose (Rocephin/D5w 1gm Iv Premix) 1 gm in 50 mls @ 100 mls/hr IV X1 ONE Stop: 12/18/24 20:15 Last Infusion: 12/18/24 21:27 Dose: Infused Documented By: Admin: 12/18/24 20:49 Dose: 100 mls/hr Documented By: ARLEN Sodium Chloride (Ns) 1,000 mls @ 999 mls/hr IV .Q1H1M ONE Stop: 12/18/24 20:46 Last Infusion: 12/18/24 21:40 Dose: Infused Documented By: Admin: 12/18/24 20:48 Dose: 999 mls/hr Documented By: ARLEN Acetaminophen (Ofirmev Inj) 1,000 mg in 100 mls @ 250 mls/hr IV X1 ONE Stop: 12/18/24 20:13 Last Infusion: 12/18/24 21:27 Dose: Infused Documented By: Admin: 12/18/24 20:48 Dose: 250 mls/hr Documented By: ARLEN Sodium Chloride (Ns) 1,000 mls @ 999 mls/hr IV .Q1H1M ONE Stop: 12/18/24 23:05 Last Infusion: 12/18/24 23:25 Dose: Infused Documented By: Admin: 12/18/24 22:20 Dose: 999 mls/hr Documented By: ARLEN Ketorolac Tromethamine (Ketorolac Inj 30 Mg/Ml Vial) 15 mg IVP X1 ONE Stop: 12/18/24 19:51 Last Admin: 12/18/24 20:47 Dose: 15 mg Documented By: ARLEN Mineral Oil (Mineral Oil 30 Ml Udc) 30 ml [place] QDAY PRN PRN Reason: CONSTIPATION Stop: 01/17/25 23:36 Morphine Sulfate (Morphine Sulf Inj 4 Mg/Ml Vial) 2 mg IV X1 ONE Stop: 12/18/24 19:47 Last Admin: 12/18/24 20:46 Dose: 2 mg Documented By: ARLEN Ondansetron HCl (Ondansetron Inj 2 Mg/Ml Inj 2 Ml) 4 mg IVP X1 ONE; Protocol Stop: 12/18/24 19:47 Last Admin: 12/18/24 20:48 Dose: 4 mg Documented By: ARLEN Treatment here from ma included: IVF Rocephin 1 G IV Tylenol 1 G IV Toradol 15 mg IV Morphine 2 mg IV Zofran 4 mg IV Consultations Consultation(s) initiated? (list below): Yes Consultation #1 (Physician, Specialty, Details): I discussed the case with our hospitalist, Dr. James. About the presentation and exam and diagnostics and treatments here. And need of further care in the hospital. Will accept the patient. Time: 22:53 Diagnosis Urogenital Male Differential Diagnosis: urinary tract infection, urethritis, epididymitis, prostatitis, acute retention of urine and other (Sepsis, Viral Illness, Cystitis, Pyelonephritis) Most likely diagnosis given after review of the tests above:: Sepsis UTI Hydroceles Admission Indicated Admission indicated?: indicated Explain why admission is indicated or not indicated:: Sepsis Admission Request Was there a request for admission?: Yes Admission Attestation Admission request attestation: Discussed case with Hospitalist service regarding admission. Discussed patients ED course, exam findings, labs, and radiology results. Agreed to accept the patient for admission. Disposition Plan Disposition Plan: Admit Discharge Plan Plan Patient Disposition: Admit Acute Care w/in Hospital Problem List Clinical Impression: Sepsis, UTI (urinary tract infection), Hydrocele
--- NOTE | 2024-12-18 19:49 | XR_ITS ---
Examination: CT chest, without intravenous contrast. CT abdomen, without intravenous contrast. CT pelvis, without intravenous contrast. 2-D sagittal and coronal reconstructions. 3-D reconstructions. Date and time of exam: December 18, 2024, 2005 hours INDICATIONS: Sepsis, fever unknown origin today COMPARISON: July 11, 2024 CTDI vol (mgy) 8.4 DLP (MGycm) 631 Technique: Multiple CT images, 3.0 mm slice thickness, obtained chest, abdomen, pelvis, with the high-resolution 64 slice scanner.. Sagittal and coronal 2-D reconstructions are obtained. 3-D reconstructions Low dose protocols were performed. One or more of the following dose reduction techniques were used; automated exposure control, adjustment of the mA and/or KV according to patient size, use of iterative reconstruction technique. Findings: No thoracic aortic aneurysmal dilatation Pulmonary artery segments are not enlarged. No paratracheal tracheobronchial or bronchopulmonary adenopathy. No pneumonia, pulmonary edema or pleural disease No visualized liver or splenic lesion No gallstones, gallbladder is contracted No pancreatic or adrenal mass Left lower pole renal staghorn calculus 12 mm 4 mm 10 mm 3 mm right renal calculi Perinephric stranding and minimal wall enhancement involving the pelvicalyceal systems bilaterally, urinary tract infection pattern No hydronephrosis or ureteral calculi Abdominal aortic calcification no aneurysmal dilatation Marked thickening of the urinary bladder wall up to 13 mm No prostatomegaly Severe osteopenia with advanced degenerative disc disease L4-L5 IMPRESSION: No mediastinal lymphadenopathy No pneumonia pulmonary edema or pleural disease Bilateral renal calculi Perinephric stranding and mild wall enhancement pelvicalyceal systems consider consistent with bilateral urinary tract infection Marked thickening of the urinary bladder, differential would include cystitis
--- NOTE | 2024-12-18 19:49 | XR_ITS ---
EXAMINATION: AP chest single view TECHNIQUE: 1. AP portable upright chest single view Date and time: December 18, 2024, 2032 hours INDICATIONS: Shortness of breath fever today FINDINGS: Normal heart size Ectatic thoracic aorta. No pneumonia or pulmonary edema The paratracheal region is mildly prominent IMPRESSION: No pneumonia or pulmonary edema Recommend 3-month follow-up PA lateral chest to document stability of the superior mediastinal region
--- NOTE | 2024-12-18 19:49 | XR_ITS ---
EXAMINATION: Testicular sonography complete TECHNIQUE: Grayscale sonographic images testes, assessment arterial inflow and venous outflow Doppler spectral analysis and color flow analysis Date and time: December 18, 2024 2134 hours INDICATIONS: Swollen testicles beginning 2 days ago FINDINGS: Right testis 3.4 cm epididymis 0.9 cm Arterial flow of the testicle. No testicular mass Left testis 3.1 cm epididymis 1.0 cm 5 mm epididymal cyst Arterial flow the testicle. No testicular mass Moderate to large bilateral hydroceles IMPRESSION: No testicular torsion or testicular mass Bilateral moderate to large hydroceles
[2024-12-18 20:25] VITALS: BP 116/98; PULSE 112; RESP 20; TEMP 38.4; O2SAT 97
[2024-12-18 20:37] LABS: Collection Type, Urine Clean Catch
[2024-12-18 20:40] LABS: Lactate (Lactic Acid) 1.9 mMol/L (0.4-2.0)
[2024-12-18 20:42] LABS: Basophils # (Auto) 0.1 Thou/mm3 (0.0-0.2); Basophils % (Auto) 0 % (0-2.5); Eosinophils # (Auto) 0.2 Thou/mm3 (0.0-0.5); Eosinophils % (Auto) 1 % (0-10); Hematocrit 36.3 % (41.0-53.0); Hemoglobin 12.0 g/dL (13.5-16.0); Immature Granulocytes Auto 0.05 Thou/mm3 (0.00-0.00); Lymphocytes # (Auto) 2.4 Thou/mm3 (1.0-4.8); Lymphocytes % (Auto) 19 % (10-50); Mean Corpuscular HGB Conc 33.1 g/dl (31.0-37.0); Mean Corpuscular Hemoglobin 26.8 pg (25.0-35.0); Mean Corpuscular Volume 81 fL (80-100); Monocytes # (Auto) 0.8 Thou/mm3 (0.0-0.8); Monocytes % (Auto) 6 % (0-12); Neutrophils # (Auto) 9.6 Thou/mm3 (1.8-7.7); Neutrophils % (Auto) 74 % (37-80); Nucleated Red Blood Cell # 0.00 Thou/mm3 (0.00-0.00); Nucleated Red Blood Cell % 0 /100 WBC (0); Platelet Count 328 Thou/mm3 (140-440); RDW Standard Deviation 40.7 fL (35.1-43.9); Red Blood Count 4.47 Miln/mm3 (4.50-5.90); White Blood Count 13.1 Thou/mm3 (3.8-10.6)
[2024-12-18] MEDS: MORPHINE SULF INJ 4 MG/ML VIAL 2 MG IV (20:46)
[2024-12-18] MEDS: KETOROLAC INJ 30 MG/ML VIAL 15 MG IVP (20:47)
[2024-12-18] MEDS: SODIUM CHLORIDE 0.9% 1000 ML 1,000 ML 999 ML IV ×2 (20:48→22:20)
[2024-12-18] MEDS: ONDANSETRON INJ 2 MG/ML INJ 2 ML 4 MG IVP (20:48)
[2024-12-18] MEDS: ACETAMINOPHEN IVPB 1,000 MG/100 ML VIAL 250 MG IV (20:48)
[2024-12-18] MEDS: cefTRIAXone/D5w 1gm IV premix 1 GM/50 ML BAG IV (20:49)
[2024-12-18 21:09] LABS: Influenza A Ag Negative; Influenza B Ag Negative
[2024-12-18 21:10] LABS: Bacteria,Urine 4+; Bilirubin,Urine Negative (Negative); Blood,Urine 1+ (Negative); Clarity,Urine Turbid (Clear/Hazy); Color,Urine Yellow (Lt Yel-Yel); Glucose, Urine Negative (Negative); Ketones,Urine Negative (Negative); Leukocyte Esterase,Urine Positive (Negative); Nitrite,Urine Positive (Negative); PH,Urine 6.5 (5.0-7.0); Protein,Urine 1+ (Neg - Trace); RBC,Urine 8 /hpf (0-3); Specific Gravity,Urine 1.018 (1.001-1.035); Squamous Epithelial Cell,Urine 1 /hpf (0-5); Urobilinogen,Urine Negative mg/dL (0.0-1.0); WBC,Urine 247 /hpf (0-5)
[2024-12-18 21:13] LABS: Culture Indicated,Urine Yes
[2024-12-18 21:14] LABS: Sed Rate (ESR) > 130 mm/hr (0-20)
[2024-12-18 21:33] LABS: Alanine Aminotransferase 68 U/L (10-49); Albumin, Serum 4.6 gm/dL (3.4-4.8); Albumin/Globulin Ratio 1.2 (1.2-2.2); Alkaline Phosphatase 223 U/L (46-116); Amylase 115 U/L (30-118); Anion Gap 12 (7-16); Aspartate Amino Transferase 46 U/L (0-34); BUN/Creatinine Ratio 21 Ratio (12-20); Bilirubin,Direct 0.3 mg/dL (0.0-0.3); Bilirubin,Total 0.7 mg/dL (0.3-1.2); Blood Urea Nitrogen 15 mg/dL (9-23); Calcium 9.8 mg/dL (8.3-10.6); Calcium (Corrected) 9.8 mg/dL (8.5-10.1); Carbon Dioxide 26.5 mMol/L (20.0-31.0); Chloride 100 mMol/L (98-107); Creatinine (Component) 0.7 mg/dL (0.6-1.3); Estimated Creatinine Clearance 74.4 mL/min (>60); Globulin 3.9 gm/dL (2.3-3.5); Glucose 119 mg/dL (74-106); Lipase 53 U/L (12-53); Magnesium 2.0 mg/dL (1.6-2.6); Osmolality,Calculated 277 (275-295); Potassium 4.1 mMol/L (3.4-5.1); Procalcitonin 0.17 ng/ml (0.0-0.49); Sodium 138 mMol/L (136-145); Thyroid Stimulating Hormone 0.77 uIU/mL (0.55-4.78); Total Protein 8.5 gm/dL (5.7-8.2); Troponin I < 0.020 ng/mL (0.0-0.045); eGFR > 60 See Note
[2024-12-18 21:55] VITALS: BP 132/86; PULSE 86; RESP 19; TEMP 37.1; O2SAT 97
[2024-12-18 21:55] LABS: C-Reactive Protein 13.7 mg/dL (0.0-0.9)
[2024-12-18 23:26] VITALS: BP 106/71; PULSE 81; RESP 16; TEMP 36.6; O2SAT 98
--- NOTE | 2024-12-18 23:27 | PD.HHHP ---
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 The patient presents with pain and swelling of the left testicle times few days associated discomfort as described by family members. The patient was previously seen by urologist in the clinic. He had no procedures done. He has called Love catheter. The patient is tachycardic with fever was started on IV antibiotic treatment. He had leukocytosis. Imaging showed bilateral hydroceles, arterial flow to both testicles noted, and no testicular torsion the patient has no hematuria no diarrhea. He has no nausea or vomiting. Past medical history: No diabetes, +CVA, + hypertension, no stroke, no cancer Surgical history: no appendectomy, no gallbladder surgery Personal history: non smoker, non ETOH drinker, no recreational drug use. Family history: no diabetes, no hypertension, no heart disease, no cancer Review of Systems Review of Systems ROS Unobtainable: unobtainable due to mental status Meds Home Medications and Allergies Home Medications ?Medication ?Instructions ?Recorded ?Confirmed ?Type tamsulosin 0.4 mg capsule 4 mg PO DAILY 03/01/24 12/19/24 History folic acid 1 mg tablet 1 mg PO QDAY 07/12/24 12/19/24 History levothyroxine 100 mcg tablet 100 mcg PO QDAY 07/12/24 12/19/24 History quetiapine 25 mg tablet 25 mg PO HS 07/12/24 12/19/24 History thiamine HCl (vitamin B1) 100 mg 100 mg PO QDAY 07/12/24 12/19/24 History tablet albuterol 90 mcg/actuation aerosol 90 mcg inhalation [id number] PRN 12/19/24 12/19/24 History inhaler wheezing cholecalciferol (vitamin D3) 10 400 unit PO DAILY 12/19/24 12/19/24 History mcg (400 unit) tablet (Vitamin D3) levetiracetam 500 mg tablet 500 mg PO Q12H 12/19/24 12/19/24 History Allergies Allergy/AdvReac Type Severity Reaction Status Date / Time No Known Drug Allergies Allergy Unknown Verified 12/18/24 19:22 Exam Vital Signs Temp Pulse Resp BP Pulse Ox O2 Del Method 98.8 F 86 19 132/86 H 97 Room Air 12/18/24 21:55 12/18/24 21:55 12/18/24 21:55 12/18/24 21:55 12/18/24 21:55 12/18/24 21:55 Gen: Awake, aphasic Skin: warm, good turgor, no rash HEENT: NCAT, CLAUDE, no nasoaural discharge, moist mucous membranes Neck: supple, no JVD, no thyromegaly Lungs: clear to auscultation CV: regular rate and rhythm, no murmurs, no edema Abd: soft and non tender, normoactive bowel sounds : Left testicle is edematous, firm, no discoloration, no lesions Ext: no calf tenderness. Neuro: Awake, aphasic, right hemiparesis Results - Hospitalist Labs Diagrams: 12/18/24 20:35 12/18/24 20:35 Labs: Short CBC 12/18/24 Range/Units 20:35 WBC 13.1 H (3.8-10.6) Thou/mm3 Hgb 12.0 L (13.5-16.0) g/dL Hct 36.3 L (41.0-53.0) % Plt Count 328 D (140-440) Thou/mm3 BMP 12/18/24 20:35 Sodium 138 Potassium 4.1 Chloride 100 Carbon Dioxide 26.5 BUN 15 Creatinine 0.7 Glucose 119 H Calcium 9.8 Cardiac Enzymes 12/18/24 Range/Units 20:35 Troponin I < 0.020 (0.0-0.045) ng/mL Liver Function 12/18/24 Range/Units 20:35 Total Bilirubin 0.7 (0.3-1.2) mg/dL Direct Bilirubin 0.3 (0.0-0.3) mg/dL AST 46 H (0-34) U/L ALT 68 H (10-49) U/L Alkaline Phosphatase 223 H (46-116) U/L Albumin 4.6 (3.4-4.8) gm/dL Urine 12/18/24 Range/Units 20:17 Urine Color Yellow (Lt Yel-Yel) Urine Clarity Turbid A (Clear/Hazy) Urine pH 6.5 (5.0-7.0) Ur Specific [place] 1.018 (1.001-1.035) Urine Protein 1+ A (Neg - Trace) Urine Glucose (UA) Negative (Negative) Assessment & Plan -Hospitalist Patient Synopsis Assessment and plan: 64-year-old male patient with hypertension, history of stroke with aphasia and right hemiparesis was brought by family members to the ER because of left testicular swelling and edema. Patient appears to be in a lot of pain according to caregiver. The patient was tachycardic with elevated WBC count. He was started on empiric antibiotics. He had prior episodes of UTI. The patient also has staghorn calculi on prior imaging which was redemonstrated in today's CT. 1. Left testicular edema, -Ultrasound showed no torsion, arterial flow to both testicles seen. -He has bilateral hydroceles -The patient received ketorolac for pain - Refer to urologist in a.m. for further evaluation 2. Reccurent rinary tract infection, probable sepsis Acute cystitis Staghorn calculi -The patient is febrile with a high white count. He is tachycardic - bladder wall thickening seen on imaging/ - IV Meropenem started. -The patient was started on empiric antibiotic. He has previous culture growing E. coli. 3. Old stroke with aphasia and right hemiparesis -Continue supportive treatment, continue aspirin and atorvastatin 4. Hypertension -Continue blood pressure medications 5. 5. Benign prostatic hypertrophy -The patient has chronic indwelling Love catheter. Patient takes tamsulosin 6. Seizure -Seizure precaution, restart antiepileptic medication 7. Hypothyroidism -Continue levothyroxine Code status: Full code Quality Measures Quality Measures none Advance care planning discussed with:: spouse (spouse)
[2024-12-18 23:42] VITALS: BMI 18.5
[2024-12-18] MEDS: RINGERS LACTATED 1000 ML 1,000 ML 75 ML IV (23:54)
[2024-12-19] VITALS (9 sets, daily range): BP systolic 113–156; BP diastolic 73–98; PULSE 64–131; RESP 12–21; TEMP 36.1–38.6; O2SAT 94–97; BMI 19.5
[2024-12-19 06:08] LABS: Basophils # (Auto) 0.1 Thou/mm3 (0.0-0.2); Basophils % (Auto) 1 % (0-2.5); Eosinophils # (Auto) 0.3 Thou/mm3 (0.0-0.5); Eosinophils % (Auto) 3 % (0-10); Hematocrit 30.4 % (41.0-53.0); Hemoglobin 10.0 g/dL (13.5-16.0); Immature Granulocytes Auto 0.04 Thou/mm3 (0.00-0.00); Lymphocytes # (Auto) 1.5 Thou/mm3 (1.0-4.8); Lymphocytes % (Auto) 14 % (10-50); Mean Corpuscular HGB Conc 32.9 g/dl (31.0-37.0); Mean Corpuscular Hemoglobin 27.0 pg (25.0-35.0); Mean Corpuscular Volume 82 fL (80-100); Monocytes # (Auto) 0.7 Thou/mm3 (0.0-0.8); Monocytes % (Auto) 7 % (0-12); Neutrophils # (Auto) 8.3 Thou/mm3 (1.8-7.7); Neutrophils % (Auto) 76 % (37-80); Nucleated Red Blood Cell # 0.00 Thou/mm3 (0.00-0.00); Nucleated Red Blood Cell % 0 /100 WBC (0); Platelet Count 269 Thou/mm3 (140-440); RDW Standard Deviation 41.0 fL (35.1-43.9); Red Blood Count 3.70 Miln/mm3 (4.50-5.90); White Blood Count 10.9 Thou/mm3 (3.8-10.6)
[2024-12-19] MEDS: LEVOTHYROXINE SODIUM 100 MCG TABLET PO (06:08)
[2024-12-19 06:29] LABS: Anion Gap 11 (7-16); BUN/Creatinine Ratio 22 Ratio (12-20); Blood Urea Nitrogen 13 mg/dL (9-23); Calcium 8.9 mg/dL (8.3-10.6); Carbon Dioxide 24.0 mMol/L (20.0-31.0); Chloride 109 mMol/L (98-107); Creatinine (Component) 0.6 mg/dL (0.6-1.3); Estimated Creatinine Clearance 95.6 mL/min (>60); Glucose 105 mg/dL (74-106); Osmolality,Calculated 286 (275-295); Potassium 4.0 mMol/L (3.4-5.1); Sodium 144 mMol/L (136-145); eGFR > 60 See Note
[2024-12-19] MEDS: TAMSULOSIN HCL 0.4 MG CAPSULE PO (09:14)
[2024-12-19] MEDS: LACTULOSE SYRUP 20 GM/30 ML UDC PO ×2 (09:14→21:34)
[2024-12-19] MEDS: MEROPENEM INJ 1,000 MG in SODIUM CHLORIDE 0.9% (Popper) 50 ML 100 MG IV ×2 (09:14→21:34)
[2024-12-19] MEDS: ENOXAPARIN SOD INJ 40 MG/0.4 ML SYRINGE SC (09:14)
[2024-12-19] MEDS: FOLIC ACID 1 MG TABLET PO (09:15)
[2024-12-19] MEDS: THIAMINE 100 MG TABLET PO (09:15)
[2024-12-19] MEDS: ATORVASTATIN CALCIUM 20 MG TABLET 40 MG PO (09:15)
[2024-12-19] MEDS: ASPIRIN 81 MG CHEW PO (09:15)
[2024-12-19] MEDS: CHOLECALCIFEROL (Vitamin D3) 400 IU TABLET PO (09:15)
--- NOTE | 2024-12-19 09:30 | PD.HHPROG ---
Documentation for date of: 12/19/24 Subjective - Hospitalist Subjective Interval history: Patient aphasic At baseline. Spoke to and niece at bedside Patient having mild discomfort and lower abdominal and scrotal tenderness Review of Systems Review of Systems Narrative Review of Systems: Unable to obtain due to patient's aphasia Exam Vital Signs Temp Pulse Resp BP Pulse Ox O2 Del Method 97.5 F 99 21 H 156/90 H 97 Room Air 12/19/24 08:00 12/19/24 08:00 12/19/24 08:00 12/19/24 08:00 12/19/24 08:00 12/19/24 08:00 Additional findings Additional findings: Gen: Awake, aphasic Skin: warm, good turgor, no rash HEENT: NCAT, CLAUDE, no nasoaural discharge, moist mucous membranes Neck: supple, no JVD, no thyromegaly Lungs: clear to auscultation CV: regular rate and rhythm, no murmurs, no edema Abd: soft and non tender, normoactive bowel sounds : Left testicle is edematous, firm, no discoloration, no lesions Ext: no calf tenderness. Neuro: Awake, aphasic, right hemiparesis Objective - Hospitalist Labs Diagram: 12/19/24 05:48 12/19/24 05:48 Labs: Laboratory Results - last 24 hr 12/18/24 12/18/24 12/18/24 20:17 20:27 20:35 WBC 13.1 H RBC 4.47 L Hgb 12.0 L Hct 36.3 L MCV 81 MCH 26.8 MCHC 33.1 RDW Std Deviation 40.7 Plt Count 328 D Neut % (Auto) 74 Lymph % (Auto) 19 Bates % (Auto) 6 Eos % (Auto) 1 Baso % (Auto) 0 Neut # (Auto) 9.6 H Lymph # (Auto) 2.4 Bates # (Auto) 0.8 Eos # (Auto) 0.2 Baso # (Auto) 0.1 Immature Gran # (Auto) 0.05 H Absolute Nucleated RBC 0.00 Immature Gran % 0 Nucleated RBC % 0 ESR > 130 H Sodium 138 Potassium 4.1 Chloride 100 Carbon Dioxide 26.5 Anion Gap 12 BUN 15 Creatinine 0.7 Estim Creat Clear Calc 74.4 eGFR > 60 BUN/Creatinine Ratio 21 H Glucose 119 H Calculated Osmolality 277 Lactic Acid 1.9 Calcium 9.8 Corrected Calcium 9.8 Magnesium 2.0 Total Bilirubin 0.7 Direct Bilirubin 0.3 AST 46 H ALT 68 H Alkaline Phosphatase 223 H Troponin I < 0.020 C-Reactive Prot, Quant 13.7 H Total Protein 8.5 H Albumin 4.6 Globulin 3.9 H Albumin/Globulin Ratio 1.2 Amylase 115 Lipase 53 Procalcitonin 0.17 TSH 0.77 Ur Collection Type Clean Catch Urine Color Yellow Urine Clarity Turbid A Urine pH 6.5 Ur Specific Kermit 1.018 Urine Protein 1+ A Urine Glucose (UA) Negative Urine Ketones Negative Urine Blood 1+ A Urine Nitrite Positive Urine Bilirubin Negative Urine Urobilinogen (Auto) Negative Ur Leukocyte Esterase Positive Urine RBC 8 H Urine WBC 247 H Ur Squamous Epith Cells 1 Urine Bacteria 4+ A Ur Culture Indicated? Yes Influenza A (Rapid) Negative Influenza B (Rapid) Negative 12/19/24 05:48 WBC 10.9 H RBC 3.70 L Hgb 10.0 L D Hct 30.4 L MCV 82 MCH 27.0 MCHC 32.9 RDW Std Deviation 41.0 Plt Count 269 D Neut % (Auto) 76 Lymph % (Auto) 14 Bates % (Auto) 7 Eos % (Auto) 3 Baso % (Auto) 1 Neut # (Auto) 8.3 H Lymph # (Auto) 1.5 Bates # (Auto) 0.7 Eos # (Auto) 0.3 Baso # (Auto) 0.1 Immature Gran # (Auto) 0.04 H Absolute Nucleated RBC 0.00 Immature Gran % 0 Nucleated RBC % 0 ESR Sodium 144 Potassium 4.0 Chloride 109 H Carbon Dioxide 24.0 Anion Gap 11 BUN 13 Creatinine 0.6 Estim Creat Clear Calc 95.6 eGFR > 60 BUN/Creatinine Ratio 22 H Glucose 105 Calculated Osmolality 286 Lactic Acid Calcium 8.9 Corrected Calcium Magnesium Total Bilirubin Direct Bilirubin AST ALT Alkaline Phosphatase Troponin I C-Reactive Prot, Quant Total Protein Albumin Globulin Albumin/Globulin Ratio Amylase Lipase Procalcitonin TSH Ur Collection Type Urine Color Urine Clarity Urine pH Ur Specific Kermit Urine Protein Urine Glucose (UA) Urine Ketones Urine Blood Urine Nitrite Urine Bilirubin Urine Urobilinogen (Auto) Ur Leukocyte Esterase Urine RBC Urine WBC Ur Squamous Epith Cells Urine Bacteria Ur Culture Indicated? Influenza A (Rapid) Influenza B (Rapid) Assessment & Plan Patient Synopsis A 64-year-old male HTN, CVA with aphasia and right hemiparesis, Love catheter dependent with recurrent UTIs in the past was brought by family members to the ER because of left scrotal swelling and discomfort. Noted to be febrile, leukocytosis with significant elevation in inflammatory markers. CT abdomen/pelvis did reveal pyelonephritis and scrotal ultrasound confirmed bilateral hydrocele without torsion or mass. Also noted to have staghorn calculi on prior imaging which was redemonstrated in today's CT. - Increase LR to 100 mL an hour. - Continue meropenem empirically for pyelonephritis. - Resume home medications including Keppra, aspirin, statin, metoprolol and Seroquel, Tamsulosin - Continue levothyroxine home dose. - Follow-up with blood and urine cultures - Consult Urology for hydrocele & staghorn calculi once infection is improved. Heparin for DVT prophylaxis. Time Spent with Patient Time: Total time spent is greater than 50% in coordination of care (as documented) at patient's floor/unit and/or counseling patient: Time with patient: 25 - 35 minutes Reason for Continued Stay Reason for continued stay: IV antibiotics Quality Measures Quality Measures none Advance care planning discussed with:: spouse
--- NOTE | 2024-12-19 11:05 | PC.SS ---
Carlos Barclay is a 64 year-old male admitted to [facility] for UTI. SS conducted over the phone contact with the pts terri Lyn [facility] [phone] (Makeup Instructor for pt). Role and reason explained. Eboni stated pt at baseline is bedbound and requires max assit, pt is aligned with [facility] and they wish to continue at the time of DC. Pt has a bed, wheelchair, graham at home. Eboni identified pt son [phone] as the pts surrogate decision maker, she can also be called as she interprets for the family.. Pts PCP is Dr. Little (l;ast visit was 11/26). SS will remain available for any additional needs or concerns. DC plan: TIN DM: SonAhmet ?
--- NOTE | 2024-12-19 11:50 | PC.NURSE ---
Patient spitting out medications.
[2024-12-19] MEDS: RINGERS LACTATED 1000 ML 1,000 ML 100 ML IV (13:23)
[2024-12-19] MEDS: ACETAMINOPHEN 325 MG TABLET 650 MG PO (16:02)
[2024-12-19] MEDS: VANCOMYCIN/NS 1 GM IVPB 200 ML IV (16:26)
--- NOTE | 2024-12-19 16:34 | EKG_ITS ---
[facility], [place] Test Date: 2024-12-19 Pat Name: GABBY STEWART [facility] Gender: Male Infrastructure Tech: STEPHANIE : 1960 Requested By: Laura Anthony Order Number: [id number] Reading MD: Laura Anthony Measurements Intervals [place] Rate: 129 P: 51 AL: 152 QRS: 22 QRSD: 74 T: 28 QT: 334 QTc: 490 Interpretive Statements SINUS TACHYCARDIA NONSPECIFIC T-WAVE ABNORMALITY ABNORMAL RHYTHM ECG Compared to ECG 11/28/2024 18:17:08 Sinus rhythm no longer present T-wave abnormality still present /store/S0/[id number].pdf
[2024-12-19] MEDS: LOSARTAN POTASSIUM 25 MG TABLET PO (17:13)
[2024-12-20] VITALS (8 sets, daily range): BP systolic 131–162; BP diastolic 74–95; PULSE 86–113; RESP 15–23; TEMP 36.3–36.9; O2SAT 94–98
[2024-12-20] MEDS: RINGERS LACTATED 1000 ML 1,000 ML 100 ML IV (04:08)
[2024-12-20] MEDS: LEVOTHYROXINE SODIUM 100 MCG TABLET PO ×2 (06:09→08:20)
[2024-12-20] MEDS: LACTULOSE SYRUP 20 GM/30 ML UDC PO ×2 (08:19→21:30)
[2024-12-20] MEDS: FOLIC ACID 1 MG TABLET PO (08:19)
[2024-12-20] MEDS: MEROPENEM INJ 1,000 MG in SODIUM CHLORIDE 0.9% (Popper) 50 ML 100 MG IV ×2 (08:19→21:30)
[2024-12-20] MEDS: ENOXAPARIN SOD INJ 40 MG/0.4 ML SYRINGE SC (08:19)
[2024-12-20] MEDS: ASPIRIN 81 MG CHEW PO (08:20)
[2024-12-20] MEDS: CHOLECALCIFEROL (Vitamin D3) 400 IU TABLET PO (08:20)
[2024-12-20] MEDS: LOSARTAN POTASSIUM 25 MG TABLET PO (08:20)
[2024-12-20] MEDS: THIAMINE 100 MG TABLET PO (08:21)
[2024-12-20] MEDS: ATORVASTATIN CALCIUM 20 MG TABLET 40 MG PO (08:21)
[2024-12-20 09:54] LABS: Basophils # (Auto) 0.1 Thou/mm3 (0.0-0.2); Basophils % (Auto) 1 % (0-2.5); Eosinophils # (Auto) 0.2 Thou/mm3 (0.0-0.5); Eosinophils % (Auto) 2 % (0-10); Hematocrit 33.5 % (41.0-53.0); Hemoglobin 10.8 g/dL (13.5-16.0); Immature Granulocytes Auto 0.04 Thou/mm3 (0.00-0.00); Lymphocytes # (Auto) 1.7 Thou/mm3 (1.0-4.8); Lymphocytes % (Auto) 17 % (10-50); Mean Corpuscular HGB Conc 32.2 g/dl (31.0-37.0); Mean Corpuscular Hemoglobin 26.5 pg (25.0-35.0); Mean Corpuscular Volume 82 fL (80-100); Monocytes # (Auto) 0.7 Thou/mm3 (0.0-0.8); Monocytes % (Auto) 7 % (0-12); Neutrophils # (Auto) 7.3 Thou/mm3 (1.8-7.7); Neutrophils % (Auto) 73 % (37-80); Nucleated Red Blood Cell # 0.00 Thou/mm3 (0.00-0.00); Nucleated Red Blood Cell % 0 /100 WBC (0); Platelet Count 322 Thou/mm3 (140-440); RDW Standard Deviation 41.0 fL (35.1-43.9); Red Blood Count 4.07 Miln/mm3 (4.50-5.90); White Blood Count 10.0 Thou/mm3 (3.8-10.6)
[2024-12-20 10:14] LABS: Anion Gap 11 (7-16); BUN/Creatinine Ratio 8 Ratio (12-20); Blood Urea Nitrogen 5 mg/dL (9-23); Calcium 8.9 mg/dL (8.3-10.6); Carbon Dioxide 26.3 mMol/L (20.0-31.0); Chloride 105 mMol/L (98-107); Creatinine (Component) 0.6 mg/dL (0.6-1.3); Estimated Creatinine Clearance 95.7 mL/min (>60); Glucose 142 mg/dL (74-106); Osmolality,Calculated 282 (275-295); Potassium 3.2 mMol/L (3.4-5.1); Sodium 142 mMol/L (136-145); eGFR > 60 See Note
[2024-12-20 10:15] LABS: Alanine Aminotransferase 55 U/L (10-49); Albumin, Serum 3.7 gm/dL (3.4-4.8); Albumin/Globulin Ratio 1.2 (1.2-2.2); Alkaline Phosphatase 205 U/L (46-116); Aspartate Amino Transferase 40 U/L (0-34); Bilirubin,Total 0.6 mg/dL (0.3-1.2); Calcium (Corrected) 9.1 mg/dL (8.5-10.1); Globulin 3.1 gm/dL (2.3-3.5); Total Protein 6.8 gm/dL (5.7-8.2)
[2024-12-20] MEDS: TAMSULOSIN HCL 0.4 MG CAPSULE PO (11:07)
[2024-12-20] MEDS: VANCOMYCIN/NS 1 GM IVPB 200 ML IV ×2 (11:07→21:30)
[2024-12-20] MEDS: METOPROLOL SUCCINATE XL 25 MG TABCR 50 MG PO (11:25)
[2024-12-20] MEDS: POTASSIUM CHL 10 mEq IVPB 10 MEQ/100 ML BAG 100 MEQ IV ×4 (12:40→16:01)
--- NOTE | 2024-12-20 13:46 | ESPR_ITS ---
<Statement entered by Michelle Kurtz MD - 12/20/24 15:46> 64-year-old male with past medical history of CVA, diabetes, hypertension, was admitted for sepsis secondary due to UTI as well as pyelonephritis treatment and management #SIRS #Sepsis 2/2UTI #UTI #ANJUM (postrenal vs prerenal ) vs ANJUM on CKD on presentation was tachicardic, tachipnic, febrile, labs showd lukocytosis, LA wnl renal US BL cortical thinn -continue broad ABX, on yimi and vanc( had spike of fever yerterday , so vanc was added) -had chronic poon cath, which was supposed to be replaced each month, the last time it was done on November. -folley cath was replaced today, will follow with UC, -f/u with BC, which is (-) in 24 h. -follow with the culture, de escalate after culture resluts #hydrocele-improved continue to monitore #HTN continue losartan and metoprolol I personally saw and examined the patient and discussed the assessment and plan with the entire medicine team, including my attending , Michelle Kurtz M.D. PGY-3 Disclaimer: Despite multiple revisions, due to the dictation software being used, the document bellow may not be free of grammatical errors including phonetic/typographic errors. However, this does not deter from our commitment to providing health care in the patient's best interest in mind. Documentation for date of: 12/20/24 Subjective Subjective Interval history: Patient seen at bedside. No acute overnight events. Patient's vitals and labs were reviewed. Hydrocele swelling has improved. BCx + UCx pending. Potassium was repleted. Poon catheter was replaced today, since has chronic poon in place needs to be replaced monthly. Exam Vital Signs Temp Pulse Resp BP Pulse Ox O2 Del Method 97.6 F 109 H 18 145/80 H 94 L Room Air 12/20/24 12:00 12/20/24 12:00 12/20/24 12:00 12/20/24 12:00 12/20/24 12:00 12/20/24 12:00 Narrative Exam Gen: Awake, aphasic at basline Skin: warm, good turgor, no rash HEENT: NCAT, CLAUDE, no nasoaural discharge, moist mucous membranes Neck: supple, no JVD, no thyromegaly Lungs: clear to auscultation, good air entery bilat CV: regular rate and rhythm, S1+S2, no murmurs, no edema Abd: soft and non tender, normoactive bowel sounds : Left testicle is slightly edematous, firm, no discoloration, no lesions Ext: No calf tenderness Neuro: Awake, aphasic, right hemiparesis Objective Labs 12/20/24 08:53 12/20/24 08:53 Labs: Laboratory Results - last 24 hr 12/20/24 08:53 WBC 10.0 RBC 4.07 L Hgb 10.8 L Hct 33.5 L MCV 82 MCH 26.5 MCHC 32.2 RDW Std Deviation 41.0 Plt Count 322 D Neut % (Auto) 73 Lymph % (Auto) 17 Gaines % (Auto) 7 Eos % (Auto) 2 Baso % (Auto) 1 Neut # (Auto) 7.3 Lymph # (Auto) 1.7 Gaines # (Auto) 0.7 Eos # (Auto) 0.2 Baso # (Auto) 0.1 Immature Gran # (Auto) 0.04 H Absolute Nucleated RBC 0.00 Immature Gran % 0 Nucleated RBC % 0 Sodium 142 Potassium 3.2 L D Chloride 105 Carbon Dioxide 26.3 Anion Gap 11 BUN 5 L Creatinine 0.6 Estim Creat Clear Calc 95.7 eGFR > 60 BUN/Creatinine Ratio 8 L Glucose 142 H Calculated Osmolality 282 Calcium 8.9 Corrected Calcium 9.1 Total Bilirubin 0.6 AST 40 H ALT 55 H Alkaline Phosphatase 205 H Total Protein 6.8 Albumin 3.7 D Globulin 3.1 Albumin/Globulin Ratio 1.2 Quality Measures Quality Measures none Advance care planning discussed with:: spouse Assessment & Plan Assessment Current Active Medications: Generic Name Dose Route Start Last Admin Trade Name Freq PRN Reason Stop Dose Admin Acetaminophen 650 mg 12/19/24 15:55 12/19/24 16:02 Acetaminophen 325 Mg Tablet PO 01/18/25 15:54 650 mg Q4HR PRN Administration FEVER >101 Albuterol 1 puff 12/19/24 06:19 Albuterol Inh 8 Gm INH 01/18/25 06:18 Q6HR PRN wheezing Aspirin 81 mg 12/19/24 09:00 12/20/24 08:20 Aspirin 81 Mg Chew PO 01/18/25 08:59 81 mg QDAY RAFAEL Administration Atorvastatin Calcium 40 mg 12/19/24 09:00 12/20/24 08:21 Atorvastatin Calcium 20 Mg Tablet PO 01/18/25 08:59 40 mg DAILY RAFAEL Administration Bisacodyl 10 mg 12/18/24 23:37 Bisacodyl 10 Mg Supp NM 01/17/25 23:36 QDAY PRN Constipation Protocol Enoxaparin Sodium 40 mg 12/19/24 09:00 12/20/24 08:19 Enoxaparin Sod Inj 40 Mg/0.4 Ml Syringe SC 01/02/25 08:59 40 mg QDAY RAFAEL Administration Folic Acid 1 mg 12/19/24 09:00 12/20/24 08:19 Folic Acid 1 Mg Tablet PO 01/18/25 08:59 1 mg QDAY RAFAEL Administration Meropenem 1,000 mg/ Sodium 50 mls @ 100 mls/hr 12/19/24 09:00 12/20/24 08:19 Chloride IV 12/26/24 08:59 100 mls/hr Q12HR RAFAEL Administration Lactated Ringer's 1,000 mls @ 100 mls/hr 12/19/24 11:31 12/20/24 04:08 Lactated Ringers IV 01/18/25 11:30 100 mls/hr .Q10H RAFAEL Administration Vancomycin/Sodium Chloride 200 mls @ 120 mls/hr 12/19/24 16:15 12/20/24 11:07 Vancomycin/Ns 1 Gm Ivpb IV 12/26/24 16:14 120 mls/hr BID@1000,2200 RAFAEL Administration Potassium Chloride 10 meq in 100 mls @ 100 mls/hr 12/20/24 10:37 12/20/24 12:40 Kcl Ivpb IV 12/20/24 16:36 100 mls/hr Q1H RAFAEL Administration Lactulose 20 gm 12/19/24 09:00 12/20/24 08:19 Lactulose Syrup 20 Gm/30 Ml Udc PO 01/18/25 08:59 20 gm BID RAFAEL Administration Protocol Levetiracetam 500 mg 12/19/24 06:30 12/20/24 08:20 Levetiracetam 250 Mg Tablet PO 01/18/25 06:29 500 mg Q12HR RAFAEL Administration Levothyroxine Sodium 100 mcg 12/19/24 06:00 12/20/24 08:20 Levothyroxine Sodium 100 Mcg Tablet PO 01/18/25 05:59 100 mcg QDAY RAFAEL Administration Losartan Potassium 25 mg 12/19/24 16:45 12/20/24 08:20 Losartan Potassium 25 Mg Tablet PO 01/18/25 16:44 25 mg QDAY RAFAEL Administration Metoprolol Succinate 50 mg 12/19/24 12:00 12/20/24 11:25 Metoprolol Succinate Xl 25 Mg Tabcr PO 01/18/25 11:59 50 mg 1200 RAFAEL Administration Mineral Oil 30 ml 12/19/24 00:00 Mineral Oil 30 Ml Udc NM 01/17/25 23:36 QDAY PRN CONSTIPATION Morphine Sulfate 2 mg 12/18/24 23:37 Morphine Sulf Inj 4 Mg/Ml Vial IVP 12/23/24 23:36 Q2H PRN PAIN SCALE 7-10 (Severe Ondansetron HCl 4 mg 12/18/24 23:37 Ondansetron Inj 2 Mg/Ml Inj 2 Ml IVP 01/17/25 23:36 Q6H PRN NAUSEA OR VOMITING Protocol Pharmacy Consult 1 each 12/20/24 09:00 Vancomycin Pharmacy To Dose 1 Each Each IV 01/19/25 08:59 QDAY PRN PROTOCOL Phenazopyridine HCl 100 mg 12/18/24 23:42 Phenazopyridine Hcl 100 Mg Tablet PO 12/20/24 23:41 TID PRN PAIN Protocol Quetiapine Fumarate 25 mg 12/19/24 09:00 12/20/24 08:20 Quetiapine Fumarate 25 Mg Tablet PO 01/18/25 08:59 25 mg QDAY RAFAEL Administration Tamsulosin HCl 0.4 mg 12/19/24 09:15 12/20/24 11:07 Tamsulosin Hcl 0.4 Mg Capsule PO 01/18/25 09:14 0.4 mg DAILY RAFAEL Administration Thiamine HCl 100 mg 12/19/24 09:00 12/20/24 08:21 Thiamine 100 Mg Tablet PO 01/18/25 08:59 100 mg QDAY RAFAEL Administration Vitamin D 400 iu 12/19/24 09:00 12/20/24 08:20 Cholecalciferol (Vitamin D3) 400 Iu Tablet PO 01/18/25 08:59 400 iu DAILY RAFAEL Administration Plan 64-year-old male with past medical history of CVA with aphasia and right hemiparesis, hypertension, was admitted for sepsis secondary due to UTI, as well as pyelonephritis treatment and management #Sepsis 2/2, resolving #UTI On presentation was tachycardic, tachypnic, febrile labs showd lukocytosis, LA wnl UA showed leuk and nitrite positive renal US BL cortical thinning WBC now normal and afebrile since 12/19 Plan - Continue broad Abx, on Yimi 1g q12h and vanc - Chronic poon, replaced 12/20, needs replacement monthly - F/U urine culture, de escalate after culture results - F/U with BC, which is (-) in 24 h. #Left testicular hydrocele #BPH Testicular ultrasound showed bilateral hydroceles, no torsion, arterial flow to both testicles seen. Swelling improved clinically Plan - Monitor for worsening swelling - Continue Flomax 0.4mg qDay #CVA with residual aphasia and right hemiparesis At baseline according to family Plan - Continue aspirin 81 mg qday - Continue atorvastatin 40mg qday #HTN Takes losartan 25mg qday and metoprolol succ 50mg qday - Continue home meds #Hx of Seizure Takes Keppra 500mg BID Plan -Seizure precaution - Continue home med #Hx of Hypothyroidism Takes levothyroxine 100mcg daily Plan - Continue home med - TSH, fT4 in AM Health Maintenance: Diet: dysphagia 1 -pureed GI prophylaxis: none DVT prophylaxis: Lovenox Antibiotics: meropenam and vancomycin CODE STATUS: FULL Disposition: MedTele Case discussed with my attending Dr. Daniel, and senior resident, Dr. Tessie Marie MD PGY-1 Attending Provider Attestation/Addendum I, Sue Daniel DO, attest that I was physically present for the izaguirre portions of the service and evaluated the patient with the resident and I reviewed and discussed the case with the resident and agree with the resident's findings and plans of care as documented above #Sepsis secondary to UTI #Left testicular edema, improved # CVA with aphasia and residual right hemiplegia #HTN #BPH #Seizure #Hypothyroidism Patient is a 64-year-old male with past medical history of CVA with residual right-sided hemiaplasia and aphasia, neurogenic bladder with chronic indwelling Poon catheter, hypertension, recurrent UTI who was brought to the ED by family due to concern for scrotal edema. Family at bedside states that patient had appeared more uncomfortable with significant swelling in his scrotum. This has appeared to have improved since. Patient is aphasic and only moans and groans. He does have some bitemporal wasting. Family states that he has been having poor appetite for the past week or so. Patient has had several UTIs in the past that appear to be pansensitive E. coli. Last time Poon was changed with cystoscopy at the end of November. Patient has home health following at home. Will exchange Poon catheter today. He otherwise is on meropenem due to recurrent UTI. Pending final cultures and sensitivity of urine. Blood culture has been negative x 24 hours. He is also on vancomycin due to fever yesterday afternoon. Per family at bedside patient has been tachycardic and was noted to be tachycardic by the home health the past week. Will continue with IV fluid. Reviewed findings of both testicular ultrasound and abdominal pelvis CT with family at bedside. All questions and concerns addressed at bedside.
--- NOTE | 2024-12-20 16:29 | PC.LAC ---
New 16 lao Love inserted today
[2024-12-21] VITALS (7 sets, daily range): BP systolic 121–154; BP diastolic 80–94; PULSE 83–110; RESP 17–23; TEMP 36.2–36.6; O2SAT 92–95
[2024-12-21 06:18] LABS: Basophils # (Auto) 0.1 Thou/mm3 (0.0-0.2); Basophils % (Auto) 1 % (0-2.5); Eosinophils # (Auto) 0.3 Thou/mm3 (0.0-0.5); Eosinophils % (Auto) 3 % (0-10); Hematocrit 32.4 % (41.0-53.0); Hemoglobin 10.7 g/dL (13.5-16.0); Immature Granulocytes Auto 0.02 Thou/mm3 (0.00-0.00); Lymphocytes # (Auto) 1.8 Thou/mm3 (1.0-4.8); Lymphocytes % (Auto) 18 % (10-50); Mean Corpuscular HGB Conc 33.0 g/dl (31.0-37.0); Mean Corpuscular Hemoglobin 26.7 pg (25.0-35.0); Mean Corpuscular Volume 81 fL (80-100); Monocytes # (Auto) 0.8 Thou/mm3 (0.0-0.8); Monocytes % (Auto) 8 % (0-12); Neutrophils # (Auto) 7.0 Thou/mm3 (1.8-7.7); Neutrophils % (Auto) 70 % (37-80); Nucleated Red Blood Cell # 0.00 Thou/mm3 (0.00-0.00); Nucleated Red Blood Cell % 0 /100 WBC (0); Platelet Count 302 Thou/mm3 (140-440); RDW Standard Deviation 40.7 fL (35.1-43.9); Red Blood Count 4.01 Miln/mm3 (4.50-5.90); White Blood Count 10.0 Thou/mm3 (3.8-10.6)
[2024-12-21 06:37] LABS: Alanine Aminotransferase 52 U/L (10-49); Albumin, Serum 3.5 gm/dL (3.4-4.8); Albumin/Globulin Ratio 1.1 (1.2-2.2); Alkaline Phosphatase 186 U/L (46-116); Anion Gap 11 (7-16); Aspartate Amino Transferase 41 U/L (0-34); BUN/Creatinine Ratio 8 Ratio (12-20); Bilirubin,Total 0.6 mg/dL (0.3-1.2); Blood Urea Nitrogen < 5 mg/dL (9-23); Calcium 9.0 mg/dL (8.3-10.6); Calcium (Corrected) 9.4 mg/dL (8.5-10.1); Carbon Dioxide 25.9 mMol/L (20.0-31.0); Chloride 106 mMol/L (98-107); Creatinine (Component) 0.6 mg/dL (0.6-1.3); Estimated Creatinine Clearance 99.2 mL/min (>60); Free T4 (Free Thyroxine) 1.29 ng/dL (0.89-1.76); Globulin 3.2 gm/dL (2.3-3.5); Glucose 97 mg/dL (74-106); Magnesium 1.7 mg/dL (1.6-2.6); Osmolality,Calculated 282 (275-295); Phosphorous 3.4 mg/dL (2.4-5.1); Potassium 3.8 mMol/L (3.4-5.1); Sodium 143 mMol/L (136-145); Thyroid Stimulating Hormone 0.75 uIU/mL (0.55-4.78); Total Protein 6.7 gm/dL (5.7-8.2); eGFR > 60 See Note
[2024-12-21 07:51] LABS: Glucose Estimated Average 97 mg/dL (80-131); Hemoglobin A1C 5.0 % Hgb (4.8-6.0)
[2024-12-21] MEDS: LACTULOSE SYRUP 20 GM/30 ML UDC PO (09:33)
[2024-12-21] MEDS: ASPIRIN 81 MG CHEW PO (09:34)
[2024-12-21] MEDS: LOSARTAN POTASSIUM 25 MG TABLET PO (09:34)
[2024-12-21] MEDS: THIAMINE 100 MG TABLET PO (09:34)
[2024-12-21] MEDS: MEROPENEM INJ 1,000 MG in SODIUM CHLORIDE 0.9% (Popper) 50 ML 100 MG IV (09:34)
[2024-12-21] MEDS: ENOXAPARIN SOD INJ 40 MG/0.4 ML SYRINGE SC (09:34)
[2024-12-21] MEDS: TAMSULOSIN HCL 0.4 MG CAPSULE PO (09:35)
[2024-12-21] MEDS: LEVOTHYROXINE SODIUM 100 MCG TABLET PO (09:36)
[2024-12-21] MEDS: FOLIC ACID 1 MG TABLET PO (09:36)
[2024-12-21] MEDS: ATORVASTATIN CALCIUM 20 MG TABLET 40 MG PO (09:36)
[2024-12-21] MEDS: CHOLECALCIFEROL (Vitamin D3) 400 IU TABLET PO (09:36)
--- NOTE | 2024-12-21 09:47 | PC.SS ---
Follow up note: On IV antibiotic. Pt will return home with .
[2024-12-21 10:23] LABS: Vancomycin,Trough 12.9 mcg/mL (5.0-10.0)
--- NOTE | 2024-12-21 11:00 | ESDS_ITS ---
<Statement entered by Sue Daniel DO - 12/22/24 09:53> I, Sue Daniel DO, attest that I was physically present for the izaguirre portions of the service and evaluated the patient with the resident and I reviewed and discussed the case with the resident and agree with the resident's findings and plans of care as documented above Planned Discharge Date 12/21/24 DS: Providers Provider Date of admission: 12/20/24 14:45 Primary care physician: Lana Little PA-C Admitting Provider: Cuong James MD Attending Provider on Admission: Sue Daniel DO Consults: 12/19/24 03:00 Referral Occupational Therapy Routine Comment: Referral Registered Dietitian Routine Comment: Attending Provider on DC: Sue Daniel DO Discharging Provider: Sue Daniel DO DS: Diagnosis Problem List Completed Was Problem List Reviewed/Reconciled?: Yes Hospital Course Hospital Course Hospital course: 64-year-old male with a 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 He was brought to the ED by family due to concern for scrotal edema and increased discomfort; the swelling had improved by the time of evaluation. The patient is aphasic and communicates only through moaning and groaning. On exam, bitemporal wasting was noted, and family reported poor appetite over the past week. He has a history of multiple UTIs with prior cultures growing nova- sensitive E. coli. His Poon catheter was last exchanged with cystoscopy at the end of November 2024. The Poon was replaced during this admission 12/20. On presentation, he was febrile, tachycardic, and tachypneic, with labs showing leukocytosis and normal lactic acid. Renal ultrasound demonstrated bilateral cortical thinning. He was started on meropenem due to recurrent UTI, and vancomycin was added after a febrile episode. Blood cultures remained negative after 48hrs, and urine cultures was positive for E.coli. Hydrocele and scrotal edema improved with monitoring. Testicular ultrasound and CT abdomen/pelvis findings were reviewed with the family, and all questions were addressed. The patient was discharged afebrile and hemodynamically stable, with follow-up recommended for primary care, urology, and ongoing Poon catheter care. Patient was discharged with 7 days of Cephalexin 1000 mg by mouth three times a day. Discharge instructions: Take cephalexin 1000 mg by mouth three times a day for 7 additional days for UTI Take albuterol inhaler 1 puff every 6 hours as needed for wheezing Take losartan 25 mg tablet by mouth once a day for high blood pressure Continue all other home medications as prescribed Please follow-up with your PCP within 1 week of discharge or follow-up at the [address] [place] [address] Ask your PCP to recheck CXR in 3 months due to mediastinal region fullness If your symptoms worsen or if you develop new fever/chills, chest pain, shortness of breath or urinary bleeding - please come back to the ED immediately Admission diagnoses: #Sepsis secondary to complicated UTI #Chronic indwelling poon catheter #Left testicular edema 2/2 hydrocoele, improved #CVA with aphasia and residual right hemiplegia #HTN #BPH #Seizure #Hypothyroidism Case discussed with my attending Dr. Daniel, and senior resident, Dr. Conrado Marie MD PGY-1 Status at Discharge Overall status at discharge: patient is progressing back to baseline Time Spent with Patient Time attestation: Total time spent providing and/or coordinating discharge services: Time spent: Greater than 30 minutes Home Health Home Health Referral Orders: 12/21/24 10:40 Home Health Referral Routine Reason For Exam: neurogenic bladder Home-Bound The patient must either because of illness or injury, need the aid of supportive devices such as crutches, canes, wheelchairs, and walkers; the use of special transportation; or the assistance of another person in order to leave their place of residence; OR have a condition such that leaving his or her home is medically contraindicated. In addition, the patient also meets the following criteria: patient is normally unable to leave the home and leaving home requires considerable taxing effort. Addendum to Home Health Certification Practitioner's Certification: I certify that the patient has been under my care in the hospital and the care of attending physician (see below). We had a [id number] encounter on (see date below). My clinical findings indicate that the patient is home bound per the above criteria and the Home Health Services noted in these orders are medically necessary. The primary reason for the [id number] encounter is related to the fact that the patient requires home health services. Date Certifying [id number] Physician Encounter: 12/18/24 Physician's Name who will Assume Oversight for Services: Lana Little Physician's Phone No.who will Assume Oversight for Service: CONDITIONER TENDER - Community Resources: No PT to Evaluate: Yes PT to evaluate and provide a treatmnet plan to increase patient's mobility and strength. Wound Care: No IV Therapy: No Discontinue PICC Line Once Treatment Complete: No RN Safety Evaluation: Yes: ayah PICHARDO to evaluate and create a plan of care that will produce positive outcomes. Palliative Treatment: No Palliative treatment and evaluate the need for hospice. Home Health Aide - Personal Care: Yes Home Health Aide to assist with any ADL's. Exam Vital Signs Temp Pulse Resp BP Pulse Ox O2 Del Method 97.8 F 86 19 144/90 H 95 Room Air 12/21/24 08:00 12/21/24 09:34 12/21/24 08:00 12/21/24 09:34 12/21/24 08:00 12/21/24 08:00 Narrative Exam Gen: Awake, aphasic at basline Skin: warm, good turgor, no rash HEENT: NCAT, CLAUDE, no nasoaural discharge, moist mucous membranes Neck: supple, no JVD, no thyromegaly Lungs: clear to auscultation, good air entery bilat CV: regular rate and rhythm, S1+S2, no murmurs, no edema Abd: soft and non tender, normoactive bowel sounds : Left testicle is slightly edematous, firm, no discoloration, no lesions Ext: No calf tenderness Neuro: Awake, aphasic, right hemiparesis Discharge Plan Plan Patient Disposition: Home w/HOME HEALTH Care Plan Goals: Take cephalexin 1000 mg by mouth three times a day for 7 additional days for UTI Take albuterol inhaler 1 puff every 6 hours as needed for wheezing Take losartan 25 mg tablet by mouth once a day for high blood pressure Continue all other home medications as prescribed Please follow-up with your PCP within 1 week of discharge or follow-up at the [facility] [address] [place], [place] [id number] Ask your PCP to recheck CXR in 3 months due to mediastinal region fullness If your symptoms worsen or if you develop new fever/chills, chest pain, shortness of breath or urinary bleeding - please come back to the ED immediately Prescriptions/Referrals Prescriptions/Med Rec: New albuterol sulfate [Ventolin HFA] 90 mcg/actuation Hfa Aerosol Inhaler 1 puff INH Q6HR PRN (Reason: wheezing) 30 Days Qty: 6.7 1RF losartan 25 mg Tablet 25 mg PO QDAY 30 Days Qty: 30 0RF cephalexin 500 mg capsule 1,000 mg PO TID 7 Days Qty: 42 0RF Continued tamsulosin 0.4 mg capsule 4 mg PO DAILY folic acid 1 mg tablet 1 mg PO QDAY levothyroxine 100 mcg tablet 100 mcg PO QDAY quetiapine 25 mg tablet 25 mg PO HS thiamine HCl (vitamin B1) 100 mg tablet 100 mg PO QDAY metoprolol succinate 100 mg tablet extended release 24 hr 50 mg PO 1200 Qty: 30 0RF Patient Comments: TAKE ONE TABLET BY MOUTH EVERY DAY in THE afternoon FOR BLOOD PRESSURE aspirin 81 mg tablet,chewable 81 mg PO QDAY Qty: 30 0RF cholecalciferol (vitamin D3) [Vitamin D3] 10 mcg (400 unit) tablet 400 unit PO DAILY Patient Comments: TAKE ONE TABLET BY MOUTH TWICE DAILY VITAMIN levetiracetam 500 mg tablet 500 mg PO Q12H Patient Comments: TAKE ONE TABLET BY MOUTH TWICE DAILY Discontinued phenazopyridine [Pyridium] 100 mg tablet 100 mg PO TID PRN (Reason: pain) Qty: 10 1RF albuterol 90 mcg/actuation aerosol 90 mcg inhalation [id number] PRN (Reason: wheezing) Rx Instructions: 1-2 inhalation every 6H PRN for wheezing Referrals: Lana Little PA-C [Primary Care Provider, Family Practice] Patient/Caregiver Discharge Instructions Education Materials: Urinary Tract Infections in Men, When to Use Antibiotics Print Language: [place] Citizen Stand Alone Forms: Cynthia Award Info., Patient Portal Info Letter Discharge Order Discharge Orders: Discharge (Routine); Ordered 12/21/24 Ordered By: James Camp Quality Discharge Quality Measures VTE prophylaxis
[2024-12-21] MEDS: METOPROLOL SUCCINATE XL 25 MG TABCR 50 MG PO (11:57)
--- NOTE | 2024-12-22 08:41 | PC.CM ---
[id number] I called [facility] and I spoke to Emily transfer nurse. I asked if patient was cleared financially. Emily states patient is financially cleared and they are pending an open telemetry bed. Patient is on their list for a bed.
--- NOTE | 2024-12-22 10:51 | PC.CM ---
Na has been accepted by [facility] and start of care date set for 12/23.
== END 2024-12-21 16:33 | disposition home health service (06) | DRG 872 ==
LOC: SERX 23:22 → S3NX 12-20 14:58 → SERHOLD 12-20 15:04
PROVIDERS: Student in an Organized Health Care Education/Training Program; Admitting Provider Internal Medicine; Emergency Provider Emergency Medicine; PCP Physician Assistant; Visit Provider Internal Medicine
DX: A41.9 Sepsis, unspecified organism (principal); I69.351 Hemiplegia and hemiparesis following cerebral infarction affecting right dominant side; N12 Tubulo-interstitial nephritis, not specified as acute or chronic; N30.00 Acute cystitis without hematuria; N20.0 Calculus of kidney; I69.320 Aphasia following cerebral infarction; B96.20 Unspecified Escherichia coli [E. coli] as the cause of diseases classified elsewhere; E03.9 Hypothyroidism, unspecified; N40.0 Benign prostatic hyperplasia without lower urinary tract symptoms; J45.909 Unspecified asthma, uncomplicated; N31.9 Neuromuscular dysfunction of bladder, unspecified; I10 Essential (primary) hypertension; Z87.440 Personal history of urinary (tract) infections; N43.3 Hydrocele, unspecified; E11.9 Type 2 diabetes mellitus without complications; Z87.442 Personal history of urinary calculi; Z79.82 Long term (current) use of aspirin; Z87.891 Personal history of nicotine dependence
CPT/HCPCS: 36415; 71045; 71250; 74176; 76870; 80048; 80053; 80202; 81001; 82150; 82248; 83036; 83605; 83690; 83735; 84100; 84145; 84439; 84443; 84484; 85025; 85652; 86140; 87040; 87077; 87086; 87186; 87502; 87811; 93005; 93225; 99284; G0378; J0131; J0696; J1650; J1885; J2185; J2270; J2405; J3373; J3475; J3480; J7030; J7050; J7120; A9270

== ENCOUNTER 2025-01-11 12:50 | Emergency (ER) | payer MEDICARE, MEDICAID, SELFPAY ==
[2025-01-11] VITALS (8 sets, daily range): BP systolic 131–170; BP diastolic 74–117; PULSE 79–108; RESP 17–19; TEMP 36.6–37.2; O2SAT 94–98
--- NOTE | 2025-01-11 | XR_ITS ---
MRI abdomen, without contrast. MRCP Date and time of exam: January 11, 2025, 1736 hours INDICATIONS: Decreased urinary tract output since yesterday, extrahepatic biliary tract dilatation on CT abdomen/pelvis study this afternoon Technique: Multiple axial and coronal images of the abdomen have been obtained with the Siemens 1.5T MRI scanner. Images obtained included T1 weighted transverse images, T2-weighted transverse images, T2-weighted transverse images fat-suppressed, T2 weighted haste fat suppressed transverse images, T1 weighted images, in and out of phase images, T2-weighted coronal images, breath hold, T2 weighted haze coronal images as well as T2 weighted coronal thick slab images, MRCP. Findings: Intrahepatic biliary tract dilatation No gallstones Common hepatic duct common bile duct 9 mm Meniscus defect in the distal common bile duct suspicious for 5 mm impacted distal common bile duct stone Spleen is not enlarged Negative for pancreatitis Minimal perinephric stranding Aorta normal size IMPRESSION: Extrahepatic biliary tract dilatation, suspicious for 5 mm impacted stone in the distal common bile duct, recommend ERCP follow-up
[2025-01-11 13:52] LABS: Alanine Aminotransferase 51 U/L (10-49); Albumin, Serum 4.2 gm/dL (3.4-4.8); Albumin/Globulin Ratio 1.4 (1.2-2.2); Alkaline Phosphatase 114 U/L (46-116); Anion Gap 8 (7-16); Aspartate Amino Transferase 30 U/L (0-34); BUN/Creatinine Ratio 21 Ratio (12-20); Bilirubin,Total 0.2 mg/dL (0.3-1.2); Blood Urea Nitrogen 15 mg/dL (9-23); Calcium 9.3 mg/dL (8.3-10.6); Calcium (Corrected) 9.3 mg/dL (8.5-10.1); Carbon Dioxide 29.0 mMol/L (20.0-31.0); Chloride 104 mMol/L (98-107); Creatinine (Component) 0.7 mg/dL (0.6-1.3); Globulin 2.9 gm/dL (2.3-3.5); Glucose 120 mg/dL (74-106); Osmolality,Calculated 283 (275-295); Potassium 3.8 mMol/L (3.4-5.1); Sodium 141 mMol/L (136-145); Total Protein 7.1 gm/dL (5.7-8.2); eGFR > 60 See Note
[2025-01-11 14:04] LABS: Basophils # (Auto) 0.1 Thou/mm3 (0.0-0.2); Basophils % (Auto) 1 % (0-2.5); Eosinophils # (Auto) 0.3 Thou/mm3 (0.0-0.5); Eosinophils % (Auto) 4 % (0-10); Hematocrit 36.8 % (41.0-53.0); Hemoglobin 12.0 g/dL (13.5-16.0); Immature Granulocytes Auto 0.02 Thou/mm3 (0.00-0.00); Lymphocytes # (Auto) 2.9 Thou/mm3 (1.0-4.8); Lymphocytes % (Auto) 40 % (10-50); Mean Corpuscular HGB Conc 32.6 g/dl (31.0-37.0); Mean Corpuscular Hemoglobin 27.4 pg (25.0-35.0); Mean Corpuscular Volume 84 fL (80-100); Monocytes # (Auto) 0.5 Thou/mm3 (0.0-0.8); Monocytes % (Auto) 7 % (0-12); Neutrophils # (Auto) 3.5 Thou/mm3 (1.8-7.7); Neutrophils % (Auto) 47 % (37-80); Nucleated Red Blood Cell # 0.00 Thou/mm3 (0.00-0.00); Nucleated Red Blood Cell % 0 /100 WBC (0); Platelet Count 223 Thou/mm3 (140-440); RDW Standard Deviation 45.1 fL (35.1-43.9); Red Blood Count 4.38 Miln/mm3 (4.50-5.90); White Blood Count 7.3 Thou/mm3 (3.8-10.6)
--- NOTE | 2025-01-11 14:18 | PD.EDMALE ---
ED Male Genitalurinary RME/HPI General Chief complaint: Urogenital-Male Stated complaint: URINARY PAIN Time Seen by Provider: 01/11/25 13:11 Arrival date/time: 01/11/25 12:50 Limitations: no limitations RME / HPI RME / HPI Narrative: 64 year old male with history of CVA with aphasia and right hemiparesis, hypertension, chronic indwelling poon catheter, recurrent UTIs and previous bowel obstruction presents to the ED BIBA from home for evaluation of decreased urinary output. Per the niece, they noted decreased urinary output yesterday evening and this morning appears to be uncomfortable and in pain. Denies any blood in urine. Last bowel movement was at 05:00 AM today. The niece denies any fevers, cough, appearance of shortness of breath, vomiting, or diarrhea. Related Data Home Medications ?Medication ?Instructions ?Recorded ?Confirmed tamsulosin 0.4 mg capsule 4 mg PO DAILY 03/01/24 12/19/24 folic acid 1 mg tablet 1 mg PO QDAY 07/12/24 12/19/24 levothyroxine 100 mcg tablet 100 mcg PO QDAY 07/12/24 12/19/24 quetiapine 25 mg tablet 25 mg PO HS 07/12/24 12/19/24 thiamine HCl (vitamin B1) 100 mg 100 mg PO QDAY 07/12/24 12/19/24 tablet cholecalciferol (vitamin D3) 10 400 unit PO DAILY 12/19/24 12/19/24 mcg (400 unit) tablet (Vitamin D3) levetiracetam 500 mg tablet 500 mg PO Q12H 12/19/24 12/19/24 Previous Rx's ?Medication ?Instructions ?Recorded aspirin 81 mg chewable tablet 81 mg PO QDAY #30 tabs 07/16/24 metoprolol succinate 100 mg 50 mg (1/2 x 100 mg) PO 1200 #30 07/16/24 tablet,extended release 24 hr tabs albuterol sulfate 90 mcg/actuation 1 puff INH Q6HR PRN wheezing 1 12/21/24 aerosol inhaler (Ventolin HFA) month #6.7 grams Allergies Allergy/AdvReac Type Severity Reaction Status Date / Time No Known Drug Allergies Allergy Unknown Verified 12/18/24 19:22 Review of Systems Review of Systems Systems Reviewed: All systems reviewed, normal except as documented Past Medical History Past Medical History NEUROLOGIC: Positive Cerebrovascular Accident, Seizures, Epilepsy and Paralysis CARDIAC: Positive Cardiac Disorders, Hypercholesterolemia and Hypertension GENITOURINARY: Positive Genitourinary Disorders (chronic poon since CVA), Kidney Stones and Benign Prostatic Hyperplasia Surgical History SURGICAL: Positive Coronary Artery Bypass Graft Social History SMOKING STATUS: Unknown if ever smoked SUBSTANCE USE: does not use ED Exam General Limitations: Present no limitations General appearance: Present alert and other (appears uncomfortable, moaning, grimacing) Head Head exam: Present atraumatic, normocephalic and normal inspection Eye Eye exam: Present normal appearance, PERRL and EOMI ENT ENT exam: Present normal exam, normal oropharynx and mucous membranes moist Neck Neck exam: Present normal inspection, full ROM and trachea midline Chest Chest inspection: Present normal inspection and symmetric chest wall rise Respiratory Respiratory exam: Present normal lung sounds bilaterally Cardiovascular Cardiovascular exam: Present regular rate, normal rhythm and normal heart sounds Abdominal Exam Abdominal exam: Present soft, distention, normal bowel sounds and hyperactive bowel sounds (and high pitched bowel sounds ) Extremities Exam Extremities exam: Present other (Rigth arm edema, no erythema, no increased warmth ) Back Exam Back exam: Present normal inspection and full ROM Neurological Exam Neurological exam: Present other (Patient is awake, alert, nonverbal after CVA ) Skin Skin exam: Present warm, dry, intact and normal color Course Course Course Narrative: The CT abdomen pelvis report shows extrahepatic biliary tract dilatation, common hepatic duct 10 mm, common bile duct 8 mm. MRCP was ordered. I spoke with respiratory tech Lorna who reports she is able to get the patient in for an an MRI today. 1800: Care signed out to Dr. Irvin pending MRCP and final disposition. Quality Measures none Orders Category Date Time Status CT Screening NOW Care 01/11/25 14:34 Completed MRI Screening NOW Care 01/11/25 16:[address] abdomen pelvis w con Stat Exams 01/11/25 14:34 Completed MR MRCP Stat Exams 01/11/25 Completed CBC Stat Lab 01/11/25 13:24 Completed CMP [Comprehensive Metabolic Panel] Stat Lab 01/11/25 13:24 Completed UA, C/S IF [Urinalysis, C/S if Indicated] Stat Lab 01/11/25 14:34 Completed Urine Culture Stat Lab 01/11/25 14:34 Completed Morphine* Inj Med 01/11/25 14:13 Discontinued 4 mg IVP X1 ONE Ondansetron Inj [Zofran Inj] Med 01/11/25 14:13 Discontinued 4 mg IVP X1 ONE Vital Signs Vital signs: Vital Signs Temperature 98.2 F 01/11/25 12:53 Pulse Rate 84 01/11/25 12:53 Respiratory Rate 17 01/11/25 12:53 Blood Pressure 133/74 H 01/11/25 12:53 Pulse Oximetry (%) 96 01/11/25 12:53 Oxygen Delivery Method Room Air 01/11/25 12:53 Pulse ox is 96% on room air which is adequate. Urogenital - Male MDM Narrative MDM Narrative:: Loraine Rodriguez am scribing for and in the presence of Dr. Aiken. Patient data External records reviewed:: [facility] previous records Clinical information provided by:: family (Niece ) Social determinants that could affect healthcare access:: none Patient has the following chronic illnesses:: CVA with aphasia and right hemiparesis, hypertension, chronic indwelling poon catheter, recurrent UTIs and previous bowel obstruction (per the niece) How is presenting disease/condition affected by chronic disease/condition?: exacerbated by Evaluation data The following diagnostics were reviewed and interpreted by me:: lab results Lab and/or radiology exams considered but not ordered:: None Interpretation Summary: Ordering Physician: Suzy Aiken MD Date of Service: 01/11/25 Procedure(s): CT abdomen pelvis w con Accession Number(s): [id number] cc: Rickey Vasquez MD; Suzy Aiken MD; Lana Little PA-C~ Examination: CT abdomen with intravenous contrast CT pelvis with intravenous contrast 2-D coronal reconstructions 2-D sagittal reconstructions Date and time of exam: January 11, 2025, 1547 hours, comparison December 18, 2024 INDICATIONS: History abdominal distention abdominal pain today, history bilateral renal calculi and urinary tract infection on CT study December 18, 2024. CTDI: vol (mGy) 11.8 DLP: (mGycm) 644 Technique: Multiple axial sections of the abdomen and pelvis have been obtained. 64 slice high-resolution scanner used. 3 mm axial sections have been obtained, post intravenous injection 60 cc Isovue 370 2-D sagittal, coronal reconstructions obtained. Low dose protocols were performed. One or more of the following dose reduction techniques were used; automated exposure control, adjustment of the mA and/or KV according to patient size, use of iterative reconstruction technique. Findings: Mild intrahepatic biliary tract dilatation No gallstones Spleen not enlarged Extrahepatic biliary tract dilatation Common hepatic duct 10 mm, common bile duct at least 8 mm no definite common bile duct stones Pancreatic duct is mildly dilated, 3 mm No pancreatic mass Bilateral renal calculi, multiple, the largest in the right kidney lower pole 9 mm left kidney lower pole staghorn calculus 13 mm Wall thickening involving both pelvicalyceal systems and ureters, no ureteral calculi No bowel obstruction Normal appendix No diverticulitis No prostatomegaly Urinary bladder intact with a urinary Poon catheter Severe osteopenia Advanced degenerative disc disease L4-L5 IMPRESSION: Significant extrahepatic biliary tract dilatation, common hepatic duct 10 mm, common bile duct 8 mm, consider MRCP follow-up to exclude common bile duct stricture or stones Bilateral renal calculi, suspicious for urinary tract infections, no obstruction or ureteral calculi Normal appendix Dictated By: Rickey Vasquez MD Signed By: <Electronically signed by Rickey Vasquez MD in OV> 01/11/25 1611 Medications / Prescriptions Medications or Prescriptions considered but not ordered:: None Medication administrations:: Medication Administration History Discontinued Medications Morphine Sulfate (Morphine Sulf Inj 4 Mg/Ml Vial) 4 mg IVP X1 ONE Stop: 01/11/25 14:14 Last Admin: 01/11/25 14:21 Dose: 4 mg Documented By: EF Ondansetron HCl (Ondansetron Inj 2 Mg/Ml Inj 2 Ml) 4 mg IVP X1 ONE Stop: 01/11/25 14:14 Last Admin: 01/11/25 14:21 Dose: 4 mg Documented By: EF See above Consultations Consultation(s) initiated? (list below): No Diagnosis Urogenital Male Differential Diagnosis: urinary tract infection and other (pyelonephritis, small bowel obstruction ) Most likely diagnosis given after review of the tests above:: Abdominal pain Admission Indicated Admission indicated?: not indicated Explain why admission is indicated or not indicated:: Signed out pending final disposition. Admission Request Was there a request for admission?: No Disposition Plan Disposition Plan: Discharge Discharge Attestation Discharge Attestation: The patient and all family members were given an opportunity to ask questions and understood the discharge instructions. Discharge instructions specifically effects, indications for sooner follow up or return to the emergency department, and the expected course of current diagnosis. Patient condition: Stable Discharge Plan Plan Patient Disposition: [facility] Facility Pt Being Transferred to: [facility] Service Needed for Transfer: Gastroenterology Prescriptions/Referrals Prescriptions/Med Rec: No Action tamsulosin 0.4 mg capsule 4 mg PO DAILY folic acid 1 mg tablet 1 mg PO QDAY levothyroxine 100 mcg tablet 100 mcg PO QDAY quetiapine 25 mg tablet 25 mg PO HS thiamine HCl (vitamin B1) 100 mg tablet 100 mg PO QDAY metoprolol succinate 100 mg tablet extended release 24 hr 50 mg PO 1200 Qty: 30 0RF Patient Comments: TAKE ONE TABLET BY MOUTH EVERY DAY in THE afternoon FOR BLOOD PRESSURE aspirin 81 mg tablet,chewable 81 mg PO QDAY Qty: 30 0RF cholecalciferol (vitamin D3) [Vitamin D3] 10 mcg (400 unit) tablet 400 unit PO DAILY Patient Comments: TAKE ONE TABLET BY MOUTH TWICE DAILY VITAMIN levetiracetam 500 mg tablet 500 mg PO Q12H Patient Comments: TAKE ONE TABLET BY MOUTH TWICE DAILY albuterol sulfate [Ventolin HFA] 90 mcg/actuation Hfa Aerosol Inhaler 1 puff INH Q6HR PRN (Reason: wheezing) 30 Days Qty: 6.7 1RF Referrals: Lana Little PA-C [Primary Care Provider, Family Practice] - In 1 week Problem List Clinical Impression: Biliary obstruction, Choledocholithiasis Patient/Caregiver Discharge Instructions Print Language: Kinyarw[place] Stand Alone Forms: Cynthia Award Info., Patient Portal Info Letter
[2025-01-11] MEDS: ONDANSETRON INJ 2 MG/ML INJ 2 ML 4 MG IVP (14:21)
[2025-01-11] MEDS: MORPHINE SULF INJ 4 MG/ML VIAL IVP (14:21)
--- NOTE | 2025-01-11 14:34 | XR_ITS ---
Examination: CT abdomen with intravenous contrast CT pelvis with intravenous contrast 2-D coronal reconstructions 2-D sagittal reconstructions Date and time of exam: January 11, 2025, 1547 hours, comparison December 18, 2024 INDICATIONS: History abdominal distention abdominal pain today, history bilateral renal calculi and urinary tract infection on CT study December 18, 2024. CTDI: vol (mGy) 11.8 DLP: (mGycm) 644 Technique: Multiple axial sections of the abdomen and pelvis have been obtained. 64 slice high-resolution scanner used. 3 mm axial sections have been obtained, post intravenous injection 60 cc Isovue 370 2-D sagittal, coronal reconstructions obtained. Low dose protocols were performed. One or more of the following dose reduction techniques were used; automated exposure control, adjustment of the mA and/or KV according to patient size, use of iterative reconstruction technique. Findings: Mild intrahepatic biliary tract dilatation No gallstones Spleen not enlarged Extrahepatic biliary tract dilatation Common hepatic duct 10 mm, common bile duct at least 8 mm no definite common bile duct stones Pancreatic duct is mildly dilated, 3 mm No pancreatic mass Bilateral renal calculi, multiple, the largest in the right kidney lower pole 9 mm left kidney lower pole staghorn calculus 13 mm Wall thickening involving both pelvicalyceal systems and ureters, no ureteral calculi No bowel obstruction Normal appendix No diverticulitis No prostatomegaly Urinary bladder intact with a urinary Love catheter Severe osteopenia Advanced degenerative disc disease L4-L5 IMPRESSION: Significant extrahepatic biliary tract dilatation, common hepatic duct 10 mm, common bile duct 8 mm, consider MRCP follow-up to exclude common bile duct stricture or stones Bilateral renal calculi, suspicious for urinary tract infections, no obstruction or ureteral calculi Normal appendix
[2025-01-11 14:50] LABS: Collection Type, Urine Catheter
[2025-01-11 15:12] LABS: Bacteria,Urine Rare; Bilirubin,Urine Negative (Negative); Blood,Urine 2+ (Negative); Budding Yeast,Urine Present; Clarity,Urine Turbid (Clear/Hazy); Color,Urine Lt-Yellow (Lt Yel-Yel); Glucose, Urine Negative (Negative); Hyphae Yeast Present; Ketones,Urine Negative (Negative); Leukocyte Esterase,Urine Positive (Negative); Nitrite,Urine Positive (Negative); PH,Urine 6.5 (5.0-7.0); Protein,Urine Negative (Neg - Trace); RBC,Urine 121 /hpf (0-3); Specific Gravity,Urine 1.011 (1.001-1.035); Squamous Epithelial Cell,Urine < 1 /hpf (0-5); Urobilinogen,Urine Negative mg/dL (0.0-1.0); WBC,Urine 42 /hpf (0-5)
[2025-01-11 15:14] LABS: Culture Indicated,Urine Yes
--- NOTE | 2025-01-11 18:05 | PD.EDADDENDU ---
Emergency Room Addendum Addendum Narrative: 1800: Care assumed from Dr. Aiken, the previous shift emergency physician. Past medical, surgical, social and family history reviewed. Vitals and home medications reviewed. Results and treatment plan discussed. I will assume the care of the patient at this time and will follow the patient. Please refer to the emergency department record for history and examination from initial visit. 64yo male s/p CVA with right hemiparesis and essentially mute, grimacing and gesturing towards his abdomen several days per son. Patient underwent extensive work-up including MRCP, which demonstrates an impacted distal CBD stone. Patient remained hemodynamically stable without signs of sepsis and currently pain is under control. Patient will require transfer for a higher [id number] for ERCP. 2054: Discussed case with [facility]'s transfer center. Discussed patients ED course, exam findings, labs, and radiology results. Awaiting callback at this time. 0045: Dr. Carpenter, Hospitalist at [facility], accepts the patient for transfer. Patient will be going to room 220. Dx: biliary obstruction, choledocholithiasis RADIOLOGY RESULTS: [facility] Report Signed Patient: GABBY STEWART. Record#: [id number] Birthdate: 1960 Age/Sex: 64 / M Location: [facility] Attending Dr: Ordering Physician: Suzy Aiken MD Date of Service: 01/11/25 Procedure(s): MR MRCP Accession Number(s): [id number] cc: Rickey Vasquez MD; Suzy Aiken MD; Lana Little PA-C~ MRI abdomen, without contrast. MRCP Date and time of exam: January 11, 2025, 1736 hours INDICATIONS: Decreased urinary tract output since yesterday, extrahepatic biliary tract dilatation on CT abdomen/pelvis study this afternoon Technique: Multiple axial and coronal images of the abdomen have been obtained with the Siemens 1.5T MRI scanner. Images obtained included T1 weighted transverse images, T2-weighted transverse images, T2-weighted transverse images fat-suppressed, T2 weighted haste fat suppressed transverse images, T1 weighted images, in and out of phase images, T2-weighted coronal images, breath hold, T2 weighted haze coronal images as well as T2 weighted coronal thick slab images, MRCP. Findings: Intrahepatic biliary tract dilatation No gallstones Common hepatic duct common bile duct 9 mm Meniscus defect in the distal common bile duct suspicious for 5 mm impacted distal common bile duct stone Spleen is not enlarged Negative for pancreatitis Minimal perinephric stranding Aorta normal size IMPRESSION: Extrahepatic biliary tract dilatation, suspicious for 5 mm impacted stone in the distal common bile duct, recommend ERCP follow-up Dictated By: Rickey Vasquez MD Signed By: <Electronically signed by Rickey Vasquez MD in [place]> 01/11/25 [id number]
--- NOTE | 2025-01-11 20:16 | PC.NURSE ---
[facility] sent clinicals for ERCP transfer they responded are declining at this time due to capacity.
--- NOTE | 2025-01-11 21:27 | PC.NURSE ---
20:26 Transfer initiated with [facility] for ER[facility] clinicals sent, peer to peer with MD Elizabeth Hay [facility] stated they would get back to us.
--- NOTE | 2025-01-11 23:05 | PC.NURSE ---
Pt resting with eyes closed. Respirations are even and unlabored. No s/s of acute distress noted. Plan of care ongoing.
--- NOTE | 2025-01-12 00:11 | PC.NURSE ---
THIS PT HAS BEEN ACCEPTED TO [facility] AND WE ARE JUST PENDING A BED ASSIGNMENT AT THIS TIME. LIT WAS THE FACILITY REP WHO CALLED AND PROVIDED THIS INFORMATION.
[2025-01-12 00:25] VITALS: BP 128/79; PULSE 93; RESP 14; TEMP 36.6; O2SAT 93
[2025-01-12 01:34] VITALS: BP 158/98; PULSE 88; TEMP 37; O2SAT 97
--- NOTE | 2025-01-12 01:49 | PC.NURSE ---
Betty from [facility] called for admitting information. Pt being admitted to #[id number] by MD Carpenter. Report to be called to
[2025-01-12 02:00] VITALS: BP 120/84; PULSE 78; RESP 18; TEMP 37.2; O2SAT 97
--- NOTE | 2025-01-12 02:45 | PC.NURSE ---
[facility] here to transport pt to [facility], report given to [facility]
--- NOTE | 2025-01-12 02:47 | PC.NURSE ---
Report given to MARINO Alford at [facility]
[2025-01-12 02:48] VITALS: BP 120/84; PULSE 78; RESP 18; TEMP 37.2; O2SAT 97
== END 2025-01-12 02:48 | disposition short-term general hospital (02) ==
PROVIDERS: Emergency Medicine; Emergency Provider Emergency Medicine; PCP Physician Assistant
DX: K80.51 Calculus of bile duct without cholangitis or cholecystitis with obstruction (principal); I10 Essential (primary) hypertension
CPT/HCPCS: 36415; 51702; 74177; 74181; 80053; 81001; 85025; 87077; 87086; 87186; 96374; 96375; 99284; A4314; A4649; J2270; J2405; Q9967